=== PATIENT | female | born 1930 | race Caucasian/White ===

== ENCOUNTER 2016-10-12 19:48 | Inpatient (IN) | payer OTHER, MEDICARE ==
[~2016-10-12] VITALS: Ht 160 cm; Wt 48.5 kg
[~2016-10-12 19:48] MED LIST: ATORVASTATIN CA40 M1 PO; LISINOPRIL10 M1 PO; METOPROLOL TART25 M1 PO; PRADAXA150 M1 PO
--- NOTE | 2016-10-12 19:50 | NUR ---
BIBA AFTER FALLING WHEN REACHING FOR BOTTLE OF SODA. LANDED ON LEFT SHOULDER AND BACK. DENIES HEAD STRIKE OR LOC. LEFT SHOULDER PAIN. + MOTION, SENSATION IN LEFT HAND. LEFT SHOULD IN IMMOBILIZER. EMS UNABLE TO PLACE C COLLAR, THEY WRAPPED SHEET AROUND NECK TO STABALIZE NECK. PT AWAKE, ALERT AND ORIENTED X3.
--- NOTE | 2016-10-12 20:00 | ED MVC/FALL/TRAUMA COMPLAINT ---
History of Present Illness General Chief Complaint: Fall Stated Complaint: FELL, LEFT SHOULDER INJURY, NO LOC Source: patient Exam Limitations: no limitations Vital Signs & Intake/Output Vital Signs & Intake/Output Vital Signs Date Time Temp Pulse Resp B/P Pulse O2 O2 Flow FiO2 Ox Delivery Rate 10/13 0907 96.9 87 18 175/81 10/13 0907 96.9 87 18 175/81 10/13 0906 96.9 87 18 175/81 10/13 0650 96.9 87 18 175/81 96 Room Air 10/13 0300 98.7 85 18 154/88 96 Room Air 10/12 2205 98.8 87 18 172/90 95 Room Air 10/12 2048 Room Air 10/12 1950 97.6 81 18 133/102 98 Room Air ED Intake and Output 10/13 0000 10/12 1200 Intake Total Output Total Balance Patient 105 lb Weight Allergies Coded Allergies: No Known Allergies (04/22/16) Reconcile Medications Apixaban (Eliquis) 2.5 MG TABLET 1 TAB PO BID BLOOD THINNER (Reported) Atorvastatin Calcium 40 MG TABLET 1 TAB PO 1700 High Cholestrol Lisinopril 10 MG TABLET 1 TAB PO DAILY High Blood Pressure Metoprolol Tartrate 25 MG TABLET 0.5 TAB PO BID HEART/BP (Reported) Triage Note: BIBA AFTER FALLING WHEN REACHING FOR BOTTLE OF SODA. LANDED ON LEFT SHOULDER AND BACK. DENIES HEAD STRIKE OR LOC. LEFT SHOULDER PAIN. + MOTION, SENSATION IN LEFT HAND. LEFT SHOULD IN IMMOBILIZER. EMS UNABLE TO PLACE C COLLAR, THEY WRAPPED SHEET AROUND NECK TO STABALIZE NECK. PT AWAKE, ALERT AND ORIENTED X3. Triage Nurses Notes Reviewed? yes Onset: Abrupt Duration: minute(s): Timing: single episode today Severity: moderate Injuries/Fall Location: upper extremity Method of Injury: fall Loss of Consciousness: no loss of consciousness Modifying Factors: Worsens With: movement, palpation. Associated Symptoms: left shoulder pain HPI: 85-year-old woman history of a fall and left shoulder pain. She states that she was reaching for a bottle of soda when she had a mechanical fall. She landed on her left shoulder. She did not hit her head she did not lose consciousness. She has no further pain or discomfort. She notes that she has pain with slight movement of her left shoulder. No chest pain, palpitations, syncopal type symptoms. She is otherwise well. She declines pain medications (NANY JAMES,VIKRAM Moreno) Past History Travel History Traveled to [place] past 21 day No Medical History Any Pertinent Medical History? see below for history Neurological: subdural hematoma Subarachnoid Hemorrhage () Falls EENT: NONE Cardiovascular: AFIB Respiratory: NONE Gastrointestinal: NONE Hepatic: NONE Renal: NONE Musculoskeletal: NONE Psychiatric: NONE Endocrine: NONE Blood Disorders: NONE Cancer(s): NONE History of MRSA: No History of VRE: No History of CDIFF: No Surgical History Surgical History: non-contributory Psychosocial History Who do you live with Spouse Services at Home Nursing What is your primary language Lithuanian Tobacco Use: Never used ETOH Use: denies use Illicit Drug Use: denies illicit drug use Family History Family History, If Any: Relation not specified for: *No pertinent family history Hx Contributory? No (NANY JAMES,VIKRAM Moreno) Review of Systems Review of Systems Constitutional: Reports: no symptoms. Eyes: Reports: no symptoms. Ears, Nose, Throat, Mouth: Reports: no symptoms. Respiratory: Reports: no symptoms. Cardiovascular: Reports: no symptoms. Gastrointestinal/Abdominal: Reports: no symptoms. Genitourinary: Reports: no symptoms. Musculoskeletal: Reports: no symptoms. Skin: Reports: no symptoms. Neurological/Psychological: Reports: no symptoms. All Other Systems: Reviewed and Negative (NANY JAMES,VIKRAM Moreno) Physical Exam Physical Exam General Appearance: well developed/nourished, mild distress Head: atraumatic, normal appearance Eyes: Bilateral: normal appearance. Ears, Nose, Throat, Mouth: hearing grossly normal Neck: normal inspection, supple, full range of motion, normal alignment Respiratory: normal breath sounds, chest non-tender, no respiratory distress, quiet respiration, lungs clear Cardiovascular: regular rate/rhythm Gastrointestinal: normal bowel sounds, soft, non-tender, no organomegaly Back: normal inspection, normal range of motion Extremities: shoulder with moderate tenderness around the left shoulder girdle. No obvious deformity. 2+ distal pulse. Light touch intact. No pain or tenderness around the left elbow or left wrist. Pelvis is stable. Range of motion of both hips is normal. Neurologic/Psych: no motor/sensory deficits, awake, alert, oriented x 3 Skin: intact, normal color, warm/dry Core Measures ACS in differential dx? No Severe Sepsis Present: No Septic Shock Present: No (NANY JAMES,VIKRAM Moreno) Progress Differential Diagnosis: C/T/L spine injury, ext injury, ICH Plan of Care: Orders Procedure Date/time Status Heart Healthy Diet 10/13 B Active Admit to inpatient 10/13 0945 Active PT Evaluate & Treat 10/13 0755 Active TROPONIN LEVEL 10/13 0230 Complete EKG 10/13 229 Active URINALYSIS 10/13 2211 Complete TROPONIN LEVEL 10/13 2211 Complete COMPREHENSIVE METABOLIC PANEL 10/13 2211 Complete CBC WITHOUT DIFFERENTIAL 10/13 2211 Complete CASE MANAGEMENT CONSULT 10/13 2211 Active Current Medications Sig/Chava Start time Last Medication Dose Stop Time Status Admin Atorvastatin Calcium 40 MG 1700 10/13 1700 UNVr (Lipitor) Metoprolol Tartrate 12.5 MG BID 10/13 1000 UNVr (Lopressor) Laboratory Tests 10/13/16 0248: Troponin I 0.03 10/12/16 2258: Anion Gap 9, Estimated GFR > 60, BUN/Creatinine Ratio 28.3 H, Glucose 119 H, Calcium 9.0, Total Bilirubin 1.9 H, AST 31, ALT 50, Alkaline Phosphatase 161 H , Troponin I 0.03, Total Protein 6.7, Albumin 3.6, Globulin 3.1, Albumin/ Globulin Ratio 1.2 10/12/16 2230: Urine Color YEL, Urine Clarity CLEAR, Urine pH 8.0, Ur Specific [place] 1.020, Urine Protein TRACE H, Urine Ketones NEG, Urine Nitrite NEG, Urine Bilirubin NEG, Urine Urobilinogen 0.2, Ur Leukocyte Esterase NEG, Ur Microscopic SEDIMENT EXAMINED, Urine RBC RARE, Urine WBC 1-3 H, Ur Epithelial Cells FEW, Urine Bacteria FEW H, Urine Mucus RARE, Urine Hemoglobin TRACE-INTACT, Urine Glucose NEG 10/12/16 2223: CBC w Diff NO MAN DIFF REQ, RBC 4.41, MCV 86.3, MCH 29.0, RDW 20.3 H, MPV 10.0, Gran % 89.9 H, Lymphocytes % 5.7 L, Monocytes % 4.1, Eosinophils % 0.1, Basophils % 0.2, Absolute Granulocytes 13.6 H, Absolute Lymphocytes 0.9 L, Absolute Monocytes 0.6, Absolute Eosinophils 0, Absolute Basophils 0, PUBS MCHC 33.6 Diagnostic Imaging: Viewed by Me: Radiology Read, CT Scan. Discussed w/RAD: Radiology Read, CT Scan. Radiology Impression: head/cervical ct.... age related changes.. .no acute bleed /fx...full report below. , ap pelvis... left pubic rami fx. , left shoulder... prox humerus fx... full report below. CXR Impression: no acute abnormality, no infiltrates, normal size heart, normal mediastinum Initial ED EKG: normal axis, normal intervals, normal p-waves, normal QRS complex, normal sinus rhythm Repeat EKG: unchanged Hand-Off Endorsed To: LOUIS URBANO MD Endorsed Time: 0700 Pending: consult Comments: PATIENT: JACOB MCMILLAN PRESENT AGE: 85 PATIENT ACCOUNT NO: [id number] : [birth year] LOCATION: [facility] ORDERING PHYSICIAN: VIKRAM AYON MD SERVICE DATE: 10/12/16 EXAM TYPE: RAD - XRY-SHOULDER COMPLETE-LEFT EXAMINATION: SHOULDER 3 VIEWS, LEFT CLINICAL INFORMATION: Left shoulder pain after fall. COMPARISON: None. TECHNIQUE: AP views of the left shoulder were obtained in internal and external rotation. In addition, a Y view was obtained. FINDINGS: There is a nondisplaced left humeral neck fracture. Alignment is adequate. The humeral head is seated within a well-formed glenoid. The AC joint is intact. IMPRESSION: Nondisplaced left humeral neck fracture. DICTATED BY: VICTOR MANUEL MOLINA MD DATE/TIME DICTATED:10/12/162057 NEW PRODUCT TRAINER:MIKAEL DATE/TIME TRANSCRIBED:10/12/162057 CONFIDENTIAL, DO NOT COPY WITHOUT APPROPRIATE AUTHORIZATION. <Electronically signed in Other Vendor System> SIGNED BY: VICTOR MANUEL MOLINA MD 10/12/162102 PATIENT: JACOB MCMILLAN PRESENT AGE: 85 PATIENT ACCOUNT NO: [id number] : [birth year] LOCATION: ER ORDERING PHYSICIAN: VIKRAM AOYN MD SERVICE DATE: 10/12/16 EXAM TYPE: RAD - XRY-AP PELVIS EXAMINATION: PELVIS 1 VIEW CLINICAL INFORMATION: Left-sided pain after fall. COMPARISON: None. TECHNIQUE: A supine view of the pelvis is provided. FINDINGS: There is a fracture to the medial left superior pubic ramus near the pubic symphysis. Both femoral heads are seated within well-formed acetabula. No dysplastic changes are identified. There is medial joint space narrowing to the chest. The visualized bowel gas pattern is unremarkable. IMPRESSION: Left pubic ramus fracture. Mild medial hip joint space narrowing bilaterally. DICTATED BY: VICTOR MANUEL MOLINA MD DATE/TIME DICTATED:10/12/162099 NEW PRODUCT TRAINER:MIKAEL DATE/TIME TRANSCRIBED:10/12/162099 CONFIDENTIAL, DO NOT COPY WITHOUT APPROPRIATE AUTHORIZATION. <Electronically signed in Other Vendor System> SIGNED BY: VICTOR MANUEL MOLINA MD 10/12/162104 PATIENT: JACOB MCMILLAN PRESENT AGE: 85 PATIENT ACCOUNT NO: [id number] : [birth year] LOCATION: [facility] ORDERING PHYSICIAN: VIKRAM AYON MD SERVICE DATE: 10/12/16 EXAM TYPE: CAT - CT CERV SPINE WO IV CONTRAST; CT HEAD WO IV CONTRAST EXAMINATIONS: CT HEAD WITHOUT CONTRAST AND CT CERVICAL SPINE WITHOUT CONTRAST CLINICAL INFORMATION: Pain following injury. Trauma. COMPARISON: 04/22/2016. TECHNIQUE: Contiguous helical images of the brain were obtained without IV contrast. Contiguous helical images of the cervical spine were obtained without IV contrast. Multiplanar reconstructions were performed. DLP: 922 mGy-cm. FINDINGS: There are no pathologic extra-axial fluid collections. Very mild dural thickening on the left is likely residua of the prior left subdural hemorrhage. The lateral, third, fourth ventricles are mildly prominent, but stable, age-appropriate and concordant with the appearance of the sulci. There is no evidence for acute intraparenchymal hemorrhage or infarct. There is periventricular low-attenuation present indicative of small vessel disease. There is neither mass nor mass effect. There is no shift of midline structures. The paranasal sinuses and mastoid air cells are clear. There are no osseous lesions. The cervical vertebra are in normal alignment. Disc heights and vertebral heights are well-preserved. There is degenerative change within the facet joints of the cervical spine. There are no fractures. There is no prevertebral soft tissue swelling. There is no cervical lymphadenopathy. There is a moderate right pleural effusion. IMPRESSION: No evidence for acute intracranial injury. Age-appropriate appearance of the brain. No evidence for acute injury to the cervical spine. Moderate right pleural effusion. DICTATED BY: VICTOR MANUEL MOLINA MD DATE/TIME DICTATED:10/12/162124 NEW PRODUCT TRAINER:MIKAEL DATE/TIME TRANSCRIBED:10/12/162124 CONFIDENTIAL, DO NOT COPY WITHOUT APPROPRIATE AUTHORIZATION. <Electronically signed in Other Vendor System> SIGNED BY: VICTOR MANUEL MOLINA MD 10/12/162135 (VIKRAM AYON MD) Comments: Patient has been seen and evaluated by physical therapy. Patient is unsafe to go home. Secondary to her gait instability. Patient is also unable to use a walker given the fact that she also has a fractured humerus. At this point the patient will require admission for K instability and unsafe environment at home given her current circumstances. Patient will require short-term rehabilitation. (YOLIE JAMES,LOUIS Fernandez) Departure Departure Disposition: HOME OR SELF CARE Condition: Stable Clinical Impression Primary Impression: Proximal humerus fracture Secondary Impressions: Pubic ramus fracture Referrals: VICTOR MANUEL RAM MD (PCP/Family) Departure Forms: Customer Survey General Discharge Information Comments trop neg x 2, ekg benign x2... other labs benign.... no syncopal type symptoms or chest pain... likely mechanical fall. sling placed on left shoulder by . pt unsafe at home... will have case management and PT evaluate patient for inpt rehab. (NANY JAMES,VIKRAM Moreno) Admission Note Spoke With: ALEJANDRA DO MD Documentation of Exam: Documentation of any treatments & extenuating circumstances including Concerns Regarding Discharge (functional status, medication knowledge or non-compliance, living conditions, etc.) that warrant an admission rather than observation: [ Patient has an unsafe environment at home given the fact that she is very unsteady on her feet given the pubic rami fracture and her inability to use a walker secondary to her humeral fracture. Patient requires admission for pain control and continued physical therapy and then she'll require short-term placement.] (YOLIE JAMES,LOUIS Fernandez)
--- NOTE | 2016-10-12 20:09 | NUR ---
RECIEVED TO ROOM 8. PT AWAKE, ALERT, LAYING QUIETLY WITH EYES CLOSED. COMPLAINING OF LEFT SHOULDER PAIN THAT IS "NOT TOO BAD LONG YOU DONT TOUCH IT". SEEN BY DR AYON. IV CURRENTLY BEING PLACED.
--- NOTE | 2016-10-12 20:10 | NUR ---
AT BEDSIDE. STATES HE GAVE AMBULANCE STAFF A BAG OF PATIENTS MEDS. NO BAG GIVEN TO ED STAFF. WILL TRY TO CONTACT AMBULANCE CREW TO OBTAIN MEDS
[2016-10-12] MEDS ORDERED: METOPROLOL TART25 M1 PO (20:39)
[2016-10-12] MEDS ORDERED: ELIQUIS2.5 M1 PO (20:39)
--- NOTE | 2016-10-12 20:46 | NUR ---
PT SENT AND RETURNED FROM XRAY. LOGROLLED AND PLACED ON BEDPAIN. CURRENTLY TRYING TO VOID. PT REMAINS AWAKE AND ALERT BUT IS LAYING VERY STILL AND QUIET, KEEPING EYES CLOSED
--- NOTE | 2016-10-12 20:55 | NUR ---
PT UNABLE TO VOID. TAKEN OFF BEDPAN. GIVEN EXTRA BLANKETS DUE TO BEING COLD
--- NOTE | 2016-10-12 21:02 | RADIOLOGY REPORT ---
EXAMINATION: CHEST 1 VIEW CLINICAL INFORMATION: Left shoulder pain after fall. COMPARISON: None. TECHNIQUE: An AP view of the chest is provided. FINDINGS: The cardiac silhouette is not enlarged. The mediastinal and hilar contours are unremarkable. There are neither pleural effusions nor pneumothoraces. There are no consolidations. The osseous structures are unremarkable. IMPRESSION: No evidence for acute disease.
--- NOTE | 2016-10-12 21:03 | RADIOLOGY REPORT ---
EXAMINATION: SHOULDER 3 VIEWS, LEFT CLINICAL INFORMATION: Left shoulder pain after fall. COMPARISON: None. TECHNIQUE: AP views of the left shoulder were obtained in internal and external rotation. In addition, a Y view was obtained. FINDINGS: There is a nondisplaced left humeral neck fracture. Alignment is adequate. The humeral head is seated within a well-formed glenoid. The AC joint is intact. IMPRESSION: Nondisplaced left humeral neck fracture.
--- NOTE | 2016-10-12 21:05 | RADIOLOGY REPORT ---
EXAMINATION: PELVIS 1 VIEW CLINICAL INFORMATION: Left-sided pain after fall. COMPARISON: None. TECHNIQUE: A supine view of the pelvis is provided. FINDINGS: There is a fracture to the medial left superior pubic ramus near the pubic symphysis. Both femoral heads are seated within well-formed acetabula. No dysplastic changes are identified. There is medial joint space narrowing to the chest. The visualized bowel gas pattern is unremarkable. IMPRESSION: Left pubic ramus fracture. Mild medial hip joint space narrowing bilaterally.
--- NOTE | 2016-10-12 21:36 | CT SCAN REPORT ---
EXAMINATIONS: CT HEAD WITHOUT CONTRAST AND CT CERVICAL SPINE WITHOUT CONTRAST CLINICAL INFORMATION: Pain following injury. Trauma. COMPARISON: 04/22/2016. TECHNIQUE: Contiguous helical images of the brain were obtained without IV contrast. Contiguous helical images of the cervical spine were obtained without IV contrast. Multiplanar reconstructions were performed. DLP: 922 mGy-cm. FINDINGS: There are no pathologic extra-axial fluid collections. Very mild dural thickening on the left is likely residua of the prior left subdural hemorrhage. The lateral, third, fourth ventricles are mildly prominent, but stable, age-appropriate and concordant with the appearance of the sulci. There is no evidence for acute intraparenchymal hemorrhage or infarct. There is periventricular low-attenuation present indicative of small vessel disease. There is neither mass nor mass effect. There is no shift of midline structures. The paranasal sinuses and mastoid air cells are clear. There are no osseous lesions. The cervical vertebra are in normal alignment. Disc heights and vertebral heights are well-preserved. There is degenerative change within the facet joints of the cervical spine. There are no fractures. There is no prevertebral soft tissue swelling. There is no cervical lymphadenopathy. There is a moderate right pleural effusion. IMPRESSION: No evidence for acute intracranial injury. Age-appropriate appearance of the brain. No evidence for acute injury to the cervical spine. Moderate right pleural effusion.
--- NOTE | 2016-10-12 21:42 | NUR ---
HSB AT BEDSIDE, HE WAS PROVIDED BOX MEAL PER HIS REQUEST
--- NOTE | 2016-10-12 21:42 | NUR ---
PT WAS INCONTINENT OF URINE. LOG ROLLED FOR LINEN CHANGE
--- NOTE | 2016-10-12 22:15 | NUR ---
DR AYON IN TO REVIEW TEST RESULTS. SHEET AROUND NECK REMOVED. EMS SLING REMOVED AND LEFT SHOULDER IMMOBILIZER PLACED ON PT. PLAN OF CARE REVIEWED WITH PT. PT TO STAY IN ED UNTIL SEEN BY PT AND CASE MANAGEMENT TO DECIDE IF SHE CAN GO HOME OR GO TO SHORT TERM REHAB. PT ALLOWED TO EAT AND GET UP TOLERATED.
--- NOTE | 2016-10-12 22:35 | NUR ---
LABS DRAWN, URINE TRIO SENT TO LAB
[2016-10-12 22:45] LABS: ABSOLUTE BASOPHIL COUNT 0 /CUMM (0.0-0.2); ABSOLUTE EOSINOPHIL COUNT 0 /CUMM (0.0-0.7); ABSOLUTE GRANULOCYTE CT 13.6 /CUMM (1.4-6.5); ABSOLUTE LYMPH COUNT 0.9 /CUMM (1.2-3.4); ABSOLUTE MONOCYTE COUNT 0.6 /CUMM (0.10-0.60); BASOPHIL % 0.2 % (0.0-2.0); EOSINOPHIL % 0.1 % (0-5); GRANULOCYTE % 89.9 % (42.2-75.2); HEMATOCRIT 38.1 % (37-47); MEAN CORPUSCULAR HGB CONC 33.6 G/DL (33.0-37.0); MEAN CORPUSCULAR VOLUME 86.3 FL (81.0-99.0); PLATELET COUNT 111 /CUMM (130-400); RBC DISTRIBUTION WIDTH 20.3 % (11.5-14.5); RED BLOOD CELL CT 4.41 /CUMM (4.20-5.40); WHITE BLOOD CELL COUNT 15.1 /CUMM (4.8-10.8)
--- NOTE | 2016-10-12 23:08 | NUR ---
PT GIVEN IV TYLENOL AND IVF INFUSING AT 250CC/HR. HOB RAISED AND PT ATE HALF A SANDWICH.
--- NOTE | 2016-10-13 00:04 | NUR ---
PT INCONTINENT OF URINE. INCONTINENCE CARE PROVIDED. PT DENIES ANY OTHER NEEDS AT THIS TIME.
--- NOTE | 2016-10-13 02:45 | NUR ---
PT AWAKE AND ALERT FOR REPEAT BLOOD WORK AND EKG. DENIES COMPLAINTS AT THIS TIME. WILL CTM.
--- NOTE | 2016-10-13 02:54 | NUR ---
SECOND TROP DRAWN AND SENT TO LAB
--- NOTE | 2016-10-13 04:50 | NUR ---
PT SLEEPING WITH REGULAR RR NOTED. WILL CTM.
--- NOTE | 2016-10-13 05:18 | NUR ---
PT INCONTINENT OF URINE. INCONTINENCE CARE PROVIDED. LINENS CHANGED AND PT PROVIDED WITH ADDITIONAL BLANKETS PER REQUEST.
--- NOTE | 2016-10-13 07:00 | NUR ---
PT AWAKE AND ALERT. VSS. REPOSITIONED IN BED. PT DENIES ANY PAIN OR ANY NEEDS AT THIS TIME.
--- NOTE | 2016-10-13 07:14 | NUR ---
REPORT RECEIVED AND CARE ASSUMED.
--- NOTE | 2016-10-13 08:56 | NUR ---
PT NOW AT THE BEDSIDE FOR EVAL.
--- NOTE | 2016-10-13 09:11 | NUR ---
ALL MORNING MEDS PROVIDED.
--- NOTE | 2016-10-13 09:47 | NUR ---
RECOMMENDED BY PT, SHE WILL REQUIRE REHABILITATION.
--- NOTE | 2016-10-13 10:43 | History & Physical ---
General Information and HPI MD Statement: I have seen and personally examined JACOB MCMILLAN and documented this H&P. The patient is a 85 year old F who presented with a patient stated chief complaint of [fall]. History of Present Illness: This is an 85-year-old lady with a past history of atrial fibrillation, hypertension, hyperlipidemia, TIA in March 2016 who presents to the emergency room after a mechanical fall onto her left shoulder. 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 Denies any loss of consciousness or head strike. Denies any chest pain, shortness of breath, nausea, vomiting, diarrhea fevers chills recently or sickcontacts. Her only complaint at present is left shoulder discomfort. Allergies/Medications Allergies: Coded Allergies: No Known Allergies (04/22/16) Home Med list Apixaban (Eliquis) 2.5 MG TABLET 1 TAB PO BID BLOOD THINNER (Reported) Atorvastatin Calcium 40 MG TABLET 1 TAB PO 1700 High Cholestrol Lisinopril 10 MG TABLET 1 TAB PO DAILY High Blood Pressure Metoprolol Tartrate 25 MG TABLET 0.5 TAB PO BID HEART/BP (Reported) Past History Travel History Traveled to [place] past 21 day No Medical History Neurological: subdural hematoma Subarachnoid Hemorrhage () Falls EENT: NONE Cardiovascular: AFIB Respiratory: NONE Gastrointestinal: NONE Hepatic: NONE Renal: NONE Musculoskeletal: NONE Psychiatric: NONE Endocrine: NONE Blood Disorders: NONE Cancer(s): NONE History of MRSA: No History of VRE: No History of CDIFF: No Surgical History Surgical History: non-contributory Past Family/Social History Family History Relations & Conditions if any Relation not specified for: *No pertinent family history Psychosocial History Who Do You Live With? spouse Services at Home: Nursing Primary Language: Bulgarian ETOH Use: denies use Illicit Drug Use: denies illicit drug use Functional Ability ADLs Independent: dressing, eating, toileting, bathing. Ambulation: cane, walker IADLs Independent: shopping, housework, finances, food prep, telephone, transportation , medication admin. Review of Systems Review of Systems Constitutional: Reports: see HPI. Exam & Diagnostic Data Last 24 Hrs of Vital Signs/I&O Vital Signs Date Time Temp Pulse Resp B/P Pulse O2 O2 Flow FiO2 Ox Delivery Rate 10/13 0948 97.3 82 18 136/81 97 Room Air 10/13 0907 96.9 87 18 175/81 10/13 0907 96.9 87 18 175/81 10/13 0906 96.9 87 18 175/81 10/13 0650 96.9 87 18 175/81 96 Room Air 10/13 0300 98.7 85 18 154/88 96 Room Air 10/12 2205 98.8 87 18 172/90 95 Room Air 10/12 2048 Room Air 10/12 1950 97.6 81 18 133/102 98 Room Air Intake & Output 10/13 1600 10/13 0800 10/13 0000 Intake Total Output Total 200 Balance -200 Output, Urine 200 Patient 105 lb Weight Physical Exam General Appearance Alert, Oriented X3, Cooperative, No Acute Distress HEENT Atraumatic, PERRLA, EOMI Cardiovascular Normal S1, Normal S2, irregular rate Lungs Clear to Auscultation, Normal Air Movement Abdomen Normal Bowel Sounds, Soft, No Tenderness Neurological Normal Speech, Normal Tone, Sensation Intact, Cranial Nerves 3-12 NL, left arm in sling Extremities No Clubbing, No Cyanosis Diagnostic Data EKG Results Atrial fibrillation CXR Results X-ray shoulder IMPRESSION: Nondisplaced left humeral neck fracture. X-ray of pelvis IMPRESSION: Left pubic ramus fracture. Mild medial hip joint space narrowing bilaterally. CAT scan of the head and C-spine IMPRESSION: No evidence for acute intracranial injury. Age-appropriate appearance of the brain. No evidence for acute injury to the cervical spine. Moderate right pleural effusion. Chest x-ray IMPRESSION: No evidence for acute disease. Assessment/Plan Assessment: Assessment- 1. Mechanical fall 2. Humerus and pubic rami fractures secondary to fall 3. Reactive leukocytosis 4. Chronic atrial fibrillation 5. Hypertension 6. Hyperlipidemia 7. History of TIA Plan- GEN med admit Vitals per protocol Orthopaedic consult Continue home meds Pain pathway Heart healthy diet PT evaluation and treatment DVT prophylaxis been addressed with Eliquis Full code As Ranked By This Provider Problem List: 1. Pubic ramus fracture 2. Proximal humerus fracture 3. Full code status 4. Atrial fibrillation 5. DVT prophylaxis Core Measures/Miscellaneous Acute Coronary Syndrome ACS Diagnosis: No Cerebrovascular Accident CVA/TIA Diagnosis: No Congestive Heart Failure CHF Diagnosis: No Venous Thromboembolism VTE Risk Factors: Age > 40 No Mech VTE prophylaxis d/t: No contraindications No VTE Pharm Prophylaxis d/t: No contraindications VTE Diagnosis: No VTE Type: NONE VTE Confirmed by (Test): NONE Severe Sepsis Severe Sepsis Present: No Septic Shock Septic Shock Present: No Miscellaneous Documentation Attending Case Discussed With: CHANNING EDMONDS M.D Primary Care Physician: VICTOR MANUEL RAM MD Patient sees these Specialists DR. BENAVIDES Level of Patient Care: General Medicine Resident Review Statement Resident Statement: examined this patient
--- NOTE | 2016-10-13 11:36 | Cons- Orthopedic ---
General Information and HPI Consulting Request Date of Consult: 10/13/16 Requested By: CHANNING EDMONDS M.D Reason for Consult: Left proximal humerus fracture Left superior ramus fracture Source of Information: patient History of Present Illness: 85yo F presented to the [place] [facility] following a mechanical ground level fall on . She was found to have a left proximal humerus fracture and a left superior ramus fracture. Currently complaining of left shoulder pain but denies left hip pain. Denies hitting her head and says she remembers everything. Allergies/Medications Allergies: Coded Allergies: No Known Allergies (04/22/16) Home Med List: Apixaban (Eliquis) 2.5 MG TABLET 1 TAB PO BID BLOOD THINNER (Reported) Atorvastatin Calcium 40 MG TABLET 1 TAB PO 1700 High Cholestrol Lisinopril 10 MG TABLET 1 TAB PO DAILY High Blood Pressure Metoprolol Tartrate 25 MG TABLET 0.5 TAB PO BID HEART/BP (Reported) Past History Medical History Neurological: subdural hematoma Subarachnoid Hemorrhage () Falls EENT: NONE Cardiovascular: AFIB Respiratory: NONE Gastrointestinal: NONE Hepatic: NONE Renal: NONE Musculoskeletal: NONE Psychiatric: NONE Endocrine: NONE Blood Disorders: NONE Cancer(s): NONE Surgical History Pertinent Surgical History: non-contributory Family History Relations & Conditions If Any: Relation not specified for: *No pertinent family history Psychosocial History Who Do You Live With? spouse Services at Home: Nursing Primary Language: American ETOH Use: denies use Illicit Drug Use: denies illicit drug use Functional Ability ADLs Independent: dressing, eating, toileting, bathing. Ambulation: cane, walker IADLs Independent: shopping, housework, finances, food prep, telephone, transportation , medication admin. Exam & Diagnostic Data Vital Signs and I&O Vital Signs Date Time Temp Pulse Resp B/P Pulse O2 O2 Flow FiO2 Ox Delivery Rate 10/13 0948 97.3 82 18 136/81 97 Room Air 10/13 0907 96.9 87 18 175/10/13 0907 96.9 87 18 175/81 10/13 0906 96.9 87 18 175/10/13 0650 96.9 87 18 175/81 96 Room Air 10/13 0300 98.7 85 18 154/88 96 Room Air 10/12 2205 98.8 87 18 172/90 95 Room Air 10/128 Room Air 10/12 1950 97.6 81 18 133/102 98 Room Air Intake & Output 10/13 0810/13 0000 10/12 0810/12 0000 Intake Total Output Total 200 Balance -200 Output, Urine 200 Patient 105 lb Weight Physical Exam: General: Alert, awake, in no acute distess. Laying on stretcher with left arm in sling. Left Upper Extremity: Ecchymosis to left distal arm. 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 Palpable radial pulse. Pelvis/Left Hip: No tenderness on palpation of pelvis. Pain in left arm with log roll of left leg, but no pelvis pain. No tenderness over bilateral lower legs or knees Intact DF/PF of bilateral feet. Sensation intact to light touch over bilateral feet. Last 24 Hours of Labs: Laboratory Tests 10/13 10/12 10/12 0248 2258 2230 Chemistry Sodium (137 - 145 mmol/L) 136 L Potassium (3.5 - 5.1 mmol/L) 3.9 Chloride (98 - 107 mmol/L) 102 Carbon Dioxide (22 - 30 mmol/L) 25 Anion Gap (5 - 16) 9 BUN (7 - 17 mg/dL) 17 Creatinine (0.5 - 1.0 mg/dL) 0.6 Estimated GFR (>60 ml/min) > 60 BUN/Creatinine Ratio (7 - 25 %) 28.3 H Glucose (65 - 99 mg/dL) 119 H Calcium (8.4 - 10.2 mg/dL) 9.0 Total Bilirubin (0.2 - 1.3 mg/dL) 1.9 H AST (14 - 36 U/L) 31 ALT (9 - 52 U/L) 50 Alkaline Phosphatase (<127 U/L) 161 H Troponin I (< 0.11 ng/ml) 0.03 0.03 Total Protein (6.3 - 8.2 g/dL) 6.7 Albumin (3.5 - 5.0 g/dL) 3.6 Globulin (1.9 - 4.2 gm/dL) 3.1 Albumin/Globulin Ratio (1.1 - 2.2 %) 1.2 Urines Urine Color (YEL,AMB,STR) YEL Urine Clarity (CLEAR) CLEAR Urine pH (5.0 - 8.0) 8.0 Ur Specific [place] (1.001 - 1.035) 1.020 Urine Protein (NEG,<30 MG/DL) TRACE H Urine Ketones (NEG) NEG Urine Nitrite (NEG) NEG Urine Bilirubin (NEG) NEG Urine Urobilinogen (0.1 - 1.0 EU/dl) 0.2 Ur Leukocyte Esterase (NEG) NEG Ur Microscopic SEDIMENT EXAMINED Urine RBC (0 - 5 /HPF) RARE Urine WBC (0 - 2 /HPF) 1-3 H Ur Epithelial Cells (NONE,FEW) FEW Urine Bacteria (NEG/NONE) FEW H Urine Mucus (FEW,NONE) RARE Urine Hemoglobin (NEG) TRACE-INTACT Urine Glucose (N MG/DL) NEG 10/12 2222 Hematology CBC w Diff NO MAN DIFF REQ WBC (4.8 - 10.8 /CUMM) 15.1 H RBC (4.20 - 5.40 /CUMM) 4.41 Hgb (12.0 - 16.0 G/DL) 12.8 Hct (37 - 47 %) 38.1 MCV (81.0 - 99.0 FL) 86.3 MCH (27.0 - 31.0 PG) 29.0 RDW (11.5 - 14.5 %) 20.3 H Plt Count (130 - 400 /CUMM) 111 L MPV (7.4 - 10.4 FL) 10.0 Gran % (42.2 - 75.2 %) 89.9 H Lymphocytes % (20.5 - 51.1 %) 5.7 L Monocytes % (1.7 - 9.3 %) 4.1 Eosinophils % (0 - 5 %) 0.1 Basophils % (0.0 - 2.0 %) 0.2 Absolute Granulocytes (1.4 - 6.5 /CUMM) 13.6 H Absolute Lymphocytes (1.2 - 3.4 /CUMM) 0.9 L Absolute Monocytes (0.10 - 0.60 /CUMM) 0.6 Absolute Eosinophils (0.0 - 0.7 /CUMM) 0 Absolute Basophils (0.0 - 0.2 /CUMM) 0 PUBS MCHC (33.0 - 37.0 G/DL) 33.6 Imaging Results: XR left shoulder (10/12/2016): There is a nondisplaced left humeral neck fracture. Alignment is adequate. The humeral head is seated within a well-formed glenoid. The AC joint is intact. XR pelvis (10/12/2016): There is a fracture to the medial left superior pubic ramus near the pubic symphysis. Both femoral heads are seated within well-formed acetabula. Assessment/Plan Assessment/Plan 85yo RHD female with left proximal humerus fracture and left superior ramus fracture s/p ground level fall. Plan: 1. Sling to left upper extremity; non-weight bearing left arm. 2. Weight bearing as tolerated bilateral lower legs. 3. Pain control 4. Mobilization with PT and OT. 5. Recommend removal of rings from right hand. 6. Please have patient follow up in clinic in 2-3 weeks for reevaluation. Consult Acknowledgment - Thank you for your consult request. Attending Review Statement Attending Statement Attending Statement: examined this patient, reviewed images
--- NOTE | 2016-10-13 12:04 | NUR ---
PT AT RADIOLOGY
--- NOTE | 2016-10-13 12:08 | NUR ---
PT NOW BACK FROM RADIOLOGY.
--- NOTE | 2016-10-13 12:25 | RADIOLOGY REPORT ---
EXAMINATION: XR CHEST CLINICAL INFORMATION: Evaluate for effusion COMPARISON: None TECHNIQUE: 2 views of the chest were obtained. FINDINGS: Probable bilateral effusions here. Blunting the posterior costophrenic angles. There is no failure at this time. No effusion. The heart size is prominent but this is an AP film. Underlying atelectasis or infiltrate at the bases cannot be excluded. IMPRESSION: Bilateral small effusions are documented here. Underlying atelectasis or infiltrate cannot be excluded. No failure at this time
--- NOTE | 2016-10-13 13:30 | NUR ---
PERCOCET PROVIDED FOR PAIN
--- NOTE | 2016-10-13 14:02 | NUR ---
REPORTS PAIN DECREASED TO 3/10 AT THIS TIME POST PERCOCET.
--- NOTE | 2016-10-13 15:07 | NUR ---
ASSUMING CARE OF PT AT THIS TIME
--- NOTE | 2016-10-13 15:35 | NUR ---
PT ASSISTED ON AND OFF BEDPAN. VOIDED 200ML YELLOW URINE. CALL OVALLES WITHIN REACH. OFFERS NO OTHER COMPLAINTS OR REQUESTS AT THIS TIME
--- NOTE | 2016-10-13 17:26 | NUR ---
CUSTOM DINNER TRAY ORDERED PER PT'S REQUEST
--- NOTE | 2016-10-13 17:37 | NUR ---
BED ASSIGNMENT [id number]
--- NOTE | 2016-10-13 18:28 | NUR ---
REPORT GIVEN TO LUKE BALLARD
--- NOTE | 2016-10-13 18:55 | NUR ---
PT ASSISTED IN EATING. 75% CONSUMED
[2016-10-13 19:40] VITALS: BP 120/60
[2016-10-13 21:52] VITALS: BP 118/62
[2016-10-14 06:26] VITALS: BP 110/70
[2016-10-14 07:46] LABS: ABSOLUTE EOSINOPHIL COUNT 0.2 /CUMM (0.0-0.7); ABSOLUTE LYMPH COUNT 1.5 /CUMM (1.2-3.4); ABSOLUTE MONOCYTE COUNT 0.7 /CUMM (0.10-0.60); MEAN PLATELET VOLUME 10.3 FL (7.4-10.4); PLATELET COUNT 103 /CUMM (130-400)
[2016-10-14 08:16] LABS: ABSOLUTE BASOPHIL COUNT 0.1 /CUMM (0.0-0.2); ABSOLUTE GRANULOCYTE CT 6.1 /CUMM (1.4-6.5); BASOPHIL % 0.7 % (0.0-2.0); GRANULOCYTE % 71.5 % (42.2-75.2); MEAN CORPUSCULAR HGB 29.2 PG (27.0-31.0); MEAN CORPUSCULAR VOLUME 85.7 FL (81.0-99.0); RBC DISTRIBUTION WIDTH 21.2 % (11.5-14.5); RED BLOOD CELL CT 3.45 /CUMM (4.20-5.40); WHITE BLOOD CELL COUNT 8.5 /CUMM (4.8-10.8)
--- NOTE | 2016-10-14 08:16 | PN- Housestaff ---
LINDA WHITEHEAD 10/14/16 0816: Subjective Follow-up For: Status post mechanical fall with left humerus fracture and pubic rami fractures Atrial fibrillation Hypertension Hyperlipidemia Subjective: Patient reported pain in her left shoulder this morning 04/05. Patient is admitted for her left humerus fracture and pubic rami fractures. Evaluated by orthopedic yesterday they recommend an arm sling and an outpatient follow-up within 2-3 weeks. Her morning labs are pending. Her vital signs remained stable. Patient is requiring tramadol, Percocet, and Tylenol for pain. Review of Systems Constitutional: Reports: see HPI. Objective Last 24 Hrs of Vital Signs/I&O Vital Signs Date Time Temp Pulse Resp B/P Pulse O2 O2 Flow FiO2 Ox Delivery Rate 10/14 0714 110/70 10/14 0626 97.8 73 20 110/70 95 Room Air 10/13 2358 93 Room Air 10/13 2152 97.7 66 20 118/62 93 10/13 2120 77 104/60 10/13 1940 98.2 95 20 120/60 93 10/13 1613 142/72 10/13 1533 97.0 93 18 178/84 96 Room Air 10/13 1444 97.6 78 18 136/82 97 Room Air 10/13 1341 97.9 82 18 152/89 98 Room Air 10/13 1140 97.9 88 18 148/82 97 Room Air 10/13 0948 97.3 82 18 136/81 97 Room Air 10/13 0907 96.9 87 18 175/81 10/13 0907 96.9 87 18 175/81 10/13 0906 96.9 87 18 175/81 Intake & Output 10/14 1600 10/14 0800 10/14 0000 Intake Total 150 480 Output Total 50 Balance 100 480 Intake, Oral 150 480 Output, Urine 50 Patient 48.534 kg Weight Physical Exam General Appearance: Alert, Oriented X3, Cooperative, Mild Distress Skin: No Rashes HEENT: Atraumatic Neck: Supple Cardiovascular: Normal S1, Normal S2 Lungs: Normal Air Movement Abdomen: Normal Bowel Sounds, Soft, No Tenderness Extremities: left arm in sling , pain movement of left arm, pulses intact Current Medications: Current Medications Sig/Chava Start time Last Medication Dose Route Stop Time Status Admin Acetaminophen 650 MG Q6P PRN 10/13 1100 AC 10/13 PO 2120 Apixaban 2.5 MG BID 10/13 1000 AC 10/14 PO 0715 Atorvastatin Calcium 40 MG 1700 10/13 1700 AC 10/13 PO 1856 Lisinopril 10 MG DAILY 10/13 1000 AC 10/14 PO 0714 Metoprolol Tartrate 12.5 MG BID 10/13 2200 AC 10/14 PO 0715 Metoprolol Tartrate 12.5 MG BID 10/13 1000 DC 10/13 PO 0907 Metoprolol Tartrate 12.5 MG BID 10/13 1000 DC PO Oxycodone/ 0 .STK-MED ONE 10/13 1330 DC Acetaminophen PO Oxycodone/ 1 TAB Q6P PRN 10/13 1100 AC 10/14 Acetaminophen PO 0205 Tramadol HCl 50 MG Q6P PRN 10/13 1100 AC 10/14 PO 0714 Last 24 Hrs of Lab/Jaime Results Last 24 Hrs of Labs/Mics: Laboratory Tests 10/14/16 0620: Anion Gap 6, Estimated GFR > 60, BUN/Creatinine Ratio 27.1 H, Glucose 85, Calcium 8.7, Total Bilirubin 1.7 H, AST 22, ALT 38, Alkaline Phosphatase 91, Total Protein 5.4 L, Albumin 2.7 L, Globulin 2.7, Albumin/Globulin Ratio 1.0 L, CBC w Diff NO MAN DIFF REQ, RBC 3.45 L, MCV 85.7, MCH 29.2, RDW 21.2 H, MPV 10.3, Gran % 71.5, Lymphocytes % 18.1 L, Monocytes % 7.7, Eosinophils % 2.0, Basophils % 0.7, Absolute Granulocytes 6.1, Absolute Lymphocytes 1.5, Absolute Monocytes 0.7 H, Absolute Eosinophils 0.2, Absolute Basophils 0.1, PUBS MCHC 34.0 Assessment/Plan Assessment: This is an 85-year-old lady with a past history of atrial fibrillation, hypertension, hyperlipidemia, TIA in March 2016 who presents to the emergency room after a mechanical fall onto her left shoulder. 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 Denies any loss of consciousness or head strike. Denies any chest pain, shortness of breath, nausea, vomiting, diarrhea fevers chills recently or sickcontacts. Her only complaint at present is left shoulder discomfort. Cervical spine and head CT 10/12/16 No evidence for acute intracranial injury. Age-appropriate appearance of the brain. No evidence for acute injury to the cervical spine. Moderate right pleural effusion. Pelvis x-ray 10/12/16 Left pubic ramus fracture. Mild medial hip joint space narrowing bilaterally Shoulder x-ray 10/12/16 Nondisplaced left humeral neck fracture. Assessment and plan She was admitted to general medicine floor for pain control. Patient continues to be in left arm sling, she was evaluated by orthopedics on they recommended an outpatient follow-up in 2-3 weeks. Patient is requiring tramadol, Percocet, and Tylenol for her pain control She is continued on all her home medications including metoprolol 12.5 twice a day, lisinopril 10 mg daily, atorvastatin 40 mg daily, ELiquis 2.5 mg twice a day (A. fib) DVT prophylaxis eliquis Patient is full code Problem List: 1. Atrial fibrillation Pain Ratin Pain Location: Left shoulder and pelvis Pain Goal: Pain 4 or less Pain Plan: Tramadol/Percocet/Tylenol Tomorrow's Labs & Rationales: None CHANNING EDMONDS MD 10/14/16 1145: Attending MD Review Statement Attending Statement Attending MD Statement: examined this patient, discuss w/resident/PA/PANEL WIRER, agreed w/resident/PA/PANEL WIRER, reviewed EMR data (avail), discussed with nursing, discussed with case mgmt, amended to note Attending Assessment/Plan: Patient similarly examined lying comfortably in bed not in acute distress. She reports that her pain is controlled with the current regimen. She complains of constipation. She is hemodynamically stable. On examination she has an ecchymotic area along the left upper humerus particularly medially. It is mildly tender. A sling remains in place. Her lungs are clear to auscultation bilaterally. Abdomen is soft and nontender. She denies any pelvic or hip pain. Laboratory data shows slight drop of her hemoglobin level. This is likely due to bleeding has by the left humeral fracture. She is currently hemodynamically stable. Recommendations: -Monitor hemoglobin level daily. Transfuse for hemoglobin level less than 8. -Continue anticoagulation therapy for now due to her atrial fibrillation. 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 -Continue physical therapy as tolerated. Orthopedic evaluation appreciated. -Continue current pain regimen.
[2016-10-14 08:20] LABS: HEMATOCRIT 29.5 % (37-47)
--- NOTE | 2016-10-14 12:31 | NUR ---
was called to pt room by family, pt very nauseous and dry heaving. provided a bucket and called nga hadley, she ordered tigan which was given to pt. She is very drowsy, her vital signs are 120/ doppler, pulse 88, o2 sat is 96% on room air, she is currently sitting in the recliner but her skin color is very pale.
[2016-10-14 14:50] VITALS: BP 118/60
[2016-10-14 16:15] VITALS: BP 102/80
[2016-10-14 16:42] LABS: ABSOLUTE BASOPHIL COUNT 0 /CUMM (0.0-0.2); ABSOLUTE EOSINOPHIL COUNT 0 /CUMM (0.0-0.7); MEAN CORPUSCULAR HGB 29.2 PG (27.0-31.0)
[2016-10-14 16:45] LABS: ABSOLUTE GRANULOCYTE CT 10.9 /CUMM (1.4-6.5); ABSOLUTE LYMPH COUNT 0.9 /CUMM (1.2-3.4); BASOPHIL % 0.3 % (0.0-2.0); EOSINOPHIL % 0.1 % (0-5); GRANULOCYTE % 84.8 % (42.2-75.2); HEMATOCRIT 31.7 % (37-47); MEAN CORPUSCULAR HGB CONC 34.1 G/DL (33.0-37.0); MEAN CORPUSCULAR VOLUME 85.6 FL (81.0-99.0); PLATELET COUNT 127 /CUMM (130-400); RBC DISTRIBUTION WIDTH 21.1 % (11.5-14.5)
[2016-10-14 16:46] LABS: WHITE BLOOD CELL COUNT 12.8 /CUMM (4.8-10.8)
[2016-10-14 22:02] VITALS: BP 118/80
[2016-10-15 06:12] VITALS: BP 114/70
--- NOTE | 2016-10-15 07:30 | PN- Housestaff ---
LINDA WHITEHEAD 10/15/16 0730: Subjective Follow-up For: Left humerus fracture Left pubic rami fracture Subjective: Patient's and examined this morning. She feels better. Her hemoglobin is stable at 10.5. Patient is awaiting placement. Her pain is well controlled on current regimen. Labs and vitals stable. Review of Systems Constitutional: Reports: see HPI. Objective Last 24 Hrs of Vital Signs/I&O Vital Signs Date Time Temp Pulse Resp B/P Pulse O2 O2 Flow FiO2 Ox Delivery Rate 10/15 0612 97.7 86 20 114/70 95 Room Air 10/14 220 98.2 105 20 118/80 94 10/14 2149 118/80 10/14 1615 78 102/80 10/14 1450 98.2 77 20 118/60 96 10/14 1210 Room Air Intake & Output 10/15 1600 10/15 0800 10/15 0000 Intake Total 120 250 Output Total Balance 120 250 Intake, Oral 120 250 Physical Exam General Appearance: Alert, Oriented X3, Cooperative, No Acute Distress Skin: No Rashes, No Breakdown HEENT: Atraumatic Neck: Supple Cardiovascular: Regular Rate, Normal S1, Normal S2 Lungs: Clear to Auscultation, Normal Air Movement Abdomen: Soft, No Tenderness Extremities: left arm in sling. Painful to movement of left shoulder joint Vascular: Pulses Symmetrical Current Medications: Current Medications Sig/Chava Start time Last Medication Dose Route Stop Time Status Admin Acetaminophen 1,000 MG Q6P PRN 10/14 1600 AC 10/14 N/A 1 UNIT IV 1843 Acetaminophen 650 MG Q6P PRN 10/13 1100 AC 10/15 PO 0533 Apixaban 2.5 MG BID 10/13 1000 DC 10/14 PO 0715 Atorvastatin Calcium 40 MG 1700 10/13 1700 AC 10/14 PO 1641 Lisinopril 10 MG DAILY 10/13 1000 AC 10/14 PO 0714 Metoprolol Tartrate 12.5 MG BID 10/13 2200 AC 10/14 PO 2149 Oxycodone/ 1 TAB Q6P PRN 10/13 1100 DC 10/14 Acetaminophen PO 0205 Polyethylene Glycol 17 GM DAILY 10/14 1432 AC 10/14 PO 1641 Senna/Docusate Sodium 1 TAB BID 10/14 1432 AC 10/14 PO 1641 Tramadol HCl 50 MG Q6P PRN 10/13 1100 DC 10/14 PO 0714 Trimethobenzamide HCl 200 MG 4 TIMES/DAY PRN 10/14 1215 AC 10/14 IM 1210 Last 24 Hrs of Lab/Jaime Results Last 24 Hrs of Labs/Mics: Laboratory Tests 10/15/16 0609: CBC w Diff NO MAN DIFF REQ, RBC 3.63 L, MCV 86.8, MCH 29.0, RDW 20.8 H, MPV 10.0, Gran % 76.7 H, Lymphocytes % 14.8 L, Monocytes % 6.6, Eosinophils % 1.8, Basophils % 0.1, Absolute Granulocytes 7.9 H, Absolute Lymphocytes 1.5, Absolute Monocytes 0.7 H, Absolute Eosinophils 0.2, Absolute Basophils 0, PUBS MCHC 33.3 10/14/16 1615: CBC w Diff NO MAN DIFF REQ, RBC 3.70 L, MCV 85.6, MCH 29.2, RDW 21.1 H, MPV 10.0, Gran % 84.8 H, Lymphocytes % 7.0 L, Monocytes % 7.8, Eosinophils % 0.1, Basophils % 0.3, Absolute Granulocytes 10.9 H, Absolute Lymphocytes 0.9 L, Absolute Monocytes 1.0 H, Absolute Eosinophils 0, Absolute Basophils 0, PUBS MCHC 34.1 Assessment/Plan Assessment: This is an 85-year-old lady with a past history of atrial fibrillation, hypertension, hyperlipidemia, TIA in March 2016 who presents to the emergency room after a mechanical fall onto her left shoulder. 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 Denies any loss of consciousness or head strike. Denies any chest pain, shortness of breath, nausea, vomiting, diarrhea fevers chills recently or sickcontacts. Her only complaint at present is left shoulder discomfort. Cervical spine and head CT 10/12/16 No evidence for acute intracranial injury. Age-appropriate appearance of the brain. No evidence for acute injury to the cervical spine. Moderate right pleural effusion. Pelvis x-ray 10/12/16 Left pubic ramus fracture. Mild medial hip joint space narrowing bilaterally Shoulder x-ray 10/12/16 Nondisplaced left humeral neck fracture. Assessment and plan She was admitted to general medicine floor for pain control. Patient continues to be in left arm sling, she was evaluated by orthopedics on they recommended an outpatient follow-up in 2-3 weeks. Patient is requiring tramadol, Percocet, and Tylenol for her pain control She is continued on all her home medications including metoprolol 12.5 twice a day, lisinopril 10 mg daily, atorvastatin 40 mg daily, ELiquis 2.5 mg twice a day (A. fib) DVT prophylaxis eliquis Patient is full code Problem List: 1. Proximal humerus fracture 2. Pubic ramus fracture Pain Ratin Pain Location: left shoulder Pain Goal: Pain 4 or less Pain Plan: tylenol tramadol percocet Tomorrow's Labs & Rationales: none GREY JAMES,CHANNING 10/15/16 1255: Attending MD Review Statement Attending Statement Attending MD Statement: examined this patient, discuss w/resident/PA/[employer], agreed w/resident/PA/[employer], reviewed EMR data (avail), discussed with nursing, discussed with case mgmt, amended to note Attending Assessment/Plan: Patient seen and examined. Lethargic. Oriented 3. reports adequate pain control. Yesterday shows very lethargic and appeared pale. Due to concern for ongoing bleeding anticoagulation therapy was held and a stat CBC obtained. Her CBC has been stable with no further drop compared to yesterday morning. She continues to complain of constipation. On examination she is communicating appropriately. Left arm is in a sling. She has ecchymotic area with underlying hematoma in the left upper arm. Recommendations: -Okay to resume anticoagulation with Eliquis. -Avoid oversedation given her advanced age. Recommend pain control with tramadol but reduce dose to 25 mg. -Repeat CBC in a.m. to ensure stability of her hemoglobin and Trumbo cytopenia. -Patient remains clinically stable she may be discharged [facility] tomorrow. -She reports no bowel movement despite the use of MiraLAX and Senokot. Recommend utilizing the suppository today. If no improvement she will require a fleets enema. -If she remains hemodynamically stable tomorrow with no further drop of hemoglobin level she may be discharged to [facility].
[2016-10-15 08:04] LABS: ABSOLUTE BASOPHIL COUNT 0 /CUMM (0.0-0.2); ABSOLUTE EOSINOPHIL COUNT 0.2 /CUMM (0.0-0.7); ABSOLUTE GRANULOCYTE CT 7.9 /CUMM (1.4-6.5); ABSOLUTE LYMPH COUNT 1.5 /CUMM (1.2-3.4); ABSOLUTE MONOCYTE COUNT 0.7 /CUMM (0.10-0.60); BASOPHIL % 0.1 % (0.0-2.0); EOSINOPHIL % 1.8 % (0-5); GRANULOCYTE % 76.7 % (42.2-75.2); HEMATOCRIT 31.5 % (37-47); MEAN CORPUSCULAR HGB CONC 33.3 G/DL (33.0-37.0); MEAN CORPUSCULAR VOLUME 86.8 FL (81.0-99.0); PLATELET COUNT 119 /CUMM (130-400); RBC DISTRIBUTION WIDTH 20.8 % (11.5-14.5); RED BLOOD CELL CT 3.63 /CUMM (4.20-5.40); WHITE BLOOD CELL COUNT 10.3 /CUMM (4.8-10.8)
--- NOTE | 2016-10-15 09:39 | Patient Discharge Instructions ---
Discharge Instructions General Discharge Information Special Instructions: Please follow up with PCP within 7 days of discharge Please follow up with Orthopedics within 2 weeks of discharge regarding left humerus and left pubic rami fracture Acute Coronary Syndrome Inclusion Criteria At DC or during hospital stay patient has or had the following: ACS DIAGNOSIS No Discharge Core Measures Meds if any: Prescribed or Continued at Discharge Meds if any: NOT Prescribed or Continued at Discharge Congestive Heart Failure Inclusion Criteria At DC or during hospital stay patient has or had the following: CHF DIAGNOSIS No Discharge Core Measures Meds if any: Prescribed or Continued at Discharge Meds if any: NOT Prescribed or Continued at Discharge Cerebrovascular accident Inclusion Criteria At DC or during hospital stay patient has or had the following: CVA/TIA Diagnosis No Discharge Core Measures Meds if any: Prescribed or Continued at Discharge Meds if any: NOT Prescribed or Continued at Discharge Venous thromboembolism Inclusion Criteria VTE Diagnosis No VTE Type NONE VTE Confirmed by (Test) NONE Discharge Core Measures - Per Current guidelines, there needs to be overlap - treatment for the first 5 days of Warfarin therapy. - If discharged on Warfarin prior to 5 days of - overlap therapy, the patient will need to be - assessed for post discharge needs including - *Post discharge parental anticoagulation - *Warfarin and/or parental anticoagulation education - *Follow up date to check INR post discharge At least 5 days overlap therapy as Inpatient No Meds if any: Prescribed or Continued at Discharge Note: Overlap Therapy is Warfarin and Anticoagulant Meds if any: NOT Prescribed or Continued at Discharge
[2016-10-15 15:35] VITALS: BP 120/66
[2016-10-15 21:54] VITALS: BP 116/70
[2016-10-16 07:26] VITALS: BP 120/70
--- NOTE | 2016-10-16 07:34 | PN- Housestaff ---
LINDA WHITEHEAD 10/16/16 0734: Subjective Follow-up For: Left humerus fracture Pubic rami fracture Subjective: Patient seen and examined this morning. She feels better. She continues to report of pain in the left shoulder. Her minimum pain has been 4/10 on tramadol and Tylenol. Narcotics were avoided as they made her lethargic. Plan is that patient will likely go to rehabilitation today. Her CBC looks fine she continued on her Eliquis. Review of Systems Constitutional: Reports: see HPI. Objective Last 24 Hrs of Vital Signs/I&O Vital Signs Date Time Temp Pulse Resp B/P Pulse O2 O2 Flow FiO2 Ox Delivery Rate 10/16 0726 98.7 88 20 120/70 95 Room Air 10/15 2154 98.0 122 20 116/70 96 Room Air 10/15 2104 122/74 10/15 1535 98.1 66 20 120/66 96 10/15 1247 97.9 10/15 1006 92 122/66 10/15 1006 92 122/66 Intake & Output 10/16 1600 10/16 0800 10/16 0000 Intake Total 120 240 Output Total 400 302 Balance -280 -62 Intake, Oral 120 240 Number 2 Bowel Movements Output, Stool 2 Output, Urine 400 300 Physical Exam General Appearance: Alert, Oriented X3, Cooperative Skin: No Rashes, left arm has bluish blackish discoloration. Left arm in sling HEENT: Atraumatic Neck: Supple Lymphatic: Axillary nl Cardiovascular: Regular Rate, Normal S1, Normal S2 Lungs: Clear to Auscultation, Normal Air Movement Abdomen: Soft, No Tenderness Neurological: Normal Speech Extremities: No Edema Current Medications: Current Medications Sig/Hcava Start time Last Medication Dose Route Stop Time Status Admin Acetaminophen 1,000 MG Q6P PRN 10/14 1600 AC 10/15 N/A 1 UNIT IV 1813 Acetaminophen 650 MG Q6P PRN 10/13 1100 AC 10/15 PO 0533 Apixaban 2.5 MG BID 10/15 2200 AC 10/15 PO 2103 Atorvastatin Calcium 40 MG 1700 10/13 1700 AC 10/15 PO 1812 Bisacodyl 10 MG ONCE ONE 10/15 1430 DC 10/15 MA 10/15 1431 1442 Lisinopril 10 MG DAILY 10/13 1000 AC 10/15 PO 1006 Metoprolol Tartrate 12.5 MG BID 10/130 10/15 PO 2104 Patient Medication 1 ED .STK-MED ONE 10/15 1412 NV Teaching ED 10/15 1413 Polyethylene Glycol 17 GM DAILY 10/14 1432 10/15 PO 1006 Senna/Docusate Sodium 1 TAB BID 10/14 1432 10/15 PO 1006 Tramadol HCl 25 MG Q8P PRN 10/15 1030 10/16 PO 0632 Trimethobenzamide HCl 200 MG 4 TIMES/DAY PRN 10/14 1215 10/14 IM 1210 Last 24 Hrs of Lab/Jaime Results Last 24 Hrs of Labs/Mics: Laboratory Tests 10/16/16 0630: Anion Gap 6, Estimated GFR > 60, BUN/Creatinine Ratio 23.3, Glucose 88, Calcium 8.5, Total Bilirubin 1.9 H, AST 36, ALT 51, Alkaline Phosphatase 112, Total Protein 5.5 L, Albumin 2.7 L, Globulin 2.8, Albumin/Globulin Ratio 1.0 L, CBC w Diff NO MAN DIFF REQ, RBC 3.70 L, MCV 86.9, MCH 29.2, RDW 20.4 H, MPV 10.2, Gran % 79.1 H, Lymphocytes % 13.2 L, Monocytes % 6.3, Eosinophils % 1.1, Basophils % 0.3, Absolute Granulocytes 8.5 H, Absolute Lymphocytes 1.4, Absolute Monocytes 0.7 H, Absolute Eosinophils 0.1, Absolute Basophils 0, PUBS MCHC 33.6 Assessment/Plan Assessment: This is an 85-year-old lady with a past history of atrial fibrillation, hypertension, hyperlipidemia, TIA in March 2016 who presents to the emergency room after a mechanical fall onto her left shoulder. 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 Denies any loss of consciousness or head strike. Denies any chest pain, shortness of breath, nausea, vomiting, diarrhea fevers chills recently or sickcontacts. Her only complaint at present is left shoulder discomfort. Cervical spine and head CT 10/12/16 No evidence for acute intracranial injury. Age-appropriate appearance of the brain. No evidence for acute injury to the cervical spine. Moderate right pleural effusion. Pelvis x-ray 10/12/16 Left pubic ramus fracture. Mild medial hip joint space narrowing bilaterally Shoulder x-ray 10/12/16 Nondisplaced left humeral neck fracture. Assessment and plan She was admitted to general medicine floor for pain control. Patient continues to be in left arm sling, she was evaluated by orthopedics on they recommended an outpatient follow-up in 2-3 weeks. Patient is requiring tramadol, and tylenol for her pain control She is continued on all her home medications including metoprolol 12.5 twice a day, lisinopril 10 mg daily, atorvastatin 40 mg daily, ELiquis 2.5 mg twice a day (A. fib) Plan is to discharge to alf facility today. DVT prophylaxis eliquis Patient is full code Problem List: 1. Pubic ramus fracture 2. Proximal humerus fracture Pain Ratin Pain Location: left arm Pain Goal: Pain 4 or less Pain Plan: tylenol prn and tramadol Tomorrow's Labs & Rationales: none CHANNING EDMONDS MD 10/16/16 1030: Attending MD Review Statement Attending Statement Attending MD Statement: examined this patient, discuss w/resident/PA/TRANSFER COORDINATOR, agreed w/resident/PA/TRANSFER COORDINATOR, reviewed EMR data (avail), discussed with nursing, discussed with case mgmt, amended to note Attending Assessment/Plan: Patient seen and examined. Sitting up in bed alert and oriented 3, conversing appropriately and taking her medications from her nurse. Admits to pain in the left arm but this is controlled with the current regimen. Had a bowel movement yesterday. She offers no new complaints today. She is hemodynamically stable and he has been no further drop of her hemoglobin level. On examination there is an extensive ecchymotic area involving the left upper arm particularly medially. It is nontender. There is no tense swelling. Radial pulse is palpable. There is no concern or leg ischemia. Recommendations: -Patient is medically stable to be discharged today. -She will be leaving to a alf facility for short-term rehabilitation. -Continue anticoagulation for her atrial fibrillation
--- NOTE | 2016-10-16 07:34 | Discharge Summary ---
Visit Information Visit Dates Admission Date: 10/13/16 Discharge Date: 10/16/16 Hospital Course Course Attending Physician: CHANNING EDMONDS M.D Primary Care Physician: YO JAMES,VICTOR MANUEL aCsiano Hospital Course: Patient is an 85-year-old lady with a past history of atrial fibrillation, hypertension, hyperlipidemia, TIA in March 2016 who presented to the emergency room after a mechanical fall onto her left shoulder. 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 Denied any loss of consciousness or head strike. Denies any chest pain, shortness of breath, nausea, vomiting, diarrhea fevers chills recently or sickcontacts. Her only complaint at present is left shoulder discomfort. Cervical spine and head CT 10/12/16 No evidence for acute intracranial injury. Age-appropriate appearance of the brain. No evidence for acute injury to the cervical spine. Moderate right pleural effusion. Pelvis x-ray 10/12/16 Left pubic ramus fracture. Mild medial hip joint space narrowing bilaterally Shoulder x-ray 10/12/16 Nondisplaced left humeral neck fracture. She was admitted to general medicine floor for pain control and placement. Patient continues to be in left arm sling, she was evaluated by orthopedics on they recommended an outpatient follow-up in 2-3 weeks. Patient is requiring tramadol, Percocet, and Tylenol for her pain control. Patient was found to be a little lethargic on percocet which was later d/cd patient is being mainained on Tramadol 25 mg q8 and PO tylenol for pain control. Her hemoglobin stayed stable throughout her hospital admission. She was continued on all her home medications including metoprolol 12.5 twice a day, lisinopril 10 mg daily, atorvastatin 40 mg daily, ELiquis 2.5 mg twice a day (A. fib). Patient is a full code. Allergies: Coded Allergies: No Known Allergies (04/22/16) Disposition Summary Disposition Principal Diagnosis: left humerus and left pubic rami fracture Additional Diagnosis: Atrial fibrillation HTN Hyperlipidemia Discharge Disposition: SNF Discharge Instructions General Discharge Information Code Status: Full Code Patient's Diet: heart healthy Patient's Activity: as tolerated Follow-Up Instructions/Appts: Please follow up with PCP upon discharge. Please follow up with Orthopedic consult service within 2 weeks post discharge. Medications at Discharge Discharge Medications: Continue taking these medications: Atorvastatin Calcium (Atorvastatin Calcium) 40 MG TABLET 1 Tablet ORAL 5 PM Days = 30 Comments: Last Taken:04/24/16 Time: 4:22 pm Lisinopril (Lisinopril) 10 MG TABLET 1 Tablet ORAL DAILY Days = 30 Comments: Last Taken:04/25/16 Time: 10:25 am Apixaban (Eliquis) 2.5 MG TABLET 1 Tablet ORAL TWICE DAILY Qty = 60 Metoprolol Tartrate (Metoprolol Tartrate) 25 MG TABLET 0.5 Tablet ORAL TWICE DAILY Start taking the following new medications: Tramadol HCl (Tramadol HCl) 50 MG TABLET 0.5 Tablet ORAL EVERY 8 HOURS NEEDED as needed for PAIN MODERATE TO SEVERE Days = 14 No Refills Copies To: CHANNING EDMONDS M.D; ERA JAMES,LOVELY RAM MD,VICTOR MANUEL Casiano Attending MD Review Statement Documenting Attending: CHANNING EDMONDS M.D Other Findings: I have reviewed the discharge summary.
[2016-10-16 07:49] LABS: ABSOLUTE BASOPHIL COUNT 0 /CUMM (0.0-0.2); ABSOLUTE EOSINOPHIL COUNT 0.1 /CUMM (0.0-0.7); ABSOLUTE GRANULOCYTE CT 8.5 /CUMM (1.4-6.5); ABSOLUTE LYMPH COUNT 1.4 /CUMM (1.2-3.4); ABSOLUTE MONOCYTE COUNT 0.7 /CUMM (0.10-0.60); BASOPHIL % 0.3 % (0.0-2.0); EOSINOPHIL % 1.1 % (0-5); GRANULOCYTE % 79.1 % (42.2-75.2); HEMATOCRIT 32.1 % (37-47); MEAN CORPUSCULAR HGB 29.2 PG (27.0-31.0); MEAN CORPUSCULAR HGB CONC 33.6 G/DL (33.0-37.0); MEAN CORPUSCULAR VOLUME 86.9 FL (81.0-99.0); MEAN PLATELET VOLUME 10.2 FL (7.4-10.4); PLATELET COUNT 136 /CUMM (130-400); RBC DISTRIBUTION WIDTH 20.4 % (11.5-14.5); WHITE BLOOD CELL COUNT 10.8 /CUMM (4.8-10.8)
[2016-10-16] MEDS ORDERED: TRAMADOL HCL50 M1 PO (08:03)
[2016-10-16 11:58] VITALS: BP 110/70
== END 2016-10-16 12:19 | DRG 563 ==
LOC: ENRESERVDT → ENRESERVTM → ERH 19:48 → 2NA 10-13 09:45 → ERHI 10-13 09:45 → ENPENDDIS 10-13 09:45 → 2NA 10-13 19:10
PROVIDERS: Internal Medicine; Pediatrics; ADMIT Internal Medicine
DX: S42.215A Unspecified nondisplaced fracture of surgical neck of left humerus, initial encounter for closed fracture (principal); S32.592A Other specified fracture of left pubis, initial encounter for closed fracture; I48.2 Chronic atrial fibrillation; I10 Essential (primary) hypertension; E78.5 Hyperlipidemia, unspecified; Z86.73 Personal history of transient ischemic attack (TIA), and cerebral infarction without residual deficits; W18.30XA Fall on same level, unspecified, initial encounter; Y92.009 Unspecified place in unspecified non-institutional (private) residence as the place of occurrence of the external cause
CPT/HCPCS: 2NASP; 72170; 73030-LT; 81001; 93005; 93010; 96374; 97110-GO; 97112-GO; 97161-GP; 97165-GO; 97530-GO; J0131; J3101; J3250

== ENCOUNTER 2016-11-22 15:19 | Inpatient (IN) | payer OTHER, MEDICARE ==
[~2016-11-22] VITALS: Ht 162.6 cm; Wt 41.3 kg
[~2016-11-22 15:19] MED LIST changes: +ELIQUIS2.5 M1 PO; +TRAMADOL HCL50 M1 PO
--- NOTE | 2016-11-22 15:27 | ED GENERAL ADULT ---
History of Present Illness General Chief Complaint: General Adult Stated Complaint: BIBA INCREASED WEAKNESS Source: patient, family, old records, EMS Exam Limitations: no limitations Vital Signs & Intake/Output Vital Signs & Intake/Output Vital Signs Date Time Temp Pulse Resp B/P B/P Pulse O2 O2 Flow FiO2 Mean Ox Delivery Rate 11/22 1532 98.3 95 18 186/84 95 Room Air Room Air Allergies Coded Allergies: No Known Allergies (04/22/16) Reconcile Medications Apixaban (Eliquis) 2.5 MG TABLET 1 TAB PO BID BLOOD THINNER (Reported) Atorvastatin Calcium 40 MG TABLET 1 TAB PO 1700 High Cholestrol Lisinopril 10 MG TABLET 1 TAB PO DAILY High Blood Pressure Metoprolol Tartrate 25 MG TABLET 0.5 TAB PO BID HEART/BP (Reported) Tramadol HCl 50 MG TABLET 0.5 TAB PO Q8P PRN PAIN MODERATE TO SEVERE Triage Nurses Notes Reviewed? yes HPI: Patient was discharged from short-term rehabilitation just yesterday. Patient did not sleep well last night. Visiting nurse came to evaluate her this morning. Patient was very tired. Visiting nurse also noticed that both her legs had trace pitting edema. Patient denies any chest pain or shortness of breath. Patient denies any headache. There is no coughing. Patient denies orthopnea. Patient sent in for evaluation. Past History Travel History Traveled to [place] past 21 day No Medical History Any Pertinent Medical History? see below for history Neurological: subdural hematoma Subarachnoid Hemorrhage () Falls EENT: NONE Cardiovascular: AFIB, hypertension Respiratory: NONE Gastrointestinal: NONE Hepatic: NONE Renal: NONE Musculoskeletal: NONE Psychiatric: NONE Endocrine: NONE Blood Disorders: NONE Cancer(s): NONE History of MRSA: No History of VRE: No History of CDIFF: No Influenza Vaccine: 04/26/16 Surgical History Surgical History: non-contributory Psychosocial History Who do you live with Spouse Services at Home None What is your primary language Serbian Tobacco Use: Never used ETOH Use: denies use Illicit Drug Use: denies illicit drug use Family History Family History, If Any: Relation not specified for: *No pertinent family history Hx Contributory? No Review of Systems Review of Systems Constitutional: Reports: see HPI, weakness. EENTM: Reports: no symptoms. Respiratory: Reports: no symptoms. Cardiovascular: Reports: no symptoms. GI: Reports: no symptoms. Genitourinary: Reports: no symptoms. Musculoskeletal: Reports: see HPI. Skin: Reports: no symptoms. Neurological/Psychological: Reports: no symptoms. Hematologic/Endocrine: Reports: no symptoms. Immunologic/Allergic: Reports: no symptoms. All Other Systems: Reviewed and Negative Physical Exam Physical Exam General Appearance: well developed/nourished, alert, awake, mild distress Head: atraumatic, normal appearance Eyes: Bilateral: PERRL, EOMI. Ears, Nose, Throat: normal pharynx, normal ENT inspection Neck: normal inspection, supple, full range of motion, NO JVD Respiratory: normal breath sounds, chest non-tender, no respiratory distress, lungs clear Cardiovascular: normal peripheral pulses, irregularly irregular Gastrointestinal: normal bowel sounds, soft, non-tender, no organomegaly Back: normal inspection, normal range of motion Extremities: pedal edema Neurologic/Psych: no motor/sensory deficits, awake, alert, oriented x 3, normal mood/affect Skin: intact, normal color, warm/dry Lymphatic: no anterior cervical margaret Core Measures ACS in differential dx? Yes ASA ordered for poss ACS? No-ACS ruled out CVA/TIA Diagnosis: No Severe Sepsis Present: No Septic Shock Present: No Progress Differential Diagnoses I considered the following diagnoses in my evaluation of the patient: [CHF, ELECTROLYTE ABNORMALITY, AMI, PNEUMONIA] Plan of Care: Orders Procedure Date/time Status URINALYSIS 11/22 1527 Active TROPONIN LEVEL 11/22 1527 Complete COMPREHENSIVE METABOLIC PANEL 11/22 1527 Complete CBC WITHOUT DIFFERENTIAL 11/22 1527 Complete B-TYPE NATRIURETIC PEP (BNP) 11/22 1527 Complete EKG 11/22 1527 Active Current Medications Sig/Chava Start time Last Medication Dose Stop Time Status Admin Furosemide 40 MG ONCE ONE 11/22 1630 UNVr (Lasix) 11/22 1631 Laboratory Tests 11/22/16 1539: Anion Gap 12, Estimated GFR > 60, BUN/Creatinine Ratio 20.0, Glucose 93, Calcium 8.6, Total Bilirubin 1.3, AST 22, ALT 33, Alkaline Phosphatase 166 H, Troponin I 0.04, Wcc-H-Srdelwatlbw Pept 3290 H, Total Protein 6.2 L, Albumin 3.1 L, Globulin 3.1, Albumin/Globulin Ratio 1.0 L, CBC w Diff NO MAN DIFF REQ, RBC 4.51, MCV 85.4, MCH 28.2, RDW 20.4 H, MPV 8.8, Gran % 80.4 H, Lymphocytes % 10.4 L, Monocytes % 8.6, Eosinophils % 0.2, Basophils % 0.4, Absolute Granulocytes 7.7 H, Absolute Lymphocytes 1.0 L, Absolute Monocytes 0.8 H, Absolute Eosinophils 0, Absolute Basophils 0, PUBS MCHC 33.0 Diagnostic Imaging: Viewed by Me: Radiology Read. Discussed w/RAD: Radiology Read. CXR Impression: PATIENT: JACOB MCMILLAN PRESENT AGE: 85 PATIENT ACCOUNT NO: [id number] : [birth year] LOCATION: [facility] ORDERING PHYSICIAN: LOUIS URBANO MD SERVICE DATE: 11/22/16 EXAM TYPE: RAD - XRY- PORTABLE CHEST XRAY EXAMINATION: XR PORTABLE CHEST CLINICAL INFORMATION: Shortness of breath. Evaluate for pneumonia. COMPARISON: Multiple priors, most recent chest radiographs dated 10/13/2016. TECHNIQUE: Portable frontal view of the chest was obtained. FINDINGS: There is complete opacification of the right middle and lower lobes, new when compared to the prior examination. This could represent a large pleural effusion with adjacent compressive atelectasis or diffuse airspace opacification. The visualized left lung is clear. There is no left-sided pleural effusion. There is no pneumothorax. IMPRESSION: New complete opacification of the right middle and lower lobes, which could represent pneumonia versus a large pleural effusion with adjacent compressive atelectasis. DICTATED BY: MITA FLORES MD DATE/TIME DICTATED:11/22/161546 MACHINE [employer]ER APPRENTICE:MIKAEL DATE/TIME TRANSCRIBED:11/22/161546 CONFIDENTIAL, DO NOT COPY WITHOUT APPROPRIATE AUTHORIZATION. <Electronically signed in Other Vendor System> SIGNED BY: MITA FLORES MD 11/22/16 1600 Initial ED EKG: AFIB, nonspecific ST T wave chg Prior EKG: unchanged Rhythm Strip: atrial fibrillation Departure Departure Disposition: STILL A PATIENT Condition: Guarded Clinical Impression Primary Impression: CHF (congestive heart failure) Referrals: CLAY RICHARDSON MD Departure Forms: Customer Survey General Discharge Information Admission Note Spoke With: JEAN TAYLOR MD Documentation of Exam: Documentation of any treatments & extenuating circumstances including Concerns Regarding Discharge (functional status, medication knowledge or non-compliance, living conditions, etc.) that warrant an admission rather than observation: [ Cardiology consultation, telemetry monitoring, serial enzymes, IV diuresis. The patient gets worse she will require a thoracentesis.] Critical Care Note Critical Care Note Critical Care Time: non-applicable
--- NOTE | 2016-11-22 15:40 | NUR ---
DR. URBANO TO BEDSIDE FOR EVALUATION.
--- NOTE | 2016-11-22 15:40 | NUR ---
85 YEAR OLD FEMALE BIBA FROM HOME C/O INCREASED WEAKNESS AND LETHARGY. PT WAS DISCHARGED FROM REHAB YESTERDAY. PT ARRIVES TO ED ALERT AND ORIENTED X3, LEFT ARM IN SLING. PT HAS NO COMPLAINTS EXPCEPT LETHARGY, DENIES PAIN, BLE NOTED TO BE EDEMTOUS, DENIES CP/SOB.
--- NOTE | 2016-11-22 15:45 | NUR ---
BLOOD DRAWN AND SENT TO THE LAB ([facility])
--- NOTE | 2016-11-22 16:00 | RADIOLOGY REPORT ---
EXAMINATION: XR PORTABLE CHEST CLINICAL INFORMATION: Shortness of breath. Evaluate for pneumonia. COMPARISON: Multiple priors, most recent chest radiographs dated 10/13/2016. TECHNIQUE: Portable frontal view of the chest was obtained. FINDINGS: There is complete opacification of the right middle and lower lobes, new when compared to the prior examination. This could represent a large pleural effusion with adjacent compressive atelectasis or diffuse airspace opacification. The visualized left lung is clear. There is no left-sided pleural effusion. There is no pneumothorax. IMPRESSION: New complete opacification of the right middle and lower lobes, which could represent pneumonia versus a large pleural effusion with adjacent compressive atelectasis.
[2016-11-22 16:03] LABS: ABSOLUTE BASOPHIL COUNT 0 /CUMM (0.0-0.2); ABSOLUTE EOSINOPHIL COUNT 0 /CUMM (0.0-0.7); ABSOLUTE GRANULOCYTE CT 7.7 /CUMM (1.4-6.5); ABSOLUTE MONOCYTE COUNT 0.8 /CUMM (0.10-0.60); BASOPHIL % 0.4 % (0.0-2.0); EOSINOPHIL % 0.2 % (0-5); GRANULOCYTE % 80.4 % (42.2-75.2); HEMATOCRIT 38.6 % (37-47); MEAN CORPUSCULAR HGB 28.2 PG (27.0-31.0); MEAN CORPUSCULAR VOLUME 85.4 FL (81.0-99.0); MEAN PLATELET VOLUME 8.8 FL (7.4-10.4); PLATELET COUNT 271 /CUMM (130-400); RBC DISTRIBUTION WIDTH 20.4 % (11.5-14.5); RED BLOOD CELL CT 4.51 /CUMM (4.20-5.40); WHITE BLOOD CELL COUNT 9.5 /CUMM (4.8-10.8)
--- NOTE | 2016-11-22 16:43 | NUR ---
PT ASSISTED OUT OF BED TO BEDSIDE COMMODE. PT REQUIRED ASSIST OF 2 TO STANDING POSITION TO PIVOT TO THE COMMODE, OXYGEN LEVEL NOTED TO BE 88% WITH EXERTION. PT UNABLE TO AMBULATE WITH ASSISTANCE AT THIS TIME. DR. YOLIE JUAREZ.
--- NOTE | 2016-11-22 16:56 | NUR ---
PT HAS BED ASSIGNMENT 185-2.
--- NOTE | 2016-11-22 16:59 | Admission Certification ---
Admission Certification Certification Statement - As attending physician, I certify that at the time of - admission, based on clinical presentation, severity of - symptoms, need for further diagnostic testing and - therapeutic interventions, and risk of adverse outcomes - without in-hospital treatment, in my clinical assessment, - this patient requires an acute hospital stay for a minimum - of two nights or longer. I have also considered psychsocial - factors such as support system, advanced age, financial - issues, cognitive issues, and failed out-patient treatments, - past re-admission history, safety of patient, and lack of - compliance as applicable. Specific rationale supporting this admission is: Weakness and very large new right pleural effusion, question CHF.
--- NOTE | 2016-11-22 17:11 | NUR ---
PT MEDICATED PER EMAR.
[2016-11-22] MEDS ORDERED: SENNA S TABLET1 EACH PO (17:28)
[2016-11-22] MEDS ORDERED: TRAMADOL HCL50 M1 PO (17:31)
[2016-11-22] MEDS ORDERED: ZOFRAN4 M2 PO (17:32)
--- NOTE | 2016-11-22 17:49 | History & Physical ---
MEÑOCONNIELANE 11/22/16 1749: General Information and HPI MD Statement: I have seen and personally examined JACOB MCMILLAN and documented this H&P. The patient is a 85 year old F who presented with a patient stated chief complaint of increased tiredness. Source of Information: patient, family, old records Exam Limitations: no limitations History of Present Illness: Ms Mcmillan is an 85-year-old woman who was known to be in her usual state of health until approximately one week ago. She has a past medical history of atrial fibrillation ( on NOAC ), hypertension, TIA ( dx'ed 2016), left non displaced humerus fracture, left pubic rami fracture who was recently discharged from a STR a few day ago. She was brought to the dyspnea for evaluation of increasing tiredness. As per the patient, she was feeling increasingly weak and tired in the last few days after she was discharged from STR. Reported beginning of the symptoms during the stay in the STR. Also had increasing leg swelling bilateral lower extremities in the last few weeks. Did not have any orthopnea, PND. No chest pain or palpitations were noted. No shortness of breath, even upon ambulation. No change in urination. No diarrhea or vomiting. No change in po intake or any weight loss in the recent past. Nonalcoholic, nonsmoker, and has been compliant to her medications. Sees Dr. Fernandez, credit administration manager regularly. Allergies/Medications Allergies: Coded Allergies: No Known Allergies (04/22/16) Past History Travel History Traveled to [place] past 21 day No Medical History Neurological: subdural hematoma Subarachnoid Hemorrhage () Falls EENT: NONE Cardiovascular: AFIB, hypertension Respiratory: NONE Gastrointestinal: NONE Hepatic: NONE Renal: NONE Musculoskeletal: NONE Psychiatric: NONE Endocrine: NONE Blood Disorders: NONE Cancer(s): NONE History of MRSA: No History of VRE: No History of CDIFF: No Influenza Vaccine: 04/26/16 Surgical History Surgical History: non-contributory Past Family/Social History Family History Relations & Conditions if any Relation not specified for: *No pertinent family history Psychosocial History Who Do You Live With? spouse Services at Home: None Primary Language: Korean ETOH Use: denies use Illicit Drug Use: denies illicit drug use Functional Ability ADLs Independent: dressing, eating, toileting, bathing. Ambulation: cane, walker IADLs Independent: shopping, housework, finances, food prep, telephone, transportation , medication admin. Review of Systems Review of Systems Constitutional: Reports: see HPI, malaise. Denies: chills, fever, weakness. EENTM: Denies: blurred vision. Cardiovascular: Reports: edema, peripheral edema. Denies: chest pain, orthopena, palpitations, syncope. Respiratory: Denies: cough, orthopnea, short of breath, sputum production. GI: Denies: abdominal pain, diarrhea, melena, nausea. Genitourinary: Denies: hematuria. Musculoskeletal: Denies: back pain, joint pain. Skin: Denies: change in skin color. Neurological/Psychological: Denies: anxiety, confusion, depressed. Hematologic/Endocrine: Denies: bruising, bleeding. Exam & Diagnostic Data Last 24 Hrs of Vital Signs/I&O Vital Signs Date Time Temp Pulse Resp B/P B/P Pulse O2 O2 Flow FiO2 Mean Ox Delivery Rate 11/22 2255 Room Air 11/22 2203 105 128/80 11/22 2121 98.1 95 20 134/90 94 Room Air 11/22 1940 98.2 96 18 144/80 94 Room Air Room Air 11/22 1849 97.9 98 18 170/90 95 Room Air 11/22 1532 98.3 95 18 186/84 95 Room Air Room Air Intake & Output 11/22 1600 11/22 0800 11/22 0000 Intake Total Output Total Balance Patient 120 lb Weight Weight Estimated Measurement Method Physical Exam General Appearance Alert, Oriented X3, Cooperative, No Acute Distress Skin No Rashes, No Breakdown, No Significant Lesion Skin Temp/Moisture Exam: Warm/Dry Sepsis Skin Exam (color): Normal for Ethnicity HEENT Atraumatic, PERRLA, EOMI Neck Supple, No JVD, No thryomegaly Lymphatic Cervical nl Cardiovascular Regular Rate, Normal S1, Normal S2, No Murmurs, S3 Lungs Normal Air Movement Abdomen Normal Bowel Sounds, Soft, No Tenderness, No Hepatospenomegaly Neurological Normal Speech, Strength at 5/5 X4 Ext, Normal Tone, Sensation Intact, Cranial Nerves 3-12 NL, Reflexes 2+ Extremities No Clubbing, No Cyanosis, Normal Pulses, No Tenderness/Swelling, pedal edema Diagnostic Data EKG Results Atrial fibrillation, heart rate 102, QTC 469. CXR Results Chest [id number] opacification of the right middle or lower lobe suggestive of pneumonia versus pleural effusion. X-ray lateral decubitus-related free-flowing pleural fluid on the left side. Assessment/Plan Assessment: She is an older woman with a past history of atrial fibrillation, hyperlipidemia is being evaluated for increasing tiredness likely due to fluid overload. At the time of admission, vital signs average of 98.3, pulse rate 95, respiratory rate 18, blood pressure 186/84 (improved to 134/90), 95% room air. Lab findings indicated no leukocytosis WBC 9.5, hemoglobin 12.8, platelets 271, serum electrolytes-sodium 133, potassium 3.3, bicarbonate 27, BUN 12, serum creatinine 0.6, alkaline phosphatase 166, proBNP 3290. Radiological findings-just incidentally complete opacification on the right middle/lower lobe. Findings were suggestive of pneumonia versus pleural effusion. Lateral decubitus film revealed free-flowing fluid in the pleural cavity on the right side. Last echocardiogram done in 03/2016 revealed left ventricular ejection fraction of 55% with moderate valvular dysfunction. Differential diagnosis: #1 pleural effusion likely acute malignancy/CHF #2 CHF exacerbation #3 pneumonia Below is the problem list and plan: #1 tiredness-likely due to fluid overload and inability of diaphragm to contract efficiently. Possible diagnosis, CHF is highly likely with elevated proBNP, but unilateral presentation and pleural effusion argue against this. Pneumonia is also on differentials, but no fever or leukocytosis was seen. Malignancy although theoretically possible, but the patient does not have any signs of malignant pleural effusion. Continue diuresis with intravenous Lasix. May check pro-calcitonin. Check TSH. Free T4. #2 atrial fibrillation-currently on metoprolol with adequate rate control. Eliquis was held, in anticipation for follow radiological procedure. We'll restart any form of anticoagulation after discussing with the credit administration manager in the am. #3 hypertension-currently stable. Continue lisinopril and metoprolol. #4 DVT prophylaxis-pharmacological. As Ranked By This Provider Problem List: 1. CHF (congestive heart failure) 2. Proximal humerus fracture Core Measures/Miscellaneous Acute Coronary Syndrome ACS Diagnosis: No Cerebrovascular Accident CVA/TIA Diagnosis: No Congestive Heart Failure CHF Diagnosis: Yes Last Known EF %: 55 SUSAN/ARB for EF <40%: Yes Venous Thromboembolism VTE Risk Factors: Age > 40 No Mech VTE prophylaxis d/t: No contraindications No VTE Pharm Prophylaxis d/t: No contraindications VTE Diagnosis: No VTE Type: NONE VTE Confirmed by (Test): NONE Severe Sepsis Severe Sepsis Present: No Septic Shock Septic Shock Present: No Miscellaneous Documentation Attending Case Discussed With: CLAUDIA JAMES,JEAN Ibrahim Primary Care Physician: YO JAMES,VICTOR MANUEL Casiano Patient sees these Specialists Dr Fernandez Level of Patient Care: Telemetry IHM ILIANA JAMES 11/22/16 1900: General Information and HPI Allergies/Medications Home Med list Apixaban (Eliquis) 2.5 MG TABLET 1 TAB PO BID BLOOD THINNER (Reported) Reason to Stop at ADM: HOLD FOR THORACENTESIS Atorvastatin Calcium 40 MG TABLET 1 TAB PO 1700 High Cholestrol Lisinopril 10 MG TABLET 1 TAB PO DAILY High Blood Pressure Metoprolol Tartrate 25 MG TABLET 0.5 TAB PO BID HEART/BP (Reported) Ondansetron HCl (Zofran) 4 MG TABLET 1 TAB PO Q8 PRN NAUSEA (Reported) Sennosides/Docusate Sodium (Senna S Tablet) 8.6 MG-50 MG TABLET 2 TAB PO BID GI (Reported) Resident Review Statement Resident Statement: examined this patient, discussed with credit intern, discussed with family, reviewed EMR data (avail), discussed with nursing, reviewed images, amended to note Other Findings: 85 yo female with pmh of A.fib on eliquis/rate controlled with metoprolol, HTN, HLD, hx of TIA (2016), subdural hematoma (2016), Lt. nondisplaced humerus Fx & Lt. pubic rami Fx s/p mechanical fall [address] from home with a chief complaint of worsening fatigue. She had extreme fatigue which was different from her baseline, and her visiting nurses recommended to get evaluation in ED. At baseline, she was using a partial walker. She denies any chest pain or shortness of breath. She has had LE edema for 3 weeks. Last echo showed EF 55% mild-mod MR, mod-severe TR . V/S: 97.9F [place] 98 RR 18 BP 170/90 95% on RA, On examination, alert, oriented x 3, not in acute distress, PERRLA, EOM intact, moist mucosa, no carotid bruit, irregularly irregular, systolic murmurs, decreased breathing sound on Rt. lung, soft, non-tender abdomen, normal bowel sound, 2+ LE pitting edema, normal pulses , Lt. side arm on sling s/p Lt. humerus fracture, RUE 5/5, LE 4/5, sensation intact, cranial nerves grossly intact. Labs: Hb/Hct 12.8/38.6 Plt 271, Na 133, K 3,3 BUN/Cr 12/0.6, trop 0.04, ALP 166, proBNP 3290 EKG: a.fib with rate 102, NA, QTc 469, no specific ST dep 1mm V6 CXR showed new complete opacification of the right middle and lower lobes, decubitus: large right pleural effusion which is free flowing. 1. New Rt. pleural effusion: large free flowing Rt. pleural effusion from CXR. Previous CXR on 10/13/16 showed bilateral small effusion. Pt is afebrile, WBC nl, less likely to be infection. Differentials include CHF/Rt. heart failure versus malignancy. Will get cardiology consult, echocardiogram, get 2nd troponin @ 10pm , continue IV lasix 40mg daily for now, consider pulmonary/IR consult for thoracentesis. Hold po eliquis anticipating thoracentesis, discuss the initiation time of IV heparin with cardio tmr. 2. A.fib: c/w metoprolol 12.5mg bid, hold eliquis today and initiate IV heparin from tmr. 3. HTN: c/w metoprolol & lisinopril. 4. HLD: c/w lipitor 5. Lt. humerus & pelvic rami fracture s/p [facility] fall: Pt was seen by Dr. Gaspar recently. Continue Lt. arm sling & pain management Pain pathway DVT ppx: was on eliquis previously, will hold it for future thoracentesis full code JEAN TAYLOR MD 11/22/161945: Attending MD Review Statement Attending Statement Attending MD Statement: examined this patient, discuss w/resident/PA/COLLAR SETTER OVERLOCK, agreed w/resident/PA/COLLAR SETTER OVERLOCK, discussed with family, reviewed EMR data (avail), reviewed images Attending Assessment/Plan: 85-year-old fairly complicated female most recently here in September after a fall and a humerus fracture that was treated conservatively and she was discharged to [facility]. She left there just yesterday and felt very weak at home, didn't sleep well and was lethargic and hence visiting nurse suggested coming to the ER. She has a past medical history of atrial fibrillation on Eliquis, a TIA fairly recently in February 2016 and in March 2016 she had an echo which showed mild to moderate MR and mild to moderate tricuspid regurgitation and they couldn't assess her PA pressures. She is here with mild hyponatremia and hypokalemia and a very large right-sided pleural effusion of unclear etiology. She is oxygenating well and there is no obvious evidence of infection. I think the effusion needs to be investigated. At this point I think we need to repeat the echo, get cardiology involved to see whether we should hold the Eliquis and think of doing a diagnostic/therapeutic tap in about 24-48 hours when the effect of the anticoagulant wears off. Off note her credit administration manager Dr. Fernandez had stopped her statin when she was complaining of weakness and he and was also considering stopping the beta neo as per the family. We need more collateral from him and records on Thursday.
--- NOTE | 2016-11-22 17:50 | NUR ---
HOUSE STAFF TO BEDSIDE FOR EVAL.
--- NOTE | 2016-11-22 19:00 | NUR ---
PT TO RADIOLOGY FOR X-RAY VIA STRETCHER.
--- NOTE | 2016-11-22 19:18 | RADIOLOGY REPORT ---
EXAMINATION: XR DECUBITUS FILMS CLINICAL INFORMATION: Right pleural effusion. COMPARISON: Chest x-ray 11/22/2016 TECHNIQUE: Bilateral decubitus views. FINDINGS: There is a large right-sided pleural effusion which is free flowing. This opacifies the majority of the right hemithorax. There is some shift of position between the right and the left decubitus views. Cannot exclude underlying right basilar infiltrate or atelectasis as the lung base remains opacified on both decubitus positions. Left lung is clear. No pulmonary vascular congestion. IMPRESSION: Large right pleural effusion which is free flowing. Further evaluation with CT could be helpful.
--- NOTE | 2016-11-22 19:40 | NUR ---
REPORT GIVEN TO LUKE WILLIAMSON. [employer] CALLED FOR PT TRANSPORT.
[2016-11-22 21:21] VITALS: BP 134/90
[2016-11-22 23:44] VITALS: BP 138/88
[2016-11-23 07:39] VITALS: BP 128/90
--- NOTE | 2016-11-23 09:34 | PN- Att Addend ---
Attending Addendum Attending Brief Note Patient seen and examined. She remains weak and lethargic although she does look slightly better than yesterday. On exam her blood pressure is 120/80, pulse is 90, breathing at 16-18 and her sat is 95% on room air. She sitting up conversing with the nurse in swallowing her pills. Lungs have decreased breath sounds, heart is S1-S2 is regular, abdomen is soft nontender she has very trace pedal edema. Labs are noted for a bicarbonate of 32 and a K of 3.2. This is an 85-year-old who was just discharged from [facility] after an extended stay there after a fall and humerus fracture in September. Right now our biggest concern is this very large free-flowing right-sided pleural effusion of unclear etiology at we are presuming is contributing to her general feeling of weakness. Because of the elevated BNP and the pleural effusion and her previous echo in March which showed [id number] MR and tricuspid regurgitation with an unestimable PA pressure, the thought was that this was congestive heart failure and she got 40 of IV Lasix yesterday in the ER and we are doing 40 of IV Lasix daily to try and diurese this effusion. She's not in any respiratory distress from it and I have no suspicion of empyema or infection so there is no absolute urgency to do a thoracentesis although I do think that she will ultimately need a diagnostic and possibly therapeutic thoracentesis. She is on Eliquis her last dose was yesterday and we held it now so we need to discuss with cardiology the timing of the thoracentesis and went to bridge her ,if to bridge her with IV heparin. Her K is being replaced orally. PT consult is pending. I've ordered Alps for now as we are holding all forms of anticoagulation in anticipation of thoracentesis. I also think we need a CT chest to clarify the lung parenchyma and any compressive atelectasis versus abnormality and then we can safely ask IR to do this procedure. We'll continue her beta noe and her SUSAN inhibitor and her statin and we need records and collateral info from Dr. Fernandez, the ceramics teacher she saw while she was at [facility].
--- NOTE | 2016-11-23 14:46 | Cons- Cardiology ---
General Information and HPI Consulting Request Date of Consult: 11/23/16 Requested By: CLAUDIA JAMES,JEAN Ibrahim History of Present Illness: Ms. Wyman is an 85-year-old female with history of hypertension and atrial fibrillation and TIA. She was recently discharged from a short term rehab after a fall complicated by a left humeral fracture and pubic ramus fracture. Ms. Wyman has noted a generalized fatigue and exercise intolerance without any shortness of breath. It is unclear if she has orthopnea. She otherwise denies chest pain, pressure, tightness, lightheadedness or palpitations. She also denies fever, chills, nausea, vomiting, cough or palpitations despite her chronic atrial fibrillation. She has noted weight loss and some mild leg swelling. In the ER the patient was found to have a large right sided pleural effusion. Allergies/Medications Allergies: Coded Allergies: No Known Allergies (04/22/16) Home Med List: Apixaban (Eliquis) 2.5 MG TABLET 1 TAB PO BID BLOOD THINNER (Reported) Reason to Stop at ADM: HOLD FOR THORACENTESIS Atorvastatin Calcium 40 MG TABLET 1 TAB PO 1700 High Cholestrol Lisinopril 10 MG TABLET 1 TAB PO DAILY High Blood Pressure Metoprolol Tartrate 25 MG TABLET 0.5 TAB PO BID HEART/BP (Reported) Ondansetron HCl (Zofran) 4 MG TABLET 1 TAB PO Q8 PRN NAUSEA (Reported) Sennosides/Docusate Sodium (Senna S Tablet) 8.6 MG-50 MG TABLET 2 TAB PO BID GI (Reported) Review of Systems Review of Systems: A twelve point review of systems is unremarkable. Past History Travel History Traveled to [place] past 21 day No Medical History Blood Transfusion Hx: No Neurological: subdural hematoma Subarachnoid Hemorrhage () Falls EENT: NONE Cardiovascular: AFIB, hypertension Respiratory: NONE Gastrointestinal: NONE Hepatic: NONE Renal: NONE Musculoskeletal: NONE Psychiatric: NONE Endocrine: NONE Blood Disorders: NONE Cancer(s): NONE Surgical History Surgical History: non-contributory Family History Relations & Conditions If Any: Relation not specified for: *No pertinent family history Psychosocial History Where Do You Live? Home Who Do You Live With? spouse Services at Home: Nursing Primary Language: Estonian Smoking Status: Never Smoked ETOH Use: denies use Illicit Drug Use: denies illicit drug use Functional Ability ADLs Independent: dressing, eating, toileting, bathing. Ambulation: cane, walker IADLs Independent: shopping, housework, finances, food prep, telephone, transportation , medication admin. Exam & Diagnostic Data Vital Signs and I&O Vital Signs Date Time Temp Pulse Resp B/P B/P Pulse O2 O2 Flow FiO2 Mean Ox Delivery Rate 11/23 0930 90 128/90 11/23 0930 90 128/90 11/23 0800 Room Air 11/23 0739 97.8 90 14 128/90 95 Room Air 11/23 0000 Room Air 11/22 2344 98.4 90 18 138/88 94 Room Air 11/22 2255 Room Air 11/22 2203 105 128/80 11/22 2121 98.1 95 20 134/90 94 Room Air 11/22 1940 98.2 96 18 144/80 94 Room Air Room Air 11/22 1849 97.9 98 18 170/90 95 Room Air 11/22 1532 98.3 95 18 186/84 95 Room Air Room Air Intake & Output 11/23 1600 11/23 0800 11/23 0000 11/22 1600 11/22 0800 11/22 0000 Intake Total 360 Output Total 900 2000 Balance -900 -1640 Intake, Oral 360 Output, Urine 900 2000 Patient 120 lb Weight Weight Reported by Patient Estimated Measurement Method Physical Exam: General: WD/ WN female in NAD; alert and oriented x 3 HEENT: NC/AT, PERRL, EOMI Neck: no JVD, no carotid bruit Heart: irregularly irregular with 2/6 systolic murmur Lungs: decreased air movement on right; left lung clear Abdomen: soft, NT, +ve bowel sounds Extremities: 1+ bilateral leg edema Diagnostic Data EKG Results atrial fibrillation with abnormal R wave progression consistent with old anterior NE Assessment/Plan Assessment/Plan * This patient has an isolated right pleural effusion of unclear etiology. She does not have fever or increased WBC count or cough suggestive of infection although an infiltrate cannot be absolutely excuded at this point in time. It is reasonable to pursue a trial of diuresis with Lasix 40mg IV daily. * This patient will need a diagnostic thoracentesis. Agree with holding anticoagulation. This procedure may be done tomorrow. * Continue Metoprolol at 25mg BID. Obtain an echocardiogram and obtain a TSH and free T4. Consult Acknowledgment - Thank you for your consult request.
--- NOTE | 2016-11-23 15:10 | CT SCAN REPORT ---
EXAMINATION: CT CHEST WITHOUT CONTRAST CLINICAL INFORMATION: Right pleural effusion. COMPARISON: Decubitus views of chest. Portable chest x-ray 11/22/2016. Chest x-ray 10/13/2016 TECHNIQUE: Multidetector volumetric CT imaging of the chest was done. Axial MIP volume rendering provided. Sagittal and coronal reformatted images were obtained. DLP: 188.56 mGy-cm FINDINGS: PLEURA/LUNGS: There is a large volume right pleural effusion. There is compressive atelectasis of nearly entire right lung with only small region of aeration at the upper lobe. Minimal layering left pleural effusion. Left lung is clear. MEDIASTINUM: There is shift of the midline structures from right to left due to the large right pleural effusion. Small shotty subcentimeter lymph nodes in the pretracheal retrovascular space and AP window. No bulky lymphadenopathy. There is vascular calcifications of the abdominal aorta and origin of great vessels and coronary arteries. No aneurysm of aorta. There is no pericardial effusion. AXILLA: No lymphadenopathy. UPPER ABDOMEN: Unremarkable. OSSEOUS STRUCTURES: Mild degenerative change of the spine with disc height narrowing and endplate spurs of vertebrae. IMPRESSION: Large volume right pleural effusion nearly opacifying the right hemithorax. This is causing mass effect with midline shift from right to left. There is atelectasis of most of the right lung with only small region of aeration at the right upper lobe.
[2016-11-23 15:56] VITALS: BP 110/84
[2016-11-24 00:19] VITALS: BP 112/60
--- NOTE | 2016-11-24 08:07 | PN- Housestaff ---
SHUN WILDER 11/24/16 0806: Subjective Follow-up For: - CHF exacerbation Complaints: no complaints Tele-Events Since Last Visit: Atrial fibrillation, heart rate 90-100, no overnight events. Subjective: Patient comfortable this morning. Did not have any complaints. Vitals were stable overnight. Slightly tachycardic. Initial plan was to get thoracentesis done today. Since the patient has taken apixaban on 11/22/16, the plan to tap has been deferred to a.m. Informed the patient. Review of Systems Constitutional: Reports: see HPI. Objective Last 24 Hrs of Vital Signs/I&O Vital Signs Date Time Temp Pulse Resp B/P B/P Pulse O2 O2 Flow FiO2 Mean Ox Delivery Rate 11/24 0019 97.8 78 20 112/60 93 11/24 0000 Room Air 11/23 2058 90 120/68 11/23 1556 98.6 88 18 110/84 93 11/23 0930 90 128/90 11/23 0930 90 128/90 Intake & Output 11/24 1600 11/24 0800 11/24 0000 Intake Total 240 Output Total 100 450 Balance -100 -210 Intake, Oral 240 Output, Urine 100 450 Patient 171 lb Weight Physical Exam General Appearance: No Acute Distress Other Physical Findings: General Exam: AAOx3, No acute distress, Skin: No rashes, no breakdown HEENT: PERRLA, EOMI Neck: Supple, No JVD No cervical lymphadenopathy CVS: Reg Rate, Normal S1,S2, No MGR Resp: Decreased air entry on the right side, no rhonchi/rales. Abdomen: Soft, No tenderness, Normal Bowel Sounds Neuro: Normal Speech, Strength 5/5 b/l x 4 extremities, Sensation intact, CN III -XII NL, Reflexes 2+ Extremities: No cyanosis, pedal edema Current Medications: Current Medications Sig/Chava Start time Last Medication Dose Route Stop Time Status Admin Acetaminophen 325 MG Q6P PRN 11/22 1814 AC PO Acetaminophen/ 1 TAB Q6P PRN 11/22 1814 AC Hydrocodone Bitart PO Atorvastatin Calcium 40 MG 1700 11/22 1830 AC 11/23 PO 181 Furosemide 40 MG DAILY 11/23 1000 AC 11/23 IV 0930 Lisinopril 10 MG DAILY 11/23 1000 AC 11/23 PO 0930 Metoprolol Tartrate 12.5 MG BID 11/22 2199 AC 11/23 PO 2057 Ondansetron HCl 4 MG Q8 PRN 11/22 1814 AC PO Potassium Chloride 40 MEQ .STK-MED ONE 11/23 1220 DC PO 11/23 1221 Potassium Chloride 40 MEQ BID 11/23 1000 AC 11/23 PO 2057 Potassium Chloride 40 MEQ BID 11/220 DC 11/23 PO 0930 Senna/Docusate Sodium 2 TAB BID 11/22 2199 AC 11/23 PO 2056 Tramadol HCl 50 MG Q4 PRN 11/22 181 AC PO Last 24 Hrs of Lab/Jaime Results Last 24 Hrs of Labs/Mics: Laboratory Tests 11/24/16 0710: Sodium Pending, Potassium Pending, Chloride Pending, Carbon Dioxide Pending, Anion Gap Pending, BUN Pending, Creatinine Pending, BUN/Creatinine Ratio Pending , Magnesium Pending, Lactate Dehydrogenase Pending, CBC w Diff Pending, WBC Pending, RBC Pending, Hgb Pending, Hct Pending, MCV Pending, MCH Pending, RDW Pending, Plt Count Pending, MPV Pending, PUBS MCHC Pending Assessment/Plan Assessment: Ms Wyman is an 85-year-old woman who has a past medical history of atrial fibrillation ( on NOAC ), hypertension, TIA ( dx'ed 2016), left non displaced humerus fracture, left pubic rami fracture who was recently discharged from a [facility] a few day ago is being evaluated for increasing tiredness 3 days. Last echocardiogram done in 03/2016 revealed left ventricular ejection fraction of 55% with moderate valvular dysfunction. Differential diagnosis: #1 pleural effusion likely acute malignancy/CHF #2 CHF exacerbation #3 pneumonia Below is the problem list and plan: #1 tiredness-likely due to fluid overload and inability of diaphragm to contract efficiently. Possible diagnosis, CHF is highly likely with elevated proBNP, but unilateral presentation and pleural effusion argue against this. Pneumonia is also on differentials, but no fever or leukocytosis was seen. Malignancy although theoretically possible, but the patient does not have any signs of malignant pleural effusion. Continue diuresis. Thoracentesis w/ pleural studies planned for am. Check echocardiogram. #2 atrial fibrillation-currently on metoprolol with adequate rate control. Eliquis was held temporarily. SC heparin for now. Will restart AC after the procedure in the am. Dr. Michael advising. #3 hypertension-currently stable. Continue lisinopril and metoprolol. Slightly tachycardic in the morning, and hence telemetry monitoring has been continued. #4 DVT prophylaxis-pharmacological. #5 abnormal urinalysis-repeat urinalysis. Check if anabiotic is warranted. Problem List: 1. CHF (congestive heart failure) 2. Atrial fibrillation Pain Ratin Pain Location: none Pain Goal: Pain 4 or less Pain Plan: tylenol prn vicodin Tomorrow's Labs & Rationales: bep- pt had low potassium. DVT/Prophylaxis: pharmacological JEFFERSON JAMES,ESHA 11/24/16 1335: Attending MD Review Statement Attending Statement Attending MD Statement: examined this patient, discuss w/resident/PA/GAS CHARGER, agreed w/resident/PA/GAS CHARGER, reviewed EMR data (avail), discussed with nursing, discussed with case mgmt, reviewed images, amended to note Attending Assessment/Plan: Patient seen and examined, claims that she is feeling tired. Denies any sob, no chest pain. She has right sided Pl effusion of unclear etiology. Vital Signs Date Time Temp Pulse Resp B/P B/P Pulse O2 O2 Flow FiO2 Mean Ox Delivery Rate 11/24 1210 Room Air Room Air 11/24 1041 102 104/60 11/24 1041 102 104/60 11/24 0843 97.8 102 17 170/81 94 Room Air 11/24 0800 Room Air 11/24 0019 97.8 78 20 112/60 93 11/24 0000 Room Air 11/23 2058 90 120/68 11/23 1556 98.6 88 18 110/84 93 on exam; aox3, nad. cv; s1,s2, irregular. resp; decreased bs at right base. abd; soft, nt, bs+ ext; no edema. Laboratory Tests 11/24 0710 Chemistry Sodium (137 - 145 mmol/L) 137 Potassium (3.5 - 5.1 mmol/L) 4.2 Chloride (98 - 107 mmol/L) 100 Carbon Dioxide (22 - 30 mmol/L) 30 Anion Gap (5 - 16) 7 BUN (7 - 17 mg/dL) 16 Creatinine (0.5 - 1.0 mg/dL) 0.6 Estimated GFR (>60 ml/min) > 60 BUN/Creatinine Ratio (7 - 25 %) 26.7 H Magnesium (1.6 - 2.3 mg/dL) 2.0 Lactate Dehydrogenase (313 - 618 U/L) 541 Hematology CBC w Diff NO MAN DIFF REQ WBC (4.8 - 10.8 /CUMM) 8.4 RBC (4.20 - 5.40 /CUMM) 4.35 Hgb (12.0 - 16.0 G/DL) 12.4 Hct (37 - 47 %) 37.3 MCV (81.0 - 99.0 FL) 85.9 MCH (27.0 - 31.0 PG) 28.5 RDW (11.5 - 14.5 %) 20.6 H Plt Count (130 - 400 /CUMM) 261 MPV (7.4 - 10.4 FL) 8.9 Gran % (42.2 - 75.2 %) 74.5 Lymphocytes % (20.5 - 51.1 %) 14.1 L Monocytes % (1.7 - 9.3 %) 9.5 H Eosinophils % (0 - 5 %) 1.4 Basophils % (0.0 - 2.0 %) 0.5 Absolute Granulocytes (1.4 - 6.5 /CUMM) 6.3 Absolute Lymphocytes (1.2 - 3.4 /CUMM) 1.2 Absolute Monocytes (0.10 - 0.60 /CUMM) 0.8 H Absolute Eosinophils (0.0 - 0.7 /CUMM) 0.1 Absolute Basophils (0.0 - 0.2 /CUMM) 0 PUBS MCHC (33.0 - 37.0 G/DL) 33.2 A/P; 85 y/o F with pmh sig for past medical history of atrial fibrillation ( on NOAC ), hypertension, TIA ( dx'ed 2016), left non displaced humerus fracture, left pubic rami fracture who was recently discharged from a [facility] a few days ago now admitted with generalized weakness, fatigue and found to have significant right-sided pleural effusion. With high BNP, she has been initially started on diuresis. Thoracentesis is planned for tomorrow to determine the etiology of this pleural effusion. Cardiology recommends holding off on further diuresis. Please stop the Lasix for now. Continue to hold Eliquis for planned paracentesis tomorrow. UA was dirty looking on admission but I do not see any urine culture. Please repeat urinalysis as well as urine culture. Please also check a vitamin D level especially with recent fractures. Her iron studies are reasonable and her H&H is also reasonable. Her thyroid functions is also normal. Those tests were done to look for the cause off her generalized weakness and fatigue. Continue other current cardiac medications. DVT Px; can start the patient on heparin subcutaneous while she is off of her full anticoagulation. Will hold the dose in the morning.
[2016-11-24 08:16] LABS: ABSOLUTE BASOPHIL COUNT 0 /CUMM (0.0-0.2); ABSOLUTE EOSINOPHIL COUNT 0.1 /CUMM (0.0-0.7); ABSOLUTE GRANULOCYTE CT 6.3 /CUMM (1.4-6.5); ABSOLUTE LYMPH COUNT 1.2 /CUMM (1.2-3.4); ABSOLUTE MONOCYTE COUNT 0.8 /CUMM (0.10-0.60); BASOPHIL % 0.5 % (0.0-2.0); EOSINOPHIL % 1.4 % (0-5); GRANULOCYTE % 74.5 % (42.2-75.2); HEMATOCRIT 37.3 % (37-47); MEAN CORPUSCULAR HGB 28.5 PG (27.0-31.0); MEAN CORPUSCULAR HGB CONC 33.2 G/DL (33.0-37.0); MEAN CORPUSCULAR VOLUME 85.9 FL (81.0-99.0); MEAN PLATELET VOLUME 8.9 FL (7.4-10.4); PLATELET COUNT 261 /CUMM (130-400); RBC DISTRIBUTION WIDTH 20.6 % (11.5-14.5); RED BLOOD CELL CT 4.35 /CUMM (4.20-5.40); WHITE BLOOD CELL COUNT 8.4 /CUMM (4.8-10.8)
[2016-11-24 08:43] VITALS: BP 170/81
--- NOTE | 2016-11-24 12:21 | PN- Cardiology ---
Subjective Subjective: The patient still feels weak. She denies dyspnea at rest. Denies chest pain or palpitations. Objective Vital Signs and I&Os Vital Signs Date Time Temp Pulse Resp B/P B/P Pulse O2 O2 Flow FiO2 Mean Ox Delivery Rate 11/24 1041 102 104/60 11/24 1041 102 104/60 11/24 0843 97.8 102 17 170/81 94 Room Air 11/24 0800 Room Air 11/24 0019 97.8 78 20 112/60 93 11/24 0000 Room Air 11/23 205 90 120/68 11/23 1556 98.6 88 18 110/84 93 Intake & Output 11/24 1600 11/24 0800 11/24 0000 11/23 1600 11/23 0800 11/23 0000 Intake Total 240 494 360 Output Total 656 140 0481 900 1999 Balance -100 -210 -706 -900 -1640 Intake, IV 14 Intake, Oral 240 480 360 Number 2 Bowel Movements Output, Urine 111 059 0449 900 1999 Patient 171 lb Weight Weight Reported by Patient Measurement Method Physical Exam: General: no apparent distress. Eyes: No obvious scleral icterus. HEENT: No jugular venous distention or abnormal jugular venous pulsations. Cardiovascular: Normal intensity S1/S2. Irregular. 1/6 SM. Respiratory: Decreased right-sided air entry Abdomen: Soft, nontender with no guarding or rebound tenderness. Musculoskeletal: No clubbing or cyanosis noted, trace lower extremity edema Skin: Warm Current Medications: Current Medications Sig/Chava Start time Last Medication Dose Route Stop Time Status Admin Acetaminophen 325 MG Q6P PRN 11/22 1814 AC PO Acetaminophen/ 1 TAB Q6P PRN 11/22 1814 AC Hydrocodone Bitart PO Atorvastatin Calcium 40 MG 1700 11/22 1830 AC 11/23 PO 1812 Furosemide 40 MG DAILY 11/23 1000 AC 11/24 IV 1038 Lisinopril 10 MG DAILY 11/23 1000 AC 11/24 PO 1041 Metoprolol Tartrate 12.5 MG BID 11/22 2199 AC 11/24 PO 104 Ondansetron HCl 4 MG Q8 PRN 11/22 1814 AC PO Potassium Chloride 40 MEQ .STK-MED ONE 11/23 1220 DC PO 11/23 122 Potassium Chloride 40 MEQ BID 11/23 1000 DC 11/23 PO 2057 Senna/Docusate Sodium 2 TAB BID 11/22 2199 AC 11/23 PO 2056 Tramadol HCl 50 MG Q4 PRN 11/22 1814 AC PO Results Last 48 Hrs of Labs/Mics: Laboratory Tests 11/24/16 0710: Anion Gap 7, Estimated GFR > 60, BUN/Creatinine Ratio 26.7 H, Magnesium 2.0, Lactate Dehydrogenase 541, CBC w Diff NO MAN DIFF REQ, RBC 4.35, MCV 85.9, MCH 28.5, RDW 20.6 H, MPV 8.9, Gran % 74.5, Lymphocytes % 14.1 L, Monocytes % 9.5 H, Eosinophils % 1.4, Basophils % 0.5, Absolute Granulocytes 6.3, Absolute Lymphocytes 1.2, Absolute Monocytes 0.8 H, Absolute Eosinophils 0.1, Absolute Basophils 0, PUBS MCHC 33.2 11/23/16 0600: Troponin I 0.04 11/23/16 0600: Anion Gap 8, Estimated GFR > 60, BUN/Creatinine Ratio 20.0, TSH 1.810, Free T4 1.57 11/22/16 2300: Troponin I 0.04 11/22/16 1641: Urine Color YEL, Urine Clarity HAZY H, Urine pH 7.0, Ur Specific Willow 1.015, Urine Protein 30 H, Urine Ketones TRACE H, Urine Nitrite NEG, Urine Bilirubin NEG, Urine Urobilinogen 0.2, Ur Leukocyte Esterase SMALL H, Ur Microscopic SEDIMENT EXAMINED, Urine RBC 3-5, Urine WBC 15-25 H, Ur Epithelial Cells MOD H , Urine Bacteria PACKD H, Urine Hemoglobin SMALL H, Urine Glucose NEG 11/22/16 1539: Anion Gap 12, Estimated GFR > 60, BUN/Creatinine Ratio 20.0, Glucose 93, Calcium 8.6, Total Bilirubin 1.3, AST 22, ALT 33, Alkaline Phosphatase 166 H, Troponin I 0.04, Bqm-U-Inpejctkouh Pept 3290 H, Total Protein 6.2 L, Albumin 3.1 L, Globulin 3.1, Albumin/Globulin Ratio 1.0 L, CBC w Diff NO MAN DIFF REQ, RBC 4.51, MCV 85.4, MCH 28.2, RDW 20.4 H, MPV 8.8, Gran % 80.4 H, Lymphocytes % 10.4 L, Monocytes % 8.6, Eosinophils % 0.2, Basophils % 0.4, Absolute Granulocytes 7.7 H, Absolute Lymphocytes 1.0 L, Absolute Monocytes 0.8 H, Absolute Eosinophils 0, Absolute Basophils 0, PUBS MCHC 33.0 Recent Imaging Studies: Telemetry tracings were personally reviewed and show atrial fibrillation with borderline tachycardia Chest CT: IMPRESSION: Large volume right pleural effusion nearly opacifying the right hemithorax. This is causing mass effect with midline shift from right to left. There is atelectasis of most of the right lung with only small region of aeration at the right upper lobe. Assessment/Plan Assessment/Plan 1. Large pleural effusion of unclear etiology 2. Paroxysmal atrial fibrillation on outpatient Eliquis; history of recurrent falls with a previous subarachnoid hemorrhage (requiring AC reversal; reportedly on Pradaxa at that time) and recent fall with fracture (09/2016) 3. History of possible prior TIA 4. Continued fatigue/weakness/failure to thrive 5. Hx of Moderate to severe tricuspid regurgitation The patient's pleural effusion is of unclear etiology and she is planned for diagnostic thoracocentesis. She does not carry a known history of congestive heart failure. Repeat echocardiogram is pending. As she complains of no dyspnea and blood pressure is borderline would hold further diuretics for now pending results of the thoracocentesis. Anticoagulation is on hold and given her continued fatigue/weakness with history of recurrent falls and previous subarachnoid hemorrhage we may need to reconsider her continued candidacy for anticoagulation. Would continue monitoring her heart rate on telemetry for now. Tello Michael MD [facility] Continue telemetry? Yes
[2016-11-24 16:50] VITALS: BP 154/65
--- NOTE | 2016-11-24 18:33 | Discharge Summary ---
Visit Information Visit Dates Admission Date: 11/22/16 Discharge Date: 11/28/16 Hospital Course Course Attending Physician: ESHA PAULINO MD Primary Care Physician: YO JAMES,VICTOR MANUEL Casiano Consulting Request: 1 Consulting Specialty: Cardiology Consulting Physician: Collin Michael MD Reason for Consult: atrial fibrillation Consulting Request: 2 Consulting Specialty: Pulmonary Disease Consulting Physician: Cindy Mclain MD Reason for Consult: rt. pl. effusion Hospital Course: Ms Wyman is an 85-year-old woman who was known to be in her usual state of health until approximately one week ago. She has a past medical history of atrial fibrillation ( on NOAC ), hypertension, TIA ( dx'ed 2016), left non displaced humerus fracture, left pubic rami fracture who was recently discharged from a [facility] a few day ago. She was brought due to dyspnea for evaluation of increasing tiredness. She was feeling increasingly weak and tired in the last few days after she was discharged from [facility]. Also had increasing leg swelling bilateral lower extremities in the last few weeks. Did not have any orthopnea, PND. No chest pain or palpitations were noted. No shortness of breath, even upon ambulation. No change in urination. No diarrhea or vomiting. No change in po intake or any weight loss in the recent past. Her vitals on admission were T 98.3, HR 95, RR 18, BP 106/84, O2 sat 95% Physical exam: General Appearance Alert, Oriented X3, Cooperative, No Acute Distress Skin No Rashes, No Breakdown, No Significant Lesion Skin Temp/Moisture Exam: Warm/Dry HEENT Atraumatic, PERRLA, EOMI Neck Supple, No JVD, No thryomegaly Lymphatic Cervical nl Cardiovascular Regular Rate, Normal S1, Normal S2, No Murmurs, S3 Lungs Normal Air Movement Abdomen Normal Bowel Sounds, Soft, No Tenderness, No Hepatospenomegaly Neurological Normal Speech, Strength at 5/5 X4 Ext, Normal Tone, Sensation Intact, Cranial Nerves 3-12 NL, Reflexes 2+ Extremities No Clubbing, No Cyanosis, Normal Pulses, No Tenderness/Swelling, pedal edema Her labs were significant for WBC 9.5, H&H 12.8/38.6, sodium 133, K3.3, BUN 12, creatinine 0.6, blood glucose 93, T bili 1.3, alkaline phosphatase 166, troponin 0.04, proBNP 3290, total protein 6.2, albumin 3.1 EKG :Atrial fibrillation, heart rate 102, QTC 469. CXR : complete opacification of the right middle or lower lobe suggestive of pneumonia versus pleural effusion. X-ray lateral decubitus-related free-flowing pleural fluid on the left side. Patient admitted to telemetry floor and following problems were addressed during course of hospital stay. 1. Large right pleural effusion Patient noted very weak on admission and noted the have unilateral right-sided large pleural effusion with elevated proBNP on lab. Due to suspicion of CHF patient was started on IV diuretics. Although there was also concern of infection due to unilateral effusion and also there was high suspicion for malignancy considering patient's being cachectic. Cardiology consulted and initially continued IV diuretics. Echocardiogram obtained which revealed normal LV function with EF of 55%, noted moderate to severe TR and moderate pulmonary hypertension with RVSP > [address] scan of the chest obtain without contrast which conformed large right pleural effusion causing mass effect with midline shift from [id number] and atelectasis of most of the right lung. With no significant improvement of pleural effusion on diuresis, as per pulmonary recommendation patient underwent diagnostic and therapeutic ultrasound-guided right thoracentesis, fluid was sent for culture, cytology. Pigtail catheter left to drain further right-sided pleural effusion. Her diuretic regimen stopped. Pleural fluid analysis revealed trans-exudative fluid which was not predominant of lymphocytes, negative for Gram stain and culture also noted negative AFB smear. Pleural fluid fungal culture are still pending. Pleural fluid cytology revealed plan mesothelial cells with lymphocytes and neutrophils. No evidence of malignancy identified. After 2 days of drainage of about 2.6 L fluid pigtail catheter removed and chest x-ray repeated which did not reveal any signs of pneumothorax. Suspected etiology of patient's unilateral pleural effusion thought to be secondary to posttraumatic. If patient continues to have persistent cachexia and weight loss or if patient develops reaccumulation of pleural fluid then suggest get CT chest/abdomen pelvis with IV contrast to look for any possible malignancy. 2. Paroxysmal Atrial fibrillation Patient noted in rate control atrial fibrillation on Eliquis on admission. Patient had history of recurrent falls resulting in subarachnoid hemorrhage in setting of anticoagulation use Pradaxa, which at that time required anticoagulation reversal Her anticoagulation held for planned right thoracentesis. Postprocedure patient monitor off anticoagulation due to concern for bleeding and also considered patient's candidacy for anticoagulation. After discussing with patient and family, understanding the risk and benefit of anticoagulation, patient restarted on Pradaxa. 3. Hypertension Patient continued on lisinopril and metoprolol for blood pressure control. At one point patient noted borderline hypotensive and her blood pressure regimen needed to be held. On discharge patient lisinopril held due to low blood pressure. 4. Asymptomatic bacteriuria Patient noted having dirty urine which grew enterococcus but patient remained asymptomatic without any elevated white count or fever. Patient watched off antibiotics 5. History of TIA Patient continued on Lipitor 40 mg daily 6. DVT prophylaxis Patient received chemical DVT prophylaxis 7. Full code Allergies: Coded Allergies: No Known Allergies (04/22/16) Significant Procedures: 1. Right ultrasound-guided thoracentesis Ultrasound-guided placement of a 12 Uzbek right chest tube for the presence of a large pleural effusion without evidence of complications. After initial drainage of 1 L of fluid, the catheter was left to [facility] suction to drain the remaining fluid without risking flash pulmonary edema and to aid reexpansion of the right lung. 2. Echocardiogram Technically difficult study. Atrial fibrillation noted. Left ventricular cavity size normal. Left ventricular wall thickness mildly increased. No obvious regional wall motion abnormalities. Left ventricular ejection fraction is estimated at > 55 %. Normal right ventricular size and function. Mild right atrial dilatation. Mild left atrial dilatation. [id number] tricuspid regurgitation. Right ventricular systolic pressure estimated to be elevated at > 50 mmHg. No pericardial effusion. Large right pleural effusion. Pertinent Lab Results: Laboratory Tests 11/28/16 0615: Anion Gap 9, Estimated GFR > 60, BUN/Creatinine Ratio 36.3 H, CBC w Diff NO MAN DIFF REQ, RBC 4.66, MCV 85.7, MCH 28.3, RDW 20.3 H, MPV 9.3, Gran % 71.3, Lymphocytes % 17.2 L, Monocytes % 6.9, Eosinophils % 3.8, Basophils % 0.8, Absolute Granulocytes 6.7 H, Absolute Lymphocytes 1.6, Absolute Monocytes 0.6, Absolute Eosinophils 0.4, Absolute Basophils 0.1, PUBS MCHC 33.0 11/27/16 0630: Anion Gap 9, Estimated GFR 42 L, BUN/Creatinine Ratio 28.3 H, CBC w Diff NO MAN DIFF REQ, RBC 4.78, MCV 85.6, MCH 28.4, RDW 20.3 H, MPV 9.3, Gran % 78.9 H , Lymphocytes % 14.6 L, Monocytes % 5.4, Eosinophils % 0.8, Basophils % 0.3, Absolute Granulocytes 7.4 H, Absolute Lymphocytes 1.4, Absolute Monocytes 0.5, Absolute Eosinophils 0.1, Absolute Basophils 0, PUBS MCHC 33.2 11/26/16 0645: Anion Gap 9, Estimated GFR > 60, BUN/Creatinine Ratio 32.9 H, CBC w Diff NO MAN DIFF REQ, RBC 4.72, MCV 84.8, MCH 28.2, RDW 20.3 H, MPV 9.0, Gran % 77.6 H, Lymphocytes % 13.5 L, Monocytes % 7.1, Eosinophils % 1.4, Basophils % 0.4, Absolute Granulocytes 6.6 H, Absolute Lymphocytes 1.1 L, Absolute Monocytes 0.6, Absolute Eosinophils 0.1, Absolute Basophils 0, PUBS MCHC 33.3 Microbiology 11/26 1555 BODY FLUID: Fungal Culture - RES Disposition Summary Disposition Principal Diagnosis: 1. Right trans-exudative pleural effusion likely secondary to post trauma 2. Paroxysmal A. fib 3. Cachexia Additional Diagnosis: 1. Hypertension 2. History of TIA Discharge Disposition: SNF Discharge Instructions General Discharge Information Code Status: Full Code Patient's Diet: Heart healthy diet Patient's Activity: Continue physical therapy as tolerated Follow-Up Instructions/Appts: #1 please follow up with your primary care doctor within 1-2 weeks of discharge. #2 please follow up with your paste plant supervisor within 1-2 weeks of discharge. #3 please follow-up with your lung doctor within 1-2 weeks of discharge. #4 please note that lisinopril- one of the blood pressure medications is being held right now. Please discuss with primary care doctor regarding resuming it. Medications at Discharge Discharge Medications: Stop taking the following medications: Lisinopril (Lisinopril) 10 MG TABLET ORAL DAILY Days = 30 Apixaban (Eliquis) 2.5 MG TABLET ORAL TWICE DAILY Qty = 60 Metoprolol Tartrate (Metoprolol Tartrate) 25 MG TABLET ORAL TWICE DAILY Continue taking these medications: Atorvastatin Calcium (Atorvastatin Calcium) 40 MG TABLET 1 Tablet ORAL 5 PM Days = 30 Comments: Last Taken: 11/28/16 Time: 6 PM Sennosides/Docusate Sodium (Senna S Tablet) 8.6 MG-50 MG TABLET 2 Tablet ORAL TWICE DAILY Comments: Last Taken: 11/28/16 Time: 9:30 AM Ondansetron HCl (Zofran) 4 MG TABLET 1 Tablet ORAL EVERY 8 HOURS as needed for NAUSEA Comments: Last Taken: 11/26/16 Time: 9 AM Start taking the following new medications: Metoprolol Tartrate (Metoprolol Tartrate) 25 MG TABLET 25 Milligram ORAL EVERY 8 HOURS Days = 30 No Refills Comments: Last Taken: 11/28/16 Time: 2 PM Polyethylene Glycol 3350 (Miralax) 17 GRAM/DOSE POWDER 17 Gram ORAL DAILY as needed for constipation Qty = 60 No Refills Comments: Last Taken: 11/27/16 TIME: 9 PM Cholecalciferol (Vitamin D3) 1,000 UNIT TABLET 1,000 International Unit ORAL DAILY Qty = 30 No Refills Comments: Last Taken: 11/28/16 Time: 9:30 AM Acetaminophen (Tylenol Extra Strength) 500 MG TABLET 1-2 Tablet ORAL EVERY 8 HOURS Qty = 20 No Refills Comments: NOT GIVEN IN HOSPITAL Dabigatran (Pradaxa) 75 MG CAPSULE 1 Capsule ORAL TWICE DAILY Qty = 60 No Refills Comments: NOT GIVEN IN HOSPITAL Copies To: ORTEGA JAMES,CINDY Morales; JOSSE JAMES,[facility]; YO JAMES,VICTOR MANUEL Casiano Attending MD Review Statement Documenting Attending: ESHA PAULINO MD
--- NOTE | 2016-11-24 21:31 | ECHOCARDIOGRAM REPORT ---
JACOB MCMILLAN Age: 85 : 1930 Gender: F Exam Date: 11/24/2016 16:58 Exam Location: [address] Ht (in): 64 Wt (lb): 171 BSA: 1.90 BP: 170 / 81 Ordering Physician: ILIANA HOWARD MD Referring Physician: Collin Michael M.D. Technologist: Destiny Regan [facility] Room Number: 185-02 Indications: HEART FAILURE Rhythm: Atrial fibrillation Technical Quality: Technically difficult study FINDINGS Left Ventricle Left ventricular cavity size normal. Left ventricular wall thickness mildly increased. No obvious regional wall motion abnormalities. Left ventricular ejection fraction is estimated at > 55 %. Right Ventricle Normal right ventricular size and function. Right Atrium Mild right atrial dilatation. Left Atrium Mild left atrial dilatation. Mitral Valve No mitral stenosis. Mild to moderate mitral annular calcification. Mild mitral regurgitation. Aortic Valve No aortic stenosis. Trileaflet aortic valve. Trace aortic regurgitation. Tricuspid Valve Structurally normal tricuspid valve. Kbcwldhx-ad-ajsegx tricuspid regurgitation. Right ventricular systolic pressure estimated to be elevated at > 50 mmHg. Pulmonic Valve Pulmonic valve not well visualized, grossly normal. Pericardium No pericardial effusion. Large right pleural effusion. Great Vessels Normal size aortic root. CONCLUSIONS Technically difficult study. Atrial fibrillation noted. Left ventricular cavity size normal. Left ventricular wall thickness mildly increased. No obvious regional wall motion abnormalities. Left ventricular ejection fraction is estimated at > 55 %. Normal right ventricular size and function. Mild right atrial dilatation. Mild left atrial dilatation. Apihedil-vx-layuex tricuspid regurgitation. Right ventricular systolic pressure estimated to be elevated at > 50 mmHg. No pericardial effusion. Large right pleural effusion. Collin Michael M.D. (Electronically Signed) Final Date: 24 Nov 2016 21:31 MEASUREMENTS (Male / Female) Normal Values 2D ECHO LV Diastolic Diameter PLAX 2.8 cm 4.2 - 5.9 / 3.9 - 5.3 cm LV Systolic Diameter PLAX 1.8 cm 2.1 - 4.0 cm LV Fractional Shortening PLAX 35.7 % 25 - 46 % LV Ejection Fraction 2D Teich 67.1 % IVS Diastolic Thickness 1.2 cm LVPW Diastolic Thickness 1.3 cm LV Relative Wall Thickness 0.9 RV Internal Dim ED PLAX 3.0 cm 1.9 - 3.8 cm LVOT Diameter 1.7 cm Aortic Root Diameter 2.6 cm LA Systolic Diameter LX 3.6 cm 3.0 - 4.0 / 2.7 - 3.8 cm LA Volume 53.0 cm 18 - 58 / 22 - 52 cm Ascending Aorta Diameter 2.8 cm DOPPLER AV Peak Velocity 110.0 cm/s AV Peak Gradient 4.8 mmHg AV Mean Velocity 74.1 cm/s AV Mean Gradient 2.0 mmHg AV Velocity Time Integral 19.0 cm LVOT Peak Velocity 68.4 cm/s LVOT Peak Gradient 1.9 mmHg LVOT Mean Velocity 45.1 cm/s LVOT Mean Gradient 1.0 mmHg LVOT Velocity Time Integral 11.4 cm LVOT Stroke Volume 25.9 cm AV Area Cont Eq vti 1.4 cm AV Area Cont Eq pk 1.4 cm MV Peak Velocity 89.6 cm/s MV Peak Gradient 3.2 mmHg MV Mean Velocity 45.9 cm/s MV Mean Gradient 1.0 mmHg Mitral E Point Velocity 89.3 cm/s MV PHT Velocity 95.0 cm/s MV Deceleration [place] 422.0 cm/s MV Pressure Half Time 67.5 ms MV Area PHT 3.3 cm MV Deceleration Time 198.0 ms TR Peak Velocity 329.0 cm/s TR Peak Gradient 43.3 mmHg Right Atrial Pressure 5.0 mmHg Pulmonary Artery Systolic Pressu 49.0 mmHg Right Ventricular Systolic Press 49.0 mmHg PV Peak Velocity 86.3 cm/s PV Peak Gradient 3.0 mmHg PV Mean Velocity 55.0 cm/s PV Mean Gradient 1.0 mmHg PV Velocity Time Integral 14.4 cm LV E' Lateral Velocity 12.0 cm/s Mitral E to LV E' Lateral Ratio 7.4 LV E' Septal Velocity 8.6 cm/s Mitral E to LV E' Septal Ratio 10.3
[2016-11-25 01:44] VITALS: BP 148/80
--- NOTE | 2016-11-25 07:16 | PN- Housestaff ---
SHUN WILDER 11/25/16 0715: Subjective Follow-up For: - right sided pleural effusion Complaints: no complaints Tele-Events Since Last Visit: Afib, HR 75-109, No overnight events. Subjective: Pt comfortable. No complaints. She was taken to the IR suite for tube placement for removal of pleural fluid. Remained afebrile overnight. Vitals stable. Review of Systems Constitutional: Reports: see HPI. Objective Last 24 Hrs of Vital Signs/I&O Vital Signs Date Time Temp Pulse Resp B/P B/P Pulse O2 O2 Flow FiO2 Mean Ox Delivery Rate 11/25 0144 97.9 80 18 148/80 94 Room Air 11/24 2109 95 128/72 11/24 1650 98.1 94 17 154/65 94 Nasal Cannula 11/24 1210 Room Air Room Air 11/24 1041 102 104/60 11/24 1041 102 104/60 11/24 0843 97.8 102 17 170/81 94 Room Air 11/24 0800 Room Air Intake & Output 11/25 0800 11/25 0000 11/24 1600 Intake Total 120 525 239 Output Total 500 150 350 Balance -380 375 -111 Intake, IV 14 Intake, Oral 120 525 225 Output, Urine 500 150 350 Physical Exam General Appearance: No Acute Distress Other Physical Findings: General Exam: AAOx3, No acute distress, Skin: No rashes, no breakdown HEENT: PERRLA, EOMI Neck: Supple, No JVD No cervical lymphadenopathy CVS: Reg Rate, Normal S1,S2, No MGR Resp: Decreased air entry on the right side, no rhonchi/rales. Abdomen: Soft, No tenderness, Normal Bowel Sounds Neuro: Normal Speech, Strength 5/5 b/l x 4 extremities, Sensation intact, CN III -XII NL, Reflexes 2+ Extremities: No cyanosis, pedal edema Current Medications: Current Medications Sig/Chava Start time Last Medication Dose Route Stop Time Status Admin Acetaminophen 325 MG Q6P PRN 11/22 1814 AC PO Acetaminophen/ 1 TAB Q6P PRN 11/22 1814 AC 11/25 Hydrocodone Bitart PO 1300 Atorvastatin Calcium 40 MG 1700 11/22 1830 AC 11/25 PO 1657 Cholecalciferol 1,000 IU DAILY 11/25 1349 AC 11/25 PO 1657 Furosemide 40 MG DAILY 11/23 1000 AC 11/25 IV 1122 Heparin Sodium 5,000 UNIT Q8 11/25 2199 AC (Porcine) SC Heparin Sodium 5,000 UNIT Q8 11/24 1544 DC 11/24 (Porcine) SC 11/25 0500 2108 Lidocaine 1 ML .STK-MED ONE 11/25 0915 DC IM 11/25 0916 Lisinopril 10 MG DAILY 11/23 1000 AC 11/25 PO 1118 Metoprolol Tartrate 12.5 MG BID 11/22 2199 AC 11/25 PO 1117 Ondansetron HCl 4 MG Q8 PRN 11/22 181 AC PO Patient Medication 1 ED .STK-MED ONE 11/25 1342 DC Teaching ED 11/25 134 Senna/Docusate Sodium 2 TAB BID 11/22 2199 AC 11/25 PO 1118 Tramadol HCl 50 MG Q4 PRN 11/22 181 AC 11/25 PO 1700 Last 24 Hrs of Lab/Jaime Results Last 24 Hrs of Labs/Mics: Laboratory Tests 11/25/16 1109: Anion Gap 13, Estimated GFR > 60, BUN/Creatinine Ratio 31.7 H, Lactate Dehydrogenase 709 H, Total Protein 7.1, Albumin 3.8, PT 11.7, INR 1.12 11/25/16 1000: Fluid Cholesterol Cancelled 11/25/16 0930: Pleural pH 7.50 11/25/16 0930: Fluid WBC 693 H, Fld Mesothelial Cells , Fld Total RBCs Counted 1075 H 11/25/16 0930: Lymphocytes 18, % Normal PMNs 58, Phlebotomy Draw Site RIGHT PLEURAL CAVITY, Fluid Glucose 89, Fluid Total Protein 3.6, Fluid Albumin 1.7, Fluid LDH 403, Fluid Amylase 40, Fluid Cholesterol < 50 11/25/16 0830: Fluid Total Protein Cancelled 11/25/16 0830: Fluid LDH Cancelled 11/25/16 0830: Fluid Glucose Cancelled 11/25/16 0830: Lactate Dehydrogenase Cancelled, Fluid Albumin Cancelled 11/25/16 0020: Urinalysis LIGHT H, Urine Color YEL, Urine Clarity CLEAR, Urine pH 7.0, Ur Specific [place] 1.010, Urine Protein 30 H, Urine Ketones NEG, Urine Nitrite NEG, Urine Bilirubin NEG, Urine Urobilinogen 4.0 H, Ur Leukocyte Esterase NEG, Ur Microscopic SEDIMENT EXAMINED, Urine RBC RARE, Urine WBC 3-5 H, Ur Epithelial Cells FEW, Urine Bacteria FEW H, Urine Mucus FEW, Urine Hemoglobin NEG, Urine Glucose NEG Microbiology 11/25 829 BODY FLUID: Body Fluid Culture - RES 11/25 829 BODY FLUID: Gram Stain - RES 11/25 0020 URINE ROUT: Urine Culture - RECD Assessment/Plan Assessment: Ms Wyman is an 85-year-old woman who has a past medical history of atrial fibrillation ( on NOAC ), hypertension, TIA ( dx'ed 2016), left non displaced humerus fracture, left pubic rami fracture who was recently discharged from a [facility] a few day ago is being evaluated for increasing tiredness 3 days. Last echocardiogram done in 03/2016 revealed left ventricular ejection fraction of 55% with moderate valvular dysfunction. Differential diagnosis: #1 pleural effusion likely acute malignancy #2 CHF exacerbation #3 pneumonia Below is the problem list and plan: #1 tiredness-likely due to fluid overload and inability of diaphragm to contract efficiently. Pneumonia is also on differentials, but no fever or leukocytosis was seen. Malignancy although theoretically possible, but the patient does not have any signs of malignant pleural effusion. Continue diuresis. Thoracentesis w / pleural studies show pleural fluid of exudative nature which makes pneumonia or malignancy likely. Check echocardiogram. #2 atrial fibrillation-currently on metoprolol with adequate rate control. Eliquis was held temporarily. SC heparin for now. Will start pt on eliquis after discussing w/ the senior quality manager. Pt has been off anticoagulation for the procedure. #3 hypertension-currently stable. Continue lisinopril and metoprolol. #4 DVT prophylaxis-pharmacological. #5 abnormal urinalysis-repeat urinalysis is normal. Problem List: 1. CHF (congestive heart failure) 2. Atrial fibrillation Pain Ratin Pain Location: none Pain Goal: Pain 4 or less Pain Plan: tylenol prn Tomorrow's Labs & Rationales: cbc jamisonp JEFFERSON JAMES,ESHA 11/25/16 1504: Attending MD Review Statement Attending Statement Attending MD Statement: examined this patient, discuss w/resident/PA/PUBLIC RELATIONS MANAGER, agreed w/resident/PA/PUBLIC RELATIONS MANAGER, reviewed EMR data (avail), discussed with nursing, discussed with case mgmt, reviewed images, amended to note Attending Assessment/Plan: Patient seen and examined, came back from Thoracocentesis. Still feels tired and exahusted. Vital Signs Date Time Temp Pulse Resp B/P B/P Pulse O2 O2 Flow FiO2 Mean Ox Delivery Rate 11/25 1118 88 120/90 11/25 1117 88 120/90 11/25 1040 97.5 88 16 120/90 95 Room Air 11/25 0805 97.4 55 16 144/90 94 Room Air 11/25 0800 Room Air 11/25 0144 97.9 80 18 148/80 94 Room Air 11/24 2109 95 128/72 11/24 1650 98.1 94 17 154/65 94 Nasal Cannula on exam; aox3, nad. Cv; s1,s2, rrr resp; clear with decreased bs at right base. Abd; soft, nt, bs+ ext; no edema. Laboratory Tests 11/25 11/25 11/25 11/25 1109 UNK 0930 0930 Chemistry Sodium (137 - 145 mmol/L) 136 L Potassium (3.5 - 5.1 mmol/L) 3.8 Chloride (98 - 107 mmol/L) 94 L Carbon Dioxide (22 - 30 mmol/L) 28 Anion Gap (5 - 16) 13 BUN (7 - 17 mg/dL) 19 H Creatinine (0.5 - 1.0 mg/dL) 0.6 Estimated GFR (>60 ml/min) > 60 BUN/Creatinine Ratio (7 - 25 %) 31.7 H Lactate Dehydrogenase (313 - 618 U/L) 709 H Total Protein (6.3 - 8.2 g/dL) 7.1 Albumin (3.5 - 5.0 g/dL) 3.8 Coagulation PT (9.4 - 12.5 SEC) 11.7 INR (0.90 - 1.19) 1.12 Other Body Source Fluid WBC (0 - 5 /CUMM) 693 H Fld Mesothelial Cells (%) Fld Total RBCs Counted (0 /CUMM) 1075 H Fluid Cholesterol Cancelled Pleural pH (PH) 7.50 11/25 11/25 11/25 0930 0830 0830 Hematology Lymphocytes (%) 18 % Normal PMNs (%) 58 Miscellaneous Phlebotomy Draw Site RIGHT PLEURAL CAVITY Other Body Source Fluid Glucose (mg/dL) 89 Fluid Total Protein (g/dL) 3.6 Cancelled Fluid Albumin (g/dL) 1.7 Fluid LDH (U/L) 403 Cancelled Fluid Amylase (U/L) 40 Fluid Cholesterol (mg/dL) < 50 11/25 11/25 0830 0830 Chemistry Lactate Dehydrogenase Cancelled Other Body Source Fluid Glucose Cancelled Fluid Albumin Cancelled 11/25 0020 Urines Urinalysis LIGHT H Urine Color (YEL,AMB,STR) YEL Urine Clarity (CLEAR) CLEAR Urine pH (5.0 - 8.0) 7.0 Ur Specific Shade (1.001 - 1.035) 1.010 Urine Protein (NEG,<30 MG/DL) 30 H Urine Ketones (NEG) NEG Urine Nitrite (NEG) NEG Urine Bilirubin (NEG) NEG Urine Urobilinogen (0.1 - 1.0 EU/dl) 4.0 H Ur Leukocyte Esterase (NEG) NEG Ur Microscopic SEDIMENT EXAMINED Urine RBC (0 - 5 /HPF) RARE Urine WBC (0 - 2 /HPF) 3-5 H Ur Epithelial Cells (NONE,FEW) FEW Urine Bacteria (NEG/NONE) FEW H Urine Mucus (FEW,NONE) FEW Urine Hemoglobin (NEG) NEG Urine Glucose (N MG/DL) NEG A/P; 85 y/o F with pmh sig for past medical history of atrial fibrillation ( on NOAC ), hypertension, TIA ( dx'ed 2016), left non displaced humerus fracture, left pubic rami fracture who was recently discharged from a [facility] a few days ago now admitted with generalized weakness, fatigue and found to have significant right-sided pleural effusion. With high BNP, she has been initially started on diuresis. Thoracentesis is done today. Fluid studies are indeterminate. Follow up on Cx, Cytology. Pulm consult should be called. Replete Vit D. Continue other current meds. DVT px; Hep sq. Please d/w cardiology about eliquis. PT eval.
[2016-11-25 08:05] VITALS: BP 144/90
[2016-11-25 10:40] VITALS: BP 120/90
--- NOTE | 2016-11-25 10:56 | NUR ---
1040 PT ARRIVED BACK TO FLOOR FROM IR. PT HAD A THORACENTESIS DONE AND 1L OF FLUID DRAINED OFF AND A CHEST TUBE PLACES TO R SIDE. CHEST TUBE SITE LOOKS GOOD AND BANDAGE IS C/D/I AND DRAINING SOME BLOOD TINGED FUILD. 400ML NOTED IN THE CANISTER AT TIME OF ARRIVAL TO FLOOR. PT A&O X3. VSS , BP 120/90, HR 88, T 97.5, RR 16, O2 95% RA. PT HAS NO C/O PAIN AT THIS TIME. CHEST TUBE HOOKED UP TO LOW WALL SUCTION AT 20MM PER MD ORDER. WILL CONTINUE TO MONITOR PT.
--- NOTE | 2016-11-25 11:37 | PN- Cardiology ---
Subjective Subjective: Patient is fatigued after her thoracentesis. Chest tube is in place Review of Systems: Eyes no blurred or double vision Ears no deafness or ringing Nose and throat no recurrent sinusitis Lungs per history of present illness Heart per history of present illness Abdomen no nausea vomiting Musculoskeletal occasional muscle and joint pains Psych no anxiety or depression Neuro without recurrent headache or seizures Endocrine no heat or cold intolerance Objective Vital Signs and I&Os Vital Signs Date Time Temp Pulse Resp B/P B/P Pulse O2 O2 Flow FiO2 Mean Ox Delivery Rate 11/25 1118 88 120/90 11/25 1117 88 120/90 11/25 1040 97.5 88 16 120/90 95 Room Air 11/25 0805 97.4 55 16 144/90 94 Room Air 11/25 0800 Room Air 11/25 0144 97.9 80 18 148/80 94 Room Air 11/24 2109 95 128/72 11/24 1650 98.1 94 17 154/65 94 Nasal Cannula 11/24 1210 Room Air Room Air Intake & Output 11/25 1600 11/25 0800 11/25 0000 11/24 1600 11/24 0800 11/24 0000 Intake Total 120 525 239 240 Output Total 500 150 350 100 450 Balance -380 375 -111 -100 -210 Intake, IV 14 Intake, Oral 120 525 225 240 Output, Urine 500 150 350 100 450 Patient 107 lb 171 lb Weight Physical Exam: Patient is a well-developed well-nourished female appearing in no acute distress HEENT is unremarkable Neck is supple there is no JVD Lungs decreased breath sound right base Heart irregular rhythm S1 and S2 are normal no murmurs gallops or rubs Abdomen bowel sounds positive Extremities without edema Current Medications: Current Medications Sig/Chava Start time Last Medication Dose Route Stop Time Status Admin Acetaminophen 325 MG Q6P PRN 11/225 AC PO Acetaminophen/ 1 TAB Q6P PRN 11/22 181 AC Hydrocodone Bitart PO Atorvastatin Calcium 40 MG 1700 11/22 1830 AC 11/24 PO 1652 Furosemide 40 MG DAILY 11/23 1000 AC 11/25 IV 1122 Heparin Sodium 5,000 UNIT Q8 11/25 2200 AC (Porcine) SC Heparin Sodium 5,000 UNIT Q8 11/24 1544 DC 11/24 (Porcine) SC 11/25 0500 2108 Lidocaine 1 ML .STK-MED ONE 05/02 0915 DC IM 11/26 915 Lisinopril 10 MG DAILY 11/23 1000 AC 11/25 PO 1118 Metoprolol Tartrate 12.5 MG BID 11/22 2199 AC 11/25 PO 1117 Ondansetron HCl 4 MG Q8 PRN 11/22 1814 AC PO Senna/Docusate Sodium 2 TAB BID 11/22 2199 AC 11/25 PO 111 Tramadol HCl 50 MG Q4 PRN 11/22 1814 AC PO Results Last 48 Hrs of Labs/Mics: Laboratory Tests 11/25/16 1109: Sodium Pending, Potassium Pending, Chloride Pending, Carbon Dioxide Pending, Anion Gap Pending, BUN Pending, Creatinine Pending, BUN/Creatinine Ratio Pending , Lactate Dehydrogenase Pending, PT Pending, INR Pending 11/25/16 1000: Fluid Cholesterol Cancelled 11/25/16 0930: Pleural pH 7.50 11/25/16 0930: Fluid WBC Pending, Fld Total RBCs Counted Pending 11/25/16 0930: Phlebotomy Draw Site RIGHT PLEURAL CAVITY, Fluid Glucose 89, Fluid Total Protein 3.6, Fluid Albumin 1.7, Fluid LDH 403, Fluid Amylase 40, Fluid Cholesterol < 50 11/25/16 0830: Fluid Total Protein Cancelled 11/25/16 0830: Fluid LDH Cancelled 11/25/16 0830: Fluid Glucose Cancelled 11/25/16 0830: Lactate Dehydrogenase Cancelled, Fluid Albumin Cancelled 11/25/16 0020: Urinalysis LIGHT H, Urine Color YEL, Urine Clarity CLEAR, Urine pH 7.0, Ur Specific [place] 1.010, Urine Protein 30 H, Urine Ketones NEG, Urine Nitrite NEG, Urine Bilirubin NEG, Urine Urobilinogen 4.0 H, Ur Leukocyte Esterase NEG, Ur Microscopic SEDIMENT EXAMINED, Urine RBC RARE, Urine WBC 3-5 H, Ur Epithelial Cells FEW, Urine Bacteria FEW H, Urine Mucus FEW, Urine Hemoglobin NEG, Urine Glucose NEG 11/24/16 1000: Fluid Glucose Cancelled, Fluid Total Protein Cancelled, Fluid Albumin Cancelled, Fluid LDH Cancelled, Fluid Amylase Cancelled 11/24/16 0710: Anion Gap 7, Estimated GFR > 60, BUN/Creatinine Ratio 26.7 H, Magnesium 2.0, Lactate Dehydrogenase 541, 25-OH Vitamin D Total 17.4 L, CBC w Diff NO MAN DIFF REQ, RBC 4.35, MCV 85.9, MCH 28.5, RDW 20.6 H, MPV 8.9, Gran % 74.5, Lymphocytes % 14.1 L, Monocytes % 9.5 H, Eosinophils % 1.4, Basophils % 0.5, Absolute Granulocytes 6.3, Absolute Lymphocytes 1.2, Absolute Monocytes 0.8 H, Absolute Eosinophils 0.1, Absolute Basophils 0, PUBS MCHC 33.2 Telemetry personally reviewed atrial fibrillation Recent Imaging Studies: Echocardiogram CONCLUSIONS Technically difficult study. Atrial fibrillation noted. Left ventricular cavity size normal. Left ventricular wall thickness mildly increased. No obvious regional wall motion abnormalities. Left ventricular ejection fraction is estimated at > 55 %. Normal right ventricular size and function. Mild right atrial dilatation. Mild left atrial dilatation. Vspdyypx-ya-qfhtdx tricuspid regurgitation. Right ventricular systolic pressure estimated to be elevated at > 50 mmHg. No pericardial effusion. Large right pleural effusion. Collin Michael M.D. Assessment/Plan Assessment/Plan 1. Large pleural effusion of unclear etiology status post thoracentesis chest tube in place 2. Paroxysmal atrial fibrillation on outpatient Eliquis; history of recurrent falls with a previous subarachnoid hemorrhage (requiring AC reversal; reportedly on Pradaxa at that time) and recent fall with fracture (09/2016) 3. History of possible prior TIA 4. Continued fatigue/weakness/failure to thrive 5. Hx of Moderate to severe tricuspid regurgitation with elevated RV pressures possibly secondary to pleural effusion Recommendations 1. Continue chest tube. Fluid analysis pending 2. Continue to hold anticoagulation given her overall condition with fatigue weakness and recurrent falls she may indeed not be a candidate for long-term anticoagulation 3. Continue telemetry Continue telemetry? Yes
--- NOTE | 2016-11-25 11:50 | NUR ---
Physical Therapy. PT consult received and chart reviewed. PT evaluation unable to be performed this AM 2/2 pt was ANNA for thoracentesis and had R chest tube placed. Currently pending chest xray to r/o pneumothorax s/p chest tube placement. PT will f/u as appropriate to complete eval.
[2016-11-25 12:48] LABS: PT 11.7 SEC (9.4-12.5)
--- NOTE | 2016-11-25 15:15 | NUR ---
PHYSICAL THERAPY: ATTEMPTED TO SEE PATIENT AGAIN THIS P.M. PATIENT C/O 05/05 PAIN TO RN W/ MULTIPLE ADM OF PAIN MEDICATIONS OF RECENT; CHEST TUBE WAS PLACED THIS MORNING AND RESULTS OF CHEST X-RAY ARE NOT YET AVAILABLE. RN STATES Pt REFUSING TO ROLL IN BED AT THIS TIME AND RN REQUESTING THAT P.T. ALLOW PATIENT TO REST TODAY. WILL F/U APPROPRAITE TOMORROW MORNING.
[2016-11-25 15:59] VITALS: BP 110/70
--- NOTE | 2016-11-25 19:35 | RADIOLOGY REPORT ---
EXAMINATION: ULTRASOUND-GUIDED RIGHT CHEST TUBE PLACEMENT FOR THORACENTESIS, POST PROCEDURE CHEST X-RAY CLINICAL INFORMATION: Large right pleural effusion resulting in shortness of breath. Etiology of the pleural effusion is unknown. COMPARISON: Chest CT of 11/23/2016, portable chest x-ray of 11/22/2016 COMPONENT PREP OPERATOR: Gonzalo Marcano M.D. TECHNIQUE: The procedure is requested by Dr. Vanessa Tran. Informed consent was obtained from the patient prior to the procedure. During this process, the procedure and potential alternatives was explained, along with the intended outcome and benefits. The risks of the procedure, as well as the risk of not doing the procedure, were discussed. The patient was given the opportunity to ask questions regarding the procedure and appeared competent to make medical decisions. A signed consent form which documents this discussion was placed in the medical record. The patient's prior imaging studies were reviewed. The patient was brought to the ultrasound suite and preprocedure site marking was performed. A final timeout was then conducted. With the patient in the upright position, a sonographic survey was performed for localization of the right pleural effusion which was quite large in volume. An optimal access window was marked on the skin. The overlying soft tissues were sterilely prepped and draped. Maximum sterile barrier technique was maintained throughout the procedure. Following administration of local anesthesia using 1% lidocaine, a Yueh needle was inserted into the right pleural space via a posterolateral approach. Approximately 50 mL of thin davidson fluid was aspirated and sent for analysis as requested. An Amplatz stiff wire was inserted through the catheter. Following serial fascial dilatations, a 12 Japanese nonlocking pigtail catheter was inserted into the pleural space. 1 L of fluid was aspirated after which the chest tube was connected to Atrium suction. The catheter was secured with 0-0 silk suture and a StatLock. A sterile dressing was applied. The patient tolerated the procedure well. There is no evidence complications. The subsequent chest x-ray showed the right chest tube to be in optimal position above the diaphragm with significant decrease in the overall volume of the right pleural effusion but with at least 50% of the effusion remaining. There was partial reexpansion of the right lung. No complications were identified. MEDICATIONS: 10 mL of Lidocaine 1% was used for local anesthesia. IMPRESSION: Ultrasound-guided placement of a 12 Japanese right chest tube for the presence of a large pleural effusion without evidence of complications. After initial drainage of 1 L of fluid, the catheter was left to Atrium suction to drain the remaining fluid without risking flash pulmonary edema and to aid reexpansion of the right lung.
[2016-11-25 23:00] VITALS: BP 112/60
--- NOTE | 2016-11-26 08:01 | PN- Housestaff ---
SHUN WILDER 11/26/16 0801: Subjective Follow-up For: -Pleural effusion Complaints: no complaints Tele-Events Since Last Visit: Atrial fibrillation, heart rate 81-87, no overnight telemetry events noted. Subjective: She was comfortable this morning. Did not have any complaints. Still was concern about being tired. Did not have any fever, chest pain, shortness of breath. A chest tube was placed yesterday, and clamped after 1 L fluid drainage. Subsequently, was connected to suction at 20. Patient did not have any chest discomfort, shortness of breath suggestive of any flash pulmonary edema. Vitals remained stable overnight. She was afebrile. Review of Systems Constitutional: Reports: see HPI. Objective Last 24 Hrs of Vital Signs/I&O Vital Signs Date Time Temp Pulse Resp B/P B/P Pulse O2 O2 Flow FiO2 Mean Ox Delivery Rate / 0000 Room Air 11/25 2300 97.4 87 16 112/60 94 Room Air / 2141 107 112/60 / 1559 96.9 82 18 110/70 94 /02 1118 88 120/90 05/02 1117 88 120/90 / 1040 97.5 88 16 120/90 95 Room Air 05/ 0805 97.4 55 16 144/90 94 Room Air Intake & Output 11/26 1600 /03 0800 / 0000 Intake Total 200 325 Output Total 280 80 Balance -80 245 Intake, IV 0 0 Intake, Oral 200 325 Number 0 0 Bowel Movements Output, Chest 30 80 Tube Drainage Output, Urine 250 Physical Exam General Appearance: No Acute Distress Other Physical Findings: General Exam: AAOx3, No acute distress, Skin: No rashes, no breakdown HEENT: PERRLA, EOMI Neck: Supple, No JVD No cervical lymphadenopathy CVS: Reg Rate, Normal S1,S2, No MGR Resp: Decreased air entry on the right side, no rhonchi/rales, chest tube in place. Abdomen: Soft, No tenderness, Normal Bowel Sounds Neuro: Normal Speech, Strength 5/5 b/l x 4 extremities, Sensation intact, CN III -XII NL, Reflexes 2+ Extremities: No cyanosis, pedal edema Current Medications: Current Medications Sig/Chava Start time Last Medication Dose Route Stop Time Status Admin Acetaminophen 325 MG Q6P PRN 04/29 1815 AC PO Acetaminophen/ 1 TAB Q6P PRN 11/22 1815 AC 11/25 Hydrocodone Bitart PO 1300 Atorvastatin Calcium 40 MG 1700 11/22 1830 AC 11/25 PO 1657 Cholecalciferol 1,000 IU DAILY 11/26 1000 AC PO Cholecalciferol 1,000 IU DAILY 11/25 1349 AC 11/25 PO 1657 Furosemide 40 MG DAILY 11/23 1000 AC 11/25 IV 1122 Heparin Sodium 5,000 UNIT Q8 11/25 220 AC 11/26 (Porcine) SC 0517 Lidocaine 1 ML .STK-MED ONE 11/25 0915 DC IM 11/25 0916 Lisinopril 10 MG DAILY 11/23 1000 AC 11/25 PO 1118 Metoprolol Tartrate 12.5 MG BID 11/22 2199 AC 11/25 PO 2141 Ondansetron HCl 4 MG Q8 PRN 11/22 181 AC PO Patient Medication 1 ED .STK-MED ONE 11/25 1342 DC Teaching ED 11/25 1343 Senna/Docusate Sodium 2 TAB BID 11/22 220 AC 11/25 PO 2126 Tramadol HCl 50 MG Q4 PRN 11/22 181 AC 11/25 PO 1700 Last 24 Hrs of Lab/Jaime Results Last 24 Hrs of Labs/Mics: Laboratory Tests 11/26/16 0645: Sodium Pending, Potassium Pending, Chloride Pending, Carbon Dioxide Pending, Anion Gap Pending, BUN Pending, Creatinine Pending, BUN/Creatinine Ratio Pending , CBC w Diff Pending, WBC Pending, RBC Pending, Hgb Pending, Hct Pending, MCV Pending, MCH Pending, RDW Pending, Plt Count Pending, MPV Pending, PUBS MCHC Pending 11/25/16 1109: Anion Gap 13, Estimated GFR > 60, BUN/Creatinine Ratio 31.7 H, Lactate Dehydrogenase 709 H, Total Protein 7.1, Albumin 3.8, PT 11.7, INR 1.12 11/25/16 1000: Fluid Cholesterol Cancelled 11/25/16 0930: Pleural pH 7.50 11/25/16 0930: Fluid WBC 693 H, Fld Mesothelial Cells , Fld Total RBCs Counted 1075 H 11/25/16 0930: Lymphocytes 18, % Normal PMNs 58, Phlebotomy Draw Site RIGHT PLEURAL CAVITY, Fluid Glucose 89, Fluid Total Protein 3.6, Fluid Albumin 1.7, Fluid LDH 403, Fluid Amylase 40, Fluid Cholesterol < 50 11/25/16 0830: Fluid Total Protein Cancelled 11/25/16 0830: Fluid LDH Cancelled 11/25/16 0830: Fluid Glucose Cancelled 11/25/16 0830: Lactate Dehydrogenase Cancelled, Fluid Albumin Cancelled Microbiology 11/25 829 BODY FLUID: Body Fluid Culture - RES 11/25 829 BODY FLUID: Gram Stain - RES Assessment/Plan Assessment: Ms Wyman is an 85-year-old woman who has a past medical history of atrial fibrillation ( on NOAC ), hypertension, TIA ( dx'ed 2016), left non displaced humerus fracture, left pubic rami fracture who was recently discharged from a [facility] a few day ago is being evaluated for increasing tiredness 3 days. Last echocardiogram done in 03/2016 revealed left ventricular ejection fraction of 55% with moderate valvular dysfunction. Differential diagnosis: #1 pleural effusion likely acute malignancy #2 CHF exacerbation #3 pneumonia Below is the problem list and plan: #1 tiredness-likely due to fluid overload and inability of diaphragm to contract efficiently. Pneumonia is also on differentials, but no fever or leukocytosis was seen. Malignant pleural effusion is ruled out. Continue diuresis. Thoracentesis w/ pleural studies show pleural fluid of exudative nature which makes pneumonia more likely. Although, as per light's criteria, the nature of fluid is not clear transudative versus exudative. Check bacterial and fungal cultures. Check echocardiogram. As per Mauri Mclain MD's recommendation, tuberculosis workup is being done. Also check ADA levels. Leukocyte count- differential count revealed granulocytosis, more than lymphocytosis which points towards an acute infection. #2 atrial fibrillation-currently on metoprolol with adequate rate control. Eliquis was held temporarily. SC heparin for now. Will start pt on eliquis after discussing w/ the director global strategic publisher sales. Pt has been off anticoagulation for the procedure. Discussed with the interventional radiologist, who advised restarting anticoagulation 24 hours after placement of chest tube. Also discussed with the director global strategic publisher sales this a.m. #3 hypertension-currently stable. Continue lisinopril and metoprolol. #4 DVT prophylaxis-pharmacological. #5 abnormal urinalysis-repeat urinalysis is normal. Problem List: 1. CHF (congestive heart failure) 2. Atrial fibrillation Pain Ratin Pain Location: Left chest Pain Goal: Pain 4 or less Pain Plan: Tylenol when necessary Tomorrow's Labs & Rationales: C BC, BEP to monitor for leukocytosis and abnormal electrolytes. JEFFERSON JAMES,ESHA 11/26/16 1220: Attending MD Review Statement Attending Statement Attending MD Statement: examined this patient, discuss w/resident/PA/RN STAFF, agreed w/resident/PA/RN STAFF, discussed with family, reviewed EMR data (avail), discussed with nursing, discussed with case mgmt, reviewed images, amended to note Attending Assessment/Plan: Patient seen and examined, Still feels tired, the same. Denies any sob, never had any sob to begin with. But fatigue has not improved. Vital Signs Date Time Temp Pulse Resp B/P B/P Pulse O2 O2 Flow FiO2 Mean Ox Delivery Rate 11/26 0920 98 114/70 11/26 0920 98 114/70 11/26 0849 Room Air Room Air 11/26 0813 96.7 98 16 114/70 95 Room Air 11/26 0000 Room Air 11/25 2300 97.4 87 16 112/60 94 Room Air 11/25 2141 107 112/60 05/ 1559 96.9 82 18 110/70 94 on exam; aox3, nad. cv; s1,s2, rrr resp; decreased bs at right base. abd; soft, nt, bs+ ext; no edema. Laboratory Tests 11/26 0645 Chemistry Sodium (137 - 145 mmol/L) 135 L Potassium (3.5 - 5.1 mmol/L) 3.6 Chloride (98 - 107 mmol/L) 95 L Carbon Dioxide (22 - 30 mmol/L) 31 H Anion Gap (5 - 16) 9 BUN (7 - 17 mg/dL) 23 H Creatinine (0.5 - 1.0 mg/dL) 0.7 Estimated GFR (>60 ml/min) > 60 BUN/Creatinine Ratio (7 - 25 %) 32.9 H Hematology CBC w Diff NO MAN DIFF REQ WBC (4.8 - 10.8 /CUMM) 8.5 RBC (4.20 - 5.40 /CUMM) 4.72 Hgb (12.0 - 16.0 G/DL) 13.3 Hct (37 - 47 %) 40.0 MCV (81.0 - 99.0 FL) 84.8 MCH (27.0 - 31.0 PG) 28.2 RDW (11.5 - 14.5 %) 20.3 H Plt Count (130 - 400 /CUMM) 269 MPV (7.4 - 10.4 FL) 9.0 Gran % (42.2 - 75.2 %) 77.6 H Lymphocytes % (20.5 - 51.1 %) 13.5 L Monocytes % (1.7 - 9.3 %) 7.1 Eosinophils % (0 - 5 %) 1.4 Basophils % (0.0 - 2.0 %) 0.4 Absolute Granulocytes (1.4 - 6.5 /CUMM) 6.6 H Absolute Lymphocytes (1.2 - 3.4 /CUMM) 1.1 L Absolute Monocytes (0.10 - 0.60 /CUMM) 0.6 Absolute Eosinophils (0.0 - 0.7 /CUMM) 0.1 Absolute Basophils (0.0 - 0.2 /CUMM) 0 PUBS MCHC (33.0 - 37.0 G/DL) 33.3 A/P; 85 y/o F with pmh sig for past medical history of atrial fibrillation ( on NOAC ), hypertension, TIA ( dx'ed 2016), left non displaced humerus fracture, left pubic rami fracture who was recently discharged from a [facility] a few days ago now admitted with generalized weakness, fatigue and found to have significant right- sided pleural effusion. With high BNP, she has been initially started on diuresis. Thoracentesis is done yesterday and one liter of pleural fluid was taken out. She called the chest tube and it has drained another 1200 mL of fluid since then. Fluid studies are not very helpful in determining whether this is transudate versus exudate. Cultures are pending. Cytology pending. Pulmonary consult has been called. Long-term anticoagulation needs to be discussed between the director global strategic publisher sales as well as patient's family. Continue other current meds. DVt Px; Hep sq. Please obtain PT eval. DC tele. D/W patient's over the phone.
[2016-11-26 08:06] LABS: ABSOLUTE BASOPHIL COUNT 0 /CUMM (0.0-0.2); ABSOLUTE EOSINOPHIL COUNT 0.1 /CUMM (0.0-0.7); ABSOLUTE GRANULOCYTE CT 6.6 /CUMM (1.4-6.5); ABSOLUTE LYMPH COUNT 1.1 /CUMM (1.2-3.4); ABSOLUTE MONOCYTE COUNT 0.6 /CUMM (0.10-0.60); BASOPHIL % 0.4 % (0.0-2.0); EOSINOPHIL % 1.4 % (0-5); GRANULOCYTE % 77.6 % (42.2-75.2); MEAN CORPUSCULAR HGB 28.2 PG (27.0-31.0); MEAN CORPUSCULAR HGB CONC 33.3 G/DL (33.0-37.0); MEAN CORPUSCULAR VOLUME 84.8 FL (81.0-99.0); PLATELET COUNT 269 /CUMM (130-400); RBC DISTRIBUTION WIDTH 20.3 % (11.5-14.5); RED BLOOD CELL CT 4.72 /CUMM (4.20-5.40); WHITE BLOOD CELL COUNT 8.5 /CUMM (4.8-10.8)
[2016-11-26 08:13] VITALS: BP 114/70
--- NOTE | 2016-11-26 12:11 | PN- Cardiology ---
Subjective Subjective: Patient remains very weak. She has some mild pain at the chest tube site. Denies active shortness of breath. Objective Vital Signs and I&Os Vital Signs Date Time Temp Pulse Resp B/P B/P Pulse O2 O2 Flow FiO2 Mean Ox Delivery Rate 11/26 0920 98 114/70 11/26 0920 98 114/70 11/26 0849 Room Air Room Air 11/26 0813 96.7 98 16 114/70 95 Room Air 11/26 0000 Room Air 11/25 2300 97.4 87 16 112/60 94 Room Air 11/25 2141 107 112/60 11/25 1559 96.9 82 18 110/70 94 Intake & Output 11/26 1600 11/26 0800 11/26 0000 11/25 1600 11/25 0800 11/25 0000 Intake Total 200 325 254 120 525 Output Total 280 80 750 500 150 Balance -80 245 -496 -380 375 Intake, IV 0 0 14 Intake, Oral 200 325 240 120 525 Number 0 0 Bowel Movements Output, Chest 30 80 500 Tube Drainage Output, Urine 250 250 500 150 Patient 107 lb Weight Physical Exam: General: no apparent distress. Cachectic. Eyes: No obvious scleral icterus. HEENT: No jugular venous distention or abnormal jugular venous pulsations. Cardiovascular: Normal intensity S1/S2. Irregular. 1/6 SM. Respiratory: Decreased right-sided air entry, chest tube noted Abdomen: Soft, nontender with no guarding or rebound tenderness. Musculoskeletal: No clubbing or cyanosis noted, trace lower extremity edema Skin: Warm Neuro: Grossly nonfocal Current Medications: Current Medications Sig/Chava Start time Last Medication Dose Route Stop Time Status Admin Acetaminophen 325 MG Q6P PRN 11/22 181 AC PO Acetaminophen/ 1 TAB Q6P PRN 11/22 181 AC 11/25 Hydrocodone Bitart PO 1300 Atorvastatin Calcium 40 MG 1700 11/22 1830 AC 11/25 PO 1657 Cholecalciferol 1,000 IU DAILY 11/26 1000 DC PO Cholecalciferol 1,000 IU DAILY 11/25 1349 AC 11/26 PO 0920 Furosemide 40 MG DAILY 11/23 1000 AC 11/26 IV 0919 Heparin Sodium 5,000 UNIT Q8 11/25 2200 AC 11/26 (Porcine) SC 0517 Lisinopril 10 MG DAILY 11/23 1000 AC 11/26 PO 0920 Metoprolol Tartrate 12.5 MG BID 11/22 2199 11/26 PO 0920 Ondansetron HCl 4 MG Q8 PRN 11/22 1814 11/26 PO 0919 Patient Medication 1 ED .STK-MED ONE 11/25 1342 DC Teaching ED 11/25 1343 Potassium Chloride 40 MEQ ONCE ONE 11/26 914 DC 11/26 PO 11/26 09 0920 Senna/Docusate Sodium 2 TAB BID 11/22 2199 AC 11/26 PO 09 Tramadol HCl 50 MG Q4 PRN 11/22 1814 11/26 PO 0926 Results Last 48 Hrs of Labs/Mics: Laboratory Tests 11/26/16 0645: Anion Gap 9, Estimated GFR > 60, BUN/Creatinine Ratio 32.9 H, CBC w Diff NO MAN DIFF REQ, RBC 4.72, MCV 84.8, MCH 28.2, RDW 20.3 H, MPV 9.0, Gran % 77.6 H, Lymphocytes % 13.5 L, Monocytes % 7.1, Eosinophils % 1.4, Basophils % 0.4, Absolute Granulocytes 6.6 H, Absolute Lymphocytes 1.1 L, Absolute Monocytes 0.6, Absolute Eosinophils 0.1, Absolute Basophils 0, PUBS MCHC 33.3 11/25/16 1109: Anion Gap 13, Estimated GFR > 60, BUN/Creatinine Ratio 31.7 H, Lactate Dehydrogenase 709 H, Total Protein 7.1, Albumin 3.8, PT 11.7, INR 1.12 11/25/16 1000: Fluid Cholesterol Cancelled 11/25/16 0930: Pleural pH 7.50 11/25/16 0930: Fluid WBC 693 H, Fld Mesothelial Cells , Fld Total RBCs Counted 1075 H 11/25/16 0930: Lymphocytes 18, % Normal PMNs 58, Phlebotomy Draw Site RIGHT PLEURAL CAVITY, Fluid Glucose 89, Fluid Total Protein 3.6, Fluid Albumin 1.7, Fluid LDH 403, Fluid Amylase 40, Fluid Cholesterol < 50 11/25/16 0830: Fluid Total Protein Cancelled 11/25/16 0830: Fluid LDH Cancelled 11/25/16 0830: Fluid Glucose Cancelled 11/25/16 0830: Lactate Dehydrogenase Cancelled, Fluid Albumin Cancelled 11/25/16 0020: Urinalysis LIGHT H, Urine Color YEL, Urine Clarity CLEAR, Urine pH 7.0, Ur Specific [place] 1.010, Urine Protein 30 H, Urine Ketones NEG, Urine Nitrite NEG, Urine Bilirubin NEG, Urine Urobilinogen 4.0 H, Ur Leukocyte Esterase NEG, Ur Microscopic SEDIMENT EXAMINED, Urine RBC RARE, Urine WBC 3-5 H, Ur Epithelial Cells FEW, Urine Bacteria FEW H, Urine Mucus FEW, Urine Hemoglobin NEG, Urine Glucose NEG Recent Imaging Studies: Telemetry tracings were personally reviewed and show atrial fibrillation with controlled ventricular response rate Thoracocentesis report IMPRESSION: Ultrasound-guided placement of a 12 [place] right chest tube for the presence of a large pleural effusion without evidence of complications. After initial drainage of 1 L of fluid, the catheter was left to [facility] suction to drain the remaining fluid without risking flash pulmonary edema and to aid reexpansion of the right lung. Assessment/Plan Assessment/Plan 1. Large pleural effusion of unclear etiology, status post thoracocentesis 2. Paroxysmal atrial fibrillation on outpatient Eliquis; history of recurrent falls with a previous subarachnoid hemorrhage (requiring AC reversal; reportedly on Pradaxa at that time) and recent fall with fracture (09/2016) 3. History of possible prior TIA 4. Continued fatigue/weakness/failure to thrive 5. Hx of Moderate to severe tricuspid regurgitation with pulmonary hypertension Patient is status post thoracocentesis with chest tube in place. Follow-up fluid analysis, concern for exudative pleural effusion of unclear etiology. She remains afebrile. She does not carry a known history of congestive heart failure. Anticoagulation remains on hold and we will need to reevaluate if she is a candidate for resuming long-term anticoagulation in the future. Tello Michael MD [facility] Continue telemetry? No
--- NOTE | 2016-11-26 13:39 | Cons- Pulmonary ---
General Information and HPI Consulting Request Date of Consult: 11/26/16 Requested By: med team History of Present Illness: Ms Wyman is an 85-year-old woman who was known to be in her usual state of health until approximately one week ago. She has a past medical history of atrial fibrillation ( on NOAC ), hypertension, TIA ( dx'ed 2016), left non displaced humerus fracture, left pubic rami fracture who was recently discharged from a [facility] a few day ago. She was brought to the dyspnea for evaluation of increasing tiredness. As per the patient, she was feeling increasingly weak and tired in the last few days after she was discharged from STR. Reported beginning of the symptoms during the stay in the STR. Also had increasing leg swelling bilateral lower extremities in the last few weeks. Did not have any orthopnea, PND. No chest pain or palpitations were noted. No shortness of breath, even upon ambulation. No change in urination. No diarrhea or vomiting. No change in po intake or any weight loss in the recent past. Nonalcoholic, nonsmoker, and has been compliant to her medications. 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 Since she came in she was noted to have a very large right-sided pleural effusion and this has been tapped with a chest tube and she is draining more than 2 L of exudative fluid so far not consistent with empyema. She does not have any previous history of malignancy. A previous chest x-ray showed shown small effusions with bibasilar atelectasis. She does have history of recurrent fall prior to that. Review of Systems Constitutional: Reports: see HPI, malaise. Denies: chills, fever, weakness. EENTM: Denies: blurred vision. Cardiovascular: Reports: edema, peripheral edema. Denies: chest pain, orthopena, palpitations, syncope. Respiratory: Denies: cough, orthopnea, short of breath, sputum production. GI: Denies: abdominal pain, diarrhea, melena, nausea. Genitourinary: Denies: hematuria. Musculoskeletal: Denies: back pain, joint pain. Skin: Denies: change in skin color. Neurological/Psychological: Denies: anxiety, confusion, depressed. Hematologic/Endocrine: Denies: bruising, bleeding. Allergies/Medications Allergies: Coded Allergies: No Known Allergies (09/27/16) Home Med List: Apixaban (Eliquis) 2.5 MG TABLET 1 TAB PO BID BLOOD THINNER (Reported) Reason to Stop at ADM: HOLD FOR THORACENTESIS Atorvastatin Calcium 40 MG TABLET 1 TAB PO 1700 High Cholestrol Lisinopril 10 MG TABLET 1 TAB PO DAILY High Blood Pressure Metoprolol Tartrate 25 MG TABLET 0.5 TAB PO BID HEART/BP (Reported) Ondansetron HCl (Zofran) 4 MG TABLET 1 TAB PO Q8 PRN NAUSEA (Reported) Sennosides/Docusate Sodium (Senna S Tablet) 8.6 MG-50 MG TABLET 2 TAB PO BID GI (Reported) Review of Systems Review of Systems Constitutional: Reports: see HPI. Past History Travel History Traveled to [place] past 21 day No Medical History Blood Transfusion Hx: No Neurological: subdural hematoma Subarachnoid Hemorrhage () Falls EENT: NONE Cardiovascular: AFIB, hypertension Respiratory: NONE Gastrointestinal: NONE Hepatic: NONE Renal: NONE Musculoskeletal: NONE Psychiatric: NONE Endocrine: NONE Blood Disorders: NONE Cancer(s): NONE Surgical History Surgical History: non-contributory Family History Relations & Conditions If Any: Relation not specified for: *No pertinent family history Psychosocial History Where Do You Live? Home Who Do You Live With? spouse Services at Home: Nursing Primary Language: Senegalese Smoking Status: Never Smoked ETOH Use: denies use Illicit Drug Use: denies illicit drug use Functional Ability ADLs Independent: dressing, eating, toileting, bathing. Ambulation: cane, walker IADLs Independent: shopping, housework, finances, food prep, telephone, transportation , medication admin. Exam & Diagnostic Data Last 24 Hrs of Vital Signs/I&O Vital Signs Date Time Temp Pulse Resp B/P B/P Pulse O2 O2 Flow FiO2 Mean Ox Delivery Rate 11/26 0920 98 114/70 / 0920 98 114/70 / 0849 Room Air Room Air 11/26 0813 96.7 98 16 114/70 95 Room Air / 0000 Room Air / 2300 97.4 87 16 112/60 94 Room Air / 2141 107 112/60 / 1559 96.9 82 18 110/70 94 Intake & Output 11/26 1600 11/26 0800 / 0000 Intake Total 200 325 Output Total 280 80 Balance -80 245 Intake, IV 0 0 Intake, Oral 200 325 Number 0 0 Bowel Movements Output, Chest 30 80 Tube Drainage Output, Urine 250 Last 48 Hrs of Labs/Jaime: Laboratory Tests 11/26/16 0645: Anion Gap 9, Estimated GFR > 60, BUN/Creatinine Ratio 32.9 H, CBC w Diff NO MAN DIFF REQ, RBC 4.72, MCV 84.8, MCH 28.2, RDW 20.3 H, MPV 9.0, Gran % 77.6 H, Lymphocytes % 13.5 L, Monocytes % 7.1, Eosinophils % 1.4, Basophils % 0.4, Absolute Granulocytes 6.6 H, Absolute Lymphocytes 1.1 L, Absolute Monocytes 0.6, Absolute Eosinophils 0.1, Absolute Basophils 0, PUBS MCHC 33.3 11/25/16 1109: Anion Gap 13, Estimated GFR > 60, BUN/Creatinine Ratio 31.7 H, Lactate Dehydrogenase 709 H, Total Protein 7.1, Albumin 3.8, PT 11.7, INR 1.12 11/25/16 1000: Fluid Cholesterol Cancelled 11/25/16 0930: Pleural pH 7.50 11/25/16 0930: Fluid WBC 693 H, Fld Mesothelial Cells , Fld Total RBCs Counted 1075 H 11/25/16 0930: Lymphocytes 18, % Normal PMNs 58, Phlebotomy Draw Site RIGHT PLEURAL CAVITY, Fluid Glucose 89, Fluid Total Protein 3.6, Fluid Albumin 1.7, Fluid LDH 403, Fluid Amylase 40, Fluid Cholesterol < 50 11/25/16 0830: Fluid Total Protein Cancelled 11/25/16 0830: Fluid LDH Cancelled 11/25/16 0830: Fluid Glucose Cancelled 11/25/16 0830: Lactate Dehydrogenase Cancelled, Fluid Albumin Cancelled 11/25/16 0020: Urinalysis LIGHT H, Urine Color YEL, Urine Clarity CLEAR, Urine pH 7.0, Ur Specific Kim 1.010, Urine Protein 30 H, Urine Ketones NEG, Urine Nitrite NEG, Urine Bilirubin NEG, Urine Urobilinogen 4.0 H, Ur Leukocyte Esterase NEG, Ur Microscopic SEDIMENT EXAMINED, Urine RBC RARE, Urine WBC 3-5 H, Ur Epithelial Cells FEW, Urine Bacteria FEW H, Urine Mucus FEW, Urine Hemoglobin NEG, Urine Glucose NEG Assessment/Plan Impression/Plan: General: no apparent distress. Cachectic. Eyes: No obvious scleral icterus. HEENT: No jugular venous distention or abnormal jugular venous pulsations. Cardiovascular: Normal intensity S1/S2. Irregular. 1/6 SM. Respiratory: Decreased right-sided air entry, chest tube noted, draining more than 2 L so far Abdomen: Soft, nontender with no guarding or rebound tenderness. Musculoskeletal: No clubbing or cyanosis noted, trace lower extremity edema Skin: Warm Neuro: Grossly nonfocal SIGNIFICANT DATA CT scan of the chest reviewed which showed large effusion in the right side freely layering with mediastinal shift with atelectasis of most of the right lung Thoracentesis done Pleural fluid analysis showed a pH of 7.5 Protein was elevated at 3.5 which is less than 50% of the total protein in the serum Glucose 89 LDH was elevated Cholesterol was less than 5 Her cell count and differential was reviewed patient only had 693 WBCs with 58% polys CT and percent lymphocytes 25% be so the radial cells INR reviewed For blood work reviewed BUN/creatinine normal anion gap normal alkaline phosphatase was slightly elevated. She is not a diabetic white count 8.5 with no significant left shift Body fluid cultures showed no organisms urine culture showed enterococci Cytology pending IMPRESSION This is a 85-year-old lady with the paroxysmal atrial fibrillation was on anticoagulation, history of recurrent fall with previous subarachnoid hemorrhage , previous history of TIA, fatigue and weakness with recent failure to thrive, history of moderate to severe tricuspid regurg and pulmonary hypertension, significant thoracic rib cage abnormality, obstructive restrictive lung disease, never smoked, now has * Large right-sided pleural effusion with atelectasis. The pleural fluid analysis is not suggestive of an empyema. Malignancy seems less likely. No clinical evidence suggestive of tuberculosis or any other process like lymphoma. This effusion is probably related to posttraumatic pleural effusion which the patient may have had versus mild congestive heart failure. The characteristic of this fluid is trans-exudative pattern unlikely to be infectious source. * She does have atrial fibrillation with recurrent fall with normal ejection fraction with significant pulmonary hypertension with severe tricuspid regurgitation. Unlikely she has any other primary reason for pulmonary hypertension other than having diastolic heart disease with chronic atrial fibrillation. Patient seems to have mild to moderate mitral regurgitation as well. * Recurrent fall with high risk for bleeding from anticoagulation RECOMMENDATION * Await cytology * Ask microbiology lab to add on AFB and the fungal culture from the pleural fluid if not the pleural fluid from the chest tube can be sent for AFB and fungal culture * Place PPD * Repeat chest x-ray tomorrow * Reposition the patient to help drain her pleural fluid periodically * 1 dose of intravenous Lasix 20 mg today * Keep potassium more than 4 please replace it by mouth * Continue other medications * Try to minimize hydrocodone * Systemic anticoagulation per cardiology however due to worsening performance status she may be not a great candidate for long-term anticoagulation * We will repeat a CT scan of the chest in the future with IV contrast to evaluate any malignancy and she probably would benefit from CT of the abdomen and pelvis as well we will determine the timing of this in the future * Send adenosine deaminase from the pleural fluid as well. This can be added or a new tube can be sent from the current fluid which is being drained from her chest tube Consult Acknowledgment - Thank you for your consult request.
--- NOTE | 2016-11-26 14:46 | RADIOLOGY REPORT ---
EXAMINATION: XR PORTABLE CHEST CLINICAL INFORMATION: Post chest tube placement. Evaluate pneumonia or consolidation post drain. COMPARISON: Chest x-rays 10/13/2016 and 11/25/2016. TECHNIQUE: Portable frontal 85degree view of the chest was obtained. FINDINGS: The study redemonstrates a right chest tube which projects over the right lower chest. There has been interval drainage of the right pleural effusion. There is no pneumothorax. There are reticular nodular areas of opacification projected over the right lower zone. This was not seen on the chest x-ray from 10/13/2016. There is a tiny calcification projected just superior to the horizontal fissure laterally, unchanged. The lung rosa are now well-expanded bilaterally, and appear otherwise clear. The cardiac silhouette is at the upper limits of normal in size, similar compared to the prior study. The aortic arch is calcified and unfolded. There has been no interval change in the well-defined density projected over the left upper lobe. There are multiple monitor leads overlying the chest. There are no acute osseous findings. IMPRESSION: 1. There has been interval drainage of the right pleural effusion compared to the prior study. There is no evidence of pneumothorax. 2. A pigtail catheter is noted projecting over the lower right chest. 3. There is an area of reticular nodular density in the right lower zone, not demonstrated on prior imaging. It may be consistent with residua of atelectasis from the effusion. Recommend followup chest x-ray in 24 hours to assess interval change.
[2016-11-26 16:39] VITALS: BP 110/70
[2016-11-26 22:36] VITALS: BP 92/53
[2016-11-27] VITALS (7 sets, daily range): BP systolic 90–120; BP diastolic 0–78
--- NOTE | 2016-11-27 01:07 | Event Note ---
Event Note Event Note: At 10.30 PM, the nurse paged me for Ms. Wyman 95/53 and heart rate 110, I held the Lopressor dose 12.5 and asked her to measure the blood pressure within 1 hour. At 12 pm, blood pressure was 100/60 and heart rate 120, patient was given the Lopressor 12.5 mg and the nurse was asked to measure the blood pressure within 30 minutes after administrating the Lopressor. The remeasured systolic blood pressure is 88 with Doppler, heart rate 120. Patient is sleeping comfortably, offers no complaint. Resident made aware Will cancel the previous order of 500 normal saline bolus, will continue to evaluate and manage conservatively given that patient is asymptomatic and she had recently thoracocentesis. In addition, nurse reported that decrease air entry with crackles on the left side of the chest, chest tube drainage decreased significantly from the morning time, the nurse paged the PA but as the tube was placed of IR and they will not get involved. Patient was assessed and she denied any chest pain, shortness of breath, saturating 95% on room air. Will obtain chest x-ray stat to evaluate the chest tube position. IMPRESSION: Pigtail catheter overlies the medial right lung base, similar in position to prior. Trace right pleural effusion. Will continue to monitor.
--- NOTE | 2016-11-27 02:28 | RADIOLOGY REPORT ---
EXAMINATION: XR PORTABLE CHEST CLINICAL INFORMATION: Assess chest tube position, decreased output and crackles on auscultation COMPARISON: 11/26/2016 TECHNIQUE: Portable frontal view of the chest was obtained. FINDINGS: Pigtail catheter overlies the medial right lung base, similar to prior. Lung volumes are symmetric. No focal consolidation is seen. No evidence of pneumothorax or pulmonary edema. Trace right pleural effusion is suspected. Cardiac size is within normal limits. Calcification is present at the aortic arch. No acute osseous findings are seen. IMPRESSION: Pigtail catheter overlies the medial right lung base, similar in position to prior. Trace right pleural effusion.
--- NOTE | 2016-11-27 05:30 | NUR ---
AT 0000 BLOOD PRESSURE 100/60. APICAL HEART RATE 120. DR. WHITAKER NOTIFIED AND 12.5MG PO LOPRESSOR GIVEN ORDERED. PATIENT ALSO PLACED ON TELE MONITOR ORDERED. HEART RATE AFIB RANGING 120-130'S. MARKED DECREASE IN OUTPUT FROM CHEST TUBE NOTED. PATIENT DENIES SOB, CHEST PAIN. LUNG SOUNDS DECREASED TO THE RIGHT SIDE AND CRACKLES NOTED TO R BASE. RESPIRATORY CALLED AND IN TO ASSESS PATIENT. OXYGEN SATURATION 96% ON ROOM AIR. DR WHITAKER NOTIFIED AND IN TO ASSESS PATIENT. PORTABLE CHEST XRAY DONE. NO FURTHER INTERVENTIONS ORDERED AT THIS TIME. WILL CONTINUE TO MONITOR.
[2016-11-27 07:51] LABS: ABSOLUTE BASOPHIL COUNT 0 /CUMM (0.0-0.2); ABSOLUTE EOSINOPHIL COUNT 0.1 /CUMM (0.0-0.7); ABSOLUTE GRANULOCYTE CT 7.4 /CUMM (1.4-6.5); ABSOLUTE LYMPH COUNT 1.4 /CUMM (1.2-3.4); ABSOLUTE MONOCYTE COUNT 0.5 /CUMM (0.10-0.60); BASOPHIL % 0.3 % (0.0-2.0); EOSINOPHIL % 0.8 % (0-5); GRANULOCYTE % 78.9 % (42.2-75.2); HEMATOCRIT 40.8 % (37-47); MEAN CORPUSCULAR HGB 28.4 PG (27.0-31.0); MEAN CORPUSCULAR HGB CONC 33.2 G/DL (33.0-37.0); MEAN CORPUSCULAR VOLUME 85.6 FL (81.0-99.0); MEAN PLATELET VOLUME 9.3 FL (7.4-10.4); PLATELET COUNT 281 /CUMM (130-400); RBC DISTRIBUTION WIDTH 20.3 % (11.5-14.5); RED BLOOD CELL CT 4.78 /CUMM (4.20-5.40); WHITE BLOOD CELL COUNT 9.4 /CUMM (4.8-10.8)
--- NOTE | 2016-11-27 08:10 | PN- Housestaff ---
SHUN WILDER 11/27/16 0809: Subjective Follow-up For: - Afib - Pleural effusion Complaints: no complaints Tele-Events Since Last Visit: A fib, HR 99-148 bpm, No events. Subjective: Pt was comfortable. Still feels tired. Vitals stable. Remained afebrile. Review of Systems Constitutional: Reports: see HPI. Objective Last 24 Hrs of Vital Signs/I&O Vital Signs Date Time Temp Pulse Resp B/P B/P Pulse O2 O2 Flow FiO2 Mean Ox Delivery Rate 11/27 0803 96.2 96 20 120/78 96 Room Air 11/27 0400 106 104/66 11/27 0100 120 20 90/0 96 Room Air 11/27 0054 120 100/60 / 0036 97 Room Air 11/27 0000 130 100/60 05/ 0000 96 Room Air 11/26 2236 98.4 119 16 92/53 95 Room Air 11/26 1639 96.9 77 18 110/70 97 Room Air 11/26 0920 98 114/70 11/26 0920 98 114/70 / 0849 Room Air Room Air 11/26 0813 96.7 98 16 114/70 95 Room Air Intake & Output 11/27 1600 /04 0800 05/04 0000 Intake Total 200 250 Output Total 350 Balance -150 250 Intake, Oral 200 250 Number 0 Bowel Movements Output, Chest 50 Tube Drainage Output, Urine 300 Patient 89 lb 12.8 oz Weight Weight Chair scale Measurement Method Physical Exam General Appearance: No Acute Distress Other Physical Findings: General Exam: AAOx3, No acute distress, Skin: No rashes, no breakdown HEENT: PERRLA, EOMI Neck: Supple, No JVD No cervical lymphadenopathy CVS: Reg Rate, Normal S1,S2, No MGR Resp: Decreased air entry on the right side, no rhonchi/rales, chest tube in place. Abdomen: Soft, No tenderness, Normal Bowel Sounds Neuro: Normal Speech, Strength 5/5 b/l x 4 extremities, Sensation intact, CN III -XII NL, Reflexes 2+ Extremities: No cyanosis, pedal edema 2+ Current Medications: Current Medications Sig/Chava Start time Last Medication Dose Route Stop Time Status Admin Acetaminophen 325 MG Q6P PRN 11/22 1814 AC PO Acetaminophen/ 1 TAB Q6P PRN 11/22 1814 AC 11/26 Hydrocodone Bitart PO 1306 Atorvastatin Calcium 40 MG 1700 11/22 1830 AC 11/26 PO 1802 Cholecalciferol 1,000 IU DAILY 11/26 1000 DC PO Cholecalciferol 1,000 IU DAILY 11/25 1349 AC 11/26 PO 0920 Furosemide 40 MG DAILY 11/23 1000 AC 11/26 IV 0919 Heparin Sodium 5,000 UNIT Q8 11/25 220 AC 11/27 (Porcine) SC 0628 Lisinopril 10 MG DAILY 11/23 1000 AC 11/26 PO 0920 Metoprolol Tartrate 12.5 MG BID 11/22 2200 AC 11/27 PO 0054 Ondansetron HCl 4 MG Q8 PRN 11/22 1815 AC 11/26 PO 0919 Potassium Chloride 40 MEQ ONCE ONE 11/26 0915 DC 11/26 PO 11/26 0916 0920 Senna/Docusate Sodium 2 TAB BID 11/22 220 AC 11/26 PO 2202 Sodium Chloride 500 ML BOLUS ONE 11/27 0145 CAN IV 11/27 0244 Tramadol HCl 50 MG Q4 PRN 11/22 1815 AC 11/26 PO 0926 Tuberculin PPD 0.1 ML ONCE ONE 11/26 1445 DC 11/26 ID 11/26 1446 1919 Last 24 Hrs of Lab/Jaime Results Last 24 Hrs of Labs/Mics: Laboratory Tests 11/27/16 0630: Anion Gap 9, Estimated GFR 42 L, BUN/Creatinine Ratio 28.3 H, CBC w Diff Pending, WBC Pending, RBC Pending, Hgb Pending, Hct Pending, MCV Pending, MCH Pending, RDW Pending, Plt Count Pending, MPV Pending, PUBS MCHC Pending Microbiology 11/26 1555 BODY FLUID: Fungal Culture - RECD Assessment/Plan Assessment: Ms Wyman is an 85-year-old woman who has a past medical history of atrial fibrillation ( on NOAC ), hypertension, TIA ( dx'ed 2016), left non displaced humerus fracture, left pubic rami fracture who was recently discharged from a [facility] a few day ago is being evaluated for increasing tiredness 3 days. Last echocardiogram done in 03/2016 revealed left ventricular ejection fraction of 55% with moderate valvular dysfunction. Differential diagnosis: #1 pleural effusion likely acute malignancy #2 CHF exacerbation #3 pneumonia Below is the problem list and plan: #1 tiredness-likely due to fluid overload and inability of diaphragm to contract efficiently. Pneumonia is also on differentials, but no fever or leukocytosis was seen. Malignant pleural effusion is ruled out. Sr creatinine is elevated; discontinue lasix for now. Thoracentesis w/ pleural studies showed pleural fluid of exudative nature which made pneumonia more likely, but repeat chest x ray was clear w/o any infiltrate. Although, as per light's criteria, the nature of fluid is not clear transudative versus exudative. Check bacterial and fungal cultures. Check echocardiogram. As per Mauri Mclain MD's recommendation, tuberculosis workup is being done. Also check ADA levels. Leukocyte count- differential count revealed granulocytosis, more than lymphocytosis which points towards an acute infection. #2 atrial fibrillation-currently on metoprolol, which was held briefly due to hypotension. Eliquis was held temporarily. SC heparin for now. Will start pt on eliquis after discussing w/ the set rider. Pt has been off anticoagulation for the procedure. To discuss w/ the set rider about restarting eliquis. #3 hypertension-currently stable. Continue lisinopril and metoprolol. #4 DVT prophylaxis-pharmacological. #5 abnormal urinalysis-repeat urinalysis is normal. Problem List: 1. CHF (congestive heart failure) 2. Atrial fibrillation Pain Ratin Pain Location: right chest tube area Pain Goal: Pain 4 or less Pain Plan: tylenol prn tramadol Tomorrow's Labs & Rationales: cbc bep JEFFERSON JAMES,[facility] 11/27/16 1328: Attending MD Review Statement Attending Statement Attending MD Statement: examined this patient, discuss w/resident/PA/RAILROAD PURCHASING AGENT, agreed w/resident/PA/RAILROAD PURCHASING AGENT, reviewed EMR data (avail), discussed with nursing, discussed with case mgmt, reviewed images, amended to note Attending Assessment/Plan: Patient seen and examined, Feels the same. STill feels tired, participates little in conversation. Denies feeling depressed. denies any sig wt loss recently. Vital Signs Date Time Temp Pulse Resp B/P B/P Pulse O2 O2 Flow FiO2 Mean Ox Delivery Rate 11/27 1228 102 98/72 11/27 1103 96 94/50 11/27 1033 94/50 05/04 0803 96.2 96 20 120/78 96 Room Air 11/27 0800 Room Air 11/27 0400 106 104/66 11/27 0100 120 20 90/0 96 Room Air 11/27 0054 120 100/60 11/27 0036 97 Room Air 11/27 0000 130 100/60 05/04 0000 96 Room Air 11/26 2236 98.4 119 16 92/53 95 Room Air 11/26 1639 96.9 77 18 110/70 97 Room Air on exam; aox3, nad. cv; s1,s2, rrr resp; clear abd; soft, nt, bs+ ext; no edema. Laboratory Tests 11/27 0630 Chemistry Sodium (137 - 145 mmol/L) 136 L Potassium (3.5 - 5.1 mmol/L) 4.8 Chloride (98 - 107 mmol/L) 99 Carbon Dioxide (22 - 30 mmol/L) 28 Anion Gap (5 - 16) 9 BUN (7 - 17 mg/dL) 34 H Creatinine (0.5 - 1.0 mg/dL) 1.2 H Estimated GFR (>60 ml/min) 42 L BUN/Creatinine Ratio (7 - 25 %) 28.3 H Hematology CBC w Diff NO MAN DIFF REQ WBC (4.8 - 10.8 /CUMM) 9.4 RBC (4.20 - 5.40 /CUMM) 4.78 Hgb (12.0 - 16.0 G/DL) 13.5 Hct (37 - 47 %) 40.8 MCV (81.0 - 99.0 FL) 85.6 MCH (27.0 - 31.0 PG) 28.4 RDW (11.5 - 14.5 %) 20.3 H Plt Count (130 - 400 /CUMM) 281 MPV (7.4 - 10.4 FL) 9.3 Gran % (42.2 - 75.2 %) 78.9 H Lymphocytes % (20.5 - 51.1 %) 14.6 L Monocytes % (1.7 - 9.3 %) 5.4 Eosinophils % (0 - 5 %) 0.8 Basophils % (0.0 - 2.0 %) 0.3 Absolute Granulocytes (1.4 - 6.5 /CUMM) 7.4 H Absolute Lymphocytes (1.2 - 3.4 /CUMM) 1.4 Absolute Monocytes (0.10 - 0.60 /CUMM) 0.5 Absolute Eosinophils (0.0 - 0.7 /CUMM) 0.1 Absolute Basophils (0.0 - 0.2 /CUMM) 0 PUBS MCHC (33.0 - 37.0 G/DL) 33.2 A/P; 85 y/o F with pmh sig for past medical history of atrial fibrillation ( on NOAC ), hypertension, TIA ( dx'ed 2016), left non displaced humerus fracture, left pubic rami fracture who was recently discharged from a [facility] a few days ago now admitted with generalized weakness, fatigue and found to have significant right- sided pleural effusion. With high BNP, she has been initially started on diuresis. Patient received thoracentesis and then the pigtail catheter. She has strained more than 2 L of fluid. Chest tube is discontinued today. This morning she became hypotensive and now also has mild acute kidney injury likely secondary to over diuresis as well as dehydration. Had evidence of small or held including her Lasix and lisinopril. Encourage by mouth fluids. Blood pressure does not come up with fluids then would recommend gentle IV hydration. fluid studies showed trans-exudative effusion. Cytology negative and cultures negative. This could all be secondary to acute CHF. DVT px: Heparin subcutaneous. F/U PT evaluation
--- NOTE | 2016-11-27 08:49 | PN- Cardiology ---
Subjective Subjective: Telemetry reviewed. Atrial fibrillation with modest ventricular response of 90- 110. Objective Vital Signs and I&Os Vital Signs Date Time Temp Pulse Resp B/P B/P Pulse O2 O2 Flow FiO2 Mean Ox Delivery Rate 11/27 0803 96.2 96 20 120/78 96 Room Air 11/27 0400 106 104/66 11/27 0100 120 20 90/0 96 Room Air 11/27 0054 120 100/60 05/ 0036 97 Room Air 11/27 0000 130 100/60 05/ 0000 96 Room Air 11/26 2236 98.4 119 16 92/53 95 Room Air 11/26 1639 96.9 77 18 110/70 97 Room Air 11/26 0920 98 114/70 11/26 0920 98 114/70 11/26 0849 Room Air Room Air Intake & Output 11/27 1600 11/27 0800 11/27 0000 11/26 1600 11/26 0800 11/26 0000 Intake Total 200 250 480 200 325 Output Total 350 200 280 80 Balance -150 250 280 -80 245 Intake, IV 0 0 Intake, Oral 200 250 480 200 325 Number 0 0 0 Bowel Movements Output, Chest 50 30 80 Tube Drainage Output, Urine 300 200 250 Patient 89 lb 12.8 oz Weight Weight Chair scale Measurement Method Physical Exam: On general exam patient appeared cachectic. Head normocephalic atraumatic Eyes sclera anicteric conjunctiva showed pallor extraocular muscles appeared normal Neck no definite jugular venous distention no thyroid masses no palpable nodes Chest lungs decreased air entry in the right base. Chest tube in place. Heart irregular rhythm with a ventricular rate of around 110. Grade 1 to 2/6 systolic murmur. Abdomen scaphoid soft nontender no organomegaly. Extremities no clubbing cyanosis or edema. Neurological no gross motor or sensory deficits. Current Medications: Current Medications Sig/Chava Start time Last Medication Dose Route Stop Time Status Admin Acetaminophen 325 MG Q6P PRN 11/22 1814 AC PO Acetaminophen/ 1 TAB Q6P PRN 11/22 1814 AC 11/26 Hydrocodone Bitart PO 1306 Atorvastatin Calcium 40 MG 1700 11/22 1830 AC 11/26 PO 1802 Cholecalciferol 1,000 IU DAILY 11/26 1000 DC PO Cholecalciferol 1,000 IU DAILY 11/25 1349 AC 11/26 PO 0920 Furosemide 40 MG DAILY 11/23 1000 AC 11/26 IV 0919 Heparin Sodium 5,000 UNIT Q8 11/25 2199 AC 11/27 (Porcine) SC 0628 Lisinopril 10 MG DAILY 11/23 1000 AC 11/26 PO 0920 Metoprolol Tartrate 12.5 MG BID 11/22 2199 AC 11/27 PO 0054 Ondansetron HCl 4 MG Q8 PRN 11/22 1814 AC 11/26 PO 0919 Potassium Chloride 40 MEQ ONCE ONE 11/26 0815 DC 11/26 PO 11/26 09 0920 Senna/Docusate Sodium 2 TAB BID 11/22 2199 AC 11/26 PO 220 Sodium Chloride 500 ML BOLUS ONE 11/27 0145 CAN IV 11/27 0244 Tramadol HCl 50 MG Q4 PRN 11/22 1814 AC 11/26 PO 0926 Tuberculin PPD 0.1 ML ONCE ONE 11/26 144 DC 11/26 ID 11/26 [id number] 1919 Results Last 48 Hrs of Labs/Mics: Laboratory Tests 11/27/16 0630: Anion Gap 9, Estimated GFR 42 L, BUN/Creatinine Ratio 28.3 H, CBC w Diff NO MAN DIFF REQ, RBC 4.78, MCV 85.6, MCH 28.4, RDW 20.3 H, MPV 9.3, Gran % 78.9 H , Lymphocytes % 14.6 L, Monocytes % 5.4, Eosinophils % 0.8, Basophils % 0.3, Absolute Granulocytes 7.4 H, Absolute Lymphocytes 1.4, Absolute Monocytes 0.5, Absolute Eosinophils 0.1, Absolute Basophils 0, PUBS MCHC 33.2 11/26/16 0645: Anion Gap 9, Estimated GFR > 60, BUN/Creatinine Ratio 32.9 H, CBC w Diff NO MAN DIFF REQ, RBC 4.72, MCV 84.8, MCH 28.2, RDW 20.3 H, MPV 9.0, Gran % 77.6 H, Lymphocytes % 13.5 L, Monocytes % 7.1, Eosinophils % 1.4, Basophils % 0.4, Absolute Granulocytes 6.6 H, Absolute Lymphocytes 1.1 L, Absolute Monocytes 0.6, Absolute Eosinophils 0.1, Absolute Basophils 0, PUBS MCHC 33.3 11/25/16 1109: Anion Gap 13, Estimated GFR > 60, BUN/Creatinine Ratio 31.7 H, Lactate Dehydrogenase 709 H, Total Protein 7.1, Albumin 3.8, PT 11.7, INR 1.12 11/25/16 1000: Fluid Cholesterol Cancelled 11/25/16 0930: Pleural pH 7.50 11/25/16 0930: Fluid WBC 693 H, Fld Mesothelial Cells , Fld Total RBCs Counted 1075 H 11/25/16 0930: Lymphocytes 18, % Normal PMNs 58, Phlebotomy Draw Site RIGHT PLEURAL CAVITY, Fluid Glucose 89, Fluid Total Protein 3.6, Fluid Albumin 1.7, Fluid LDH 403, Fluid Amylase 40, Fluid Cholesterol < 50 Assessment/Plan Assessment/Plan In summary this 85-year-old female has the following problems . Large pleural effusion of unclear etiology, status post thoracocentesis 2. Paroxysmal atrial fibrillation on outpatient Eliquis; history of recurrent falls with a previous subarachnoid hemorrhage (requiring AC reversal; reportedly on Pradaxa at that time) and recent fall with fracture (09/2016) 3. History of possible prior TIA 4. Continued fatigue/weakness/failure to thrive 5. Hx of Moderate to severe tricuspid regurgitation with pulmonary hypertension Her ventricular rate appears to be somewhat rapid. I would increase her metoprolol tartrate to 25 mg every 8 hours. Her left ventricle systolic function appears normal. She is not on anticoagulation as she has had injury and falls and subarachnoid hemorrhage on anticoagulation in the past. Malignancy suspected because of her cachectic state and cytology is pending however pleural effusion. For the time being I would control her ventricular rate and at the moment she is considered a high risk for oral anticoagulation at this can always be reevaluated at a later date. This of course would depend on her underlying pathology Continue telemetry? Yes
--- NOTE | 2016-11-27 12:25 | RADIOLOGY REPORT ---
EXAMINATION:\H\ \N\XR CHEST CLINICAL INFORMATION: Status post removal of the right chest tube. COMPARISON: None TECHNIQUE: Frontal view of the chest was obtained. FINDINGS: The right chest tube has been removed. There is a stable trace right apical pneumothorax. The visualized lungs are clear. No residual pleural effusions are identified. The cardiomediastinal contours are stable. IMPRESSION: Right chest tube removed without evidence of an expanding pneumothorax.
--- NOTE | 2016-11-27 12:29 | NUR ---
PT ARRIVED BACK TO UNIT FROM IR SUITE. PT A&O X3, VSS, CHEST TUBE REMOVED AND SITE COVERED WITH XEROFORM AND TEGEDERM. SITE C/D/I. PT RESTING COMFORTALBE IN BED. WILL CONTINUE TO MONITOR
--- NOTE | 2016-11-27 14:09 | INTERVENTIONAL RADIOLOGY RPT ---
EXAMINATION: IR ROOM TIME < 1 HOUR CLINICAL INFORMATION: Right chest tube placed on 11/25/2016 for a very large right pleural effusion which is now totally evacuated. Trace right apical pneumothorax seen on chest x-ray obtained this afternoon. COMPARISON: Portable chest x-ray obtained on 11/27/2016 at 13:39. DESCRIPTION: The patient was brought to the interventional radiology suite. Appropriate site marking was performed. A final timeout was also performed. The patient was turned up onto her left side. The overlying dressings and StatLock were removed. The retention suture was cut. The chest tube was clamped with a hemostat approximately and divided proximally. The chest tube was removed with gentle traction. A Vaseline gauze was placed over the entry site. An occlusive dressing was applied. The patient patient tolerated the procedure well. There was no evidence of complications. The immediate post chest tube removal chest x-ray did not show evidence of enlarging pneumothorax or other complication. IMPRESSION: Right chest tube removed without evidence of complications.
--- NOTE | 2016-11-27 14:10 | PN- Pulmonary ---
Subjective HPI/Critical Care Issues: Much improved chest tube stopped draining and now chest is fully expanded stable Objective Current Medications: Current Medications Sig/Chava Start time Last Medication Dose Route Stop Time Status Admin Acetaminophen 325 MG Q6P PRN 11/22 181 AC PO Acetaminophen/ 1 TAB Q6P PRN 11/22 181 AC 11/26 Hydrocodone Bitart PO 1306 Atorvastatin Calcium 40 MG 1700 11/22 1830 AC 11/26 PO 1802 Cholecalciferol 1,000 IU DAILY 11/25 1349 AC 11/27 PO 1033 Furosemide 40 MG DAILY 11/23 1000 DC 11/26 IV 0919 Heparin Sodium 5,000 UNIT Q8 11/25 2200 AC 11/27 (Porcine) SC 1404 Lisinopril 10 MG DAILY 11/23 1000 DC 11/26 PO 0920 Metoprolol Tartrate 25 MG Q8 11/27 1400 AC PO Metoprolol Tartrate 25 MG Q8 11/27 1000 DC PO Metoprolol Tartrate 12.5 MG BID 11/22 2200 DC 11/27 PO 0054 Ondansetron HCl 4 MG Q8 PRN 11/22 181 AC 11/26 PO 0919 Patient Medication 1 ED .STK-MED ONE 11/27 1356 DC Teaching ED 11/27 1357 Senna/Docusate Sodium 2 TAB BID 11/22 2200 AC 11/27 PO 1035 Sodium Chloride 1,000 ML Q20H 11/27 0915 DC 11/27 IV 11/28 0514 0938 Sodium Chloride 500 ML BOLUS ONE 11/27 0145 CAN IV 11/27 0244 Tramadol HCl 50 MG Q4 PRN 11/22 181 AC 11/26 PO 0926 Tuberculin PPD 0.1 ML ONCE ONE 11/26 1445 DC 11/26 ID 11/26 1446 1919 Vital Signs & I&O Last 24 Hrs of Vitals and I&O: Vital Signs Date Time Temp Pulse Resp B/P B/P Pulse O2 O2 Flow FiO2 Mean Ox Delivery Rate 11/27 1228 102 98/72 05/ 1103 96 94/50 05/ 1033 94/50 05/ 0803 96.2 96 20 120/78 96 Room Air / 0800 Room Air / 0400 106 104/66 05/ 0100 120 20 90/0 96 Room Air / 0054 120 100/60 05/ 0036 97 Room Air 11/27 0000 130 100/60 05/04 0000 96 Room Air 11/26 2236 98.4 119 16 92/53 95 Room Air 11/26 1639 96.9 77 18 110/70 97 Room Air Intake & Output 11/27 1600 /04 0800 05 0000 Intake Total 200 250 Output Total 350 Balance -150 250 Intake, Oral 200 250 Number 0 Bowel Movements Output, Chest 50 Tube Drainage Output, Urine 300 Patient 89 lb 12.8 oz Weight Weight Chair scale Measurement Method Impression/Plan Impression/Plan Impression/Plan: General: no apparent distress. Cachectic. Eyes: No obvious scleral icterus. HEENT: No jugular venous distention or abnormal jugular venous pulsations. Cardiovascular: Normal intensity S1/S2. Irregular. 1/6 SM. Respiratory: Decreased right-sided air entry, chest tube out Abdomen: Soft, nontender with no guarding or rebound tenderness. Musculoskeletal: No clubbing or cyanosis noted, trace lower extremity edema Skin: Warm Neuro: Grossly nonfocal SIGNIFICANT DATA CT scan of the chest reviewed which showed large effusion in the right side freely layering with mediastinal shift with atelectasis of most of the right lung Thoracentesis done Pleural fluid analysis showed a pH of 7.5 Protein was elevated at 3.5 which is less than 50% of the total protein in the serum Glucose 89 LDH was elevated Cholesterol was less than 5 Her cell count and differential was reviewed patient only had 693 WBCs with 58% polys CT and percent lymphocytes 25% be so the radial cells INR reviewed For blood work reviewed BUN/creatinine normal anion gap normal alkaline phosphatase was slightly elevated. She is not a diabetic white count 8.5 with no significant left shift Body fluid cultures showed no organisms urine culture showed enterococci Cytology pending IMPRESSION This is a 85-year-old lady with the paroxysmal atrial fibrillation was on anticoagulation, history of recurrent fall with previous subarachnoid hemorrhage , previous history of TIA, fatigue and weakness with recent failure to thrive, history of moderate to severe tricuspid regurg and pulmonary hypertension, significant thoracic rib cage abnormality, obstructive restrictive lung disease, never smoked, now has * REsolved Large right-sided pleural effusion with atelectasis. The pleural fluid analysis is not suggestive of an empyema. Malignancy seems less likely cytology is neg. No clinical evidence suggestive of tuberculosis or any other process like lymphoma. This effusion is probably related to posttraumatic pleural effusion which the patient may have had versus mild congestive heart failure. The characteristic of this fluid is trans-exudative pattern unlikely to be infectious source. * She does have atrial fibrillation with recurrent fall with normal ejection fraction with significant pulmonary hypertension with severe tricuspid regurgitation. Unlikely she has any other primary reason for pulmonary hypertension other than having diastolic heart disease with chronic atrial fibrillation. Patient seems to have mild to moderate mitral regurgitation as well. * Recurrent fall with high risk for bleeding from anticoagulation RECOMMENDATION * Continue other medications * Try to minimize hydrocodone * Watch creat for now and hold lasix * Systemic anticoagulation per cardiology however due to worsening performance status she may be not a great candidate for long-term anticoagulation * We will repeat a CT scan of the chest in the future with IV contrast to evaluate any malignancy and she probably would benefit from CT of the abdomen and pelvis as well we will determine the timing of this in the future when creat is better Will follow
--- NOTE | 2016-11-27 14:13 | NUR ---
PT ONLY PUT OUT 75ML OF LEILA COLORED URINE IN 8 HOUR SHIFT. MD MICHAELS AWARE. WILL CONTINUE TO MONITOR. AND PT BP 98/72 INSTRUCTED TO HOLD AFTERNOON DOSE OF METOPROLOL PER XENIA
--- NOTE | 2016-11-28 07:19 | PN- Housestaff ---
SHUN WILDER 11/28/16 0717: Subjective Follow-up For: - Pleural effusion Complaints: no complaints Tele-Events Since Last Visit: Afib, rate 76-96, no overnight events. Subjective: Based upon the creatinine clearance, the dose of pradaxa was adjusted to 75mg po bid. Spoke to the pharmacist, Marianela. The patient was comfortable this morning. Did not have any complaints. Seems improved compared to yesterday. No change in appetite. Feels less tired compared to yesterday. Discussed the plan with the patient. Remained afebrile overnight. Vitals were stable. Serum creatinine improved overnight, but the plan was to get a CT scan with IV contrast was deferred at this time. Discussed with Dr. Salmon. Review of Systems Constitutional: Reports: see HPI. Objective Last 24 Hrs of Vital Signs/I&O Vital Signs Date Time Temp Pulse Resp B/P B/P Pulse O2 O2 Flow FiO2 Mean Ox Delivery Rate 11/28 0636 95 110/64 11/27 2134 98.2 105 18 96 Room Air 11/27 2121 101 112/74 11/27 1543 Room Air Room Air 11/27 1542 97.2 113 18 100/70 99 05/04 1415 102 98/72 05/04 1228 102 98/72 05/04 1103 96 94/50 05/04 1033 94/50 05/04 0803 96.2 96 20 120/78 96 Room Air / 0800 Room Air Intake & Output 11/28 0800 05/05 0000 05/04 1600 Intake Total 595 275 Output Total 125 75 Balance 470 200 Intake, IV 335 50 Intake, Oral 260 225 Output, Urine 125 75 Patient 91 lb Weight Weight Chair scale Measurement Method Physical Exam General Appearance: No Acute Distress Other Physical Findings: General Exam: AAOx3, No acute distress, Skin: No rashes, no breakdown HEENT: PERRLA, EOMI Neck: Supple, No JVD No cervical lymphadenopathy CVS: Reg Rate, Normal S1,S2, No MGR Resp: Decreased air entry on the right side, no rhonchi/rales, chest tube removed. No tenderness, or erythema. Abdomen: Soft, No tenderness, Normal Bowel Sounds Neuro: Normal Speech, Strength 5/5 b/l x 4 extremities, Sensation intact, CN III -XII NL, Reflexes 2+ Extremities: No cyanosis, pedal edema 2+ Current Medications: Current Medications Sig/Chava Start time Last Medication Dose Route Stop Time Status Admin Acetaminophen 325 MG Q6P PRN 11/22 1814 PO Acetaminophen/ 1 TAB Q6P PRN 11/22 1814 11/26 Hydrocodone Bitart PO 1306 Atorvastatin Calcium 40 MG 1700 11/22 1830 11/27 PO 1843 Cholecalciferol 1,000 IU DAILY 11/25 1349 AC 11/27 PO 1033 Docusate Sodium 100 MG DAILY NEEDED PRN 11/27 1845 AC 11/27 PO 2121 Furosemide 40 MG DAILY 11/23 1000 DC 11/26 IV 0919 Heparin Sodium 5,000 UNIT Q8 11/25 2200 11/28 (Porcine) SC 0636 Lisinopril 10 MG DAILY 11/23 1000 DC 11/26 PO 0920 Metoprolol Tartrate 25 MG Q8 11/27 1400 AC 11/28 PO 0636 Metoprolol Tartrate 25 MG Q8 11/27 1000 DC PO Metoprolol Tartrate 12.5 MG BID 11/22 2200 ID 11/27 PO 0054 Ondansetron HCl 4 MG Q8 PRN 11/22 181 11/26 PO 0919 Patient Medication 1 ED .STK-MED ONE 11/27 1356 ID Teaching ED 11/27 1357 Polyethylene Glycol 17 GM DAILY 11/27 1843 11/27 PO 2121 Senna/Docusate Sodium 2 TAB BID 11/22 220 11/27 PO 2121 Sodium Chloride 1,000 ML Q20H 11/27 1445 11/27 IV 11/28 1044 1619 Sodium Chloride 1,000 ML Q20H 11/27 0915 ID 11/27 IV 11/28 0514 0938 Tramadol HCl 50 MG Q4 PRN 11/22 181 11/26 PO 0926 Last 24 Hrs of Lab/Jaime Results Last 24 Hrs of Labs/Mics: Laboratory Tests 11/28/16 0615: Sodium Pending, Potassium Pending, Chloride Pending, Carbon Dioxide Pending, Anion Gap Pending, BUN Pending, Creatinine Pending, BUN/Creatinine Ratio Pending , CBC w Diff Pending, WBC Pending, RBC Pending, Hgb Pending, Hct Pending, MCV Pending, MCH Pending, RDW Pending, Plt Count Pending, MPV Pending, PUBS MCHC Pending Assessment/Plan Assessment: Ms Wyman is an 85-year-old woman who has a past medical history of atrial fibrillation ( on NOAC ), hypertension, TIA ( dx'ed 2016), left non displaced humerus fracture, left pubic rami fracture who was recently discharged from a STR a few day ago is being evaluated for increasing tiredness 3 days. Last echocardiogram done in 03/2016 revealed left ventricular ejection fraction of 55% with moderate valvular dysfunction. Differential diagnosis: #1 pleural effusion likely acute malignancy #2 CHF exacerbation #3 pneumonia Below is the problem list and plan: #1 tiredness-likely due to fluid overload and inability of diaphragm to contract efficiently. Pneumonia is also on differentials, but no fever or leukocytosis was seen. Malignant pleural effusion is ruled out. Sr creatinine improved; discontinue lasix for now. Thoracentesis w/ pleural studies showed pleural fluid of exudative nature which made pneumonia more likely, but repeat chest x ray was clear w/o any infiltrate. Although, as per light's criteria, the nature of fluid is not clear transudative versus exudative. Follow bacterial and fungal cultures. Left ventricular ejection fraction is estimated at > 55 %. As per Mauri Mclain MD's recommendation, tuberculosis workup is being done. Also check ADA levels. Leukocyte count-differential count revealed granulocytosis, more than lymphocytosis which points towards an acute infection. #2 atrial fibrillation-currently on metoprolol, which was held briefly due to hypotension. Eliquis was held temporarily. SC heparin for now. Will start pt on eliquis after discussing w/ the nailing machine feeder. Pt has been off anticoagulation for the procedure. Restarted Pradaxa at renal adjusted dosing as per the nailing machine feeder. #3 hypertension-currently stable. Continue lisinopril and metoprolol. #4 DVT prophylaxis-pharmacological. #5 abnormal urinalysis-repeat urinalysis is normal. Problem List: 1. CHF (congestive heart failure) Pain Ratin Pain Location: Left shoulder Pain Goal: Pain 4 or less Pain Plan: Tylenol Tomorrow's Labs & Rationales: No labs necessary. Patient to be discharged. JEFFERSON JAMES,ESHA 11/28/16 1224: Attending MD Review Statement Attending Statement Attending Statement: examined this patient, discuss w/resident/PA/COMMUNITY ASSISTANT, agreed w/resident/PA/COMMUNITY ASSISTANT, discussed with family, reviewed EMR data (avail), discussed with nursing, discussed with case mgmt, reviewed images, amended to note Attending Assessment/Plan: Patient seen and examined, is present at bedside. Patient herself denies any complaints but remains frail. Her by mouth intake is poor. She claims that she does not like the food. According to , BUN and it has been poor for last few weeks. Patient has lost some weight but this is attributed to her poor by mouth intake. Also almost 2 1/2 L of fluid was removed after thoracentesis therefore some of the weight loss is also attributed to that. Vital Signs Date Time Temp Pulse Resp B/P B/P Pulse O2 O2 Flow FiO2 Mean Ox Delivery Rate 11/29 819 97.4 85 18 104/70 96 Room Air 11/28 0636 95 110/64 11/27 2134 98.2 105 18 96 Room Air 11/27 2121 101 112/74 11/27 1543 Room Air Room Air 11/27 1542 97.2 113 18 100/70 99 /04 1415 102 98/72 11/27 1228 102 98/72 on exam;, ao x3, nad. cv; s1,s2, irregular. resp; clear abd; soft, nt, bs+ ext; no edema. Laboratory Tests 11/28 614 Chemistry Sodium (137 - 145 mmol/L) 137 Potassium (3.5 - 5.1 mmol/L) 4.1 Chloride (98 - 107 mmol/L) 99 Carbon Dioxide (22 - 30 mmol/L) 29 Anion Gap (5 - 16) 9 BUN (7 - 17 mg/dL) 29 H Creatinine (0.5 - 1.0 mg/dL) 0.8 Estimated GFR (>60 ml/min) > 60 BUN/Creatinine Ratio (7 - 25 %) 36.3 H Hematology CBC w Diff NO MAN DIFF REQ WBC (4.8 - 10.8 /CUMM) 9.4 RBC (4.20 - 5.40 /CUMM) 4.66 Hgb (12.0 - 16.0 G/DL) 13.2 Hct (37 - 47 %) 39.9 MCV (81.0 - 99.0 FL) 85.7 MCH (27.0 - 31.0 PG) 28.3 RDW (11.5 - 14.5 %) 20.3 H Plt Count (130 - 400 /CUMM) 278 MPV (7.4 - 10.4 FL) 9.3 Gran % (42.2 - 75.2 %) 71.3 Lymphocytes % (20.5 - 51.1 %) 17.2 L Monocytes % (1.7 - 9.3 %) 6.9 Eosinophils % (0 - 5 %) 3.8 Basophils % (0.0 - 2.0 %) 0.8 Absolute Granulocytes (1.4 - 6.5 /CUMM) 6.7 H Absolute Lymphocytes (1.2 - 3.4 /CUMM) 1.6 Absolute Monocytes (0.10 - 0.60 /CUMM) 0.6 Absolute Eosinophils (0.0 - 0.7 /CUMM) 0.4 Absolute Basophils (0.0 - 0.2 /CUMM) 0.1 PUBS MCHC (33.0 - 37.0 G/DL) 33.0 A/P; 85 y/o F with pmh sig for past medical history of atrial fibrillation ( on NOAC ), hypertension, TIA ( dx'ed 2016), left non displaced humerus fracture, left pubic rami fracture who was recently discharged from a STR a few days ago now admitted with generalized weakness, fatigue and found to have significant right- sided pleural effusion. With high BNP, she has been initially started on diuresis. Patient received thoracentesis and then the pigtail catheter. She had strained more than 2 L of fluid. Chest tube was discontinued yesterday. She was also hypotensive and had mild acute kidney injury likely secondary to dehydration yesterday. She received some IV fluids, creatinine has corrected and her blood pressure has improved. Patient's by mouth intake remains poor, she does not admit to any specific reason except that she does not want the food and does not like the flu. We are trying to explore her weight loss, this seems to be related to her poor by mouth intake. Mauri Mclain MD recommending getting a CT of her chest and abdomen with IV contrast at some point to rule out any medical malignancy. Her pleural fluid cytology negative. We will try to get some information about her preventative screening tests. Please discuss with Dr. Mclain if CT is warranted as an inpatient or scan be done as an outpatient. Otherwise will continue to encourage by mouth intake. Patient to continue to work with physical therapy. She has a bed availability at rehabilitation today and likely would be discharged to rehabilitation. Discussed with patient's at bedside at length
[2016-11-28 07:50] LABS: ABSOLUTE BASOPHIL COUNT 0.1 /CUMM (0.0-0.2); ABSOLUTE EOSINOPHIL COUNT 0.4 /CUMM (0.0-0.7); ABSOLUTE GRANULOCYTE CT 6.7 /CUMM (1.4-6.5); ABSOLUTE LYMPH COUNT 1.6 /CUMM (1.2-3.4); ABSOLUTE MONOCYTE COUNT 0.6 /CUMM (0.10-0.60); BASOPHIL % 0.8 % (0.0-2.0); EOSINOPHIL % 3.8 % (0-5); GRANULOCYTE % 71.3 % (42.2-75.2); HEMATOCRIT 39.9 % (37-47); MEAN CORPUSCULAR HGB 28.3 PG (27.0-31.0); MEAN CORPUSCULAR VOLUME 85.7 FL (81.0-99.0); MEAN PLATELET VOLUME 9.3 FL (7.4-10.4); PLATELET COUNT 278 /CUMM (130-400); RBC DISTRIBUTION WIDTH 20.3 % (11.5-14.5); RED BLOOD CELL CT 4.66 /CUMM (4.20-5.40); WHITE BLOOD CELL COUNT 9.4 /CUMM (4.8-10.8)
[2016-11-28 08:20] VITALS: BP 104/70
--- NOTE | 2016-11-28 11:29 | Patient Discharge Instructions ---
Discharge Instructions General Discharge Information You were seen/treated for: Pleural effusion, fluid around the lung You had these procedures: Thoracocentesis Watch for these problems: #1 chest pain, shortness of breath #2 palpitations (racing of heart) Special Instructions: #1 please follow up with your primary care doctor within 1-2 weeks of discharge. #2 please follow up with your wood casket maker within 1-2 weeks of discharge. Please discuss with your wood casket maker, to change the dose of pradaxa at your next visit when the kidney function improves. #3 please follow-up with your lung doctor within 1-2 weeks of discharge. #4 please note that lisinopril- one of the blood pressure medications is being held right now. Please discuss with primary care doctor regarding resuming it. Acute Coronary Syndrome Inclusion Criteria At DC or during hospital stay patient has or had the following: ACS DIAGNOSIS No Discharge Core Measures Meds if any: Prescribed or Continued at Discharge Meds if any: NOT Prescribed or Continued at Discharge Congestive Heart Failure Inclusion Criteria At DC or during hospital stay patient has or had the following: CHF DIAGNOSIS No Discharge Core Measures Meds if any: Prescribed or Continued at Discharge Meds if any: NOT Prescribed or Continued at Discharge Cerebrovascular accident Inclusion Criteria At DC or during hospital stay patient has or had the following: CVA/TIA Diagnosis No Discharge Core Measures Meds if any: Prescribed or Continued at Discharge Meds if any: NOT Prescribed or Continued at Discharge Venous thromboembolism Inclusion Criteria VTE Diagnosis No VTE Type NONE VTE Confirmed by (Test) NONE Discharge Core Measures - Per Current guidelines, there needs to be overlap - treatment for the first 5 days of Warfarin therapy. - If discharged on Warfarin prior to 5 days of - overlap therapy, the patient will need to be - assessed for post discharge needs including - *Post discharge parental anticoagulation - *Warfarin and/or parental anticoagulation education - *Follow up date to check INR post discharge At least 5 days overlap therapy as Inpatient No Meds if any: Prescribed or Continued at Discharge Note: Overlap Therapy is Warfarin and Anticoagulant Meds if any: NOT Prescribed or Continued at Discharge
[2016-11-28] MEDS ORDERED: TYLENOL EXTRA500 M2 PO (11:35)
--- NOTE | 2016-11-28 13:51 | PN- Pulmonary ---
Subjective HPI/Critical Care Issues: Doing well Afebrile Shortness of breath seemed to have improved Last chest x-ray been unremarkable blood work reviewed stable creatinine has now returned back to normal Objective Current Medications: Current Medications Sig/Chava Start time Last Medication Dose Route Stop Time Status Admin Acetaminophen 325 MG Q6P PRN 11/22 1815 AC PO Acetaminophen/ 1 TAB Q6P PRN 11/22 1815 AC 11/26 Hydrocodone Bitart PO 1306 Atorvastatin Calcium 40 MG 1700 11/22 1830 AC 11/27 PO 1843 Bisacodyl 10 MG ONCE PRN 11/28 1145 AC DC Cholecalciferol 1,000 IU DAILY 11/25 1349 AC 11/28 PO 0931 Docusate Sodium 100 MG DAILY NEEDED PRN 11/27 1845 AC 11/27 PO 2121 Heparin Sodium 5,000 UNIT Q8 11/25 2200 AC 11/28 (Porcine) SC 0636 Metoprolol Tartrate 25 MG Q8 11/27 1400 AC 11/28 PO 0636 Ondansetron HCl 4 MG Q8 PRN 11/22 181 AC 11/26 PO 0919 Patient Medication 1 ED .STK-MED ONE 11/27 1356 DC Teaching ED 11/27 1357 Polyethylene Glycol 17 GM DAILY 11/27 1843 AC 11/27 PO 2121 Senna/Docusate Sodium 2 TAB BID 11/22 220 AC 11/28 PO 0931 Sodium Chloride 1,000 ML Q20H 11/27 1445 DC 11/27 IV 11/28 1044 1619 Tramadol HCl 50 MG Q4 PRN 11/22 181 AC 11/26 PO 0926 Vital Signs & I&O Last 24 Hrs of Vitals and I&O: Vital Signs Date Time Temp Pulse Resp B/P B/P Pulse O2 O2 Flow FiO2 Mean Ox Delivery Rate 11/28 0820 97.4 85 18 104/70 96 Room Air 11/28 0636 95 110/64 11/27 2133 98.2 105 18 96 Room Air 11/27 2120 101 112/74 11/27 1543 Room Air Room Air 11/27 1542 97.2 113 18 100/70 99 / 1415 102 98/72 Intake & Output 11/28 1600 11/28 0800 05 0000 Intake Total 408 595 Output Total 125 Balance 408 470 Intake, IV 208 335 Intake, Oral 200 260 Output, Urine 125 Patient 91 lb Weight Weight Chair scale Measurement Method Laboratory Tests 11/28 05 0615 0630 Chemistry Sodium (137 - 145 mmol/L) 137 136 L Potassium (3.5 - 5.1 mmol/L) 4.1 4.8 Chloride (98 - 107 mmol/L) 99 99 Carbon Dioxide (22 - 30 mmol/L) 29 28 Anion Gap (5 - 16) 9 9 BUN (7 - 17 mg/dL) 29 H 34 H Creatinine (0.5 - 1.0 mg/dL) 0.8 1.2 H Estimated GFR (>60 ml/min) > 60 42 L BUN/Creatinine Ratio (7 - 25 %) 36.3 H 28.3 H Hematology CBC w Diff NO MAN DIFF REQ NO MAN DIFF REQ WBC (4.8 - 10.8 /CUMM) 9.4 9.4 RBC (4.20 - 5.40 /CUMM) 4.66 4.78 Hgb (12.0 - 16.0 G/DL) 13.2 13.5 Hct (37 - 47 %) 39.9 40.8 MCV (81.0 - 99.0 FL) 85.7 85.6 MCH (27.0 - 31.0 PG) 28.3 28.4 RDW (11.5 - 14.5 %) 20.3 H 20.3 H Plt Count (130 - 400 /CUMM) 278 281 MPV (7.4 - 10.4 FL) 9.3 9.3 Gran % (42.2 - 75.2 %) 71.3 78.9 H Lymphocytes % (20.5 - 51.1 %) 17.2 L 14.6 L Monocytes % (1.7 - 9.3 %) 6.9 5.4 Eosinophils % (0 - 5 %) 3.8 0.8 Basophils % (0.0 - 2.0 %) 0.8 0.3 Absolute Granulocytes (1.4 - 6.5 /CUMM) 6.7 H 7.4 H Absolute Lymphocytes (1.2 - 3.4 /CUMM) 1.6 1.4 Absolute Monocytes (0.10 - 0.60 /CUMM) 0.6 0.5 Absolute Eosinophils (0.0 - 0.7 /CUMM) 0.4 0.1 Absolute Basophils (0.0 - 0.2 /CUMM) 0.1 0 PUBS MCHC (33.0 - 37.0 G/DL) 33.0 33.2 Microbiology Date/Time Procedure - Status Source Growth 11/26 1555 Fungal Culture - RES BODY FLUID Impression/Plan Impression/Plan Impression/Plan: General: no apparent distress. Cachectic. Eyes: No obvious scleral icterus. HEENT: No jugular venous distention or abnormal jugular venous pulsations. Cardiovascular: Normal intensity S1/S2. Irregular. 1/6 SM. Respiratory: Decreased right-sided air entry, chest tube out Abdomen: Soft, nontender with no guarding or rebound tenderness. Musculoskeletal: No clubbing or cyanosis noted, trace lower extremity edema Skin: Warm Neuro: Grossly nonfocal SIGNIFICANT DATA CT scan of the chest reviewed which showed large effusion in the right side freely layering with mediastinal shift with atelectasis of most of the right lung Thoracentesis done Pleural fluid analysis showed a pH of 7.5 Protein was elevated at 3.5 which is less than 50% of the total protein in the serum Glucose 89 LDH was elevated Cholesterol was less than 5 Her cell count and differential was reviewed patient only had 693 WBCs with 58% polys CT and percent lymphocytes 25% be so the radial cells INR reviewed For blood work reviewed BUN/creatinine normal anion gap normal alkaline phosphatase was slightly elevated. She is not a diabetic white count 8.5 with no significant left shift Body fluid cultures showed no organisms urine culture showed enterococci Cytology pending IMPRESSION This is a 85-year-old lady with the paroxysmal atrial fibrillation was on anticoagulation, history of recurrent fall with previous subarachnoid hemorrhage , previous history of TIA, fatigue and weakness with recent failure to thrive, history of moderate to severe tricuspid regurg and pulmonary hypertension, significant thoracic rib cage abnormality, obstructive restrictive lung disease, never smoked, now has * REsolved Large right-sided pleural effusion with atelectasis. The pleural fluid analysis is not suggestive of an empyema. Malignancy seems less likely cytology is neg. No clinical evidence suggestive of tuberculosis or any other process like lymphoma. This effusion is probably related to posttraumatic pleural effusion which the patient may have had versus mild congestive heart failure. The characteristic of this fluid is trans-exudative pattern unlikely to be infectious source. * She does have atrial fibrillation with recurrent fall with normal ejection fraction with significant pulmonary hypertension with severe tricuspid regurgitation. Unlikely she has any other primary reason for pulmonary hypertension other than having diastolic heart disease with chronic atrial fibrillation. Patient seems to have mild to moderate mitral regurgitation as well. * Recurrent fall with high risk for bleeding from anticoagulation RECOMMENDATION * Continue other medications * Try to minimize hydrocodone * Watch creat for now and hold lasix * Systemic anticoagulation per cardiology however due to worsening performance status she may be not a great candidate for long-term anticoagulation * Would need out pt follow up with me for eval and residential follow up of this effusion PT needs ct as out pt if she becomes symptomatic again Please arrange this prior to dc
--- NOTE | 2016-11-28 14:14 | PN- Cardiology ---
Subjective Subjective: Patient is feeling better today. I had an extensive discussion with the patient and her regarding the anticoagulation. Objective Vital Signs and I&Os Vital Signs Date Time Temp Pulse Resp B/P B/P Pulse O2 O2 Flow FiO2 Mean Ox Delivery Rate 11/29 819 97.4 85 18 104/70 96 Room Air 11/28 0636 95 110/64 11/27 2134 98.2 105 18 96 Room Air 11/27 2121 101 112/74 11/27 1543 Room Air Room Air 11/27 1542 97.2 113 18 100/70 99 / 1415 102 98/72 Intake & Output 11/28 0811/28 0000 11/27 1600 11/27 0800 11/27 0000 Intake Total 408 595 275 200 250 Output Total 125 75 350 Balance 408 470 200 -150 250 Intake, IV 208 335 50 Intake, Oral 200 260 225 200 250 Number 0 Bowel Movements Output, Chest 50 Tube Drainage Output, Urine 125 75 300 Patient 91 lb 89 lb 12.8 oz Weight Weight Chair scale Chair scale Measurement Method Physical Exam: General: no apparent distress. Cachectic. Eyes: No obvious scleral icterus. HEENT: No jugular venous distention or abnormal jugular venous pulsations. Cardiovascular: Normal intensity S1/S2. Irregular. 1/6 SM. Respiratory: Decreased right-sided air entry. Abdomen: Soft, nontender with no guarding or rebound tenderness. Musculoskeletal: No clubbing or cyanosis noted, trace lower extremity edema Skin: Warm Neuro: Grossly nonfocal Current Medications: Current Medications Sig/Chava Start time Last Medication Dose Route Stop Time Status Admin Acetaminophen 325 MG Q6P PRN 11/22 181 AC PO Acetaminophen/ 1 TAB Q6P PRN 11/22 181 AC 11/26 Hydrocodone Bitart PO 1306 Atorvastatin Calcium 40 MG 1700 11/22 1830 AC 11/27 PO 1843 Bisacodyl 10 MG ONCE PRN 11/28 1145 AC MD Cholecalciferol 1,000 IU DAILY 11/25 1349 AC 11/28 PO 0931 Docusate Sodium 100 MG DAILY NEEDED PRN 11/27 1845 AC 11/27 PO 2121 Heparin Sodium 5,000 UNIT Q8 11/25 2200 AC 11/28 (Porcine) SC 0636 Metoprolol Tartrate 25 MG Q8 11/27 1400 AC 11/28 PO 0636 Ondansetron HCl 4 MG Q8 PRN 11/22 1815 AC 11/26 PO 0919 Polyethylene Glycol 17 GM DAILY 11/27 1843 AC 11/27 PO 2121 Senna/Docusate Sodium 2 TAB BID 11/22 2200 AC 11/28 PO 0931 Sodium Chloride 1,000 ML Q20H 11/27 1445 DC 11/27 IV 11/28 1044 1619 Tramadol HCl 50 MG Q4 PRN 11/22 181 11/26 PO 0926 Results Last 48 Hrs of Labs/Mics: Laboratory Tests 11/28/16 0615: Anion Gap 9, Estimated GFR > 60, BUN/Creatinine Ratio 36.3 H, CBC w Diff NO MAN DIFF REQ, RBC 4.66, MCV 85.7, MCH 28.3, RDW 20.3 H, MPV 9.3, Gran % 71.3, Lymphocytes % 17.2 L, Monocytes % 6.9, Eosinophils % 3.8, Basophils % 0.8, Absolute Granulocytes 6.7 H, Absolute Lymphocytes 1.6, Absolute Monocytes 0.6, Absolute Eosinophils 0.4, Absolute Basophils 0.1, PUBS MCHC 33.0 11/27/16 0630: Anion Gap 9, Estimated GFR 42 L, BUN/Creatinine Ratio 28.3 H, CBC w Diff NO MAN DIFF REQ, RBC 4.78, MCV 85.6, MCH 28.4, RDW 20.3 H, MPV 9.3, Gran % 78.9 H , Lymphocytes % 14.6 L, Monocytes % 5.4, Eosinophils % 0.8, Basophils % 0.3, Absolute Granulocytes 7.4 H, Absolute Lymphocytes 1.4, Absolute Monocytes 0.5, Absolute Eosinophils 0.1, Absolute Basophils 0, PUBS MCHC 33.2 Recent Imaging Studies: Telemetry tracings were personally reviewed and showed atrial fibrillation with grossly controlled ventricular response rate CXR yesterday: IMPRESSION: Right chest tube removed without evidence of an expanding pneumothorax. Assessment/Plan Assessment/Plan 1. Large pleural effusion of unclear etiology, status post thoracocentesis 2. Paroxysmal atrial fibrillation on outpatient Eliquis; history of recurrent falls with a previous subarachnoid hemorrhage (requiring AC reversal; reportedly on Pradaxa at that time) and recent fall with fracture (09/2016) 3. History of possible prior TIA 4. Continued fatigue/weakness/failure to thrive 5. Hx of Moderate to severe tricuspid regurgitation with pulmonary hypertension Patient had a bump in her creatinine yesterday but that has improved. The pleural effusion remains of unclear etiology but at this time it is not felt to be clearly due to empyema or clear malignancy. Will need to monitor for recurrence in the future. I had an extensive discussion with the patient and her regarding the plan for long-term anticoagulation. Despite the risk of bleeding from the falls they would prefer to resume oral anticoagulation due to her stroke risk. After a long discussion we are in agreement that she would benefit from a reversible agent as she has required reversal in the past (see above). Recommend starting Pradaxa at 150 milligrams p.o. b.i.d.. Tello Michael MD [facility] Continue telemetry? No
[2016-11-28] MEDS ORDERED: PRADAXA75 M1 PO (15:01)
[2016-11-28] MEDS ORDERED: METOPROLOL TART25 M1 PO (15:47)
[2016-11-28] MEDS ORDERED: MIRALAX119 GM PO (15:48)
[2016-11-28] MEDS ORDERED: VITAMIN D31000 UNI2 PO (15:48)
[2016-11-28 16:15] VITALS: BP 110/52
[2016-11-28 16:37] VITALS: BP 100/54
== END 2016-11-28 16:44 | DRG 187 ==
LOC: ERH 15:19 → 1NO 16:33 → ERHI 16:33 → 1NO 20:05 → ENPENDDIS 11-28 15:25 → 1NO 11-28 16:44
PROVIDERS: Emergency Medicine; Internal Medicine Endocrinology, Diabetes & Metabolism; Internal Medicine Nephrology; ADMIT Internal Medicine
PROC: 0W9930Z Drainage of Right Pleural Cavity with Drainage Device, Percutaneous Approach (ICD-10-PCS; principal; 2016-11-25)
PROC: 0WP9X0Z Removal of Drainage Device from Right Pleural Cavity, External Approach (ICD-10-PCS; 2016-11-27)
DX: J90 Pleural effusion, not elsewhere classified (principal); N17.9 Acute kidney failure, unspecified; R64 Cachexia; I95.9 Hypotension, unspecified; I27.2 Other secondary pulmonary hypertension; E87.1 Hypo-osmolality and hyponatremia; I08.1 Rheumatic disorders of both mitral and tricuspid valves; I48.0 Paroxysmal atrial fibrillation; Z68.1 Body mass index [BMI] 19.9 or less, adult; Z79.01 Long term (current) use of anticoagulants; E87.6 Hypokalemia; R62.7 Adult failure to thrive; S42.292D Other displaced fracture of upper end of left humerus, subsequent encounter for fracture with routine healing; S32.599D Other specified fracture of unspecified pubis, subsequent encounter for fracture with routine healing; Z86.73 Personal history of transient ischemic attack (TIA), and cerebral infarction without residual deficits; W19.XXXD Unspecified fall, subsequent encounter
CPT/HCPCS: 1NSP; 84311; 87075; 36415; 71035; 81001; 82436; 87086; 87147; 88305; 93005; 93010; 93306; 96374; 97110-GO; 97161-GP; 97530-GO; J1644; J1940; J2001; J3101; J3490

== ENCOUNTER 2016-12-25 14:25 | Emergency (ER) | payer OTHER, MEDICARE ==
[~2016-12-25 14:25] MED LIST changes: +MIRALAX119 GM PO; +PRADAXA75 M1 PO; +SENNA S TABLET1 EACH PO; +TYLENOL EXTRA500 M2 PO; +VITAMIN D31000 UNI2 PO; +ZOFRAN4 M2 PO
--- NOTE | 2016-12-25 14:32 | ED DYSPNEA/ASTHMA COMPLAINT ---
History of Present Illness General Chief Complaint: Dyspnea (COPD, CHF, Other) Stated Complaint: BIBA FOR THORACENTESIS (SIB DR VIVAS) Source: patient, old records, PCP, W10 Exam Limitations: no limitations Vital Signs & Intake/Output Vital Signs & Intake/Output Vital Signs Date Time Temp Pulse Resp B/P B/P Pulse O2 O2 Flow FiO2 Mean Ox Delivery Rate 12/25 1606 98.0 95 20 176/90 95 Room Air 12/25 1440 95 Room Air 12/25 1431 97.5 100 18 136/83 95 Room Air Allergies Coded Allergies: alendronate sodium (From FOSAMAX) (UNKNOWN 12/25/16) Reconcile Medications Acetaminophen (Tylenol Extra Strength) 500 MG TABLET 2 TAB PO Q8 PAIN ( Reported) Atorvastatin Calcium 40 MG TABLET 1 TAB PO 1700 High Cholestrol Dabigatran (Pradaxa) 75 MG CAPSULE 1 CAP PO BID atrial fibrillation Furosemide 40 MG TABLET 1 TAB PO DAILY WATER PILL (Reported) Metoprolol Tartrate 25 MG TABLET 0.5 TAB PO BID HEART (Reported) Moxifloxacin HCl (Avelox) 400 MG TABLET 1 TAB PO DAILY ANTIBIOTIC, INFECTION (Reported) Nutritional Supplement (Resource 2.0) 237 ML LIQUID 120 ML PO DAILY SUPPLEMENT (Reported) Polyethylene Glycol 3350 (Miralax) 17 GRAM/DOSE POWDER 17 GM PO DAILY PRN constipation Sennosides/Docusate Sodium (Senna S Tablet) 8.6 MG-50 MG TABLET 2 TAB PO BID GI (Reported) Triage Nurses Notes Reviewed? yes HPI: Patient has a known pleural effusion. Patient was sent in for thoracentesis. During her last thoracentesis she required a chest tube for 4 days. Patient has been feeling slightly short of breath. There are no fevers or chills. There is no chest pain. The shortness of breath is worse with exertion. There is no orthopnea. Past History Travel History Traveled to [place] past 21 day No Medical History Any Pertinent Medical History? see below for history Neurological: subdural hematoma Subarachnoid Hemorrhage () Falls EENT: NONE Cardiovascular: AFIB, hypertension Respiratory: NONE Gastrointestinal: NONE Hepatic: NONE Renal: NONE Musculoskeletal: NONE Psychiatric: NONE Endocrine: NONE Blood Disorders: NONE Cancer(s): NONE History of MRSA: No History of VRE: No History of CDIFF: No Influenza Vaccine: 04/26/16 Surgical History Surgical History: non-contributory Psychosocial History Who do you live with Spouse Services at Home Nursing What is your primary language Serbian Tobacco Use: Never used ETOH Use: denies use Illicit Drug Use: denies illicit drug use Family History Family History, If Any: Relation not specified for: *No pertinent family history Hx Contributory? No Review of Systems Review of Systems Constitutional: Reports: no symptoms. EENTM: Reports: no symptoms. Respiratory: Reports: see HPI, short of breath. Cardiovascular: Reports: no symptoms. GI: Reports: no symptoms. Genitourinary: Reports: no symptoms. Musculoskeletal: Reports: no symptoms. Skin: Reports: no symptoms. Neurological/Psychological: Reports: no symptoms. Hematologic/Endocrine: Reports: no symptoms. Immunologic/Allergic: Reports: no symptoms. All Other Systems: Reviewed and Negative Physical Exam Physical Exam General Appearance: well developed/nourished, alert, awake, mild distress Head: atraumatic, normal appearance Eyes: Bilateral: PERRL, EOMI. Ears, Nose, Throat: normal pharynx, normal ENT inspection Neck: normal inspection, supple, full range of motion Respiratory: decreased breath sounds Cardiovascular: normal peripheral pulses, irregularly irregular Gastrointestinal: normal bowel sounds, soft, non-tender Extremities: normal inspection, normal capillary refill, normal range of motion Neurologic/Psych: no motor/sensory deficits, awake, alert, oriented x 3, normal gait, normal mood/affect Skin: intact, normal color, warm/dry Lymphatic: no anterior cervical margaret Core Measures ACS in differential dx? No Severe Sepsis Present: No Septic Shock Present: No Progress Differential Diagnosis: PLEURAL EFFUSION Plan of Care: Orders Procedure Date/time Status TROPONIN LEVEL 12/25 1431 Complete PARTIAL THROMBOPLASTIN TIME 12/25 1431 Complete PROTHROMBIN TIME 12/25 1431 Complete COMPREHENSIVE METABOLIC PANEL 12/25 1431 Complete CBC WITHOUT DIFFERENTIAL 12/25 1431 Complete EKG 12/25 1427 Active Laboratory Tests 12/25/16 1458: Anion Gap 9, Estimated GFR > 60, BUN/Creatinine Ratio 27.1 H, Glucose 98, Calcium 8.8, Total Bilirubin 1.0, AST 28, ALT 41, Alkaline Phosphatase 126, Troponin I 0.05, Total Protein 5.9 L, Albumin 3.1 L, Globulin 2.8, Albumin/ Globulin Ratio 1.1, PT 13.7 H, INR 1.31 H, APTT 36, CBC w Diff NO MAN DIFF REQ , RBC 3.78 L, MCV 88.6, MCH 29.3, RDW 23.8 H, MPV 8.2, Gran % 69.8, Lymphocytes % 18.0 L, Monocytes % 10.4 H, Eosinophils % 1.3, Basophils % 0.5, Absolute Granulocytes 4.7, Absolute Lymphocytes 1.2, Absolute Monocytes 0.7 H, Absolute Eosinophils 0.1, Absolute Basophils 0, PUBS MCHC 33.0 Diagnostic Imaging: Viewed by Me: Radiology Read. Discussed w/RAD: Radiology Read. CXR Impression: PATIENT: JACOB MCMILLAN PRESENT AGE: 86 PATIENT ACCOUNT NO: [id number] : [birth year] LOCATION: [facility] ORDERING PHYSICIAN: LOUIS URBANO MD SERVICE DATE: 12/25/16 EXAM TYPE: RAD - XRY-CHEST XRAY, PA AND LATERAL EXAMINATION: XR CHEST CLINICAL INFORMATION: Pleural effusion. COMPARISON: Chest x-ray 11/27/2016. TECHNIQUE: PA and lateral views of the chest were obtained. FINDINGS: PA and lateral views of the chest demonstrates dense opacification of the right midlung and right lung base with obscuration of the right hemidiaphragm, corresponding to a large right-sided pleural effusion. Superimposed infection cannot be excluded in the appropriate clinical setting. Cardiomediastinal contours are partially obscured. The left lung appears mildly hyperinflated. No pneumothoraces are identified. There is chronic posttraumatic deforming the involving the proximal left humerus with a chronic appearing fracture involving the left humeral neck. IMPRESSION: Large right-sided pleural effusion with associated opacification of the right lung base and obscuration of the right hemidiaphragm. Underlying right basilar consolidation secondary to infection cannot be excluded in the appropriate clinical setting. No pneumothoraces are identified. DICTATED BY: JODI CHEN MD DATE/TIME DICTATED:12/25/161458 USER INTERFACE DEVELOPER:MIKAEL DATE/TIME TRANSCRIBED:12/25/161458 CONFIDENTIAL, DO NOT COPY WITHOUT APPROPRIATE AUTHORIZATION. <Electronically signed in Other Vendor System> SIGNED BY: JODI CHEN MD 12/25/16 1509 Initial ED EKG: AFIB, nonspecific ST T wave chg Prior EKG: unchanged Comments: Patient's room air saturation is 97%. With ambulation it decreases to 88% on room air. Patient is on per KIMBERLY so this will need to be held prior to any procedure. Procedures nonurgent given that her oxygen level is okay if it does drop with ambulation. There is no fever nor elevated white blood cell count. The production will be held and the patient will be started on Lovenox. Patient will have an outpatient thoracentesis. Her Lovenox will be held 12 hours prior to the procedure. Departure Departure Disposition: ACUTE REHAB FACILITY Condition: Stable Clinical Impression Primary Impression: Pleural effusion Referrals: YO JAMES,VICTOR MANUEL Casiano Departure Forms: Customer Survey General Discharge Information Critical Care Note Critical Care Note Critical Care Time: non-applicable
--- NOTE | 2016-12-25 15:05 | RADIOLOGY REPORT ---
EXAMINATION: XR CHEST CLINICAL INFORMATION: Pleural effusion. COMPARISON: Chest x-ray 11/27/2016. TECHNIQUE: PA and lateral views of the chest were obtained. FINDINGS: PA and lateral views of the chest demonstrates dense opacification of the right midlung and right lung base with obscuration of the right hemidiaphragm, corresponding to a large right-sided pleural effusion. Superimposed infection cannot be excluded in the appropriate clinical setting. Cardiomediastinal contours are partially obscured. The left lung appears mildly hyperinflated. No pneumothoraces are identified. There is chronic posttraumatic deforming the involving the proximal left humerus with a chronic appearing fracture involving the left humeral neck. IMPRESSION: Large right-sided pleural effusion with associated opacification of the right lung base and obscuration of the right hemidiaphragm. Underlying right basilar consolidation secondary to infection cannot be excluded in the appropriate clinical setting. No pneumothoraces are identified.
[2016-12-25 15:06] LABS: ABSOLUTE BASOPHIL COUNT 0 /CUMM (0.0-0.2); ABSOLUTE EOSINOPHIL COUNT 0.1 /CUMM (0.0-0.7); ABSOLUTE GRANULOCYTE CT 4.7 /CUMM (1.4-6.5); ABSOLUTE LYMPH COUNT 1.2 /CUMM (1.2-3.4); ABSOLUTE MONOCYTE COUNT 0.7 /CUMM (0.10-0.60); BASOPHIL % 0.5 % (0.0-2.0); EOSINOPHIL % 1.3 % (0-5); GRANULOCYTE % 69.8 % (42.2-75.2); HEMATOCRIT 33.5 % (37-47); MEAN CORPUSCULAR HGB 29.3 PG (27.0-31.0); MEAN CORPUSCULAR VOLUME 88.6 FL (81.0-99.0); MEAN PLATELET VOLUME 8.2 FL (7.4-10.4); PLATELET COUNT 206 /CUMM (130-400); RBC DISTRIBUTION WIDTH 23.8 % (11.5-14.5); RED BLOOD CELL CT 3.78 /CUMM (4.20-5.40); WHITE BLOOD CELL COUNT 6.8 /CUMM (4.8-10.8)
[2016-12-25] MEDS ORDERED: RESOURCE 2.0237 ML PO (15:16)
[2016-12-25] MEDS ORDERED: METOPROLOL TART25 M1 PO (15:17)
[2016-12-25] MEDS ORDERED: TYLENOL EXTRA500 M2 PO (15:18)
[2016-12-25] MEDS ORDERED: AVELOX400 M1 PO (15:20)
[2016-12-25] MEDS ORDERED: FUROSEMIDE40 M1 PO (15:20)
[2016-12-25 15:24] LABS: PT 13.7 SEC (9.4-12.5); PTT 36 SEC (25-37)
[2016-12-25 16:06] VITALS: BP 176/90
== END 2016-12-25 18:45 ==
LOC: ERH 14:25
PROVIDERS: Emergency Medicine
DX: J90 Pleural effusion, not elsewhere classified (principal)
CPT/HCPCS: 93005; 93010

== ENCOUNTER 2017-09-06 09:40 | Inpatient (IN) | payer OTHER, MEDICARE ==
[~2017-09-06] VITALS: Ht 162.6 cm; Wt 56.2 kg
[~2017-09-06 09:40] MED LIST changes: +AVELOX400 M1 PO; +FUROSEMIDE40 M1 PO; +RESOURCE 2.0237 ML PO
[2017-09-06 10:20] LABS: ABSOLUTE BASOPHIL COUNT 0.1 /CUMM (0.0-0.2); ABSOLUTE EOSINOPHIL COUNT 0.1 /CUMM (0.0-0.7); ABSOLUTE GRANULOCYTE CT 5.2 /CUMM (1.4-6.5); ABSOLUTE MONOCYTE COUNT 0.4 /CUMM (0.10-0.60); BASOPHIL % 0.7 % (0.0-2.0); EOSINOPHIL % 1.6 % (0-5); HEMATOCRIT 39.6 % (37-47); MEAN CORPUSCULAR HGB 29.3 PG (27.0-31.0); MEAN CORPUSCULAR HGB CONC 33.1 G/DL (33.0-37.0); MEAN CORPUSCULAR VOLUME 88.7 FL (81.0-99.0); MEAN PLATELET VOLUME 8.8 FL (7.4-10.4); PLATELET COUNT 185 /CUMM (130-400); RBC DISTRIBUTION WIDTH 19.5 % (11.5-14.5); RED BLOOD CELL CT 4.46 /CUMM (4.20-5.40); WHITE BLOOD CELL COUNT 6.8 /CUMM (4.8-10.8)
--- NOTE | 2017-09-06 10:22 | ED SYNCOPE COMPLAINT ---
History of Present Illness General Chief Complaint: Syncope and Near-Syncope Stated Complaint: BIBA SYNCOPE Source: patient, family ( ) Exam Limitations: no limitations Vital Signs & Intake/Output Vital Signs & Intake/Output Vital Signs Date Time Temp Pulse Resp B/P B/P Pulse O2 O2 Flow FiO2 Mean Ox Delivery Rate 09/06 1444 98.4 98 18 146/69 99 Room Air 09/06 1157 96.8 93 18 168/67 97 Room Air 09/06 0953 97.9 78 20 147/95 99 Room Air Allergies Coded Allergies: alendronate sodium (From FOSAMAX) (UNKNOWN 12/25/16) Triage Note: BIBA FROM HOME, PER EMS, PT HAD A SYNCOPAL EPISODE WHILE HAVING A LARGE BOWEL MOVMENT ON TOILET. C/O WEAKNESS AND BACK PAIN. ALERT, PALE, PLACE ON MONITOR. PREHOSPITAL ACCUCHECK 160. DENIES ABDOMINAL OR CHEST PAIN. Triage Nurses Notes Reviewed? yes Timing: single episode today Precipitating Factors: lightheadedness, DIZZY Context: BOWEL MOVEMENT Episode Description: Strain have a bowel movement so he felt lightheaded dizziness syncopal EPISODE Associated Symptoms: back pain, dizziness, syncope LMP (ages 10-50): post menopausal : No Patient currently breastfeeds: No HPI: 86-year-old female past medical history of atrial fibrillation, hypertension, chronic back pain secondary to thoracic compression fracture presents for evaluation of a syncopal episode. Patient's reports that she had been constipated for the past 3 days. She took stool softeners last night and was having a bowel movement today. She was straining because her stool was hard. After she had the bowel which she said he felt lightheaded and dizzy and had a syncopal episode. The was in the room at the time of the syncopal episode and states that patient did not fall off the toilet. He states that she was out for several minutes. When patient woke up she felt very weak and fatigued. feels like her mental status is at baseline. She denies any chest pain or shortness of breath. She does have chronic pain in her thoracic spine which is worse with movement. She had an MRI several weeks ago. (Michael CAMEJO,Joseph) Reconcile Medications Atorvastatin Calcium 40 MG TABLET 1 TAB PO 1700 High Cholestrol Dabigatran (Pradaxa) 75 MG CAPSULE 1 CAP PO BID A FIB (Reported) Metoprolol Tartrate 25 MG TABLET 0.5 TAB PO BID HEART (Reported) (Jazmyn JAMES,Keiry) Past History Travel History Traveled to [place] past 21 day No Medical History Any Pertinent Medical History? see below for history Neurological: subdural hematoma Subarachnoid Hemorrhage () Falls EENT: NONE Cardiovascular: AFIB, hypertension Respiratory: NONE Gastrointestinal: NONE Hepatic: NONE Renal: NONE Musculoskeletal: chronic back pain, COMPRESSION FRACTURE Psychiatric: NONE Endocrine: NONE Blood Disorders: NONE Cancer(s): NONE History of MRSA: No History of VRE: No History of CDIFF: No Surgical History Surgical History: non-contributory Psychosocial History Who do you live with Spouse Services at Home Nursing What is your primary language French Tobacco Use: Never used ETOH Use: denies use Family History Family History, If Any: Relation not specified for: *No pertinent family history Hx Contributory? No (Joseph Lockhart) Review of Systems Review of Systems Constitutional: Reports: weakness. EENTM: Reports: no symptoms. Respiratory: Reports: no symptoms. Cardiovascular: Reports: no symptoms. GI: Reports: no symptoms. Genitourinary: Reports: no symptoms. Musculoskeletal: Reports: see HPI, back pain, muscle pain. Skin: Reports: no symptoms. Neurological/Psychological: Reports: see HPI (DIZZY, LIGHTHEADED, SYNCOPE). All Other Systems: Reviewed and Negative (Joseph Lockhart) Physical Exam Physical Exam General Appearance: well developed/nourished, no apparent distress, alert, awake , thin Head: atraumatic, normal appearance Eyes: Bilateral: normal appearance, PERRL, EOMI. Ears, Nose, Throat: normal pharynx, normal ENT inspection, hearing grossly normal Neck: normal inspection, supple, full range of motion Respiratory: normal breath sounds, chest non-tender, no respiratory distress, lungs clear Cardiovascular: regular rate/rhythm, normal peripheral pulses Gastrointestinal: normal bowel sounds, soft, non-tender, no organomegaly Back: normal inspection, decreased range of motion, THORACIC SPINE AND PARASPINOUS MUSCLES TENDER TO PALPATION BILATERALLY Extremities: normal inspection, normal range of motion, no edema, MOVING ALL EXTEEMITIES EQUALLY. EXTREMITY STENGTH 4/5 Psychiatric: awake, alert, oriented x 3 Cranial Nerves: normal hearing, normal speech, PERRL Coordination/Gait: normal finger to nose Motor/Sensory: no motor/sensory deficits Skin: intact, normal color, warm/dry Core Measures ACS in differential dx? Yes CVA/TIA Diagnosis: No Sepsis Present: No Sepsis Focused Exam Completed? No (Joseph Lockhart) Progress Differential Diagnosis: AMI, aortic valve, orthostatic syncope, other valvular disease, seizure, subarachnoid hem., ventricular tach/fib Plan of Care: Orders Procedure Date/time Status BASIC ELECTROLYTES PLUS BUN&CR 09/07 0600 Active Heart Healthy Diet 09/06 D Active PT Evaluate & Treat 09/06 1634 Active Pathway - chart 09/06 1634 Active House Staff 09/06 1634 Active Vital Signs 09/06 1601 Complete Teach/Educate 09/06 1601 Active Pain Treatment and Response 09/06 1601 Active Nutritional Intake, Monitor 09/06 1601 Active Isolation 09/06 1601 Active Intake & Output 09/06 1601 Complete Patient Care Conference 09/06 1601 Active Activity/Ambulation 09/06 1601 Active Patient Data 09/06 1408 Active ED Holding Orders 09/06 1406 Active Admit to inpatient 09/06 1406 Active Vital Signs 09/06 1406 Active Add-on Test (ER Only) 09/06 1350 Active RAPID VIRAL INFLUENZA A 09/06 1214 Complete Add-on Test (ER Only) 09/06 1037 Active PARTIAL THROMBOPLASTIN TIME 09/06 1002 Complete PROTHROMBIN TIME 09/06 1002 Complete Intake & Output 09/06 0953 Active CULTURE,URINE 09/06 0945 Active URINALYSIS 09/06 0945 Complete TROPONIN LEVEL 09/06 0945 Complete COMPREHENSIVE METABOLIC PANEL 09/06 0945 Complete CBC WITHOUT DIFFERENTIAL 09/06 0945 Complete EKG 09/06 0945 Active VTE Mechanical Prophylaxis 09/06 UNK Active Intake & Output 09/06 UNK Active Current Medications Sig/Chava Start time Last Medication Dose Stop Time Status Admin Enoxaparin Sodium 30 MG DAILY 09/07 1000 UNVr (Lovenox) Dabigatran 75 MG BID 09/06 2199 UNVr (PRADAXA) Metoprolol Tartrate 12.5 MG BID 09/06 2200 UNVr (Lopressor) Atorvastatin Calcium 40 MG 1700 09/06 1700 UNVr (Lipitor) Acetaminophen 650 MG Q6P PRN 09/06 1645 AC (Tylenol) Acetaminophen 1,000 MG Q6P PRN 09/06 1645 AC (Ofirmev) Polyethylene Glycol 17 GM AT BEDTIME PRN 09/06 1645 AC (Miralax) Senna/Docusate Sodium 1 TAB AT BEDTIME PRN 09/06 1645 AC (Senokot S) Sodium Chloride 1,000 ML .[id number] 09/06 1630 AC (Normal Saline 0.9%) 09/07 0549 Laboratory Tests 09/06/17 1315: Urine Color YEL, Urine Clarity CLDY H, Urine pH 6.0, Ur Specific [place] 1.020, Urine Protein NEG, Urine Ketones NEG, Urine Nitrite NEG, Urine Bilirubin NEG, Urine Urobilinogen 0.2, Ur Leukocyte Esterase MOD H, Ur Microscopic SEDIMENT EXAMINED, Urine RBC 1-3, Urine WBC 50-75 H, Ur Epithelial Cells MANY H, Urine Bacteria MANY H, Urine Hemoglobin SMALL H, Urine Glucose NEG 09/06/17 1002: Anion Gap 9, Estimated GFR > 60, BUN/Creatinine Ratio 25.0, Glucose 121 H, Calcium 9.4, Total Bilirubin 1.4 H, AST 21, ALT 27, Alkaline Phosphatase 109, Troponin I 0.01, Total Protein 6.9, Albumin 3.7, Globulin 3.2, Albumin/Globulin Ratio 1.2, PT 14.0 H, INR 1.34 H, APTT 40 H, CBC w Diff NO MAN DIFF REQ, RBC 4.46, MCV 88.7, MCH 29.3, MCHC 33.1, RDW 19.5 H, MPV 8.8, Gran % 77.0 H, Lymphocytes % 14.2 L, Monocytes % 6.5, Eosinophils % 1.6, Basophils % 0.7, Absolute Granulocytes 5.2, Absolute Lymphocytes 1.0 L, Absolute Monocytes 0.4, Absolute Eosinophils 0.1, Absolute Basophils 0.1 Microbiology 09/06 1221 NASOPHARYN: Influenza Virus A & B Rapid Smear - COMP 09/06 0945 URINE ROUT: Urine Culture - RECD Patient seen and evaluated. She had a syncopal episode today while having a bowel movement. There was no head strike. She is anticoagulated. CT scan of the brain does not show any acute bleeding. Patient is very weak and appears lethargic. She is unable to ambulate currently. She has difficulty even sitting up in bed. Urine is showing signs of infection blood work is within normal limits. Patient be started on ceftriaxone for possible UTI. Urine culture sent. Patient is negative for the flu. Chest x-ray shows a small right -sided pleural effusion that is improved from previous chest x-ray. No clinical signs or symptoms of pneumonia. Patient will be admitted to telemetry for further evaluation and treatment. She will likely require physical therapy, case management, IV antibiotics, cardiology consult, telemetry, monitoring of vital signs, serial labs, serial EKGs. Diagnostic Imaging: Viewed by Me: Radiology Read, CT Scan. Discussed w/RAD: Radiology Read, CT Scan. Radiology Impression: PATIENT: JACOB MCMILLAN PRESENT AGE: 86 PATIENT ACCOUNT NO: [id number] : [birth year] LOCATION: [facility] ORDERING PHYSICIAN: Joseph CAMEJO SERVICE DATE: 09/06/17 EXAM TYPE: CAT - CT HEAD WO IV CONTRAST CT HEAD WITHOUT CONTRAST CLINICAL INFORMATION: Syncope after straining on the toilet. COMPARISON: Head CT 10/12/2016. TECHNIQUE: Contiguous axial imaging was performed from the skull base to vertex without intravenous administration of contrast. FINDINGS: There is global cerebral volume loss. There is hypoattenuation throughout the supratentorial white matter, most likely moderate chronic microangiopathy. There is intracranial arterial atherosclerotic calcification. 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 There is no intracranial hemorrhage, hydrocephalus, extra-axial surface collection, midline shift, or other herniation pattern. Saavedra to white matter differentiation is diffusely maintained without evidence of an evolved acute territorial infarct. The basilar cisterns are preserved. No significant soft tissue abnormality. No acute osseous abnormality. The paranasal sinuses and the mastoid air cells are well-aerated. IMPRESSION: - No acute intracranial abnormality. - Global cerebral volume loss, moderate chronic microangiopathy, and intracranial arterial atherosclerotic calcification. DICTATED BY: Maikel Khan MD DATE/TIME DICTATED:09/06/171114 PORTFOLIO LEAD:MIKAEL DATE/TIME TRANSCRIBED:09/06/171114 CONFIDENTIAL, DO NOT COPY WITHOUT APPROPRIATE AUTHORIZATION. CXR Impression: PATIENT: JACOB MCMILLAN PRESENT AGE: 86 PATIENT ACCOUNT NO: [id number] : [birth year] LOCATION: [facility] ORDERING PHYSICIAN: Joseph CAMEJO SERVICE DATE: 09/06/17 EXAM TYPE: RAD - XRY-PORTABLE CHEST XRAY EXAMINATION: XR PORTABLE CHEST CLINICAL INFORMATION: Syncope. COMPARISON: Chest x-ray 03/11/2017. TECHNIQUE: Portable frontal view of the chest was obtained. FINDINGS: There is a small right pleural effusion with adjacent airspace opacity, increased since the prior exam. Left lung is clear. Lungs are hyperinflated. Relative lucency at the right lung base is stable and could again reflect cyst formation. There is no pneumothorax. Cardiac silhouette is enlarged and unchanged. IMPRESSION: Increase in size of a small right pleural effusion with adjacent airspace opacity. Stable enlargement of the cardiac silhouette. DICTATED BY: Maikel Khan MD DATE/TIME DICTATED:09/06/171141 PORTFOLIO LEAD:MIKAEL DATE/TIME TRANSCRIBED:09/06/171141 CONFIDENTIAL, DO NOT COPY WITHOUT APPROPRIATE AUTHORIZATION. Initial ED EKG: AFIB (RATE 77), NONSPECIFIC t-WAVE ml OF HIS INFERIOR LEADS Prior EKG: unchanged Rhythm Strip: atrial fibrillation (RATE 70S) (Joseph Lockhart) Departure Departure Disposition: STILL A PATIENT Condition: Stable Clinical Impression Primary Impression: Syncope Qualifiers: Syncope type: unspecified Qualified Code: R55 - Syncope and collapse Secondary Impressions: UTI (urinary tract infection) Qualifiers: Urinary tract infection type: acute cystitis Hematuria presence: with hematuria Qualified Code: N30.01 - Acute cystitis with hematuria Weakness Referrals: Christo Demarco MD (PCP/Family) Departure Forms: Customer Survey General Discharge Information Admission Note Spoke With: Christo Soto MD Documentation of Exam: Documentation of any treatments & extenuating circumstances including Concerns Regarding Discharge (functional status, medication knowledge or non-compliance, living conditions, etc.) that warrant an admission rather than observation: [IV antibiotics, telemetry, cardiology consult, serial labs, serial EKGs, physical therapy, case management] (Joseph Lockhart) PA/HOME ENERGY CONSULTANT SUPERVISOR Co-Sign Statement Statement: ED Attending supervision documentation- [X] I saw and evaluated the patient. I have also reviewed all the pertinent lab results and diagnostic results. I agree with the findings and the plan of care as documented in the PA's/HOME ENERGY CONSULTANT SUPERVISOR's documentation. [X] I have reviewed the ED Record and agree with the PA's/HOME ENERGY CONSULTANT SUPERVISOR's documentation. [] Additions or exceptions (if any) to the PAs/HOME ENERGY CONSULTANT SUPERVISOR's note and plan are summarized below: [] (Jazmyn JAMES,Keiry)
[2017-09-06 11:12] LABS: PTT 40 SEC (25-37)
--- NOTE | 2017-09-06 11:24 | CT SCAN REPORT ---
CT HEAD WITHOUT CONTRAST CLINICAL INFORMATION: Syncope after straining on the toilet. COMPARISON: Head CT 10/12/2016. TECHNIQUE: Contiguous axial imaging was performed from the skull base to vertex without intravenous administration of contrast. FINDINGS: There is global cerebral volume loss. There is hypoattenuation throughout the supratentorial white matter, most likely moderate chronic microangiopathy. There is intracranial arterial atherosclerotic calcification. 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 There is no intracranial hemorrhage, hydrocephalus, extra-axial surface collection, midline shift, or other herniation pattern. Saavedra to white matter differentiation is diffusely maintained without evidence of an evolved acute territorial infarct. The basilar cisterns are preserved. No significant soft tissue abnormality. No acute osseous abnormality. The paranasal sinuses and the mastoid air cells are well-aerated. IMPRESSION: - No acute intracranial abnormality. - Global cerebral volume loss, moderate chronic microangiopathy, and intracranial arterial atherosclerotic calcification.
--- NOTE | 2017-09-06 11:48 | RADIOLOGY REPORT ---
EXAMINATION: XR PORTABLE CHEST CLINICAL INFORMATION: Syncope. COMPARISON: Chest x-ray 03/11/2017. TECHNIQUE: Portable frontal view of the chest was obtained. FINDINGS: There is a small right pleural effusion with adjacent airspace opacity, increased since the prior exam. Left lung is clear. Lungs are hyperinflated. Relative lucency at the right lung base is stable and could again reflect cyst formation. There is no pneumothorax. Cardiac silhouette is enlarged and unchanged. IMPRESSION: Increase in size of a small right pleural effusion with adjacent airspace opacity. Stable enlargement of the cardiac silhouette.
--- NOTE | 2017-09-06 14:21 | History & Physical ---
Keesha Osborne MD,[facility] 09/06/17 1421: General Information and HPI MD Statement: I have seen and personally examined JACOB MCMILLAN and documented this H&P. The patient is a 86 year old F who presented with a patient stated chief complaint of [dizziness]. Source of Information: patient, family Exam Limitations: no limitations History of Present Illness: Patient is an 85-year-old woman with PMH of atrial fibrillation (on Pradaxa), hypertension, Hlip, TIA ( dx'ed mar 2016), left non displaced humerus fracture, left pubic rami fracture, chronic back pain due to was BIBA to ED after feeling ligtheadedness and a syncopal episode. Patient was relatively drowsy at the time of interview and most of the history was taken from via phone interview. According to patient was in usual state of health until 3 days ago that she was feeling weaker and was also having constipation. This morning patient went to bathroom and suddenly passed during defecation. Patient noted that she lost consciousness for few minutes but the fall was witnessed by .. denied any jerking motion of limbs, tongue bite, palpitation, chest pain , or head trauma. Patient also had a fall about a year ago after which she suffered from bone fracture and was ambulating with help of a walker. Patient noted that she lost consciousness for a few minutes and according to although was more drowsy/lethargic during the ED admission. Patient lives at home with and her helps to take care of her daily activities. Allergies/Medications Allergies: Coded Allergies: alendronate sodium (From FOSAMAX) (UNKNOWN 12/25/16) Past History Travel History Traveled to [place] past 21 day No Medical History Neurological: subdural hematoma Subarachnoid Hemorrhage () Falls EENT: NONE Cardiovascular: AFIB, hypertension Respiratory: NONE Gastrointestinal: NONE Hepatic: NONE Renal: NONE Musculoskeletal: chronic back pain, COMPRESSION FRACTURE Psychiatric: NONE Endocrine: NONE Blood Disorders: NONE Cancer(s): NONE History of MRSA: No History of VRE: No History of CDIFF: No Surgical History Surgical History: non-contributory Past Family/Social History Family History Relations & Conditions if any Relation not specified for: *No pertinent family history Psychosocial History Who Do You Live With? spouse Services at Home: Nursing Primary Language: Ecuadorean ETOH Use: denies use Functional Ability ADLs Independent: dressing, eating, toileting, bathing. Ambulation: cane, walker IADLs Independent: shopping, housework, finances, food prep, telephone, transportation , medication admin. Review of Systems Review of Systems Constitutional: Reports: see HPI. Exam & Diagnostic Data Last 24 Hrs of Vital Signs/I&O Vital Signs Date Time Temp Pulse Resp B/P B/P Pulse O2 O2 Flow FiO2 Mean Ox Delivery Rate 09/06 1743 98.9 104 18 110/72 98 Room Air Room Air 09/06 1659 98.2 108 18 134/60 97 Room Air 09/06 1444 98.4 98 18 146/69 99 Room Air 09/06 1157 96.8 93 18 168/67 97 Room Air 09/06 0953 97.9 78 20 147/95 99 Room Air Intake & Output 09/06 1600 09/06 0800 09/06 0000 Intake Total 0 Output Total Balance 0 Intake, Oral 0 Patient 105 lb Weight Weight Reported by Patient Measurement Method Physical Exam General Appearance Alert, Oriented X3, Cooperative, No Acute Distress, ill , pale Skin No Significant Lesion Skin Temp/Moisture Exam: Warm/Dry Sepsis Skin Exam (color): Normal for Ethnicity HEENT Atraumatic, EOMI, Mucous Membr. moist/pink Cardiovascular Normal S1, Normal S2, irregular, irregular Lungs Clear to Auscultation, Normal Air Movement Abdomen Soft, No Tenderness Neurological Strength at 5/5 X4 Ext, Sensation Intact, Cranial Nerves 3-12 NL, rrelatively lethargic, arousable to verbal stimuli,, complete evaluation of neurological exam is not possible due to patient's mental condition, however neurological exam is grossly normal. Extremities No Edema Last 24 Hrs of Labs/Jaime: Laboratory Tests 09/06/17 1950: Troponin I Pending 09/06/17 1315: Urine Color YEL, Urine Clarity CLDY H, Urine pH 6.0, Ur Specific [place] 1.020, Urine Protein NEG, Urine Ketones NEG, Urine Nitrite NEG, Urine Bilirubin NEG, Urine Urobilinogen 0.2, Ur Leukocyte Esterase MOD H, Ur Microscopic SEDIMENT EXAMINED, Urine RBC 1-3, Urine WBC 50-75 H, Ur Epithelial Cells MANY H, Urine Bacteria MANY H, Urine Hemoglobin SMALL H, Urine Glucose NEG 09/06/17 1002: Anion Gap 9, Estimated GFR > 60, BUN/Creatinine Ratio 25.0, Glucose 121 H, Calcium 9.4, Total Bilirubin 1.4 H, AST 21, ALT 27, Alkaline Phosphatase 109, Troponin I 0.01, Total Protein 6.9, Albumin 3.7, Globulin 3.2, Albumin/Globulin Ratio 1.2, PT 14.0 H, INR 1.34 H, APTT 40 H, CBC w Diff NO MAN DIFF REQ, RBC 4.46, MCV 88.7, MCH 29.3, MCHC 33.1, RDW 19.5 H, MPV 8.8, Gran % 77.0 H, Lymphocytes % 14.2 L, Monocytes % 6.5, Eosinophils % 1.6, Basophils % 0.7, Absolute Granulocytes 5.2, Absolute Lymphocytes 1.0 L, Absolute Monocytes 0.4, Absolute Eosinophils 0.1, Absolute Basophils 0.1 Microbiology 09/06 1221 NASOPHARYN: Influenza Virus A & B Rapid Smear - COMP 09/06 0945 URINE ROUT: Urine Culture - RECD Assessment/Plan Assessment: Patient is an 85-year-old woman presented after lightheadedness and syncopal episode During defecation PMH: atrial fibrillation (on Pradaxa), hypertension, Hlip, TIA ( dx'ed mar 2016) , left non displaced humerus fracture, left pubic rami fracture, chronic back pain VS, Ph Ex at admission: BP 147/95, VA 78, no fever,RR: 20 Labs at admission: CBC: Insignificant, BEP: Not sigbnificant, INR 1.34, urinalysis, leukocyte esterase positive, WBC 50-75 Imagings at admission: CXR: Increase in size of a small right pleural effusion with adjacent airspace opacity. Stable enlargement of the cardiac silhouette. head CT: - No acute intracranial abnormality. - Global cerebral volume loss, moderate chronic microangiopathy, and intracranial arterial atherosclerotic calcification. Patient was admitted to telemetry floor for management of following conditions: Syncope Most likely vasovagal, as happened during the straining. However patient was more lethargic after the episode and he was rule out other possible conditions. -Admit to telemetry floor -Monitor cardiac rhythm, vitals -Orthostatic blood pressure -Gentle IV fluids -Consider prolactin -Consider no consult, EEG -Cardiac consult Chronic medical condition, A. fib, hypertension We will continue home medication -Continue beta noe, Pradaxa Heart healthy diet DVT: ALPS, Pradaxa Full code As Ranked By This Provider Problem List: 1. Syncope Qualifiers Syncope type: unspecified Qualified Code: R55 - Syncope and collapse Core Measures/Misc (04/12) Acute Coronary Syndrome ACS Diagnosis: No Congestive Heart Failure Congestive Heart Failure Diagnosis No Cerebrovascular Accident CVA/TIA Diagnosis: No VTE (View Protocol) VTE Risk Factors Age>40 No Mechanical VTE Prophylaxis d/t N/A MechProphylax Ordered No VTE Pharm Prophylaxis d/t NA PharmProphylax ordered Sepsis (View protocol) Sepsis Present: No Willem Rodriguez MD 09/06/17 1634: General Information and HPI Allergies/Medications Home Med list Atorvastatin Calcium 40 MG TABLET 1 TAB PO 1700 High Cholestrol Dabigatran (Pradaxa) 75 MG CAPSULE 1 CAP PO BID A FIB (Reported) Metoprolol Tartrate 25 MG TABLET 0.5 TAB PO BID HEART (Reported) Resident Review Statement Resident Statement: examined this patient, discussed with internet application developer, agreed with internet application developer, reviewed EMR data (avail), discussed with nursing, discussed with case mgmt, reviewed images, amended to note Other Findings: 86 yo F with PMH of hypertension, atrial fibrillation on Pradaxa chronic back pain, secondary to thoracic compression fracture presented to the emergency department after passing out during defecation earlier today. According to the patient and her , she was in her usual state of health until 3 days ago when she started having constipation and this morning when she finally went to the bathroom and was straining, she passed out after mentioning that she is feeling weak. She lost consciousness for "a few minutes" and her saw the whole event. After she regained consciousness, she was not confused but in the emergency department she seemed more drowsy than her baseline. Of note, the patient had not complained of any chest pain, shortness of breath, palpitation, blackouts, frequent falls before the incident. She also did not have any abnormal movement of her limbs, up rolling of eyes, frothing from mouth, tongue bite, incontinence during the incident. Her mentioned that she has been taking her usual amount of food/drinks, which is already less given her age. Her last 2 falls were a year ago and less than a year ago before that, both of which were mechanical and normally she walks at home with the help of a walker. Her vitals were stable when she arrived in the ED, with slightly higher blood pressure at 147/95, physical examination was nonfocal except for irregularly irregular pulse. Gait was not examined by me. And her labs returned within normal range, except for UA which showed pyuria and moderate amount of leukocyte esterase. Of note, she does not give any symptoms of urinary disturbance. Urine culture was sent from the ED where she also received 1 dose of IV ceftriaxone. She is being admitted in the telemetry floor for the management of following issues: # Syncope, likely vasovagal Patient's symptoms so far points to vasovagal syncope given the straining and the syncopal episode, nonetheless other differentials that needs consideration are dehydration, and given her history of atrial fibrillation cardiac arrhythmias could be another cause is well. * Admit her in telemetry unit * Monitor for cardiac rhythm, rates, vitals, input/output * Orthostatic blood pressure/pulse when feasible * IV fluids with normal saline at 75 mL per hour one back * Will call cardiology consultation, given her cardiac history with atrial fibrillation. Of note her heart rate has reached 130s maximum was she is sleeping which quickly jumped down to less than 100 * We will continue her home dose of beta noe, for atrial fibrillation #Hypertension Will continue her home dose of beta noe, which will also help her with controlling heart rate for atrial fibrillation. #Atrial fibrillation We'll continue her home dose of beta noe for atrial fibrillation rate control We'll continue Pradaxa for anticoagulation. Of note she missed her morning dose of Pradaxa while coming to the ED. #Diet: Heart healthy diet #DVT prophylaxis with Pradaxa #CODE STATUS full code Update: I examined the patient again after she was transferred to the floor. She was alert, oriented, and her neurological exam was within normal limit. Christo Soto MD 09/06/17 2035: Attending MD Review Statement Attending Statement Attending MD Statement: examined this patient, discuss w/resident/PA/CIGAR HEAD STRINGER, agreed w/resident/PA/CIGAR HEAD STRINGER, reviewed EMR data (avail), discussed with nursing, reviewed images, amended to note Attending Assessment/Plan: The patient is an 86 yo female with h/o HTN, afib (on Pradaxa), h/o TIA (2016), who was brought to the ED today after a syncopal event (several minutes per ) that occurred while sitting on the toilet and straining at stool. The patient denied any chest pain, palpitations, fever, headache, etc. She was noted to have increased back pain and be extremely weak after the event and unable to ambulate. Has a h/o pelvic fracture/fractures last year. Physical Exam: VS: T 97.9, P 78, R 20, BP 147/94, PO 99% RA HEENT: eyes- PERRLA, EOMI ayanna- sl dry mucosa Neck: no bruits/adenopathy Chest: clear Cor: irreg rhythm, nl rate, nl S1, S2, +1/6 sys murm LSB Abd: BS+, soft, NT Ext: no edema, pulses 1+ Neuro: alert & oriented, non-focal exam, gait not tested. Labs/Tests- as above Impression/Plan: #S/P Syncope- most likely vasovagal as occurred while straining at stool, however patient has h/o afib and states she was unconscious for several minutes. Alert & oriented at present with non-focal neuro exam. No seizure activity was noted. Plan: Admit to telemetry service and monitor for arrhythmia. q4h neuro checks initially PT/OT evaluations. May need STR. #Chronic Atrial Fibrillation- HR is stable at present. Plan: Continue Metoprolol/Pradaxa. #HL- on Atorvastatin. Plan: Continue Atorvastatin. #Back Pain- after fall. Most likely osteoporotic. Plan: Will assess post PT/OT- may need further evaluation.
[2017-09-06] MEDS ORDERED: PRADAXA75 M1 PO (16:43)
[2017-09-06 17:43] VITALS: BP 110/72
[2017-09-06 21:57] VITALS: BP 108/66
--- NOTE | 2017-09-06 23:38 | Admission Certification ---
Admission Certification Certification Statement - As attending physician, I certify that at the time of - admission, based on clinical presentation, severity of - symptoms, need for further diagnostic testing and - therapeutic interventions, and risk of adverse outcomes - without in-hospital treatment, in my clinical assessment, - this patient requires an acute hospital stay for a minimum - of two nights or longer. I have also considered psychsocial - factors such as support system, advanced age, financial - issues, cognitive issues, and failed out-patient treatments, - past re-admission history, safety of patient, and lack of - compliance as applicable. Specific rationale supporting this admission is: The patient presented in the ED after a fall/syncopal event for several minutes (per ) that occured at home at time of straining at stool on toilet. May represent vasovagal event, however patient has h/o afib (on Pradaxa) and was noted to be significantly weak with increased back pain after the event. Needs telemetry admission, monitor HR and for further symptoms. PT/OT evaluations. May need STR.
[2017-09-07 07:21] VITALS: BP 138/76
--- NOTE | 2017-09-07 08:10 | PN- Housestaff ---
See Addendum Subjective Follow-up For: Syncope Back pain Tele-Events Since Last Visit: Patrice montalvo/Tawanda davies, [place] 64-77 Subjective: Patient visited today, was lying in bed comfortably in no acute distress, was alert and oriented. was present at the bedside. Patient reported to improve but still felt relatively weak. was requesting outpatient PT. No fever or chills, no shortness of breathing, no chest pain, no other events. Planned to do xray of the spine. Review of Systems Constitutional: Reports: see HPI. Objective Last 24 Hrs of Vital Signs/I&O Vital Signs Date Time Temp Pulse Resp B/P B/P Pulse O2 O2 Flow FiO2 Mean Ox Delivery Rate 09/07 1414 96.5 65 20 140/70 92 Room Air 09/07 0817 65 138/76 09/07 0721 97.4 65 20 138/76 98 Room Air 09/06 2157 98.7 117 24 108/66 97 Room Air 09/06 2133 110 110/60 09/06 1743 98.9 104 18 110/72 98 Room Air Room Air 09/06 1659 98.2 108 18 134/60 97 Room Air 09/06 1444 98.4 98 18 146/69 99 Room Air Intake & Output 09/07 1600 09/07 0800 09/07 0000 Intake Total 700 700 410 Output Total 300 Balance 700 400 410 Intake, IV 300 600 260 Intake, Oral 400 100 150 Output, Urine 300 Patient 124 lb Weight Weight Bed scale Measurement Method Physical Exam General Appearance: Alert, Oriented X3, Cooperative, No Acute Distress Skin Temp/Moisture Exam: Warm/Dry Sepsis Skin Exam (color): Normal for Ethnicity HEENT: Atraumatic, EOMI, Mucous Membr. moist/pink Cardiovascular: Normal S1, Normal S2, Irregular irregular Lungs: Clear to Auscultation Abdomen: Soft, No Tenderness Neurological: Normal Speech, over all generalize weakness Extremities: No Edema Current Medications: Current Medications Sig/Chava Start time Last Medication Dose Route Stop Time Status Admin Acetaminophen 650 MG ONCE ONE 09/07 1415 DC PO 09/07 1416 Acetaminophen 650 MG Q6P PRN 09/06 1645 AC PO Acetaminophen 1,000 MG Q6P PRN 09/06 1645 AC 09/06 IV 2126 Atorvastatin Calcium 40 MG 1700 09/06 1700 AC PO Ceftriaxone Sodium 0 .STK-MED ONE 09/06 1442 DC .ROUTE Dabigatran 75 MG BID 09/06 2200 AC 09/07 PO 0817 Enoxaparin Sodium 30 MG DAILY 09/07 1000 DC SC Metoprolol Tartrate 12.5 MG BID 09/06 2200 AC 09/07 PO 0817 Polyethylene Glycol 17 GM AT BEDTIME PRN 09/06 1645 AC PO Senna/Docusate Sodium 1 TAB AT BEDTIME PRN 09/06 1645 AC 09/06 PO 2130 Sodium Chloride 1,000 ML .[id number] 09/06 1630 DC 09/06 IV 09/07 0549 1656 Tramadol HCl 50 MG Q6 PRN 09/06 1800 AC 09/07 PO 1354 Last 24 Hrs of Lab/Jaime Results Last 24 Hrs of Labs/Mics: Laboratory Tests 09/07/17 0635: Anion Gap 8, Estimated GFR > 60, BUN/Creatinine Ratio 22.9 09/06/17 1950: Troponin I 0.02 Assessment/Plan Assessment: Patient is an 85-year-old woman presented after lightheadedness and syncopal episode During defecation PMH: atrial fibrillation (on Pradaxa), hypertension, Hlip, TIA ( dx'ed mar 2016) , left non displaced humerus fracture, left pubic rami fracture, chronic back pain VS, Ph Ex at admission: BP 147/95, [place] 78, no fever,RR: 20 Labs at admission: CBC: Insignificant, BEP: Not sigbnificant, INR 1.34, urinalysis, leukocyte esterase positive, WBC 50-75 Imagings at admission: CXR: Increase in size of a small right pleural effusion with adjacent airspace opacity. Stable enlargement of the cardiac silhouette. head CT: - No acute intracranial abnormality. - Global cerebral volume loss, moderate chronic microangiopathy, and intracranial arterial atherosclerotic calcification. Patient was admitted to telemetry floor for management of following conditions: Syncope Most likely vasovagal, as happened during the straining. However patient was more lethargic after the episode and he was rule out other possible conditions. PT evaluated patient today, noted patient was even weak and was in pain to come to the bedside. Will evaluate tomorrow. -Admit to telemetry floor -Monitor cardiac rhythm, vitals -Orthostatic blood pressure -Gentle IV fluids -Consider prolactin -Consider no consult, EEG -Cardiac consult Chronic medical condition, A. fib, hypertension We will continue home medication -Continue beta noe, Pradaxa Heart healthy diet DVT: ALPS, Pradaxa Full code Problem List: 1. Weakness 2. Syncope Pain Ratin (Back pain with motion) Pain Location: Lower spinal back pain with motion Pain Goal: Pain 4 or less Pain Plan: Continue current plan Lumbar spine xray for evaluation of new fracture Tomorrow's Labs & Rationales: CBC
[2017-09-07 14:14] VITALS: BP 140/70
--- NOTE | 2017-09-07 16:31 | RADIOLOGY REPORT ---
EXAMINATION: XR LUMBOSACRAL SPINE CLINICAL INFORMATION: History of compression fracture. Fall. Increasing pain in lumbar area. COMPARISON: MRI lumbar spine 08/04/2017 TECHNIQUE: 4 views of the lumbosacral spine were obtained. FINDINGS: There is osteopenia. There is compression deformity of the L1 vertebrae with depression of the superior endplate. There is about 25% loss of height of the vertebral body. This is stable since prior MR exam of 08/04/2017. The superior endplate of L1 is now sclerotic There is no new fracture. Vertebrae have normal alignment. No spondylolysis. The subtle anterior listhesis of L4 on L5 due to facet joint disease remains unchanged since prior MR exam. There is degenerative facet joint arthrosis at the lower lumbar spine facet joints. This is most significant at L4-L5, L5-S1 IMPRESSION: 1. Osteopenia. 2. Stable compression fracture of the L1 vertebrae unchanged since MR study 08/04/2017. 3. 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 4. No acute abnormality.
[2017-09-07 22:18] VITALS: BP 132/76
[2017-09-08 05:41] VITALS: BP 140/82
--- NOTE | 2017-09-08 07:15 | PN- Housestaff ---
See Addendum Subjective Follow-up For: Syncope Lumbar compression fracture Tele-Events Since Last Visit: AFIB HR 56-73 Subjective: Patient reports no bowel movement overnight. No complaints or acute events overnight. She reports her back pain is [id number] with current pain meds regimen. at bedside would like to be updated with patient's state of health [phone]. request patient go to [facility] if STR needed. Review of Systems Constitutional: Reports: see HPI. Objective Last 24 Hrs of Vital Signs/I&O Vital Signs Date Time Temp Pulse Resp B/P B/P Pulse O2 O2 Flow FiO2 Mean Ox Delivery Rate 09/08 1434 98.6 68 20 124/62 96 Room Air 09/08 0910 70 140/82 09/08 0541 98.5 70 20 140/82 93 09/07 2218 98.2 100 20 132/76 96 Room Air 09/07 2217 73 132/76 Intake & Output 09/08 1600 09/08 0800 09/08 0000 Intake Total 350 120 120 Output Total 300 Balance 50 120 120 Intake, Oral 350 120 120 Output, Urine 300 Physical Exam General Appearance: Alert, Oriented X3, Cooperative Cardiovascular: Regular Rate, Normal S1, Normal S2 Lungs: Clear to Auscultation, Normal Air Movement Abdomen: Normal Bowel Sounds, Soft, No Tenderness Neurological: Sensation Intact, Cranial Nerves 3-12 NL, Back pain with limited ROM Extremities: No Edema Current Medications: Current Medications Sig/Chava Start time Last Medication Dose Route Stop Time Status Admin Acetaminophen 650 MG Q6P PRN 09/06 1645 AC PO Acetaminophen 1,000 MG Q6P PRN 09/06 1645 AC 09/06 IV 2126 Atorvastatin Calcium 40 MG 1700 09/06 1700 AC 09/08 PO 1601 Dabigatran 75 MG BID 09/06 2200 AC 09/08 PO 0910 Metoprolol Tartrate 12.5 MG BID 09/06 220 AC 09/08 PO 0910 Polyethylene Glycol 17 GM DAILY PRN 09/08 0930 AC 09/08 PO 1247 Polyethylene Glycol 17 GM AT BEDTIME PRN 09/06 1645 DC PO Senna/Docusate Sodium 1 TAB AT BEDTIME PRN 09/06 1645 AC 09/07 PO 2216 Tramadol HCl 50 MG Q6 PRN 09/06 1800 AC 09/08 PO 1248 Last 24 Hrs of Lab/Jaime Results Last 24 Hrs of Labs/Mics: Laboratory Tests 09/08/17 0635: CBC w Diff MAN DIFF ORDERED, RBC 4.45, MCV 88.7, MCH 30.0, MCHC 33.9, RDW 19.7 H, MPV 9.4, Gran % 69.5, Lymphocytes % 16.7 L, Monocytes % 5.4, Eosinophils % 8.2 H, Basophils % 0.2, Absolute Granulocytes 4.8, Absolute Lymphocytes 1.2, Absolute Monocytes 0.4, Absolute Eosinophils 0.6, Absolute Basophils 0, Platelet Estimate ADEQUATE, Poikilocytosis 2+, Anisocytosis 2+, Ovalocytes 2+, Elliptocytes 1+ Assessment/Plan Assessment: Patient is an 85-year-old woman with a PMH of atrial fibrillation (on Pradaxa), hypertension, Hlip, TIA ( dx'ed mar 2016), left non displaced humerus fracture, left pubic rami fracture, chronic back pain presented after lightheadedness and syncopal episode Active issues: Syncope Most likely vasovagal after defecation * Cardiology recommendations appreciated Hx of A. fib, hypertension CXR showed increase in size of a small right pleural effusion with adjacent airspace opacity. * continue home medication * Continue metoprolol, Pradaxa * Cardiology recommendations appreciated Chronic back pain XR showed Stable compression fracture of the L1 vertebrae * continue tramadol * continue Acetaminophen * PT/OT Diet: Heart healthy DVT: ALPS, Pradaxa Code: Full Problem List: 1. Syncope Pain Ratin Pain Location: Back Pain Goal: Remain pain free Pain Plan: Tramadol Tomorrow's Labs & Rationales: None
[2017-09-08 08:33] LABS: ABSOLUTE BASOPHIL COUNT 0 /CUMM (0.0-0.2); ABSOLUTE EOSINOPHIL COUNT 0.6 /CUMM (0.0-0.7); ABSOLUTE GRANULOCYTE CT 4.8 /CUMM (1.4-6.5); ABSOLUTE LYMPH COUNT 1.2 /CUMM (1.2-3.4); ABSOLUTE MONOCYTE COUNT 0.4 /CUMM (0.10-0.60); BASOPHIL % 0.2 % (0.0-2.0); EOSINOPHIL % 8.2 % (0-5); GRANULOCYTE % 69.5 % (42.2-75.2); HEMATOCRIT 39.4 % (37-47); MEAN CORPUSCULAR HGB CONC 33.9 G/DL (33.0-37.0); MEAN CORPUSCULAR VOLUME 88.7 FL (81.0-99.0); MEAN PLATELET VOLUME 9.4 FL (7.4-10.4); PLATELET COUNT 176 /CUMM (130-400); RBC DISTRIBUTION WIDTH 19.7 % (11.5-14.5); RED BLOOD CELL CT 4.45 /CUMM (4.20-5.40); WHITE BLOOD CELL COUNT 6.9 /CUMM (4.8-10.8)
--- NOTE | 2017-09-08 09:23 | Discharge Summary ---
Visit Information Visit Dates Admission Date: 09/06/17 Discharge Date: 09/09/2017 Hospital Course Course Attending Physician: Christo Soto MD Primary Care Physician: Christo Demarco MD Hospital Course: Patient is an 85-year-old woman with PMH of atrial fibrillation (on Pradaxa), hypertension, Hlip, TIA ( dx'ed mar 2016), left non displaced humerus fracture, left pubic rami fracture, chronic back pain due to was BIBA to ED after feeling ligtheadedness and a syncopal episode adfter straining on the toilet due to constipation. According to patient was consciousness couple of minutes but denied any chest pain, shortness of breath, palpitation before the incident According to patient was in usual state of health until 3 days ago that she was feeling weaker as well. VS BP 147/95, IN 78, no fever,RR: 20 Physical Exam General Appearance Alert, Oriented X3, Cooperative, No Acute Distress, ill , pale Skin No Significant Lesion Skin Temp/Moisture Exam: Warm/Dry Sepsis Skin Exam (color): Normal for Ethnicity HEENT Atraumatic, EOMI, Mucous Membr. moist/pink Cardiovascular Normal S1, Normal S2, irregular, irregular Lungs Clear to Auscultation, Normal Air Movement Abdomen Soft, No Tenderness Neurological Strength at 5/5 X4 Ext, Sensation Intact, Cranial Nerves 3-12 NL, rrelatively lethargic, arousable to verbal stimuli,, complete evaluation of neurological exam is not possible due to patient's mental condition, however neurological exam is grossly normal. Extremities No Edema Labs at admission: CBC: Insignificant, BEP: Not sigbnificant, INR 1.34, urinalysis, leukocyte esterase positive, WBC 50-75 Imagings at admission: CXR: Increase in size of a small right pleural effusion with adjacent airspace opacity. Stable enlargement of the cardiac silhouette. head CT: - No acute intracranial abnormality. - Global cerebral volume loss, moderate chronic microangiopathy, and intracranial arterial atherosclerotic calcification. Patient was admitted to telemetry floor for management of following conditions: Syncope - DUE TO VASOVAGAL Most likely vasovagal, as happened during the straining. ACS ruled out. Patient was treated with gentle IV fluid therapy. It was probably due to constipation, we gave bowel regimen. Cardiology recommended continuing home medications. Patient was evaluated by PT and it was recommended to go to STR. of A. fib, hypertension we continued metoprolol, Pradaxa. Chronic back pain -CONSERVATIVE MANAGEMENT XR showed Stable compression fracture of the L1 vertebrae.we controlled by tramadol and Acetaminophen. Allergies: Coded Allergies: alendronate sodium (From FOSAMAX) (UNKNOWN 12/25/16) Pertinent Lab Results: PATIENT: JACOB MCMILLAN PRESENT AGE: 86 PATIENT ACCOUNT NO: [id number] : [birth year] LOCATION: ER ORDERING PHYSICIAN: Joseph CAMEJO SERVICE DATE: 09/06/17 EXAM TYPE: RAD - XRY-PORTABLE CHEST XRAY EXAMINATION: XR PORTABLE CHEST CLINICAL INFORMATION: Syncope. COMPARISON: Chest x-ray 03/11/2017. TECHNIQUE: Portable frontal view of the chest was obtained. FINDINGS: There is a small right pleural effusion with adjacent airspace opacity, increased since the prior exam. Left lung is clear. Lungs are hyperinflated. Relative lucency at the right lung base is stable and could again reflect cyst formation. There is no pneumothorax. Cardiac silhouette is enlarged and unchanged. IMPRESSION: Increase in size of a small right pleural effusion with adjacent airspace opacity. Stable enlargement of the cardiac silhouette. DICTATED BY: Maikel Khan MD DATE/TIME DICTATED:09/06/171141 MACHINE TESTER:MIKAEL DATE/TIME TRANSCRIBED:09/06/171141 CONFIDENTIAL, DO NOT COPY WITHOUT APPROPRIATE AUTHORIZATION. <Electronically signed in Other Vendor System> SIGNED BY: Maikel Khan MD 09/06/17 114 PATIENT: JACOB MCMILLAN PRESENT AGE: 86 PATIENT ACCOUNT NO: [id number] : [birth year] LOCATION: [facility] ORDERING PHYSICIAN: Joseph CAMEJO SERVICE DATE: 09/06/17 EXAM TYPE: CAT - CT HEAD WO IV CONTRAST CT HEAD WITHOUT CONTRAST CLINICAL INFORMATION: Syncope after straining on the toilet. COMPARISON: Head CT 10/12/2016. TECHNIQUE: Contiguous axial imaging was performed from the skull base to vertex without intravenous administration of contrast. FINDINGS: There is global cerebral volume loss. There is hypoattenuation throughout the supratentorial white matter, most likely moderate chronic microangiopathy. There is intracranial arterial atherosclerotic calcification. 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 There is no intracranial hemorrhage, hydrocephalus, extra-axial surface collection, midline shift, or other herniation pattern. Saavedra to white matter differentiation is diffusely maintained without evidence of an evolved acute territorial infarct. The basilar cisterns are preserved. No significant soft tissue abnormality. No acute osseous abnormality. The paranasal sinuses and the mastoid air cells are well-aerated. IMPRESSION: - No acute intracranial abnormality. - Global cerebral volume loss, moderate chronic microangiopathy, and intracranial arterial atherosclerotic calcification. DICTATED BY: Maikel Khan MD DATE/TIME DICTATED:09/06/171114 MACHINE TESTER:MIKAEL DATE/TIME TRANSCRIBED:09/06/171114 CONFIDENTIAL, DO NOT COPY WITHOUT APPROPRIATE AUTHORIZATION. <Electronically signed in Other Vendor System> SIGNED BY: Maikel Khan MD 09/06/17 1124 PATIENT: JACOB MCMILLAN PRESENT AGE: 86 PATIENT ACCOUNT NO: [id number] : [birth year] LOCATION: [facility] ORDERING PHYSICIAN: Antonieta Osborne MD SERVICE DATE: 09/07/17- EXAM TYPE: RAD - XRY-LUMBOSACRAL SPINE AP & LAT EXAMINATION: XR LUMBOSACRAL SPINE CLINICAL INFORMATION: History of compression fracture. Fall. Increasing pain in lumbar area. COMPARISON: MRI lumbar spine 08/04/2017 TECHNIQUE: 4 views of the lumbosacral spine were obtained. FINDINGS: There is osteopenia. There is compression deformity of the L1 vertebrae with depression of the superior endplate. There is about 25% loss of height of the vertebral body. This is stable since prior MR exam of 08/04/2017. The superior endplate of L1 is now sclerotic There is no new fracture. Vertebrae have normal alignment. No spondylolysis. The subtle anterior listhesis of L4 on L5 due to facet joint disease remains unchanged since prior MR exam. There is degenerative facet joint arthrosis at the lower lumbar spine facet joints. This is most significant at L4-L5, L5-S1 IMPRESSION: 1. Osteopenia. 2. Stable compression fracture of the L1 vertebrae unchanged since MR study 08/04/2017. 3. 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 4. No acute abnormality. DICTATED BY: Andrade Light MD DATE/TIME DICTATED:09/07/171622 MACHINE TESTER:MIKAEL DATE/TIME TRANSCRIBED:09/07/171622 CONFIDENTIAL, DO NOT COPY WITHOUT APPROPRIATE AUTHORIZATION. <Electronically signed in Other Vendor System> SIGNED BY: Andrade Light MD 09/07/17 1636 Disposition Summary Disposition Principal Diagnosis: Vasovagal syncope Additional Diagnosis: Hypertension A. fib on Pradaxa Discharge Disposition: SNF Discharge Instructions General Discharge Information Code Status: Full Code Patient's Diet: Heart healthy Patient's Activity: Self-limited Follow-Up Instructions/Appts: -Please follow-up with your primary care provider within 7 days after discharge. -Please follow-up with the tray service worker 7 days after discharge -We have made changes to your home medications, please read the instructions carefully. -Please come back to the hospital if your symptoms got worse. Medications at Discharge Discharge Medications: Continue taking these medications: Atorvastatin Calcium (Atorvastatin Calcium) 40 MG TABLET 1 Tablet ORAL 5 PM Days = 30 Comments: Last Taken: 09/08/17 Time: 5 PM Metoprolol Tartrate (Metoprolol Tartrate) 25 MG TABLET 0.5 Tablet ORAL TWICE DAILY Comments: Last Taken: 09/09/17 Time: 0830AM Dabigatran (Pradaxa) 75 MG CAPSULE 1 Capsule ORAL TWICE DAILY Comments: Last Taken: 09/09/17 Time: 0830AM Start taking the following new medications: Tramadol HCl (Tramadol HCl) 50 MG TABLET 50 Milligram ORAL EVERY SIX HOURS as needed for PAIN SCALE 7-10 (SEVERE) Qty = 30 No Refills Comments: Last Taken: 09/08/17 Time: 1230 PM Polyethylene Glycol 3350 (Miralax) 17 GRAM/DOSE POWDER 17 Gram ORAL DAILY as needed for CONSTIPATION Qty = 120 No Refills Comments: Last Taken: 09/09/17 Time: 10 AM Sennosides/Docusate Sodium (Senna Plus Tablet) 8.6 MG-50 MG TABLET 1 Tablet ORAL AT BEDTIME as needed for CONSTIPATION Qty = 30 No Refills Comments: Last Taken: 09/09/17 Time: 10 AM Copies To: Sheyla JAMES,Addison Kramer; Dav JAMES,Christo N. Attending MD Review Statement Documenting Attending: Christo Soto MD Other Findings: The patient was seen and agree with plan of care as above. OK to discharge to [facility] at [facility].
--- NOTE | 2017-09-08 10:24 | Cons- Cardiology ---
General Information and HPI Consulting Request Date of Consult: 09/08/17 Requested By: Christo Soto MD Reason for Consult: Syncope Source of Information: patient, old records Exam Limitations: no limitations History of Present Illness: The patient is an 86-year-old female with a history of atrial fibrillation on Pradaxa, retention, and TIA who now presents with a syncopal episode. According to the patient and chart she has been complaining of constipation. states that she has been weak for the past few days. She was in the bathroom attempting to move her bowels when she had a brief episode of loss of consciousness that was witnessed by her . There was no seizure-like activity noted. There were no premonitory symptoms. Episode only lasted a few minutes. Due to the fact that she appeared to be drowsy along with a syncopal event she was brought to the emergency room for evaluation. The patient had a fall approximately a year ago with a humeral fracture. At that time anticoagulation was readdressed but given the stroke risk the patient decided to continue with anticoagulation for her atrial fibrillation. Allergies/Medications Allergies: Coded Allergies: alendronate sodium (From FOSAMAX) (UNKNOWN 12/25/16) Home Med List: Atorvastatin Calcium 40 MG TABLET 1 TAB PO 1700 High Cholestrol Dabigatran (Pradaxa) 75 MG CAPSULE 1 CAP PO BID A FIB (Reported) Metoprolol Tartrate 25 MG TABLET 0.5 TAB PO BID HEART (Reported) Current Medications: Current Medications Sig/Chava Start time Last Medication Dose Route Stop Time Status Admin Acetaminophen 650 MG ONCE ONE 09/07 1415 DC 09/07 PO 09/07 1416 1702 Acetaminophen 650 MG Q6P PRN 09/06 1645 AC PO Acetaminophen 1,000 MG Q6P PRN 09/06 1645 AC 09/06 IV 2126 Atorvastatin Calcium 40 MG 1700 09/06 1700 AC 09/07 PO 1701 Dabigatran 75 MG BID 09/06 2200 AC 09/08 PO 0910 Metoprolol Tartrate 12.5 MG BID 09/06 2200 AC 09/08 PO 0910 Polyethylene Glycol 17 GM DAILY PRN 09/08 0930 AC PO Polyethylene Glycol 17 GM AT BEDTIME PRN 09/06 1645 DC PO Senna/Docusate Sodium 1 TAB AT BEDTIME PRN 09/06 1645 AC 09/07 PO 2216 Tramadol HCl 50 MG Q6 PRN 09/06 1800 AC 09/07 PO 1354 Review of Systems Review of Systems: Eyes no blurred or double vision Ears no deafness or ringing Nose and throat no recurrent sinusitis Lungs per history of present illness Heart per history of present illness Abdomen no nausea vomiting Musculoskeletal occasional muscle and joint pains Psych no anxiety or depression Neuro without recurrent headache or seizures Endocrine no heat or cold intolerance Past History Travel History Traveled to [place] past 21 day No Medical History Neurological: subdural hematoma Subarachnoid Hemorrhage () Falls EENT: NONE Cardiovascular: AFIB, hypertension Respiratory: NONE Gastrointestinal: NONE Hepatic: NONE Renal: NONE Musculoskeletal: chronic back pain, COMPRESSION FRACTURE Psychiatric: NONE Endocrine: NONE Blood Disorders: NONE Cancer(s): NONE Surgical History Surgical History: non-contributory Family History Relations & Conditions If Any: Relation not specified for: *No pertinent family history Psychosocial History Who Do You Live With? spouse Services at Home: Nursing Primary Language: [place] Smoking Status: Never Smoked ETOH Use: denies use Functional Ability ADLs Independent: dressing, eating, toileting, bathing. Ambulation: cane, walker IADLs Independent: shopping, housework, finances, food prep, telephone, transportation , medication admin. Exam & Diagnostic Data Vital Signs and I&O Vital Signs Date Time Temp Pulse Resp B/P B/P Pulse O2 O2 Flow FiO2 Mean Ox Delivery Rate 09/08 0910 70 140/82 09/08 0541 98.5 70 20 140/82 93 09/07 2218 98.2 100 20 132/76 96 Room Air 09/07 2217 73 132/76 09/07 1414 96.5 65 20 140/70 92 Room Air Intake & Output 09/08 1600 09/08 0800 09/08 0000 09/07 1600 09/07 0800 09/07 0000 Intake Total 120 120 700 700 410 Output Total 300 Balance 120 120 700 400 410 Intake, IV 300 600 260 Intake, Oral 120 120 400 100 150 Output, Urine 300 Patient 124 lb Weight Weight Bed scale Measurement Method Physical Exam: Patient is a well-developed well-nourished female appearing lethargic but in no acute distress HEENT is unremarkable Neck is supple there is no JVD Lungs are clear Heart iregular rhythm S1 and S2 are normal no gallops or rubs 1/6 HANNA LSB Abdomen bowel sounds positive Extremities without edema Labs/Jaime Results: Laboratory Tests 09/08 09/07 09/06 2371 [id number] 1950 Chemistry Sodium (137 - 145 mmol/L) 137 Potassium (3.5 - 5.1 mmol/L) 4.1 Chloride (98 - 107 mmol/L) 102 Carbon Dioxide (22 - 30 mmol/L) 27 Anion Gap (5 - 16) 8 BUN (7 - 17 mg/dL) 16 Creatinine (0.5 - 1.0 mg/dL) 0.7 Estimated GFR (>60 ml/min) > 60 BUN/Creatinine Ratio (7 - 25 %) 22.9 Troponin I (< 0.11 ng/ml) 0.02 Hematology CBC w Diff MAN DIFF ORDERED WBC (4.8 - 10.8 /CUMM) 6.9 RBC (4.20 - 5.40 /CUMM) 4.45 Hgb (12.0 - 16.0 G/DL) 13.4 Hct (37 - 47 %) 39.4 MCV (81.0 - 99.0 FL) 88.7 MCH (27.0 - 31.0 PG) 30.0 MCHC (33.0 - 37.0 G/DL) 33.9 RDW (11.5 - 14.5 %) 19.7 H Plt Count (130 - 400 /CUMM) 176 MPV (7.4 - 10.4 FL) 9.4 Gran % (42.2 - 75.2 %) 69.5 Lymphocytes % (20.5 - 51.1 %) 16.7 L Monocytes % (1.7 - 9.3 %) 5.4 Eosinophils % (0 - 5 %) 8.2 H Basophils % (0.0 - 2.0 %) 0.2 Absolute Granulocytes (1.4 - 6.5 /CUMM) 4.8 Absolute Lymphocytes (1.2 - 3.4 /CUMM) 1.2 Absolute Monocytes (0.10 - 0.60 /CUMM) 0.4 Absolute Eosinophils (0.0 - 0.7 /CUMM) 0.6 Absolute Basophils (0.0 - 0.2 /CUMM) 0 Platelet Estimate (ADEQUATE) ADEQUATE Poikilocytosis 2+ Anisocytosis 2+ Ovalocytes 2+ Elliptocytes 1+ 09/06 1315 Urines Urine Color (YEL,AMB,STR) YEL Urine Clarity (CLEAR) CLDY H Urine pH (5.0 - 8.0) 6.0 Ur Specific Cranks (1.001 - 1.035) 1.020 Urine Protein (NEG,<30 MG/DL) NEG Urine Ketones (NEG) NEG Urine Nitrite (NEG) NEG Urine Bilirubin (NEG) NEG Urine Urobilinogen (0.1 - 1.0 EU/dl) 0.2 Ur Leukocyte Esterase (NEG) MOD H Ur Microscopic SEDIMENT EXAMINED Urine RBC (0 - 5 /HPF) 1-3 Urine WBC (0 - 2 /HPF) 50-75 H Ur Epithelial Cells (NONE,FEW) MANY H Urine Bacteria (NEG/NONE) MANY H Urine Hemoglobin (NEG) SMALL H Urine Glucose (N MG/DL) NEG Diagnostic Data EKG Results Atrial fibrillation with controlled ventricular response nonspecific ST-T wave changes CXR Results IMPRESSION: Increase in size of a small right pleural effusion with adjacent airspace opacity. Stable enlargement of the cardiac silhouette. Assessment/Plan Assessment/Plan 1. Syncopal episode most likely secondary to vasovagal response. Patient had been constipated and was sitting on the toilet at the time attempting to move her bowels. There've been no arrhythmias noted on telemetry other than her atrial fibrillation and she has ruled out for myocardial infarction. EKG demonstrated no acute changes. 2. Paroxysmal atrial fibrillation on Pradaxa with an elevated CHADS2 Vasc score 3. TIA by history 4. Hypertension Recommendations 1. I would continue her current medications including Pradaxa for stroke prevention. 2. Monitor patient on telemetry 3. Ambulate with physical therapy. Patient may benefit from short-term rehabilitation given her overall deconditioning Thank you for allowing [facility] to participate in the care of your patient. Consult Acknowledgment - Thank you for your consult request.
[2017-09-08 14:34] VITALS: BP 124/62
[2017-09-08] MEDS ORDERED: MIRALAX119 GM PO (19:20)
[2017-09-08] MEDS ORDERED: TRAMADOL HCL50 M1 PO (19:20)
[2017-09-08] MEDS ORDERED: SENNA PLUS TAB1 EACH PO (19:20)
--- NOTE | 2017-09-08 19:22 | Patient Discharge Instructions ---
Discharge Instructions General Discharge Information You were seen/treated for: Vasovagal syncope Special Instructions: -Please follow-up with your primary care provider within 7 days after discharge. -Please follow-up with the notch machine operator 7 days after discharge -We have made changes to your home medications, please read the instructions carefully. -Please come back to the hospital if your symptoms got worse. Diet Recommended Diet: Heart Healthy Activity Full Activity/No Limits: No Activity Self Limited: Yes Acute Coronary Syndrome Inclusion Criteria At DC or during hospital stay patient has or had the following: ACS DIAGNOSIS No Discharge Core Measures Meds if any: Prescribed or Continued at Discharge Meds if any: NOT Prescribed or Continued at Discharge Congestive Heart Failure Inclusion Criteria At DC or during hospital stay patient has or had the following: CHF DIAGNOSIS No Discharge Core Measures Meds if any: Prescribed or Continued at Discharge Meds if any: NOT Prescribed or Continued at Discharge Cerebrovascular accident Inclusion Criteria At DC or during hospital stay patient has or had the following: CVA/TIA Diagnosis No Discharge Core Measures Meds if any: Prescribed or Continued at Discharge Meds if any: NOT Prescribed or Continued at Discharge Venous thromboembolism Inclusion Criteria VTE Diagnosis No VTE Type NONE VTE Confirmed by (Test) NONE Discharge Core Measures - Per Current guidelines, there needs to be overlap - treatment for the first 5 days of Warfarin therapy. - If discharged on Warfarin prior to 5 days of - overlap therapy, the patient will need to be - assessed for post discharge needs including - *Post discharge parental anticoagulation - *Warfarin and/or parental anticoagulation education - *Follow up date to check INR post discharge At least 5 days overlap therapy as Inpatient No Meds if any: Prescribed or Continued at Discharge Note: Overlap Therapy is Warfarin and Anticoagulant Meds if any: NOT Prescribed or Continued at Discharge
[2017-09-08 22:13] VITALS: BP 110/60
[2017-09-09 07:00] VITALS: BP 134/72
--- NOTE | 2017-09-09 07:18 | PN- Housestaff ---
See Addendum Subjective Follow-up For: Syncope Lumbar compression fracture Subjective: Patient reports no bowel movement overnight. No complaints or acute events overnight. Review of Systems Constitutional: Reports: see HPI. Objective Last 24 Hrs of Vital Signs/I&O Vital Signs Date Time Temp Pulse Resp B/P B/P Pulse O2 O2 Flow FiO2 Mean Ox Delivery Rate 09/09 1557 97.5 72 18 124/62 09/09 1416 97.5 72 18 124/62 95 Room Air 09/09 1139 Room Air Room Air 09/09 0830 87 134/72 09/09 0700 97.7 87 18 134/72 95 Room Air 09/08 2213 97.8 86 18 110/60 95 09/08 2105 76 116/78 Intake & Output 09/09 1600 09/09 0800 09/09 0000 Intake Total 100 320 Output Total 300 Balance -200 320 Intake, Oral 100 320 Output, Urine 300 Physical Exam General Appearance: Alert, Oriented X3, Cooperative Cardiovascular: Regular Rate, Normal S1, Normal S2 Lungs: Clear to Auscultation, Normal Air Movement Abdomen: Normal Bowel Sounds, Soft, No Tenderness Neurological: Limited ROM due to back pain Extremities: No Edema Current Medications: Current Medications Sig/Chava Start time Last Medication Dose Route Stop Time Status Admin Acetaminophen 650 MG Q6P PRN 09/06 1645 DCD PO Acetaminophen 1,000 MG Q6P PRN 09/06 1645 DCD 09/06 IV 2126 Atorvastatin Calcium 40 MG 1700 09/06 1700 DCD 09/08 PO 1601 Dabigatran 75 MG BID 09/06 2200 DCD 09/09 PO 0830 Metoprolol Tartrate 12.5 MG BID 09/06 2200 DCD 09/09 PO 0830 Polyethylene Glycol 17 GM DAILY PRN 09/08 0930 DCD 09/09 PO 0831 Senna/Docusate Sodium 1 TAB AT BEDTIME PRN 09/06 1645 DCD 09/09 PO 0830 Sodium Phosphate 1 UNIT ONCE ONE 09/09 0945 DC 09/09 CA 09/09 0946 1143 Tramadol HCl 50 MG Q6 PRN 09/06 1800 DCD 09/08 PO 1248 Assessment/Plan Assessment: Patient is an 85-year-old woman with a PMH of atrial fibrillation (on Pradaxa), hypertension, Hlip, TIA ( dx'ed mar 2016), left non displaced humerus fracture, left pubic rami fracture, chronic back pain presented after lightheadedness and syncopal episode Active issues: Syncope Most likely vasovagal after defecation * Cardiology recommendations appreciated * Give water enema today Hx of A. fib, hypertension CXR showed increase in size of a small right pleural effusion with adjacent airspace opacity. * continue home medication * Continue metoprolol, Pradaxa * Cardiology recommendations appreciated Chronic back pain XR showed Stable compression fracture of the L1 vertebrae * continue tramadol * continue Acetaminophen * PT/OT Diet: Heart healthy DVT: ALPS, Pradaxa Code: Full Patient stable for STR Problem List: 1. Syncope Pain Ratin Pain Location: Back Pain Goal: Remain pain free Pain Plan: None Tomorrow's Labs & Rationales: None
[2017-09-09 14:16] VITALS: BP 124/62
[2017-09-09 15:57] VITALS: BP 124/62
== END 2017-09-09 16:45 | DRG 312 ==
LOC: ERH 09:40 → ERHI 14:06 → 1NO 14:06 → ENRESERV 15:51 → ENTRNSPT 17:08 → 1NO 17:36 → CMPTRNSPT 17:47 → 1NO 09-08 11:40 → ENPENDDIS 09-09 14:30 → 1NO 09-09 16:45
PROVIDERS: Physician Assistant Medical; Radiology Vascular & Interventional Radiology
DX: R55 Syncope and collapse (principal); I48.92 Unspecified atrial flutter; I48.0 Paroxysmal atrial fibrillation; R31.9 Hematuria, unspecified; Z79.01 Long term (current) use of anticoagulants; K59.00 Constipation, unspecified; I10 Essential (primary) hypertension; Z86.73 Personal history of transient ischemic attack (TIA), and cerebral infarction without residual deficits; M54.9 Dorsalgia, unspecified
CPT/HCPCS: 1NSP; 36415; 36592; 71045; 72100; 81001; 82436; 87071; 87086; 87804; 87804-59; 93005; 93010; 96374; 97110-GO; 97116-GO; 97161-GP; 97530-GO; J0131; J0696

== ENCOUNTER 2017-10-04 08:26 | Emergency (ER) | payer OTHER, MEDICARE ==
[~2017-10-04] VITALS: Ht 160 cm; Wt 46.5 kg
[~2017-10-04 08:26] MED LIST changes: +SENNA PLUS TAB1 EACH PO
--- NOTE | 2017-10-04 08:58 | ED GI/GU/ABDOMINAL COMPLAINT ---
History of Present Illness General Chief Complaint: General Adult Stated Complaint: CONSTIPATION X 1 WEEK; LOSS OF APETITE +V Source: patient, family, old records Exam Limitations: no limitations Vital Signs & Intake/Output Vital Signs & Intake/Output Vital Signs Date Time Temp Pulse Resp B/P B/P Pulse O2 O2 Flow FiO2 Mean Ox Delivery Rate 10/04 2010 97.4 102 16 148/84 100 Room Air ED Intake and Output 10/05 0000 10/04 1200 Intake Total 0 Output Total Balance 0 Intake, Oral 0 Patient 102 lb Weight Allergies Coded Allergies: alendronate sodium (From FOSAMAX) (RASH 10/04/17) Reconcile Medications Acetaminophen 500 MG TABLET 2 TAB PO PRN PAIN (Reported) Atorvastatin Calcium 40 MG TABLET 1 TAB PO MONFRI CHOLESTEROL (Reported) Cholecalciferol (Vitamin D3) (Vitamin D) (Unknown Strength) TABLET (Unknown Dose) PO DAILY SUPPLEMENT (Reported) Dabigatran (Pradaxa) 75 MG CAPSULE 1 CAP PO BID A FIB (Reported) Metoprolol Tartrate 25 MG TABLET 0.5 TAB PO QAM HEART/BP (Reported) Ondansetron (Zofran Odt) 4 MG TAB.RAPDIS 1 TAB SL TID PRN NAUSEA Polyethylene Glycol 3350 (Miralax) 17 GRAM/DOSE POWDER 17 GM PO DAILY PRN CONSTIPATION Sennosides/Docusate Sodium (Senna Plus Tablet) 8.6 MG-50 MG TABLET 1 TAB PO AT BEDTIME PRN CONSTIPATION Tramadol HCl 50 MG TABLET 50 MG PO Q6 PRN PAIN SCALE 7-10 (SEVERE) Triage Note: PT TO TRIAGE WITH HER SPOUSE, STATES THAT PT HAS NOT MOVED HER BOWELS IN A BOUT A WEEK, STATES THAT HE HAS BEEN GIVING HER MARILAX AND ITS NOT HELPING, ABD DISTENDED. STATES THAT HE TOOK PT TO A WALK IN LAST PM AND THEY TOLD HIM TO COME TO ER DUE TO THEY FEEL SHE HAS A BLOCKAGE. PT UNABLE TO EAT OR DRINK, STATES THAT WHEN SHE TRIES SHE VOMITS Triage Nurses Notes Reviewed? yes ? n Is pt currently ? No Onset: Gradual Duration: week(s): (1), constant, getting worse Timing: recent history Quality/Severity: aching Severity Numbers: 5 Location: generalized abdomen Radiation: no radiation Activities at Onset: none Prior Abdominal Problems: h/o constipation Modifying Factors: Worsens With: eating. Associated Symptoms: denies HPI: 86-year-old woman with PMH of atrial fibrillation on Pradaxa, hypertension,TIA, left non displaced humerus fracture, left pubic rami fracture, chronic back pain on tramadol presents to the ER for evaluation with her for evaluation complaining of constipation for the past 1 week associated with diffuse abdominal distention bloating nausea vomiting eating or drinking. She went to an urgent care last night and was advised to come to the ER this morning. She denies any prior episodes of black or bloody stools. Her has been giving her MiraLAX and magnesium citrate without improvement. No chest pain fever chills urinary complaints or loss of episode of vomiting was yesterday. No history of abdominal surgeries in the past. (Esequiel Nava) Past History Travel History Traveled to [place] past 21 day No Medical History Any Pertinent Medical History? see below for history Neurological: subdural hematoma Subarachnoid Hemorrhage () Falls EENT: NONE Cardiovascular: AFIB, hypertension Respiratory: NONE Gastrointestinal: NONE Hepatic: NONE Renal: NONE Musculoskeletal: chronic back pain, COMPRESSION FRACTURE Psychiatric: NONE Endocrine: NONE Blood Disorders: NONE Cancer(s): NONE History of MRSA: No History of VRE: No History of CDIFF: No Influenza Vaccine: 04/26/17 Surgical History Surgical History: non-contributory Psychosocial History Who do you live with Spouse Services at Home Nursing What is your primary language Slovenian Tobacco Use: Never used ETOH Use: denies use Illicit Drug Use: denies illicit drug use Family History Family History, If Any: Relation not specified for: *No pertinent family history Hx Contributory? No (Esequiel Nava) Review of Systems Review of Systems Constitutional: Reports: see HPI. Comments Review of systems: See HPI, All other systems negative. Constitutional, no chills no fever, HEENT: no sore throat no congestion, no ear pain Cardiovascular: No chest pain , no palpitation Skin: no rashes, no change in skin Respiratory: No dyspnea no cough no sputum GI: see hpi : No dysuria No hematuria, no frequency Muscle skeletal: No joint pain, no back pain Neurologic: , no headache Heme/endocrine: No bruising Immunology: No lymphadenopathy (Esequiel Nava) Physical Exam Physical Exam General Appearance: well developed/nourished, alert, awake Gastrointestinal: soft Comments: Well-developed well-nourished person in no acute distress HEENT: Normal EENT exam; PERRL, EOMI, HEAD is atraumatic. moist mucous membranes. Neck: Supple, normal range of motion Back: no CVA tenderness. Full range of motion Cardiovascular: irRegular rate and rhythms no murmurs rub Respiratory: Chest nontender.There were no bony deformities, no asymmetry. No respiratory distress. Patient speaking in full complete sentences. Breath sounds clear to auscultation bilaterally: NO W/R/R Abdomen: Soft, nontender, distended, no appreciable organomegaly. Normal bowel sounds. No rebound/guarding, No ascites. RECTAL: no hemrrhoid, no fiissure, no palpable stool in rectum Extremity: No edema, full range of motion of extremities Neuro: Alert oriented x3, motor sensory normal, There were no obvious focal neurologic abnormalities. Skin: No appreciable rash on exposed skin, skin is warm and dry. no diaphoresis, no jaundice Psych: Mood and affect is normal, memory and judgment is normal. Core Measures ACS in differential dx? No Sepsis Present: No Sepsis Focused Exam Completed? No (Serena CAMEJO,Esequiel) Progress Differential Diagnosis: appendicitis, biliary colic, bowel obstruction, colon cancer, cholecystitis, diverticulitis, gastritis, hepatitis, hernia, ischemic bowel, inflamm bowel dis, peptic ulcer, PUD/GERD, perforated viscous, SBO Plan of Care: Orders Procedure Date/time Status Enema 10/04 1248 Active URINALYSIS 10/04 1215 Complete EKG 10/04 0912 Active TROPONIN LEVEL 10/04 0901 Complete LACTIC ACID 10/04 0901 Complete COMPREHENSIVE METABOLIC PANEL 10/04 0901 Complete CBC WITHOUT DIFFERENTIAL 10/04 0901 Complete Laboratory Tests 10/04/17 1430: Urine Color YEL, Urine Clarity CLEAR, Urine pH 7.0, Ur Specific Boyds 1.010, Urine Protein 30 H, Urine Ketones 15 H, Urine Nitrite NEG, Urine Bilirubin NEG , Urine Urobilinogen 0.2, Ur Leukocyte Esterase NEG, Ur Microscopic SEDIMENT EXAMINED, Urine RBC 10-15 H, Urine WBC 5-10 H, Ur Epithelial Cells MOD H, Urine Hemoglobin MOD H, Urine Glucose NEG 10/04/17 1201: Lactic Acid Cancelled 10/04/17 0936: Anion Gap 7, Estimated GFR > 60, BUN/Creatinine Ratio 34.0 H, Glucose 112 H, Lactic Acid 1.7, Calcium 9.6, Total Bilirubin 1.1, AST 21, ALT 30, Alkaline Phosphatase 131 H, Troponin I < 0.01, Total Protein 7.0, Albumin 3.8, Globulin 3.2, Albumin/Globulin Ratio 1.2, CBC w Diff MAN DIFF ORDERED, RBC 4.37, MCV 88.0 , MCH 29.7, MCHC 33.7, RDW 19.7 H, MPV 9.3, Gran % 84.7 H, Lymphocytes % 7.2 L, Monocytes % 7.7, Eosinophils % 0.3, Basophils % 0.1, Absolute Granulocytes 7.4 H, Absolute Lymphocytes 0.6 L, Absolute Monocytes 0.7 H, Absolute Eosinophils 0, Absolute Basophils 0, Platelet Estimate VERIFIED BY SMEAR, Poikilocytosis 1+, Anisocytosis 1+, Ovalocytes 1+, Roxi Cells 1+, Elliptocytes 1 + pt denies pain, labs and ct ordered.c ase d/w dr charles agrees with plan 1035 PT RESTING IN NAD, DENIES PAIN, i d/w her at lent all of her labs to date. pending ct. pts sodium of 130 I discussed with the patient and her at length her CAT scan results and incidental findings. Call placed to surgery case discussed with Dr. buchanan who agrees with plan 1310- case d/w dr healy who will review the ct 1420 pt seen by surgical pa anette browne who was able to disimpact stool, soap corinna enema ordered 1700 Pt refusing to get out of bed to use commode after soap corinna enema. case d/w dr buchanan, relistor sq ordered. after d/w the pt and her we assisted pt to commode 1820- after the soapsuds I further disimpacted the patient of small soft stool, the patient resting in no acute distress we will try a glycerin suppository to have her attempt to have a bowel movement on her own however she is not significantly attempted to push her have a bowel movement on her own and is sleeping on the commode 10/04/2017 7:13:52 PM the patient would like to go home, there is no other palpable stool on rectal exam the stool that was removed was soft and small, I believe patient's symptoms persist as she is not attempting to bear down or have a bowel movement while on the commode which I stressed his important. There is no abdominal pain she is otherwise nontoxic appearing. I once again d/w the pt and her plan of care, labs and ct findings. a copy of the cat was provided to her who will f/u with dr allan her pmd tomorrow. return precautions were discussed at length. we will send her home with stefania. they feel comfortable with plan, cleared for dc Diagnostic Imaging: Viewed by Me: CT Scan. Discussed w/RAD: CT Scan. Radiology Impression: PATIENT: JACOB MCMILLAN PRESENT AGE: 86 PATIENT ACCOUNT NO: [id number] : [birth year] LOCATION: [facility] ORDERING PHYSICIAN: Esequiel CAMEJO SERVICE DATE: 10/04/17 EXAM TYPE: CAT - CT ABD & PELVIS W IV CONTRAST EXAMINATION: CT ABDOMEN AND PELVIS WITH CONTRAST CLINICAL INFORMATION: Constipation for one week. Abdominal pain. Nausea and vomiting. Rule out obstruction. COMPARISON: CT scan of the chest dated 2016. Lumbar spine films dated 09/07/2017. TECHNIQUE: Multidetector CT volumetric acquisition of the abdomen and pelvis was performed after the administration of 95 mL of intravenous Optiray 320. The data set was reformatted in the sagittal and coronal planes and reviewed on an independent workstation. DLP: 254.79 mGy-cm. FINDINGS: LOWER CHEST: There is a large right-sided pleural effusion, decreased in size compared to 11/23/2016 and a small left-sided pleural effusion, similar to the 11/23/2016 exam. Associated compressive atelectatic changes as seen in the right and left lower lobes. Mild dependent atelectasis is also seen in the right middle lobe. The included cardiac silhouette appears enlarged with the right atrial and right ventricular enlargement and to a lesser extent left atrial and left ventricular enlargement seen. There is evidence of right heart failure/elevated right heart pressures with reflux of contrast into dilated intrahepatic IVC and intrahepatic veins seen. LIVER, GALLBLADDER, BILIARY TREE: Liver normal size and diffusely low in attenuation, consistent with hepatic steatosis. Liver parenchyma is heterogeneous and slightly difficult to evaluate due to beam hardening artifact. Several ill-defined low-attenuation masses are seen in the right and left lobes of the liver, most defined of which is seen in hepatic segment 2, measuring 0.9 cm in diameter (series 2, image 20). These are too small to further characterize. No intra-or extrahepatic ductal dilatation. Hepatic and portal veins patent. Gallbladder partially distended and within normal limits. PANCREAS : The pancreas is diffusely atrophic and demonstrates mild dilatation of the pancreatic duct, measuring up to 0.3 cm in the pancreatic tail and 0.5 cm in the pancreatic body. There is a subtle 0.7 cm diameter low-attenuation mass in the pancreatic head neck junction (series 2, image 29; series 602, image 21), too small to further characterize No peripancreatic edema or stranding. SPLEEN: Normal size and appearance. Splenic vein patent. ADRENAL GLANDS AND KIDNEYS: Adrenal glands normal. Kidneys bilaterally symmetric in size and function. No focal mass, hydronephrosis, nephrolithiasis or perinephric stranding. URETERS AND BLADDER: Ureters decompressed and within normal limits. Bladder partially distended and within normal limits. PELVIC ORGANS: Locules of air are seen within the vagina, likely due to exogenous introduction. Uterus is atrophic and slightly deviated toward the right side. Ovaries bilaterally are not discretely identified and are likely atrophic. No suspicious adnexal mass is seen. GASTROINTESTINAL TRACT: There is marked dilatation and fluid distention of the cecum and ascending colon up to the hepatic flexure level, measuring up to 8 cm in diameter. Thinning of the colonic wall is seen without evidence of pneumatosis or bowel perforation. No surrounding mesenteric inflammatory changes are noted. There is a small amount of pericecal fluid, which is seen extending into a right inguinal hernia, where the fluid collection measures 4.2 x 3.1 cm in diameter. There is also tortuosity and gaseous distention of the transverse colon. The descending and sigmoid colon colon are decompressed and filled with large amounts of fecal material. Small bowel loops are also decompressed and unremarkable. The appendix is not discretely identified. LYMPHOVASCULAR STRUCTURES: Abdominal aorta normal in caliber. No periaortic collections. Dense atherosclerotic calcifications of the aorta and branch vessels seen, including at the origins of the celiac axis and SMA and PREM. The SMA and PREM are diminutive but do enhance with contrast. No abdominal or pelvic adenopathy or free fluid collection. BONES: Marked osteopenia and superior endplate compression deformities of the T12 and L1 vertebral bodies are noted, similar to the prior lumbar spine films from 09/07/2017. IMPRESSION: 1. The right colon is markedly dilated and filled with fluid. The transverse colon is markedly distended with air. Descending and rectosigmoid colon are decompressed and filled with a large amount of material. There is also small amount of pericecal fluid, which is seen extending into a right inguinal hernia. Findings may be related to subtle infectious, inflammatory or ischemic colitis. Clinical correlation is requested. 2. Large amount of fecal material in the descending and rectosigmoid colon, consistent with constipation. 3. No evidence of small bowel obstruction. 4. No perforation. 5. Bilateral chronic pleural effusions, larger on the right side and small on the left side with associated dependent atelectasis. 6. Dilated right heart with findings of right heart failure/ elevated right heart pressures as discussed above. 7. Scattered low-attenuation masses in the liver, not adequately assessed/characterized on this exam. When the patient is stable, further assessment with MRI scan with and without contrast is recommended. 8. Small indeterminate 0.7 cm low-attenuation mass in the pancreatic head neck junction with mild dilatation of the pancreatic duct. These findings can also be assessed at the time of the above suggested MRI scan. MRCP is also recommended. DICTATED BY: Rylee Rios MD DATE/TIME DICTATED:1126 RUBY ON RAILS DEVELOPER:MIKAEL DATE/TIME TRANSCRIBED:10/04/171126 CONFIDENTIAL, DO NOT COPY WITHOUT APPROPRIATE AUTHORIZATION. <Electronically signed in Other Vendor System> SIGNED BY: Rylee Rios MD 10/04/17 1200 Initial ED EKG: afib at 110, no acute st seg changes, normal axis Prior EKG: unchanged (Esequiel Nava) Departure Departure Disposition: HOME OR SELF CARE Condition: Stable Clinical Impression Primary Impression: Constipation Qualifiers: Constipation type: unspecified constipation type Qualified Code: K59.00 - Constipation, unspecified Secondary Impressions: Liver lesion, Pancreatic mass, Pleural effusion Referrals: Dav JAMES,Christo Casiano (PCP/Family) Additional Instructions: Follow up with your primary care physician dr allan this week regarding your symptoms today and the incidental findings on ct today regarding the lesions as discussed. A copy of your cat scan is in your discharge paperwork. Zofran as directed for nausea 3 times a day- this medication will dissolve under your tongue- And is helpful to keep fluids and food down. Colace stool softener as directe-this is a [facility]. Increase fiber and fluids in diet, Return with any concerns Departure Forms: Customer Survey General Discharge Information Prescriptions: Current Visit Scripts Ondansetron (Zofran Odt) 1 TAB SL TID PRN NAUSEA #10 TAB (Serena CAMEJO,Esequiel) PA/CUSTOM CLOTHIER Co-Sign Statement Statement: ED Attending supervision documentation- [] I saw and evaluated the patient. I have also reviewed all the pertinent lab results and diagnostic results. I agree with the findings and the plan of care as documented in the PA's/CUSTOM CLOTHIER's documentation. [X] I have reviewed the ED Record and agree with the PA's/CUSTOM CLOTHIER's documentation. [] Additions or exceptions (if any) to the PAs/CUSTOM CLOTHIER's note and plan are summarized below: [] (Dylon JAMES,Damion Fernandez)
[2017-10-04 10:20] LABS: ABSOLUTE BASOPHIL COUNT 0 /CUMM (0.0-0.2); ABSOLUTE EOSINOPHIL COUNT 0 /CUMM (0.0-0.7); ABSOLUTE GRANULOCYTE CT 7.4 /CUMM (1.4-6.5); ABSOLUTE LYMPH COUNT 0.6 /CUMM (1.2-3.4); ABSOLUTE MONOCYTE COUNT 0.7 /CUMM (0.10-0.60); BASOPHIL % 0.1 % (0.0-2.0); EOSINOPHIL % 0.3 % (0-5); GRANULOCYTE % 84.7 % (42.2-75.2); HEMATOCRIT 38.4 % (37-47); MEAN CORPUSCULAR HGB 29.7 PG (27.0-31.0); MEAN CORPUSCULAR HGB CONC 33.7 G/DL (33.0-37.0); MEAN PLATELET VOLUME 9.3 FL (7.4-10.4); PLATELET COUNT 201 /CUMM (130-400); RBC DISTRIBUTION WIDTH 19.7 % (11.5-14.5); RED BLOOD CELL CT 4.37 /CUMM (4.20-5.40); WHITE BLOOD CELL COUNT 8.8 /CUMM (4.8-10.8)
--- NOTE | 2017-10-04 12:00 | CT SCAN REPORT ---
EXAMINATION: CT ABDOMEN AND PELVIS WITH CONTRAST CLINICAL INFORMATION: Constipation for one week. Abdominal pain. Nausea and vomiting. Rule out obstruction. COMPARISON: CT scan of the chest dated 11/23/2016. Lumbar spine films dated 09/07/2017. TECHNIQUE: Multidetector CT volumetric acquisition of the abdomen and pelvis was performed after the administration of 95 mL of intravenous Optiray 320. The data set was reformatted in the sagittal and coronal planes and reviewed on an independent workstation. DLP: 254.79 mGy-cm. FINDINGS: LOWER CHEST: There is a large right-sided pleural effusion, decreased in size compared to 11/23/2016 and a small left-sided pleural effusion, similar to the 11/23/2016 exam. Associated compressive atelectatic changes as seen in the right and left lower lobes. Mild dependent atelectasis is also seen in the right middle lobe. The included cardiac silhouette appears enlarged with the right atrial and right ventricular enlargement and to a lesser extent left atrial and left ventricular enlargement seen. There is evidence of right heart failure/elevated right heart pressures with reflux of contrast into dilated intrahepatic IVC and intrahepatic veins seen. LIVER, GALLBLADDER, BILIARY TREE: Liver normal size and diffusely low in attenuation, consistent with hepatic steatosis. Liver parenchyma is heterogeneous and slightly difficult to evaluate due to beam hardening artifact. Several ill-defined low-attenuation masses are seen in the right and left lobes of the liver, most defined of which is seen in hepatic segment 2, measuring 0.9 cm in diameter (series 2, image 20). These are too small to further characterize. No intra-or extrahepatic ductal dilatation. Hepatic and portal veins patent. Gallbladder partially distended and within normal limits. PANCREAS: The pancreas is diffusely atrophic and demonstrates mild dilatation of the pancreatic duct, measuring up to 0.3 cm in the pancreatic tail and 0.5 cm in the pancreatic body. There is a subtle 0.7 cm diameter low-attenuation mass in the pancreatic head neck junction (series 2, image 29; series 602, image 21), too small to further characterize No peripancreatic edema or stranding. SPLEEN: Normal size and appearance. Splenic vein patent. ADRENAL GLANDS AND KIDNEYS: Adrenal glands normal. Kidneys bilaterally symmetric in size and function. No focal mass, hydronephrosis, nephrolithiasis or perinephric stranding. URETERS AND BLADDER: Ureters decompressed and within normal limits. Bladder partially distended and within normal limits. PELVIC ORGANS: Locules of air are seen within the vagina, likely due to exogenous introduction. Uterus is atrophic and slightly deviated toward the right side. Ovaries bilaterally are not discretely identified and are likely atrophic. No suspicious adnexal mass is seen. GASTROINTESTINAL TRACT: There is marked dilatation and fluid distention of the cecum and ascending colon up to the hepatic flexure level, measuring up to 8 cm in diameter. Thinning of the colonic wall is seen without evidence of pneumatosis or bowel perforation. No surrounding mesenteric inflammatory changes are noted. There is a small amount of pericecal fluid, which is seen extending into a right inguinal hernia, where the fluid collection measures 4.2 x 3.1 cm in diameter. There is also tortuosity and gaseous distention of the transverse colon. The descending and sigmoid colon colon are decompressed and filled with large amounts of fecal material. Small bowel loops are also decompressed and unremarkable. The appendix is not discretely identified. LYMPHOVASCULAR STRUCTURES: Abdominal aorta normal in caliber. No periaortic collections. Dense atherosclerotic calcifications of the aorta and branch vessels seen, including at the origins of the celiac axis and SMA and PREM. The SMA and PREM are diminutive but do enhance with contrast. No abdominal or pelvic adenopathy or free fluid collection. BONES: Marked osteopenia and superior endplate compression deformities of the T12 and L1 vertebral bodies are noted, similar to the prior lumbar spine films from 09/07/2017. IMPRESSION: 1. The right colon is markedly dilated and filled with fluid. The transverse colon is markedly distended with air. Descending and rectosigmoid colon are decompressed and filled with a large amount of material. There is also small amount of pericecal fluid, which is seen extending into a right inguinal hernia. Findings may be related to subtle infectious, inflammatory or ischemic colitis. Clinical correlation is requested. 2. Large amount of fecal material in the descending and rectosigmoid colon, consistent with constipation. 3. No evidence of small bowel obstruction. 4. No perforation. 5. Bilateral chronic pleural effusions, larger on the right side and small on the left side with associated dependent atelectasis. 6. Dilated right heart with findings of right heart failure/elevated right heart pressures as discussed above. 7. Scattered low-attenuation masses in the liver, not adequately assessed/characterized on this exam. When the patient is stable, further assessment with MRI scan with and without contrast is recommended. 8. Small indeterminate 0.7 cm low-attenuation mass in the pancreatic head neck junction with mild dilatation of the pancreatic duct. These findings can also be assessed at the time of the above suggested MRI scan. MRCP is also recommended.
[2017-10-04] MEDS ORDERED: ATORVASTATIN CA40 M1 PO (12:05)
[2017-10-04] MEDS ORDERED: ACETAMINOPHEN500 M4 PO (12:08)
[2017-10-04] MEDS ORDERED: VITAMIN D2000 UNI1 PO (12:09)
[2017-10-04] MEDS ORDERED: GOLYTELY PACKE1 EACH PO (15:18)
[2017-10-04] MEDS ORDERED: ZOFRAN ODT4 M1 SL (15:18)
--- NOTE | 2017-10-04 15:29 | Cons- General Surgery ---
General Information and HPI Consulting Request Date of Consult: 10/04/17 Requested By: ED Reason for Consult: constipation History of Present Illness: 86yoF presents to ED c/o lack of BM x ?5-6 days. She has been taking oral laxatives at home with no help. Pt denies feeling bloated or nauseous now, though was unable to eat at home due to abd bloating and n/v per ED records. Pts main complaint at this time is postiional lower back pain. She denies abd pain. No abdominal surgical hx. She was seen at urgent care and sent to ER for further evaluation to r/o obstruction. She does mention that she is usually constipated. PMHx includes Afib on pradaxa, htn, hx tia, hx pelvic rami fx, hx chronic back pain (tramadol). Allergies/Medications Allergies: Coded Allergies: alendronate sodium (From FOSAMAX) (RASH 10/04/17) Home Med List: Acetaminophen 500 MG TABLET 2 TAB PO PRN PAIN (Reported) Atorvastatin Calcium 40 MG TABLET 1 TAB PO MONFRI CHOLESTEROL (Reported) Cholecalciferol (Vitamin D3) (Vitamin D) (Unknown Strength) TABLET (Unknown Dose) PO DAILY SUPPLEMENT (Reported) Dabigatran (Pradaxa) 75 MG CAPSULE 1 CAP PO BID A FIB (Reported) Metoprolol Tartrate 25 MG TABLET 0.5 TAB PO QAM HEART/BP (Reported) Ondansetron (Zofran Odt) 4 MG TAB.RAPDIS 1 TAB SL TID PRN NAUSEA Peg 3350/Na Sulf,Bicarb,Cl/KCl (Golytely Packet) 227.1-21.5 POWD.PACK 8 OZ PO [id number] PRN CONSTIPATION DRINK 8 OZ EVERY 10 MINUTES UNTIL CLEAR Polyethylene Glycol 3350 (Miralax) 17 GRAM/DOSE POWDER 17 GM PO DAILY PRN CONSTIPATION Sennosides/Docusate Sodium (Senna Plus Tablet) 8.6 MG-50 MG TABLET 1 TAB PO AT BEDTIME PRN CONSTIPATION Tramadol HCl 50 MG TABLET 50 MG PO Q6 PRN PAIN SCALE 7-10 (SEVERE) Past History Medical History Neurological: TIA (hx) Cardiovascular: AFIB, hypertension Musculoskeletal: chronic back pain Surgical History Pertinent Surgical History: non-contributory Family History Relations & Conditions If Any: Relation not specified for: *No pertinent family history Psychosocial History Who Do You Live With? spouse Services at Home: Nursing Primary Language: Swedish ETOH Use: denies use Illicit Drug Use: denies illicit drug use Functional Ability ADLs Independent: dressing, eating, toileting, bathing. Ambulation: cane, walker IADLs Independent: shopping, housework, finances, food prep, telephone, transportation , medication admin. Exam & Diagnostic Data Vital Signs and I&O Vital Signs Date Time Temp Pulse Resp B/P B/P Pulse O2 O2 Flow FiO2 Mean Ox Delivery Rate 10/04 1343 97.0 99 18 167/74 97 Room Air 10/04 1111 97.6 109 18 143/83 99 Room Air 10/04 0831 97.0 84 20 170/96 97 Room Air Intake & Output 10/04 1600 10/04 0800 10/04 0000 10/03 1600 10/03 0800 10/03 0000 Intake Total 0 Output Total Balance 0 Intake, Oral 0 Patient 102 lb Weight Physical Exam: gen- nad, sleeping card- s1s2 irreg irreg pulm- bc throughout abd- softly distended, nontender anorectal- skin tags externally, nt, no brbpr. DANIEL: hard formed brown stool in vault, no blood, manually disimpacted. (Disimpaction stoppped per pts request, as her chonic back pain made it difficult for her to lie in the position for ectended period of time). Last 24 Hours of Labs: Laboratory Tests 10/04 10/04 1430 1201 Chemistry Lactic Acid Cancelled Urines Urine Color (YEL,AMB,STR) YEL Urine Clarity (CLEAR) CLEAR Urine pH (5.0 - 8.0) 7.0 Ur Specific [place] (1.001 - 1.035) 1.010 Urine Protein (NEG,<30 MG/DL) 30 H Urine Ketones (NEG) 15 H Urine Nitrite (NEG) NEG Urine Bilirubin (NEG) NEG Urine Urobilinogen (0.1 - 1.0 EU/dl) 0.2 Ur Leukocyte Esterase (NEG) NEG Ur Microscopic SEDIMENT EXAMINED Urine RBC (0 - 5 /HPF) 10-15 H Urine WBC (0 - 2 /HPF) 5-10 H Ur Epithelial Cells (NONE,FEW) MOD H Urine Hemoglobin (NEG) MOD H Urine Glucose (N MG/DL) NEG 10/04 0936 Chemistry Sodium (137 - 145 mmol/L) 130 L Potassium (3.5 - 5.1 mmol/L) 4.7 Chloride (98 - 107 mmol/L) 97 L Carbon Dioxide (22 - 30 mmol/L) 26 Anion Gap (5 - 16) 7 BUN (7 - 17 mg/dL) 17 Creatinine (0.5 - 1.0 mg/dL) 0.5 Estimated GFR (>60 ml/min) > 60 BUN/Creatinine Ratio (7 - 25 %) 34.0 H Glucose (65 - 99 mg/dL) 112 H Lactic Acid (0.7 - 2.1 mmol/L) 1.7 Calcium (8.4 - 10.2 mg/dL) 9.6 Total Bilirubin (0.2 - 1.3 mg/dL) 1.1 AST (14 - 36 U/L) 21 ALT (9 - 52 U/L) 30 Alkaline Phosphatase (<127 U/L) 131 H Troponin I (< 0.11 ng/ml) < 0.01 Total Protein (6.3 - 8.2 g/dL) 7.0 Albumin (3.5 - 5.0 g/dL) 3.8 Globulin (1.9 - 4.2 gm/dL) 3.2 Albumin/Globulin Ratio (1.1 - 2.2 %) 1.2 Hematology CBC w Diff MAN DIFF ORDERED WBC (4.8 - 10.8 /CUMM) 8.8 RBC (4.20 - 5.40 /CUMM) 4.37 Hgb (12.0 - 16.0 G/DL) 13.0 Hct (37 - 47 %) 38.4 MCV (81.0 - 99.0 FL) 88.0 MCH (27.0 - 31.0 PG) 29.7 MCHC (33.0 - 37.0 G/DL) 33.7 RDW (11.5 - 14.5 %) 19.7 H Plt Count (130 - 400 /CUMM) 201 MPV (7.4 - 10.4 FL) 9.3 Gran % (42.2 - 75.2 %) 84.7 H Lymphocytes % (20.5 - 51.1 %) 7.2 L Monocytes % (1.7 - 9.3 %) 7.7 Eosinophils % (0 - 5 %) 0.3 Basophils % (0.0 - 2.0 %) 0.1 Absolute Granulocytes (1.4 - 6.5 /CUMM) 7.4 H Absolute Lymphocytes (1.2 - 3.4 /CUMM) 0.6 L Absolute Monocytes (0.10 - 0.60 /CUMM) 0.7 H Absolute Eosinophils (0.0 - 0.7 /CUMM) 0 Absolute Basophils (0.0 - 0.2 /CUMM) 0 Platelet Estimate (ADEQUATE) VERIFIED BY SMEAR Poikilocytosis 1+ Anisocytosis 1+ Ovalocytes 1+ Bard Cells 1+ Elliptocytes 1+ Imaging Results: SERVICE DATE: 10/04/17 EXAM TYPE: CAT - CT ABD & PELVIS W IV CONTRAST EXAMINATION: CT ABDOMEN AND PELVIS WITH CONTRAST CLINICAL INFORMATION: Constipation for one week. Abdominal pain. Nausea and vomiting. Rule out obstruction. COMPARISON: CT scan of the chest dated 11/23/2016. Lumbar spine films dated 09/07/2017. TECHNIQUE: Multidetector CT volumetric acquisition of the abdomen and pelvis was performed after the administration of 95 mL of intravenous Optiray 320. The data set was reformatted in the sagittal and coronal planes and reviewed on an independent workstation. DLP: 254.79 mGy-cm. FINDINGS: LOWER CHEST: There is a large right-sided pleural effusion, decreased in size compared to 11/23/2016 and a small left-sided pleural effusion, similar to the 11/23/2016 exam. Associated compressive atelectatic changes as seen in the right and left lower lobes. Mild dependent atelectasis is also seen in the right middle lobe. The included cardiac silhouette appears enlarged with the right atrial and right ventricular enlargement and to a lesser extent left atrial and left ventricular enlargement seen. There is evidence of right heart failure/elevated right heart pressures with reflux of contrast into dilated intrahepatic IVC and intrahepatic veins seen. LIVER, GALLBLADDER, BILIARY TREE: Liver normal size and diffusely low in attenuation, consistent with hepatic steatosis. Liver parenchyma is heterogeneous and slightly difficult to evaluate due to beam hardening artifact. Several ill-defined low-attenuation masses are seen in the right and left lobes of the liver, most defined of which is seen in hepatic segment 2, measuring 0.9 cm in diameter (series 2, image 20). These are too small to further characterize. No intra-or extrahepatic ductal dilatation. Hepatic and portal veins patent. Gallbladder partially distended and within normal limits. PANCREAS: The pancreas is diffusely atrophic and demonstrates mild dilatation of the pancreatic duct, measuring up to 0.3 cm in the pancreatic tail and 0.5 cm in the pancreatic body. There is a subtle 0.7 cm diameter low-attenuation mass in the pancreatic head neck junction (series 2, image 29; series 602, image 21), too small to further characterize No peripancreatic edema or stranding. SPLEEN: Normal size and appearance. Splenic vein patent. ADRENAL GLANDS AND KIDNEYS: Adrenal glands normal. Kidneys bilaterally symmetric in size and function. No focal mass, hydronephrosis, nephrolithiasis or perinephric stranding. URETERS AND BLADDER: Ureters decompressed and within normal limits. Bladder partially distended and within normal limits. PELVIC ORGANS: Locules of air are seen within the vagina, likely due to exogenous introduction. Uterus is atrophic and slightly deviated toward the right side. Ovaries bilaterally are not discretely identified and are likely atrophic. No suspicious adnexal mass is seen. GASTROINTESTINAL TRACT: There is marked dilatation and fluid distention of the cecum and ascending colon up to the hepatic flexure level, measuring up to 8 cm in diameter. Thinning of the colonic wall is seen without evidence of pneumatosis or bowel perforation. No surrounding mesenteric inflammatory changes are noted. There is a small amount of pericecal fluid, which is seen extending into a right inguinal hernia, where the fluid collection measures 4.2 x 3.1 cm in diameter. There is also tortuosity and gaseous distention of the transverse colon. The descending and sigmoid colon colon are decompressed and filled with large amounts of fecal material. Small bowel loops are also decompressed and unremarkable. The appendix is not discretely identified. LYMPHOVASCULAR STRUCTURES: Abdominal aorta normal in caliber. No periaortic collections. Dense atherosclerotic calcifications of the aorta and branch vessels seen, including at the origins of the celiac axis and SMA and PREM. The SMA and PREM are diminutive but do enhance with contrast. No abdominal or pelvic adenopathy or free fluid collection. BONES: Marked osteopenia and superior endplate compression deformities of the T12 and L1 vertebral bodies are noted, similar to the prior lumbar spine films from 09/07/2017. IMPRESSION: 1. The right colon is markedly dilated and filled with fluid. The transverse colon is markedly distended with air. Descending and rectosigmoid colon are decompressed and filled with a large amount of material. There is also small amount of pericecal fluid, which is seen extending into a right inguinal hernia. Findings may be related to subtle infectious, inflammatory or ischemic colitis. Clinical correlation is requested. 2. Large amount of fecal material in the descending and rectosigmoid colon, consistent with constipation. 3. No evidence of small bowel obstruction. 4. No perforation. 5. Bilateral chronic pleural effusions, larger on the right side and small on the left side with associated dependent atelectasis. 6. Dilated right heart with findings of right heart failure/elevated right heart pressures as discussed above. 7. Scattered low-attenuation masses in the liver, not adequately assessed/characterized on this exam. When the patient is stable, further assessment with MRI scan with and without contrast is recommended. 8. Small indeterminate 0.7 cm low-attenuation mass in the pancreatic head neck junction with mild dilatation of the pancreatic duct. These findings can also be assessed at the time of the above suggested MRI scan. MRCP is also recommended. Assessment/Plan Assessment/Plan A- 86yo with fecal impaction causing obstructive symptoms, sp manual disimpaction. P- rec enemas. Needs meds from below to break up stool now sp disimpaction. May require further bedside disimpaction. Not a surgical emergency and does not require surgical intervention. DW'ed Dr. Sharp. Consult Acknowledgment - Thank you for your consult request.
[2017-10-04 20:11] VITALS: BP 148/84
== END 2017-10-04 20:15 ==
LOC: ERH 08:26
PROVIDERS: Physician Assistant Medical
DX: K59.00 Constipation, unspecified (principal); K76.9 Liver disease, unspecified; K86.9 Disease of pancreas, unspecified; J90 Pleural effusion, not elsewhere classified
CPT/HCPCS: 74177; 81001; 93005; 93010; 96372; 96374; 96375; 96376; J0131; J2405

== ENCOUNTER 2017-10-08 14:22 | Observation (INO) | payer OTHER, MEDICARE ==
[~2017-10-08] VITALS: Ht 162.6 cm; Wt 45.8 kg
[~2017-10-08 14:22] MED LIST changes: +ACETAMINOPHEN500 M4 PO; +GOLYTELY PACKE1 EACH PO; +VITAMIN D2000 UNI1 PO; +ZOFRAN ODT4 M1 SL
--- NOTE | 2017-10-08 17:52 | ED GI/GU/ABDOMINAL COMPLAINT ---
History of Present Illness General Chief Complaint: Nausea, Vomiting, Diarrhea Stated Complaint: SIB DR. RAM FOR ?GI BLOCKAGE Source: patient Exam Limitations: no limitations Vital Signs & Intake/Output Vital Signs & Intake/Output Vital Signs Date Time Temp Pulse Resp B/P B/P Pulse O2 O2 Flow FiO2 Mean Ox Delivery Rate 10/08 2131 106 20 155/78 94 Room Air 10/08 2004 77 20 188/102 94 Room Air 10/08 1835 98.9 89 20 160/82 99 Room Air 10/08 1429 97.5 77 15 162/89 94 Room Air Room Air Allergies Coded Allergies: alendronate sodium (From FOSAMAX) (RASH 10/08/17) Triage Note: PT TO ED WITH FOR CONSTIPATION. SEEN HERE FOR SAME A FEW DAYS AGO. PT HAS NOT HAD BM X 10 DAYS. +NAUSEA WITHOUT VOMITING. Triage Nurses Notes Reviewed? yes LMP (ages 10-50): unknown ? n Is pt currently ? No Onset: Abrupt Duration: day(s): (11), constant, continues in ED, getting worse Timing: recent history Quality/Severity: dullness, fullness Severity Numbers: 8 Location: generalized abdomen Radiation: no radiation Activities at Onset: none Prior Abdominal Problems: similar symptoms Past Sexual History: Unobtainable at this time No Modifying Factors: none Modifying Factors: Worsens With: movement, palpation. Associated Symptoms: nausea/vomiting, constipation HPI: 86-year-old female past medical history of chronic back pain, a fibrillation, chronic constipation presents for evaluation of worsening constipation. Patient reports that she has not had a bowel movement about 11 days. She states that she has had gradually worsening abdominal distention pain and nausea. States her appetite has been decreased due to nausea. She is tolerating some fluids but less than usual. She states she has not had any diarrhea any bowel movement at all in 10 or 11 days. She has taken multiple [id number] and prescription medications without any improvement including go lightly. She also reports worsening of her chronic back pain related to compression fractures. The pain is worse with movement she's been taking tramadol at home with only mild improvement. She denies any fever chest pain shortness of breath urinary symptoms or any other associated symptoms. (Michael CAMEJO,Jospeh) Reconcile Medications Acetaminophen 500 MG TABLET 2 TAB PO PRN PAIN (Reported) Atorvastatin Calcium 40 MG TABLET 1 TAB PO MONFRI CHOLESTEROL (Reported) Dabigatran (Pradaxa) 75 MG CAPSULE 1 CAP PO BID A FIB (Reported) Docusate Sodium (Colace) 100 MG CAPSULE 1 CAP PO BID STOOL SOFTENER (Reported ) Metoprolol Tartrate 25 MG TABLET 0.5 TAB PO QAM HEART/BP (Reported) Ondansetron (Zofran Odt) 4 MG TAB.RAPDIS 1 TAB SL TID PRN NAUSEA Polyethylene Glycol 3350 (Miralax) 17 GRAM POWD.PACK 1 PAC PO BID CONSTIPATION (Reported) dissolve in water Sennosides (Senna) 8.6 MG TABLET 1 TAB PO QHS CONSTIPATION (Reported) Tramadol HCl 50 MG TABLET 50 MG PO Q6 PRN PAIN SCALE 7-10 (SEVERE) (Kristen JAMES,Maikel Chacon) Past History Travel History Traveled to [place] past 21 day No Medical History Any Pertinent Medical History? see below for history Neurological: TIA (hx) Cardiovascular: AFIB, hypertension Musculoskeletal: chronic back pain History of MRSA: No History of VRE: No History of CDIFF: No Surgical History Surgical History: non-contributory Psychosocial History Who do you live with Spouse Services at Home Nursing What is your primary language Citizen Of [place] Tobacco Use: Never used ETOH Use: denies use Illicit Drug Use: denies illicit drug use Family History Family History, If Any: Relation not specified for: *No pertinent family history Hx Contributory? No (Joseph Lockhart) Review of Systems Review of Systems Constitutional: Reports: no symptoms. EENTM: Reports: no symptoms. Respiratory: Reports: no symptoms. Cardiovascular: Reports: no symptoms. GI: Reports: see HPI, abdominal pain, bloating, constipation, distention, nausea. Genitourinary: Reports: no symptoms. Musculoskeletal: Reports: see HPI, back pain, muscle pain, muscle stiffness. Skin: Reports: no symptoms. Neurological/Psychological: Reports: no symptoms. Hematologic/Endocrine: Reports: no symptoms. Immunologic/Allergic: Reports: no symptoms. All Other Systems: Reviewed and Negative (Joseph Lockhart) Physical Exam Physical Exam General Appearance: well developed/nourished, alert, awake, mild distress, thin Head: atraumatic, normal appearance Eyes: Bilateral: normal appearance, PERRL, EOMI. Ears, Nose, Throat, Mouth: hearing grossly normal, moist mucous membrane Neck: normal inspection, supple, full range of motion Respiratory: normal breath sounds, chest non-tender, no respiratory distress, lungs clear Cardiovascular: regular rate/rhythm, normal peripheral pulses Peripheral Pulses: 2+ radial (R), 2+ radial (L) Gastrointestinal: normal bowel sounds, soft, no organomegaly, distention, tenderness (diffuse ) Rectal: normal inspection, normal rectal tone, no masses. Soft stool felt in the rectal vault Back: normal inspection, normal range of motion, no vertebral tenderness Extremities: normal range of motion Neurologic/Psych: no motor/sensory deficits, awake, alert, oriented x 3 Skin: intact, normal color, warm/dry Core Measures ACS in differential dx? No Sepsis Present: No Sepsis Focused Exam Completed? No (Michael CAMEJO,Joseph) Progress Differential Diagnosis: AAA, appendicitis, biliary colic, bowel obstruction, colon cancer, cholecystitis, diverticulitis, gastritis, hernia, ischemic bowel, inflamm bowel dis, kidney stone, pancreatitis, peptic ulcer, PUD/GERD, SBO, UTI/ pyelo Plan of Care: Orders Procedure Date/time Status LACTIC ACID 10/08 2030 Active Add-on Test (ER Only) 10/08 2017 Active Add-on Test (ER Only) 10/08 2012 Active URINE OSMOLALITY 10/08 2012 Active URINE LYTES, SPOT 10/08 2012 Active Enema 10/08 195 Active PARTIAL THROMBOPLASTIN TIME 10/08 1918 Complete PROTHROMBIN TIME 10/08 1918 Complete SERUM OSMOLALITY 10/08 1918 Complete EKG 10/08 1831 Active Add-on Test (ER Only) 10/08 1821 Active URINALYSIS 10/08 1731 Active TROPONIN LEVEL 10/08 1731 Complete LACTIC ACID 10/08 1731 Complete COMPREHENSIVE METABOLIC PANEL 10/08 1731 Complete CBC WITHOUT DIFFERENTIAL 10/08 1731 Complete Current Medications Sig/Chava Start time Last Medication Dose Stop Time Status Admin Sodium Phosphate 1 UNIT ONCE ONE 10/08 1930 CAN 10/08 193 Laboratory Tests 10/08/172124: Urine Color Pending, Urine Clarity Pending, Urine pH Pending, Ur Specific [place] Pending, Urine Protein Pending, Urine Ketones Pending, Urine Nitrite Pending, Urine Bilirubin Pending, Urine Urobilinogen Pending, Ur Leukocyte Esterase Pending, Ur Microscopic SEDIMENT EXAMINED, Urine RBC Pending, Urine Hemoglobin Pending, Urine Glucose Pending 10/08/172124: Urine Osmolality Pending, Ur Random Creatinine Pending, Ur Random Sodium Pending , Ur Random Potassium Pending, Fraction Sodium Excret Pending 10/08/171917: Anion Gap 9, Estimated GFR > 60, BUN/Creatinine Ratio 26.7 H, Glucose 85, Serum Osmolality 269 L, Lactic Acid 1.5, Calcium 9.1, Total Bilirubin 1.3, AST 26, ALT 32, Alkaline Phosphatase 123, Troponin I 0.01, Total Protein 6.8, Albumin 3.7, Globulin 3.1, Albumin/Globulin Ratio 1.2, PT 14.1 H, INR 1.29 H, APTT 46 H 10/08/171825: CBC w Diff NO MAN DIFF REQ, RBC 4.67, MCV 88.6, MCH 29.6, MCHC 33.4, RDW 19.6 H , MPV 9.1, Gran % 73.2, Lymphocytes % 16.9 L, Monocytes % 7.6, Eosinophils % 1.9, Basophils % 0.4, Absolute Granulocytes 6.2, Absolute Lymphocytes 1.4, Absolute Monocytes 0.6, Absolute Eosinophils 0.2, Absolute Basophils 0 Patient seen and evaluated. She has diffuse abdominal pain and distention. She has not had a bowel movement 11 days. Rectal exam shows soft stool in the rectal vault. CT scan shows liquid stool in the colon. Patient was encouraged to try to have a bowel movement. She'll be given a soapsuds enema. Additionally she is hyponatremic level 126. Patient was given a liter of normal saline and IV Tylenol. Serum osmolality added on urine lites and osmolality add -on. Patient will likely require admission. Patient was given a soapsuds enema without significant relief. Repeat rectal exam still shows presence of some soft stool in the rectal vault. Patient signed out to Dr. Peterson pending case management determination observation versus full admit Diagnostic Imaging: Viewed by Me: CT Scan. Discussed w/RAD: CT Scan. Radiology Impression: PATIENT: JACOB MCMILLAN PRESENT AGE: 86 PATIENT ACCOUNT NO: [id number] : [birth year] LOCATION: [facility] ORDERING PHYSICIAN: Esequiel CAMEJO SERVICE DATE: 10/08/17 EXAM TYPE: CAT - CT ABD & PELVIS W/O IV CONTRAS EXAMINATION: CT ABDOMEN AND PELVIS WITHOUT CONTRAST CLINICAL INFORMATION: Nausea, obstruction. COMPARISON: 10/04/2017 TECHNIQUE: Multidetector volumetric imaging was performed from the superior aspect of the liver through the pubic symphysis. Sagittal and coronal reformatted images were obtained on the technologist's workstation. DLP: 258 mGy-cm FINDINGS: LUNG BASES : Moderate right and small left pleural effusions, similar to previous. Biatrial enlargement. LIVER, GALLBLADDER, AND BILIARY TREE: Peripheral hypoattenuating structures in the right and left hepatic lobes are less conspicuous due to the absence of intravenous contrast. The gallbladder is unremarkable with no evidence of radiopaque gallstones, gallbladder wall thickening, or obvious pericholecystic inflammatory changes. PANCREAS: Small cyst anterior to the pancreatic body is unchanged. SPLEEN: Unremarkable. ADRENAL GLANDS: Left adrenal gland appears diffusely thickened, unchanged. KIDNEYS AND URETERS: The kidneys are normal in size, shape, and attenuation. No hydronephrosis, hydroureter, or calculi seen. No perinephric stranding. BLADDER: Unremarkable. GASTROINTESTINAL TRACT: Liquid stool is again present throughout the large bowel. Dilatation of the ascending and transverse colon has decreased. Distal stool burden has decreased. Small bowel loops are nondilated. ABDOMINAL WALL: Fluid within the right inguinal region is again demonstrated, most likely ascites within a hernia. LYMPH NODES: Normal. VASCULAR: Diffuse atherosclerotic calcifications. PELVIC VISCERA: Unremarkable. OSSEOUS STRUCTURES: Osteopenia. The T10 compression fracture has progressed. Superior endplate fractures of T12 and L1 are similar. No change in the inferior endplate fracture of L2. IMPRESSION: Mildly dilated large bowel with liquid stool has slightly decreased. Increase in the compression deformity of the T10 vertebral body with similar-appearing additional endplate fractures as described. Moderate right and small left pleural effusion, unchanged. DICTATED BY: Lenny Lang MD DATE/TIME DICTATED:10/08/171836 RN [facility] DATE/TIME TRANSCRIBED:1836 CONFIDENTIAL, DO NOT COPY WITHOUT APPROPRIATE AUTHORIZATION. 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 I have discussed her case with the hospitalist. (Kristen JAMES,Maikel Chacon) Departure Departure Disposition: STILL A PATIENT Condition: Stable Clinical Impression Primary Impression: Hyponatremia Secondary Impressions: Constipation Qualifiers: Constipation type: unspecified constipation type Qualified Code: K59.00 - Constipation, unspecified Referrals: Dav JAMES,Christo Casiano (PCP/Family) Departure Forms: Customer Survey General Discharge Information (Joseph Lockhart) Observation Note Spoke With: Abbi Reyes MD Patient In: Non-ED OBS Care Area Rationale for Observation: My rational for observation is as follows patient presents for evaluation of abdominal pain nausea and abdominal distention. Her evaluation shows hyponatremia placing her at risk of generalized weakness muscle fasciculations tremors and falling. Given the patient's age and medical comorbidities I do not feel she is a good candidate for outpatient management at this time. I feel she would have difficulty in implants with outpatient treatmenT Plan and could potentially return in worse clinical condition. I feel she requires hospitalization for IV normal saline and serial sodium determinations to assure normalization. Patient's medications and dietary habits should be reviewed and adjusted accordingly. If patient's hyponatremia does not respond to dietary modifications then nephrology consultation should be considered.. (Kristen JAMES,Maikel Chacon)
[2017-10-08 18:44] LABS: ABSOLUTE BASOPHIL COUNT 0 /CUMM (0.0-0.2); ABSOLUTE EOSINOPHIL COUNT 0.2 /CUMM (0.0-0.7); ABSOLUTE GRANULOCYTE CT 6.2 /CUMM (1.4-6.5); ABSOLUTE LYMPH COUNT 1.4 /CUMM (1.2-3.4); ABSOLUTE MONOCYTE COUNT 0.6 /CUMM (0.10-0.60); BASOPHIL % 0.4 % (0.0-2.0); EOSINOPHIL % 1.9 % (0-5); GRANULOCYTE % 73.2 % (42.2-75.2); HEMATOCRIT 41.4 % (37-47); MEAN CORPUSCULAR HGB 29.6 PG (27.0-31.0); MEAN CORPUSCULAR HGB CONC 33.4 G/DL (33.0-37.0); MEAN CORPUSCULAR VOLUME 88.6 FL (81.0-99.0); MEAN PLATELET VOLUME 9.1 FL (7.4-10.4); PLATELET COUNT 273 /CUMM (130-400); RBC DISTRIBUTION WIDTH 19.6 % (11.5-14.5); RED BLOOD CELL CT 4.67 /CUMM (4.20-5.40); WHITE BLOOD CELL COUNT 8.5 /CUMM (4.8-10.8)
--- NOTE | 2017-10-08 19:04 | CT SCAN REPORT ---
EXAMINATION: CT ABDOMEN AND PELVIS WITHOUT CONTRAST CLINICAL INFORMATION: Nausea, obstruction. COMPARISON: 10/04/2017 TECHNIQUE: Multidetector volumetric imaging was performed from the superior aspect of the liver through the pubic symphysis. Sagittal and coronal reformatted images were obtained on the technologist's workstation. DLP: 258 mGy-cm FINDINGS: LUNG BASES: Moderate right and small left pleural effusions, similar to previous. Biatrial enlargement. LIVER, GALLBLADDER, AND BILIARY TREE: Peripheral hypoattenuating structures in the right and left hepatic lobes are less conspicuous due to the absence of intravenous contrast. The gallbladder is unremarkable with no evidence of radiopaque gallstones, gallbladder wall thickening, or obvious pericholecystic inflammatory changes. PANCREAS: Small cyst anterior to the pancreatic body is unchanged. SPLEEN: Unremarkable. ADRENAL GLANDS: Left adrenal gland appears diffusely thickened, unchanged. KIDNEYS AND URETERS: The kidneys are normal in size, shape, and attenuation. No hydronephrosis, hydroureter, or calculi seen. No perinephric stranding. BLADDER: Unremarkable. GASTROINTESTINAL TRACT: Liquid stool is again present throughout the large bowel. Dilatation of the ascending and transverse colon has decreased. Distal stool burden has decreased. Small bowel loops are nondilated. ABDOMINAL WALL: Fluid within the right inguinal region is again demonstrated, most likely ascites within a hernia. LYMPH NODES: Normal. VASCULAR: Diffuse atherosclerotic calcifications. PELVIC VISCERA: Unremarkable. OSSEOUS STRUCTURES: Osteopenia. The T10 compression fracture has progressed. Superior endplate fractures of T12 and L1 are similar. No change in the inferior endplate fracture of L2. IMPRESSION: Mildly dilated large bowel with liquid stool has slightly decreased. Increase in the compression deformity of the T10 vertebral body with similar-appearing additional endplate fractures as described. Moderate right and small left pleural effusion, unchanged.
[2017-10-08 20:37] LABS: PT 14.1 SEC (9.4-12.5); PTT 46 SEC (25-37)
[2017-10-08] MEDS ORDERED: MIRALAX17 G1 PO (21:29)
[2017-10-08] MEDS ORDERED: COLACE100 M1 PO (21:29)
[2017-10-08] MEDS ORDERED: SENNA8.6 M3 PO (21:30)
--- NOTE | 2017-10-08 22:16 | History & Physical ---
ChristianHampshire 10/08/17 2211: General Information and HPI MD Statement: I have seen and personally examined JACOB MCMILLAN and documented this H&P. The patient is a 86 year old F who presented with a patient stated chief complaint of worsening back pain, constipation and dizziness []. Source of Information: patient, old records Exam Limitations: poor historian History of Present Illness: 86 YO F with PMH of TIA, HTN, HLD, A.fib on pradaxa and chronic back pain brought to ED by her with progressively worsening back pain, constipation for last 1 week and dizziness for last 2 days. Patient reported that she was in her usual state of health 2 weeks back when she fell down and hurt her back. Patient reported that although her back pain is going on for a long time but since after fall is progressively worsening. She reported 8/10 back pain, sharp, radiating to the bottom, aggravated by movement and relieved a little bit with rest. Patient reported that she tried Tylenol at home but it didn't work. She endorsed that her normal bowel movement routine is 1 in a week. But she reported that since her backache worsening she didn't able to move her bowel more than a week. Due to constipation she noticed having bloating and was not able to drink or eat normally. Patient also endorsed that for last 2 days she is feeling dizzy without loss of consciousness or fall. Patient usually walks with the help of walker at home and she is living with her . Patient denied any chest pain, short of breath, vomiting, abdominal pain, loss of consciousness, head injury, bowel incontinence, tic bite, sick contact and dysuria. Patient was recently admitted in ED due to constipation secondary to fecal impaction. During that admission manual evacuation of fecal matter was done. Last time patient was admitted into the hospital in October 2017 when she presented with syncope due to vasovagal response while straining during defecation. Last echocardiogram was done in 2017 there is showing ejection fraction more than 55% with moderate to severe tricuspid regurgitation and right ventricular systolic pressure more than 50 mmHG. ED course: Vitals: Temperature 97.5, pulse 77, respiratory rate 15, blood pressure 162/89, oxygen saturation 94% on room air. Labs: WBC count 8.5, hemoglobin 13.8, hematocrit 41.4, platelet count 273, sodium 126, potassium 4.1, BUN 16, creatinine 0.6, BUN/creatinine ratio 26.7, glucose 85, seromuscular T2 69, lactic acid 1.5, calcium 9.1, total bilirubin 1.3, AST 26, ALT 32, alkaline phosphatase 123, troponin 0.01, PT 14.1, INR 129. Patient received 1L bolus of normal saline in ED. Allergies/Medications Allergies: Coded Allergies: alendronate sodium (From FOSAMAX) (RASH 10/08/17) Home Med list Acetaminophen 500 MG TABLET 2 TAB PO PRN PAIN (Reported) Atorvastatin Calcium 40 MG TABLET 1 TAB PO MONFRI CHOLESTEROL (Reported) Dabigatran (Pradaxa) 75 MG CAPSULE 1 CAP PO BID A FIB (Reported) Docusate Sodium (Colace) 100 MG CAPSULE 1 CAP PO BID STOOL SOFTENER (Reported ) Metoprolol Tartrate 25 MG TABLET 0.5 TAB PO QAM HEART/BP (Reported) Ondansetron (Zofran Odt) 4 MG TAB.RAPDIS 1 TAB SL TID PRN NAUSEA Polyethylene Glycol 3350 (Miralax) 17 GRAM POWD.PACK 1 PAC PO BID CONSTIPATION (Reported) dissolve in water Sennosides (Senna) 8.6 MG TABLET 1 TAB PO QHS CONSTIPATION (Reported) Tramadol HCl 50 MG TABLET 50 MG PO Q6 PRN PAIN SCALE 7-10 (SEVERE) Past History Travel History Traveled to [place] past 21 day No Medical History Neurological: TIA (hx) Cardiovascular: AFIB, hypertension Musculoskeletal: chronic back pain History of MRSA: No History of VRE: No History of CDIFF: No Surgical History Surgical History: non-contributory Past Family/Social History Family History Relations & Conditions if any Relation not specified for: *No pertinent family history Psychosocial History Who Do You Live With? spouse Services at Home: Nursing Primary Language: Occitan ETOH Use: denies use Illicit Drug Use: denies illicit drug use Functional Ability ADLs Independent: dressing, eating, toileting, bathing. Ambulation: cane, walker IADLs Independent: shopping, housework, finances, food prep, telephone, transportation , medication admin. Sexual History Past Sexual History Unobtainable at this time Review of Systems Review of Systems Constitutional: Reports: see HPI. EENTM: Reports: no symptoms. Cardiovascular: Reports: no symptoms. Respiratory: Reports: no symptoms. GI: Reports: constipation. Genitourinary: Reports: no symptoms. Musculoskeletal: Reports: back pain. Skin: Reports: no symptoms. Neurological/Psychological: Reports: no symptoms. Hematologic/Endocrine: Reports: no symptoms. Exam & Diagnostic Data Last 24 Hrs of Vital Signs/I&O Vital Signs Date Time Temp Pulse Resp B/P B/P Pulse O2 O2 Flow FiO2 Mean Ox Delivery Rate 10/08 2130 106 20 155/78 94 Room Air 10/08 2004 77 20 188/102 94 Room Air 10/08 1835 98.9 89 20 160/82 99 Room Air 10/08 1429 97.5 77 15 162/89 94 Room Air Room Air Intake & Output 10/08 1600 10/08 0800 10/08 0000 Intake Total Output Total Balance Patient 102 lb Weight Weight Reported by Patient Measurement Method Physical Exam General Appearance Alert, Oriented X3, Cooperative Skin No Rashes Skin Temp/Moisture Exam: Warm/Dry Sepsis Skin Exam (color): Normal for Ethnicity HEENT Atraumatic, PERRLA, EOMI Neck Supple Cardiovascular Normal S1, Normal S2 Lungs Clear to Auscultation, Normal Air Movement Abdomen Soft, No Tenderness Neurological Normal Speech, Strength at 5/5 X4 Ext, Normal Tone Extremities No Edema Assessment/Plan Assessment: 86 YO F with PMH of TIA, HTN, HLD, A.fib on pradaxa and chronic back pain brought to ED by her with progressively worsening back pain, constipation for last 1 week and dizziness for last 2 days. We will keep the patient under observation on general medicine floor and treat for back pain, hyponatremia and constipation. Moderate hyponatremia: -Possibly due to pain induced SIADH considering patient's serum osmolality 269, urine osmolality 344 with urine sodium excretion 85. But it could be due to hypovolemic hyponatremia. -Better control of pain -Fluid restriction if sodium level decreases even after fluid challenge, then treat for SIADH due to pain. -Patient already received 1 L normal saline in ED. We will check sodium level if patient gets better with IV normal saline then possibly due to hypovolemic hyponatremia. -We will check her sodium level in 4-6 hourly. Acute on chronic Back pain: -Considering her recent H/O fall then may aggrevated her chronic back pain. -No saddle anesthesia, normal anal sphicter tone. -Follow pain pathway -Continue tramadol -PT eval in am Chronic constipation: -We will continue laxatives, mirolax and senna. -Avoid excessive opiate use -TSH level Incidental low attenuatted masses in liver on CT scan: -Incidental findings on CT scan done in 10/04/2017 and also 0.7cm mass in pancrease. Patient was suggested for further evaluation with MRI. -Outpatient follow up History of A. fib: -Continue Pradaxa History of hypertension and hyperlipidemia: -We will continue metoprolol and atorvastatin DVT prophylaxis: Mechanical and subcutaneous heparin CODE STATUS: Full code As Ranked By This Provider Problem List: 1. Hyponatremia 2. Constipation Qualifiers Constipation type: unspecified constipation type Qualified Code: K59.00 - Constipation, unspecified 3. Back pain Core Measures/Misc (04/12) Acute Coronary Syndrome ACS Diagnosis: No Congestive Heart Failure Congestive Heart Failure Diagnosis No Cerebrovascular Accident CVA/TIA Diagnosis: No VTE (View Protocol) VTE Risk Factors Age>40 No Mechanical VTE Prophylaxis d/t N/A MechProphylax Ordered No VTE Pharm Prophylaxis d/t NA PharmProphylax ordered Sepsis (View protocol) Sepsis Present: No Asya Dejesus 10/08/17 2226: Resident Review Statement Resident Statement: examined this patient, discussed with process engineering intern Other Findings: Patient is 86-year-old female with past medical history significant for atrial fibrillation on pradaxa, hypertension, TIA, chronic constipation, chronic back pain due to multiple compression fractures came in with chief complaint of dizziness, worsening back pain and constipation. She had last ER visit on October 04 and digital impaction of hard stool was done. She had recent mechanical fall almost 2 months ago without any head trauma or injury. She use walker at home for walk and she did not mention any gait instability. Patient is poor historian. She denied use of opiates at home. She was continuously moaning and complaining of back pain during interview. She is grading her pain 8 out of 10, continuous nonradiating to lower extremities or associated neurological deficit. She admits that she was not eating and drinking enough lately. She denied any problem pain, nausea or vomiting. She denied chest pain , palpitations, headache, cough. Vital signs on admission were temperature 97.5, pulse 77, respiratory rate 50, blood pressure was 2-89 and she was saturating 94% on room air. Labs are significant for C count 8.5, hemoglobin 13.8, hematocrit 41.4, platelet count of 273, sodium 126 which was 130 on October 04 and was 138 September 15. Potassium 4.1, BUN 16, creatinine 0.6. Serum osmolality 269. Urine osmolality 344, randoms urine sodium 55 and fractional sodium excretion 1.4. CT abdomen and pelvis showed increase in compression deformity of T10 vertebral body, moderate right and small left pleural effusion which is unchanged. EKG showed atrial fibrillation with no acute ST-T wave changes Physical examination showed Alert and oriented but slightly forgetful Head atraumatic HEENT PERRLA, atraumatic Neck supple Chest clear to auscultate Heart S1-S2 normal, irregularly irregular rhythm Abdomen soft nontender with normal bowel sounds and no organomegaly Lower extremities showed no edema or cyanosis intact sensations There is documented normal rectal tone by ER physician. Patient se hadvere back pain during examination and was not willing to change posture Assessment and plan 86-year-old female with severe chronic back pain, chronic constipation , atrial fibrillation, dyslipidemia, hypertension came in with complaints of dizziness, constipation and severe back pain. On lab analysis found to have worsening hyponatremia could be due to volume depletion/hypovolemic hyponatremia with SIADH needs to be ruled out. Problem list 1. Hyponatremia 2. Severe chronic back pain with worsening T10 compression fracture 3. Hypertension 4. History of atrial fibrillation on anticoagulation Plan 1. We will keep her in observation for 24 hours and will watch for sodium levels. Patient was given 1 L of normal saline in ED and we'll recheck her sodium levels if her levels are corrected then hyponatremia could be due to hypovolemic hyponatremia and we will continue maintenance fluids but if her levels at first then it could be due to SIADH due to severe pain and we will fluid restrict her and will monitor sodium levels. We will avoid rapid correction. 2. We will request PT evaluation in a.m. 3. We'll continue her home medications. 4. Adequate pain medications 5. Due to severe constipation we will avoid opiates. Heart healthy diet Pharmacological DVT prophylaxis Patient is full code Abbi Reyes 10/09/17 0254: Attending MD Review Statement Attending Statement Attending MD Statement: examined this patient, discuss w/resident/PA/[employer], agreed w/resident/PA/[employer], reviewed EMR data (avail), reviewed images, amended to note Attending Assessment/Plan: CC: Constipation PMH: HTN, A. fib, back pain, history of syncope, history of TIA Patient is poor historian. She appears sleepy probably secondary to a dose of Ativan she received in ER but she does not provide a lot of history details. She states that she came to ER for dizziness since last 2 days, on and off, non- positional, not associated with tinnitus or vision problems or headache. She did not have actual loss of consciousness, presyncope or fall. She also complains of constipation and that she did not have bowel movement in last 10 days, she is chronically constipated. She also has chronic back pain which is recently worsened since last 1 week, it's in the middle of the back, nonradiating. She fell down approximately 2 weeks back, after her previous hospitalization for syncope. She denies any chest pain, chest tightness, palpitations, nausea, vomiting. Vitals: Afebrile, pulse in 70s, RR 18, blood pressure 162/89, saturating well on room air. On exam: A O 3, cooperative, no acute distress, neck supple, JVD normal, PERRLA , EOMI, no lymphadenopathy, mucosa moist, complete neurological examination unremarkable, strength 5/5 all muscle groups, reflexes normal, sensation intact, cranial nerves intact, SLR positive because of back pain, no saddle anesthesia, rectal tone normal, no dependent edema, no obvious skin rashes or inflammation CVS: S1-S2, irregular. RS: Clear to auscultate bilaterally. Abdomen: Soft, NT, ND, bowel sounds present. CT abdomen and pelvis without IV contrast 1. Mildly dilated large bowel with liquid stool has slightly decreased. 2. Increase in the compression deformity of the T10 vertebral body with similar-appearing additional endplate fractures as described. 3. Moderate right and small left pleural effusion, unchanged. Assessment and plan 86-year-old female, poor historian, multiple comorbidities, presented in ER for multiple complaints. Dizziness since last 2 days, back pain worsening since last 1 week, constipation since last 10 days, and a fall 2 weeks back. 1. Dizziness: No syncope or presyncope, no recent falls, ECG normal. Patient did not complain of dizziness to ER provider and start to put mentioned that symptoms only after receiving Ativan, should be reassessed. 2. Constipation: Patient states that she is constipated since last 10 days but according to medical records agent was seen in ER on October 04, was found to have stool impaction, underwent manual disimpaction and soap water enema, at that time according to notes patient refused to use, more or even get off the bed to attempt a bowel movement. Currently in ER she is again refusing to use bedside commode or bedpan and had incontinent episode after soap water enema. She had 2 bowel movements. This constipation could be secondary to tramadol, she doesn't afford to be on any other narcotics. Will continue to watch, continue stool softeners, continue oral hydration and diet. 3. Fall: Patient does not describe the exact mechanism of fall, denies loss of consciousness or any trauma. Denies that her back pain is worse after the fall. She was seen in ER or days back when there is no mention of recent fall. Patient has been evaluated first episode and recent past 4. Back pain: She appears to have back pain since long time, currently on tramadol and Tylenol. Her previous imaging reviewed including MRI done in July 2017. CT scan done today for abdomen and pelvis mentions increased compression deformity of T 10 with similar appearing endplate fracture of T12 and L1. Patient does not have any saddle anesthesia, rectal tone maintained, SLR positive for pain but otherwise exam unremarkable, continue pain management at this time 5. She incidentally found to have sodium of 126. She has moderate hyponatremia which is gradually going down when compared to previous labs her sodium was 138 in month of August, 130 and October 04 and now 126. Serum osmolality 269, urine osmolality 244, urine sodium 85 She is euvolume it, this appears more secondary to his SIADH with pain induced secondary to back pain, or mild dehydration causing hypovolemic hyponatremia. Patient was given a fluid challenge of 1 L normal saline bolus, we will repeat the sodium, see the response and hydrate her with gentle hydration versus fluid restrict according to the sodium correction. Her appetite and diet is good this does not appear to be low solute hyponatremia. 6. Incidental finding of Scattered low-attenuation masses in the liver : On the CT scan done on 10/04/2017, at that time further evaluation with MRI was suggested there was also 0.7 centimeter low attenuated mass on the pancreatic head and neck junction with mild dilation of pancreatic duct. Patient was suggested outpatient evaluation at that time. Transaminases, bilirubin, alkaline phosphatase and normal range, no tenderness on abdominal exam. - Place in observation on Gen. medicine - Check sodium in 6-8 hours ; if if sodium increased then continue gentle hydration of normal saline at 75, if sodium is decreased than 126 then patient when made volume restriction. - Continue daily MiraLAX and senna - Patient may require repeat enema tomorrow - Continue all her medications - Pain management with tramadol and Tylenol, avoid excessive narcotics - Check TSH - Patient has very flat affect, may need evaluation for depression, early dementia - OT PT evaluation
--- NOTE | 2017-10-09 07:27 | PN- Housestaff ---
Kelvin JAMSE,Gisele 10/09/17 0727: Subjective Follow-up For: Constipation -? opiate induced Hyponatremia Dizziness Back pain from T10 compression fracture Subjective: Seen and examined Patient remains in no distress. She is alert and oriented to person, not to place. speaks very little. at bedside, reported about constipation. Review of Systems Constitutional: Reports: see HPI. Observation Re-evaluation Note - 10/09/17, 726 Constipation, Hyponatremia Objective Last 24 Hrs of Vital Signs/I&O Vital Signs Date Time Temp Pulse Resp B/P B/P Pulse O2 O2 Flow FiO2 Mean Ox Delivery Rate 10/09 0311 97.0 72 16 150/79 95 Room Air 10/08 2131 106 20 155/78 94 Room Air 10/08 2005 77 20 188/102 94 Room Air 10/08 1835 98.9 89 20 160/82 99 Room Air 10/08 1429 97.5 77 15 162/89 94 Room Air Room Air Intake & Output 10/09 0800 10/09 0000 10/08 1600 Intake Total Output Total 100 Balance -100 Number 1 Bowel Movements Output, Urine 100 Patient 46.266 kg 46.266 kg Weight Weight Reported by Patient Measurement Method Physical Exam General Appearance: Alert, Cooperative Skin: No Rashes, No Breakdown HEENT: Atraumatic, PERRLA, EOMI Neck: Supple, prominent JVD present Cardiovascular: Normal S1, Normal S2 Lungs: Normal Air Movement, decreased at bases Abdomen: Normal Bowel Sounds, Soft, No Tenderness Extremities: No Clubbing, No Cyanosis Current Medications: Current Medications Sig/Chava Start time Last Medication Dose Route Stop Time Status Admin Acetaminophen 650 MG Q4P PRN 10/08 2345 AC PO Acetaminophen 0 .STK-MED ONE 10/08 1833 DC IV Acetaminophen 1,000 MG ONCE ONE 10/08 1830 DC 10/08 N/A 1 UNIT IV 10/08 1844 1830 Atorvastatin Calcium 40 MG 1700 10/09 1700 AC PO Bisacodyl 10 MG DAILY NEEDED PRN 10/09 1115 AC ME Dabigatran 75 MG BID 10/09 0100 AC 10/09 PO 1007 Docusate Sodium 100 MG BID 10/09 1000 AC 10/09 PO 1007 Lactulose 0 .STK-MED ONE 10/09 1409 DC PO Lactulose 20 GM BID 10/09 1341 AC 10/09 PO 1407 Lorazepam 0 .STK-MED ONE 10/08 1952 DC .ROUTE Lorazepam 1 MG ONCE ONE 10/08 193 DC 10/08 IV 10/08 Magnesium Hydroxide 30 ML AT BEDTIME NEED.. 10/09 1115 PO Metoprolol Tartrate 12.5 MG BID 10/09 1000 AC 10/09 PO 1007 Polyethylene Glycol 17 GM DAILY 10/09 1000 AC 10/09 PO 1007 Prochlorperazine 5 MG ONCE PRN 10/09 1715 AC 10/09 IV 1740 Sodium Chloride 1,000 ML Q13H 10/09 0300 DC 10/09 IV 0310 Sodium Chloride 1,000 ML BOLUS ONE 10/08 1830 DC 10/08 IV 10/08 192 183 Sodium Phosphate 1 UNIT ONCE ONE 10/08 1929 CAN ME 10/08 1930 Tramadol HCl 50 MG Q6 PRN 10/08 2345 AC 10/09 PO 1741 Last 24 Hrs of Lab/Jaime Results Last 24 Hrs of Labs/Mics: Laboratory Tests 10/09/17 0825: Anion Gap 11, Estimated GFR > 60, BUN/Creatinine Ratio 22.5, Serum Osmolality 269 L, TSH 4.330 H, Free T4 1.63, CBC w Diff NO MAN DIFF REQ, RBC 4.41, MCV 87.5, MCH 29.7, MCHC 33.9, RDW 18.7 H, MPV 8.5, Gran % 83.7 H, Lymphocytes % 10.6 L, Monocytes % 5.0, Eosinophils % 0.5, Basophils % 0.2, Absolute Granulocytes 7.6 H, Absolute Lymphocytes 1.0 L, Absolute Monocytes 0.5, Absolute Eosinophils 0, Absolute Basophils 0 10/09/17 0210: Anion Gap 10, Estimated GFR > 60, BUN/Creatinine Ratio 28.0 H 10/08/175: Urinalysis LIGHT H, Urine Color YEL, Urine Clarity HAZY H, Urine pH 7.5, Ur Specific Mckenzie 1.015, Urine Protein NEG, Urine Ketones TRACE H, Urine Nitrite NEG, Urine Bilirubin NEG, Urine Urobilinogen 0.2, Ur Leukocyte Esterase TRACE H , Ur Microscopic SEDIMENT EXAMINED, Urine RBC 1-3, Urine WBC 5-10 H, Ur Epithelial Cells MANY H, Urine Bacteria MOD H, Urine Mucus FEW, Urine Hemoglobin TRACE-INTACT, Urine Glucose NEG 10/08/172124: Urine Osmolality 344, Ur Random Creatinine 29.2, Ur Random Sodium 85, Ur Random Potassium 21.5, Fraction Sodium Excret 1.4 H 10/08/172030: Lactic Acid Cancelled 10/08/171917: Anion Gap 9, Estimated GFR > 60, BUN/Creatinine Ratio 26.7 H, Glucose 85, Serum Osmolality 269 L, Lactic Acid 1.5, Calcium 9.1, Total Bilirubin 1.3, AST 26, ALT 32, Alkaline Phosphatase 123, Troponin I 0.01, Total Protein 6.8, Albumin 3.7, Globulin 3.1, Albumin/Globulin Ratio 1.2, PT 14.1 H, INR 1.29 H, APTT 46 H Assessment/Plan Assessment: 86-year-old female with severe chronic back pain, chronic constipation , atrial fibrillation, dyslipidemia, HTN came in with complaints of dizziness, constipation and severe back pain. On lab analysis found to have worsening hyponatremia. Problem list 1. Hyponatremia - 126 2. Severe chronic back pain with worsening T10 compression fracture 3. Hypertension 4. History of atrial fibrillation on anticoagulation Plan Placed in observation on gen medicine floor Constipation After providing dulcolax suppository, lactulose, milk of mag in addition to miralax - she had a small amount of bowel movement in the evening. We will try to avoid opiates and continue high fiber diet for now. Mildly elevated TSH with normal free T4 * Await complete bowel movement * continue current regimen * Can consider reducing the laxatives on board if spurious diarrhea occurs Hypotonic Hyponatremia She had low serum osmolarity with high urine osmolarity (ADH increased). Further Urine lytes show >40 of Na, After fluid resuscitation no considerable changes. So raising concer for inappropriate elevation of ADH --> SIADH. * Stop fluids * Fluid restriction - 1200ml per day * Monitor Na closely as it appears chronic * Further reasons need to be evlauated Atrial fibrillation Continue Metoprolol tartarte 12.5mg BID and pradaxa 75mg BID Back pain She appears to have back pain since long time, currently on tramadol and Tylenol. Her previous imaging reviewed including MRI done in July 2017. CT scan done today for abdomen and pelvis mentions increased compression deformity of T 10 with similar appearing endplate fracture of T12 and L1. Patient does not have any saddle anesthesia, rectal tone maintained, SLR positive for pain but otherwise exam unremarkable. * continue pain management at this time Incidental finding of Scattered low-attenuation masses in the liver On the CT scan done on 10/04/2017, at that time further evaluation with MRI was suggested there was also 0.7 centimeter low attenuated mass on the pancreatic head and neck junction with mild dilation of pancreatic duct. Patient was suggested outpatient evaluation at that time. Transaminases, bilirubin, alkaline phosphatase and normal range, no tenderness on abdominal exam. DVT prophylaxis Continue Dabigatran 75mg BID Code status full code Heart healthy diet Pharmacological DVT prophylaxis Patient is full code Problem List: 1. Back pain 2. Hyponatremia 3. Liver lesion 4. Constipation Pain Ratin Pain Location: abdomen Pain Goal: Pain 4 or less Pain Plan: n/a Tomorrow's Labs & Rationales: bep for Sona Browne MD,Loreta 10/09/17 1241: Attending MD Review Statement Attending Statement Attending MD Statement: examined this patient, discuss w/resident/PA/SPARKER AND PATCHER, agreed w/resident/PA/SP[employer]ER [employer] PATCHER, reviewed EMR data (avail), discussed with nursing, discussed with case mgmt, reviewed images, amended to note Attending Assessment/Plan: Patient seen and examined, she did not complain of any pain. She denies any complaints otherwise. Sodium is slightly better. Vital Signs Date Time Temp Pulse Resp B/P B/P Pulse O2 O2 Flow FiO2 Mean Ox Delivery Rate 10/09 1204 97.0 93 16 160/86 98 Room Air 10/09 1007 109 177/86 10/09 0951 109 15 177/86 98 Room Air Room Air 10/09 0757 97.8 95 16 170/88 96 Room Air 10/09 0311 97.0 72 16 150/79 95 Room Air 10/08 2131 106 20 155/78 94 Room Air 10/08 2005 77 20 188/102 94 Room Air 10/08 1835 98.9 89 20 160/82 99 Room Air 10/08 1429 97.5 77 15 162/89 94 Room Air Room Air on exam; awake, nad. cv; s1,s2, rrr resp; clear abd; soft, nt, bs+ ext; no edema Laboratory Tests 10/09 10/09 0825 0210 Chemistry Sodium (137 - 145 mmol/L) 129 L 127 L Potassium (3.5 - 5.1 mmol/L) 3.5 4.1 Chloride (98 - 107 mmol/L) 95 L 92 L Carbon Dioxide (22 - 30 mmol/L) 24 25 Anion Gap (5 - 16) 11 10 BUN (7 - 17 mg/dL) 9 14 Creatinine (0.5 - 1.0 mg/dL) 0.4 L 0.5 Estimated GFR (>60 ml/min) > 60 > 60 BUN/Creatinine Ratio (7 - 25 %) 22.5 28.0 H Serum Osmolality (285 - 295 MOSM/KG) 269 L TSH (0.270 - 4.200 uIU/mL) 4.330 H Free T4 (0.85 - 1.93 ng/dL) 1.63 Hematology CBC w Diff NO MAN DIFF REQ WBC (4.8 - 10.8 /CUMM) 9.1 RBC (4.20 - 5.40 /CUMM) 4.41 Hgb (12.0 - 16.0 G/DL) 13.1 Hct (37 - 47 %) 38.6 MCV (81.0 - 99.0 FL) 87.5 MCH (27.0 - 31.0 PG) 29.7 MCHC (33.0 - 37.0 G/DL) 33.9 RDW (11.5 - 14.5 %) 18.7 H Plt Count (130 - 400 /CUMM) 265 MPV (7.4 - 10.4 FL) 8.5 Gran % (42.2 - 75.2 %) 83.7 H Lymphocytes % (20.5 - 51.1 %) 10.6 L Monocytes % (1.7 - 9.3 %) 5.0 Eosinophils % (0 - 5 %) 0.5 Basophils % (0.0 - 2.0 %) 0.2 Absolute Granulocytes (1.4 - 6.5 /CUMM) 7.6 H Absolute Lymphocytes (1.2 - 3.4 /CUMM) 1.0 L Absolute Monocytes (0.10 - 0.60 /CUMM) 0.5 Absolute Eosinophils (0.0 - 0.7 /CUMM) 0 Absolute Basophils (0.0 - 0.2 /CUMM) 0 10/08 Chemistry Lactic Acid Cancelled Urines Urinalysis LIGHT H Urine Color (YEL,AMB,STR) YEL Urine Clarity (CLEAR) HAZY H Urine pH (5.0 - 8.0) 7.5 Ur Specific Mckenzie (1.001 - 1.035) 1.015 Urine Protein (NEG,<30 MG/DL) NEG Urine Ketones (NEG) TRACE H Urine Nitrite (NEG) NEG Urine Bilirubin (NEG) NEG Urine Urobilinogen (0.1 - 1.0 EU/dl) 0.2 Ur Leukocyte Esterase (NEG) TRACE H Ur Microscopic SEDIMENT EXAMINED Urine RBC (0 - 5 /HPF) 1-3 Urine WBC (0 - 2 /HPF) 5-10 H Ur Epithelial Cells (NONE,FEW) MANY H Urine Bacteria (NEG/NONE) MOD H Urine Mucus (FEW,NONE) FEW Urine Hemoglobin (NEG) TRACE-INTACT Urine Osmolality (300 - 1000 MOSM/KG) 344 Ur Random Creatinine (mg/dL) 29.2 Ur Random Sodium (30 - 90 mmol/L) 85 Ur Random Potassium (mmol/L) 21.5 Fraction Sodium Excret (<1% %) 1.4 H Urine Glucose (N MG/DL) NEG 10/08 10/08 1918 1826 Chemistry Sodium (137 - 145 mmol/L) 126 L Potassium (3.5 - 5.1 mmol/L) 4.1 Chloride (98 - 107 mmol/L) 91 L Carbon Dioxide (22 - 30 mmol/L) 25 Anion Gap (5 - 16) 9 BUN (7 - 17 mg/dL) 16 Creatinine (0.5 - 1.0 mg/dL) 0.6 Estimated GFR (>60 ml/min) > 60 BUN/Creatinine Ratio (7 - 25 %) 26.7 H Glucose (65 - 99 mg/dL) 85 Serum Osmolality (285 - 295 MOSM/KG) 269 L Lactic Acid (0.7 - 2.1 mmol/L) 1.5 Calcium (8.4 - 10.2 mg/dL) 9.1 Total Bilirubin (0.2 - 1.3 mg/dL) 1.3 AST (14 - 36 U/L) 26 ALT (9 - 52 U/L) 32 Alkaline Phosphatase (<127 U/L) 123 Troponin I (< 0.11 ng/ml) 0.01 Total Protein (6.3 - 8.2 g/dL) 6.8 Albumin (3.5 - 5.0 g/dL) 3.7 Globulin (1.9 - 4.2 gm/dL) 3.1 Albumin/Globulin Ratio (1.1 - 2.2 %) 1.2 Coagulation PT (9.4 - 12.5 SEC) 14.1 H INR (0.90 - 1.19) 1.29 H APTT (25 - 37 SEC) 46 H Hematology CBC w Diff NO MAN DIFF REQ WBC (4.8 - 10.8 /CUMM) 8.5 RBC (4.20 - 5.40 /CUMM) 4.67 Hgb (12.0 - 16.0 G/DL) 13.8 Hct (37 - 47 %) 41.4 MCV (81.0 - 99.0 FL) 88.6 MCH (27.0 - 31.0 PG) 29.6 MCHC (33.0 - 37.0 G/DL) 33.4 RDW (11.5 - 14.5 %) 19.6 H Plt Count (130 - 400 /CUMM) 273 MPV (7.4 - 10.4 FL) 9.1 Gran % (42.2 - 75.2 %) 73.2 Lymphocytes % (20.5 - 51.1 %) 16.9 L Monocytes % (1.7 - 9.3 %) 7.6 Eosinophils % (0 - 5 %) 1.9 Basophils % (0.0 - 2.0 %) 0.4 Absolute Granulocytes (1.4 - 6.5 /CUMM) 6.2 Absolute Lymphocytes (1.2 - 3.4 /CUMM) 1.4 Absolute Monocytes (0.10 - 0.60 /CUMM) 0.6 Absolute Eosinophils (0.0 - 0.7 /CUMM) 0.2 Absolute Basophils (0.0 - 0.2 /CUMM) 0 A/P; 86 y/o F with pmh sig for TIA, HTN, HLD, A.fib on pradaxa and chronic back pain, admitted with intractable constipation, some dizziness and hyponatremia. Patient also had some generalized weakness and acute on chronic back pain. Patient has been started on bowel regimen. We will try to relieve the constipation. Hyponatremia likely secondary to SIADH. She has been started on some fluid restriction. She has received some IV fluids overnight. We'll monitor the sodium. Continue the rest of the medications. Patient will be seen by physical therapy. She is on Pradaxa for history of A. fib and also for DVT prophylaxis.
[2017-10-09 08:32] LABS: ABSOLUTE BASOPHIL COUNT 0 /CUMM (0.0-0.2); ABSOLUTE EOSINOPHIL COUNT 0 /CUMM (0.0-0.7); ABSOLUTE GRANULOCYTE CT 7.6 /CUMM (1.4-6.5); ABSOLUTE MONOCYTE COUNT 0.5 /CUMM (0.10-0.60); BASOPHIL % 0.2 % (0.0-2.0); EOSINOPHIL % 0.5 % (0-5); GRANULOCYTE % 83.7 % (42.2-75.2); HEMATOCRIT 38.6 % (37-47); MEAN CORPUSCULAR HGB 29.7 PG (27.0-31.0); MEAN CORPUSCULAR HGB CONC 33.9 G/DL (33.0-37.0); MEAN CORPUSCULAR VOLUME 87.5 FL (81.0-99.0); MEAN PLATELET VOLUME 8.5 FL (7.4-10.4); PLATELET COUNT 265 /CUMM (130-400); RBC DISTRIBUTION WIDTH 18.7 % (11.5-14.5); RED BLOOD CELL CT 4.41 /CUMM (4.20-5.40); WHITE BLOOD CELL COUNT 9.1 /CUMM (4.8-10.8)
[2017-10-09 17:00] VITALS: BP 138/81
[2017-10-09 22:04] VITALS: BP 136/63
[2017-10-10 06:01] VITALS: BP 162/90
--- NOTE | 2017-10-10 10:33 | PN- Housestaff ---
Marleni Arroyo MD,David 10/10/17 1033: Subjective Follow-up For: Constipation Hyponatremia Hypokalemia Back pain from T10 compression fracture Subjective: Patient seen and examined at bedside. She is resting comfortably. He had no acute events overnight. She remained afebrile. She is still c/o constipation has according to her she has not moved her bowel in the last 2 days Review of Systems Constitutional: Denies: chills, fever. EENTM: Denies: visual changes. Cardiovascular: Denies: chest pain. Respiratory: Denies: short of breath. Gastrointestinal: Reports: constipation. Denies: diarrhea. Objective Last 24 Hrs of Vital Signs/I&O Vital Signs Date Time Temp Pulse Resp B/P B/P Pulse O2 O2 Flow FiO2 Mean Ox Delivery Rate 10/10 1028 84 162/90 10/10 0601 97.8 84 20 162/90 96 10/09 2204 97.5 80 18 136/63 98 Room Air 10/09 2114 80 134/78 10/09 1700 98.2 77 18 138/81 96 Room Air 10/09 1412 97.4 82 20 163/86 98 Room Air 10/09 1204 97.0 93 16 160/86 98 Room Air Intake & Output 10/10 1600 10/10 0800 10/10 0000 Intake Total 120 410 Output Total Balance 120 410 Intake, Oral 120 410 Number 0 2 Bowel Movements Patient 101 lb Weight Physical Exam General Appearance: Alert, Oriented X3, Cooperative, No Acute Distress Skin Temp/Moisture Exam: Warm/Dry Neck: Supple Cardiovascular: Regular Rate, Normal S1, Normal S2 Lungs: Clear to Auscultation, Normal Air Movement Abdomen: Normal Bowel Sounds, Soft, Mildly distended without tenderness on palpation Neurological: Normal Speech, Sensation Intact Observation Re-evaluation Note - 10/10/17, 1144 Placed in observation on gen medicine floor for on going Hyponatremia, severe chronic back pain with worsening T10 compression fracture, and unresolved contipation. Assessment/Plan Assessment: 86-year-old female with severe chronic back pain, chronic constipation , atrial fibrillation, dyslipidemia, HTN came in with complaints of dizziness, constipation and severe back pain. On lab analysis found to have worsening hyponatremia. Constipation After providing dulcolax suppository, lactulose, milk of mag in addition to miralax - she had a small amount of bowel movement in the evening. We will try to avoid opiates and continue high fiber diet for now. Mildly elevated TSH with normal free T4. Continue current regimen Hypotonic Hyponatremia She had low serum osmolarity 269, with high urine osmolarity (ADH increased). Further Urine lytes show >40 of Na, After fluid resuscitation no considerable changes. So raising concer for inappropriate elevation of ADH --> SIADH. But the possibility of glucocorticoid def is not ruled out yet. Will obtain am Cortisol and also there is sub-clinical hypothyroidism on the current labs therefore attributing it all to SIADH needs to be futher worked up.Currently on Fluid restriction - 1200ml per day. Monitor Na closely as it appears chronic Hypokalemia Will replete K with oral supplementation and recheck Atrial fibrillation Rate controlled No acute episodes of palpitaions Continue Metoprolol tartarte 12.5mg BID and pradaxa 75mg BID Back pain She appears to have back pain since long time, currently on tramadol and Tylenol. Her previous imaging reviewed including MRI done in July 2017. CT scan of abdomen and pelvis mentions increased compression deformity of T 10 with similar appearing endplate fracture of T12 and L1. Patient does not have any saddle anesthesia, rectal tone maintained, SLR positive for pain but otherwise exam unremarkable. continue current pain management. Incidental finding of Scattered low-attenuation masses in the liver On the CT scan done on 10/04/2017, at that time further evaluation with MRI was suggested there was also 0.7 centimeter low attenuated mass on the pancreatic head and neck junction with mild dilation of pancreatic duct. Patient was suggested outpatient evaluation at that time. Transaminases, bilirubin, alkaline phosphatase are all in normal range, no tenderness on abdominal exam. DVT prophylaxis Continue Dabigatran 75mg BID Code status full code Regular diet Pharmacological DVT prophylaxis (Pradexa 75mg BID) Patient is full code Problem List: 1. Hyponatremia 2. Constipation Pain Ratin Pain Location: NA Pain Goal: Pain 4 or less Pain Plan: cONTINUE CURRENT MEDICATIONS Tomorrow's Labs & Rationales: Follow up BEP Jon Reveles MD 10/10/17 1802: Attending Review Statement Attending Statement Attending Statement: examined this patient, discuss w/resident/PA/[employer] GLASS WORKER, agreed w/resident/PA/[employer] WORKER, discussed with nursing Attending Assessment/Plan: A/P; 86 y/o F with pmh sig for TIA, HTN, HLD, A.fib on pradaxa and chronic back pain, admitted with intractable constipation, some dizziness and hyponatremia. Patient also had some generalized weakness and acute on chronic back pain. Patient has been started on bowel regimen. Constipation still an issue. Hyponatremia likely secondary to SIADH. She has been started on fluid restriction, will continue. She has received some IV fluids yesterday. Patient will be seen by physical therapy. She is on Pradaxa for history of A. fib and also for DVT prophylaxis.
[2017-10-10 14:52] VITALS: BP 140/76
[2017-10-10 22:23] VITALS: BP 113/74
[2017-10-11 07:31] VITALS: BP 143/79
[2017-10-11 08:55] LABS: ABSOLUTE BASOPHIL COUNT 0 /CUMM (0.0-0.2); ABSOLUTE EOSINOPHIL COUNT 0.2 /CUMM (0.0-0.7); ABSOLUTE GRANULOCYTE CT 6.3 /CUMM (1.4-6.5); ABSOLUTE LYMPH COUNT 1.4 /CUMM (1.2-3.4); ABSOLUTE MONOCYTE COUNT 0.9 /CUMM (0.10-0.60); BASOPHIL % 0.4 % (0.0-2.0); EOSINOPHIL % 2.3 % (0-5); GRANULOCYTE % 71.5 % (42.2-75.2); HEMATOCRIT 38.7 % (37-47); MEAN CORPUSCULAR HGB 29.4 PG (27.0-31.0); MEAN CORPUSCULAR HGB CONC 33.3 G/DL (33.0-37.0); MEAN CORPUSCULAR VOLUME 88.4 FL (81.0-99.0); MEAN PLATELET VOLUME 8.2 FL (7.4-10.4); PLATELET COUNT 304 /CUMM (130-400); RBC DISTRIBUTION WIDTH 20.1 % (11.5-14.5); RED BLOOD CELL CT 4.38 /CUMM (4.20-5.40); WHITE BLOOD CELL COUNT 8.8 /CUMM (4.8-10.8)
--- NOTE | 2017-10-11 09:11 | PN- Housestaff ---
See Addendum Subjective Follow-up For: Constipation Hyponatremia Hypokalemia Complaints: no complaints Subjective: patient seen and examined. No current complaints Review of Systems Constitutional: Reports: no symptoms. Objective Last 24 Hrs of Vital Signs/I&O Vital Signs Date Time Temp Pulse Resp B/P B/P Pulse O2 O2 Flow FiO2 Mean Ox Delivery Rate 10/11 1049 98 143/79 10/11 0731 97.4 98 20 143/79 95 10/10 2223 97.3 76 20 113/74 94 Room Air 10/10 2055 72 140/76 10/10 1452 97.9 72 20 140/76 95 Room Air Intake & Output 10/11 1600 10/11 0800 10/11 0000 Intake Total 200 350 Output Total Balance 200 350 Intake, Oral 200 350 Number 1 Bowel Movements Physical Exam General Appearance: Alert, Oriented X3, Cooperative, No Acute Distress Cardiovascular: Regular Rate, Normal S1, Normal S2 Lungs: Clear to Auscultation, Normal Air Movement Abdomen: Normal Bowel Sounds, Soft, No Tenderness Extremities: No Edema, Normal Pulses Current Medications: Current Medications Sig/Chava Start time Last Medication Dose Route Stop Time Status Admin Acetaminophen 650 MG Q4P PRN 10/08 2345 AC 10/11 PO 0516 Atorvastatin Calcium 40 MG 1700 10/09 1700 AC 10/10 PO 1904 Bisacodyl 10 MG DAILY NEEDED PRN 10/[address] Dabigatran 75 MG BID 10/09 0100 AC 10/11 PO 1048 Docusate Sodium 100 MG BID 10/09 1000 AC 10/11 PO 1047 Lactulose 20 GM BID 10/09 1341 DC 10/10 PO 2055 Magnesium Hydroxide 30 ML AT BEDTIME NEED.. 10/09 1115 AC PO Metoprolol Tartrate 12.5 MG BID 10/09 1000 AC 10/11 PO 1049 Polyethylene Glycol 17 GM DAILY 10/09 1000 AC 10/11 PO 1050 Potassium Chloride 40 MEQ BID 10/10 1211 DC 10/10 PO 10/10 2201 2055 Prochlorperazine 5 MG ONCE PRN 10/09 1715 AC 10/09 IV 1740 Senna/Docusate Sodium 2 TAB DAILY PRN 10/11 1030 AC PO Tramadol HCl 50 MG Q6 PRN 10/08 2345 AC 10/11 PO 0120 Last 24 Hrs of Lab/Jaime Results Last 24 Hrs of Labs/Mics: Laboratory Tests 10/11/17 0709: Anion Gap 9, Estimated GFR > 60, BUN/Creatinine Ratio 21.4, Cortisol AM Sample 17.8, CBC w Diff NO MAN DIFF REQ, RBC 4.38, MCV 88.4, MCH 29.4, MCHC 33.3, RDW 20.1 H, MPV 8.2, Gran % 71.5, Lymphocytes % 15.6 L, Monocytes % 10.2 H, Eosinophils % 2.3, Basophils % 0.4, Absolute Granulocytes 6.3, Absolute Lymphocytes 1.4, Absolute Monocytes 0.9 H, Absolute Eosinophils 0.2, Absolute Basophils 0 10/10/172010: Anion Gap 7, Estimated GFR > 60, BUN/Creatinine Ratio 17.1 Lines/Diet/Fluids Lines: peripheral lines Assessment/Plan Assessment: 86-year-old female with severe chronic back pain, chronic constipation , atrial fibrillation, dyslipidemia, HTN came in with complaints of dizziness, constipation and severe back pain. On lab analysis found to have worsening hyponatremia. #Constipation Complains of Constipation. Give dulcolax suppository. Stop lactulose and add senna S. Cont milk of mag and miralax. Avoid opiates and continue high fiber diet. #Hypotonic Hyponatremia Likely SIADH. AM Cortisol normal Continue fluid restriction - 1200ml per day. Na today 131. Monitor Na closely as it appears chronic. #Sub-clinical hypothyroidism on the current labs Repeat labs in a few weeks after resolution of current illness Hypokalemia Resolved. Monitor labs #Atrial fibrillation Rate controlled No acute episodes of palpitaions Continue Metoprolol tartarte 12.5mg BID and pradaxa 75mg BID #Chronic back pain Continue current pain management #Incidental finding of Scattered low-attenuation masses in the liver On the CT scan done on 10/04/2017, at that time further evaluation with MRI was suggested there was also 0.7 centimeter low attenuated mass on the pancreatic head and neck junction with mild dilation of pancreatic duct. Patient was suggested outpatient evaluation at that time. Transaminases, bilirubin, alkaline phosphatase are all in normal range, no tenderness on abdominal exam. Outpatient evaluation is neeed. -Regular diet -Pharmacological DVT prophylaxis (Pradexa 75mg BID) -Patient is full code Problem List: 1. Hyponatremia 2. Constipation Pain Ratin Pain Location: na Pain Goal: Remain pain free Pain Plan: current paln Tomorrow's Labs & Rationales: BEP
--- NOTE | 2017-10-11 13:37 | Patient Discharge Instructions ---
Discharge Instructions General Discharge Information You were seen/treated for: Hyponatremia and constipation Special Instructions: Please repeat your sodium level in 1 week Please follow up with your PCP in 1 week with the repeat labs Diet Recommended Diet: Regular Additional DIET Information: 1200ml fluid restriction per day till cleared by her PCP Activity Activity Self Limited: Yes Acute Coronary Syndrome Inclusion Criteria At DC or during hospital stay patient has or had the following: ACS DIAGNOSIS No Discharge Core Measures Meds if any: Prescribed or Continued at Discharge Meds if any: NOT Prescribed or Continued at Discharge Congestive Heart Failure Inclusion Criteria At DC or during hospital stay patient has or had the following: CHF DIAGNOSIS No Discharge Core Measures Meds if any: Prescribed or Continued at Discharge Meds if any: NOT Prescribed or Continued at Discharge Cerebrovascular accident Inclusion Criteria At DC or during hospital stay patient has or had the following: CVA/TIA Diagnosis No Discharge Core Measures Meds if any: Prescribed or Continued at Discharge Meds if any: NOT Prescribed or Continued at Discharge Venous thromboembolism Inclusion Criteria VTE Diagnosis No VTE Type NONE VTE Confirmed by (Test) NONE Discharge Core Measures - Per Current guidelines, there needs to be overlap - treatment for the first 5 days of Warfarin therapy. - If discharged on Warfarin prior to 5 days of - overlap therapy, the patient will need to be - assessed for post discharge needs including - *Post discharge parental anticoagulation - *Warfarin and/or parental anticoagulation education - *Follow up date to check INR post discharge At least 5 days overlap therapy as Inpatient No Meds if any: Prescribed or Continued at Discharge Note: Overlap Therapy is Warfarin and Anticoagulant Meds if any: NOT Prescribed or Continued at Discharge
[2017-10-11] MEDS ORDERED: MILK OF MA400 MG/52 PO (14:11)
[2017-10-11] MEDS ORDERED: BISAC-EVAC10 M1 PR (14:11)
[2017-10-11 14:22] VITALS: BP 124/77
== END 2017-10-11 15:37 | disposition home health service (06) ==
LOC: ERH 14:22 → ERHI 21:41 → ENRESERV 10-09 14:19 → ENTRNSPT 10-09 15:43 → 2NB 10-09 15:44 → EDTRNSPTSTS 10-09 16:06 → EDTRNSPT 10-09 16:06 → 2NB 10-09 16:18 → CMPTRNSPT 10-09 16:25 → ENPENDDIS 10-11 13:46 → 2NB 10-11 15:37
PROVIDERS: Internal Medicine; Physician Assistant; Student in an Organized Health Care Education/Training Program
DX: E87.1 Hypo-osmolality and hyponatremia (principal); Z86.73 Personal history of transient ischemic attack (TIA), and cerebral infarction without residual deficits; I10 Essential (primary) hypertension; E78.5 Hyperlipidemia, unspecified; I48.91 Unspecified atrial fibrillation; Z79.01 Long term (current) use of anticoagulants; K59.09 Other constipation; R16.0 Hepatomegaly, not elsewhere classified; E87.6 Hypokalemia; E03.9 Hypothyroidism, unspecified; M48.54XA Collapsed vertebra, not elsewhere classified, thoracic region, initial encounter for fracture
CPT/HCPCS: 84133; 84300; 36415; 36592; 74176; 81001; 82436; 82570; 93005; 93010; 96374; 96375; G0378; J0131; J0780; J2405